=== PATIENT | female | born 1945 | race Caucasian/White ===

== ENCOUNTER → 2016-05-27 | Outpatient (CLI) | payer MEDICARE ==
[2016-05-27 09:08] LABS: MEAN CORPUSCULAR HEMOGLOBIN 31.1 pg (27.0-33.0); MEAN CORPUSCULAR HGB CONC 34.8 g/dl (32.0-36.5); MEAN CORPUSCULAR VOLUME 89.4 fl (80.0-96.0); WHITE BLOOD COUNT 10.9 K/mm3 (4.0-10.0)
[2016-05-27 09:43] LABS: ALBUMIN 3.5 GM/DL (3.2-5.2); ALBUMIN/GLOBULIN RATIO 1.13 (1.00-1.93); BILIRUBIN,TOTAL 0.4 MG/DL (0.2-1.0); CREATININE FOR GFR 1.02 MG/DL (0.55-1.02); POTASSIUM SERUM 3.8 MEQ/L (3.5-5.1); TOTAL PROTEIN 6.6 GM/DL (6.4-8.2)
== END ==
LOC: M LAB 08:13
PROVIDERS: ATTEND Family Medicine
DX: E11.9 Type 2 diabetes mellitus without complications (principal)

== ENCOUNTER → 2016-06-22 | Outpatient (CLI) | payer MEDICARE ==
--- NOTE | 2016-06-22 13:09 | REPMRS ---
Patient History The patient states she had a clinical breast exam in June 2016. Patient is postmenopausal. Family history of ovarian cancer in maternal aunt at age 50 or over, colorectal cancer in maternal aunt, breast cancer in maternal cousin at age 40, and colorectal cancer in maternal uncle at age 50 or over. Benign excisional biopsy of both breasts. Took hormonal contraceptives for 7 years. Took unspecified hormones for 10 years. Sebaceous cyst marked with BB Digital Mammo Screening Bilat: June 22, 2016 - Exam #: [id number] Bilateral CC and MLO view(s) were taken. Technologist: Katie Rodriges, Technologist Prior study comparison: June 13, 2015, digital bilateral screening mammo, performed at [facility]. January 31, 2014, bilateral bilat screen digital mammo, performed at [facility] ([facility] FINDINGS: There are scattered fibroglandular densities. There has been no change in the appearance of the mammogram from the prior studies. There is a mild amount of residual fibroglandular tissue which is fairly symmetric. There is no interval development of dominant mass, architectural distortion, or clustered microcalcification suggestive of malignancy. ASSESSMENT: BI-RADS/ACR category 1 mammogram. Negative. Recommendation Routine screening mammogram in 1 year (for women over age 40). This mammogram was interpreted with the aid of an FDA-approved computer-aided dectection system. Electronically Signed By: Pancho Cortes MD 06/22/16 [id number]
== END ==
LOC: M RAD 10:12
PROVIDERS: ATTEND Nurse Practitioner Women's Health
DX: Z12.31 Encounter for screening mammogram for malignant neoplasm of breast (principal)

== ENCOUNTER → 2016-07-28 | Outpatient (REF) | payer MEDICARE | LOC: M LAB REF 16:56 | PROVIDERS: ATTEND Nurse Practitioner Women's Health | DX: N39.0 Urinary tract infection, site not specified (principal) ==

== ENCOUNTER → 2016-10-07 | Outpatient (CLI) | payer MEDICARE ==
--- NOTE | 2016-10-07 13:39 | REP ---
Left wrist series: Four views. History: Pain after injury. Findings: Four views of the left wrist demonstrate widening of the navicular lunate interval consistent with degenerative disruption of the navicular lunate ligament. The lunate bone itself is diffusely sclerotic. 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 There is slight hypertrophy of the radial styloid with the fragmentation consistent with degenerative change. Diffuse osteopenia is noted otherwise. Impression: 1. 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 2. 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 This could be further evaluated with wrist MRI scanning if feasible. Signed by Jc Mckeon MD 10/07/2016 02:10 P
== END ==
LOC: M WUC 12:14
PROVIDERS: ATTEND Physician Assistant
DX: M25.532 Pain in left wrist (principal)

== ENCOUNTER → 2017-05-27 | Outpatient (CLI) | payer MEDICARE ==
[2017-05-27 09:42] LABS: BASO # 0.1 10^3/uL (0.0-0.2); BASO % 0.8 % (0.0-1.0); EOS # 0.1 10^3/uL (0.0-0.50); HEMATOCRIT 40.6 % (36.0-47.0); HEMOGLOBIN 14.1 g/dl (12.0-15.5); IMMATURE GRANULOCYTE % 0.5 % (0-3.0); LYMPH # 2.7 10^3/uL (1.5-4.5); LYMPH % 34.8 % (24.0-44.0); MEAN CORPUSCULAR HEMOGLOBIN 30.3 pg (27.0-33.0); MEAN CORPUSCULAR HGB CONC 34.7 g/dl (32.0-36.5); MEAN CORPUSCULAR VOLUME 87.1 fl (80.0-96.0); MONO # 0.5 10^3/uL (0.0-0.8); NEUTROPHILS # 4.5 10^3/uL (1.8-7.7); NEUTROPHILS % 56.9 % (36.0-66.0); PLATELET COUNT, AUTOMATED 197 10^3/uL (150-450); RED BLOOD COUNT 4.66 10^6/uL (4.00-5.40); RED CELL DISTRIBUTION WIDTH 11.9 % (11.5-14.5); WHITE BLOOD COUNT 7.9 10^3/uL (4.0-10.0)
[2017-05-27 10:19] LABS: ALBUMIN 3.5 GM/DL (3.2-5.2); ALBUMIN/GLOBULIN RATIO 1.03 (1.00-1.93); ALKALINE PHOSPHATASE 65 U/L (45-117); ALT/SGPT 22 U/L (12-78); ANION GAP 7 MEQ/L (8-16); AST/SGOT 17 U/L (7-37); BILIRUBIN,TOTAL 0.5 MG/DL (0.2-1.0); BLOOD UREA NITROGEN 18 MG/DL (7-18); CALCIUM LEVEL 8.7 MG/DL (8.8-10.2); CARBON DIOXIDE LEVEL 30 MEQ/L (21-32); CHLORIDE LEVEL 105 MEQ/L (98-107); CHOLESTEROL LEVEL 174 MG/DL (<200); CHOLESTEROL RISK RATIO 3.702 (<5); CREATININE FOR GFR 0.76 MG/DL (0.55-1.30); GLOMERULAR FILTRATION RATE > 60.0 (>39); GLUCOSE, FASTING 116 MG/DL (70-100); HDL CHOLESTEROL 47 MG/DL (>40); LDL CHOLESTEROL 102.2 MG/DL (<100); NON-HDL-C 127 MG/DL; SODIUM LEVEL 142 MEQ/L (136-145); TOTAL PROTEIN 6.9 GM/DL (6.4-8.2); TRIGLYCERIDES LEVEL 124 MG/DL (<150)
[2017-05-27 10:30] LABS: MALB URINE SIEMENS 5.6 MG/L; MAU/CREAT RATIO 3.9 MCG/MG (0.0-30.0)
[2017-05-27 10:37] LABS: ESTIMATED AVERAGE GLUCOSE 128 MG/DL (60-110); HEMOGLOBIN A1c 6.1 %
== END ==
LOC: M LAB 08:56
DX: E11.9 Type 2 diabetes mellitus without complications (principal)
CPT/HCPCS: 80053

== ENCOUNTER → 2018-02-02 | Outpatient (CLI) | payer MEDICARE ==
--- NOTE | 2018-02-02 12:54 | REPMRS ---
Patient History The patient states she had a clinical breast exam in January 2018. Family history of breast cancer at age 40 in maternal cousin, ovarian cancer at age 50 or over in maternal aunt, colorectal cancer in maternal aunt, colorectal cancer at age 50 or over in maternal uncle. Benign excisional biopsy of both breasts. Took hormonal contraceptives for 7 years. Took unspecified hormones for 10 years. Digital Mammo Screening Bilat: February 02, 2018 - Exam #: [id number] Bilateral CC and MLO view(s) were taken. Technologist: Candelaria Sharp, Technologist Prior study comparison: June 22, 2016, bilateral digital mammo screening bilat performed at [facility]. June 13, 2015, digital bilateral screening mammo, performed at [facility]. January 31, 2014, bilateral bilat screen digital mammo, performed at [facility] ([facility]). FINDINGS: The breast tissue is almost entirely fat. There has been no change in the appearance of the mammogram from the prior studies. There is no interval development of dominant mass, architectural distortion, or clustered microcalcification typical of malignancy. 3-D tomosynthesis shows no additional findings. Assessment: BI-RADS/ACR category 1 mammogram. Negative. Recommendation Routine screening mammogram of both breasts in 1 year (for women over age 40). This patient's Lifetime Breast Cancer RIsk is estimated at 5.2 %. This mammogram was interpreted with the aid of an FDA-approved computer-aided dectection system. Electronically Signed By: Chris Mckeon MD 02/02/18 [id number]
== END ==
LOC: M RAD 10:37
PROVIDERS: ATTEND Nurse Practitioner Women's Health
DX: Z12.31 Encounter for screening mammogram for malignant neoplasm of breast (principal); Z80.3 Family history of malignant neoplasm of breast

== ENCOUNTER → 2018-04-19 | Outpatient (CLI) | payer MEDICARE ==
[2018-04-19 17:14] LABS: BLOOD UREA NITROGEN 19 MG/DL (7-18); CREATININE FOR GFR 0.71 MG/DL (0.55-1.30); GLOMERULAR FILTRATION RATE > 60.0 (>39)
== END ==
LOC: M LAB 15:36
PROVIDERS: ATTEND Orthopaedic Surgery
DX: M67.431 Ganglion, right wrist (principal)

== ENCOUNTER → 2018-05-22 | Outpatient (CLI) | payer MEDICARE ==
[2018-05-22 11:03] LABS: BASO # 0.1 10^3/uL (0.0-0.2); BASO % 0.7 % (0.0-1.0); EOS # 0.1 10^3/uL (0.0-0.50); EOS % 0.9 % (0.0-3.0); HEMATOCRIT 38.4 % (36.0-47.0); HEMOGLOBIN 13.1 g/dl (12.0-15.5); LYMPH # 2.5 10^3/uL (1.5-4.5); MEAN CORPUSCULAR HEMOGLOBIN 30.5 pg (27.0-33.0); MEAN CORPUSCULAR HGB CONC 34.1 g/dl (32.0-36.5); MEAN CORPUSCULAR VOLUME 89.5 fl (80.0-96.0); MONO # 0.5 10^3/uL (0.0-0.8); MONO % 7.2 % (0.0-5.0); NEUTROPHILS # 3.8 10^3/uL (1.8-7.7); NEUTROPHILS % 54.9 % (36.0-66.0); PLATELET COUNT, AUTOMATED 185 10^3/uL (150-450); RED BLOOD COUNT 4.29 10^6/uL (4.00-5.40); WHITE BLOOD COUNT 6.8 10^3/uL (4.0-10.0)
[2018-05-22 11:21] LABS: HEMOGLOBIN A1c 5.9 %
[2018-05-22 11:36] LABS: ALBUMIN 3.5 GM/DL (3.2-5.2); ALT/SGPT 25 U/L (12-78); BILIRUBIN,TOTAL 0.6 MG/DL (0.2-1.0); BLOOD UREA NITROGEN 16 MG/DL (7-18); CALCIUM LEVEL 8.9 MG/DL (8.8-10.2); CARBON DIOXIDE LEVEL 28 MEQ/L (21-32); CHLORIDE LEVEL 107 MEQ/L (98-107); CHOLESTEROL LEVEL 191 MG/DL (<200); CHOLESTEROL RISK RATIO 3.979 (<5); GLOMERULAR FILTRATION RATE > 60.0 (>39); GLUCOSE, FASTING 111 MG/DL (70-100); HDL CHOLESTEROL 48 MG/DL (>40); LDL CHOLESTEROL 117 MG/DL (<100); NON-HDL-C 143 MG/DL; POTASSIUM SERUM 3.7 MEQ/L (3.5-5.1); SODIUM LEVEL 140 MEQ/L (136-145); TOTAL PROTEIN 6.7 GM/DL (6.4-8.2); TRIGLYCERIDES LEVEL 129 MG/DL (<150)
[2018-05-22 11:46] LABS: MALB URINE SIEMENS 5.1 MG/L; MAU/CREAT RATIO 3.2 MCG/MG (0.0-30.0)
== END ==
LOC: M LAB 10:31
PROVIDERS: ATTEND Family Medicine
DX: E11.9 Type 2 diabetes mellitus without complications (principal)

== ENCOUNTER → 2018-09-21 | Outpatient (CLI) | payer MEDICARE ==
--- NOTE | 2018-09-21 14:58 | REP ---
DIAGNOSTIC MAMMOGRAM LEFT BREAST WITH LEFT BREAST ULTRASOUND: HISTORY: Palpable lump inferomedial left breast. COMPARISON: 02/02/2018 as well as other prior exams. Family history of breast cancer in maternal cousin. Tyrer-zick lifetime risk of breast cancer 4.9%. MLO and CC views of the left breast performed with 3D tomosynthesis. Additional spot compression views of the inferomedial left breast are performed at the site of the reported palpable abnormality, which is marked on the skin. Breast parenchyma is predominantly fatty replaced with no suspicious nodule or architectural distortion. No clustered microcalcifications are seen. Real-time sonographic evaluation of the left breast is performed at the site of the palpable lump inferomedially. No cyst is or solid nodule is seen sonographically. IMPRESSION: BIRADS 1: BI-RADS/ACR category 1 mammogram. Negative Mammogram. ACR 1 negative mammogram and ultrasound left breast. There is no mammographic or sonographic evidence of mass at the site of the reported palpable abnormality in the inferomedial left breast. A negative mammogram and ultrasound should not deter biopsy of there is a clinical suspicious palpable mass present. Clinical correlation and followup recommended. I would recommend followup bilateral mammogram in January 2019, which would be 1 year from her prior bilateral screening mammogram. This mammogram was interpreted with the aid of an FDA-approved computer-aided detection system. A. Negative x-ray reports should not delay biopsy if a dominant or clinically suspicious mass is present. B. Four to eight percent of cancers are not identified by x-ray. C. Adenosis and dense breasts may obscure an underlying neoplasm. The patient states she/he had a clinical breast exam in January 2018. The patient letter being requested is M2. Electronically Signed by Pancho Cortes MD 09/21/2018 03:22 P
== END ==
LOC: M RAD 12:03
PROVIDERS: ATTEND Family Medicine
DX: N63.20 Unspecified lump in the left breast, unspecified quadrant (principal)
CPT/HCPCS: 76642; 77065; G0279

== ENCOUNTER → 2018-10-11 | Outpatient (CLI) | payer MEDICARE ==
[2018-10-11 09:03] LABS: BASO # 0.1 10^3/uL (0.0-0.2); BASO % 0.7 % (0.0-1.0); EOS # 0.1 10^3/uL (0.0-0.50); EOS % 1.2 % (0.0-3.0); HEMATOCRIT 39.2 % (36.0-47.0); HEMOGLOBIN 13.3 g/dl (12.0-15.5); LYMPH # 2.5 10^3/uL (1.5-4.5); LYMPH % 36.6 % (24.0-44.0); MEAN CORPUSCULAR HEMOGLOBIN 30.6 pg (27.0-33.0); MEAN CORPUSCULAR HGB CONC 33.9 g/dl (32.0-36.5); MEAN CORPUSCULAR VOLUME 90.3 fl (80.0-96.0); MONO # 0.4 10^3/uL (0.0-0.8); MONO % 6.3 % (0.0-5.0); NEUTROPHILS # 3.8 10^3/uL (1.8-7.7); NEUTROPHILS % 54.6 % (36.0-66.0); PLATELET COUNT, AUTOMATED 168 10^3/uL (150-450); RED BLOOD COUNT 4.34 10^6/uL (4.00-5.40); WHITE BLOOD COUNT 6.9 10^3/uL (4.0-10.0)
[2018-10-11 09:37] LABS: THYROID STIMULATING HORMONE 1.77 uIU/ML (0.358-3.740)
== END ==
LOC: M LAB 08:17
PROVIDERS: ATTEND Obstetrics & Gynecology
DX: R53.83 Other fatigue (principal)

== ENCOUNTER → 2018-11-01 | Outpatient (CLI) | payer MEDICARE ==
[2018-11-01 08:57] LABS: HEMOGLOBIN 13.5 g/dl (12.0-15.5); MEAN CORPUSCULAR HEMOGLOBIN 30.1 pg (27.0-33.0); MEAN CORPUSCULAR HGB CONC 33.8 g/dl (32.0-36.5); MEAN CORPUSCULAR VOLUME 89.3 fl (80.0-96.0); PLATELET COUNT, AUTOMATED 182 10^3/uL (150-450); RED BLOOD COUNT 4.48 10^6/uL (4.00-5.40); WHITE BLOOD COUNT 7.4 10^3/uL (4.0-10.0)
[2018-11-01 09:29] LABS: ALBUMIN 3.4 GM/DL (3.2-5.2); ALT/SGPT 21 U/L (12-78); BILIRUBIN,TOTAL 0.4 MG/DL (0.2-1.0); BLOOD UREA NITROGEN 13 MG/DL (7-18); CARBON DIOXIDE LEVEL 29 MEQ/L (21-32); CHLORIDE LEVEL 106 MEQ/L (98-107); CREATININE FOR GFR 0.68 MG/DL (0.55-1.30); GLOMERULAR FILTRATION RATE > 60.0 (>39); GLUCOSE, FASTING 110 MG/DL (70-100); POTASSIUM SERUM 3.7 MEQ/L (3.5-5.1); SODIUM LEVEL 142 MEQ/L (136-145); TOTAL PROTEIN 6.8 GM/DL (6.4-8.2)
== END ==
LOC: M LAB 08:20
PROVIDERS: ATTEND Family Medicine
DX: Z01.818 Encounter for other preprocedural examination (principal)

== ENCOUNTER → 2019-06-04 | Outpatient (CLI) | payer MEDICARE ==
[2019-06-04 14:27] LABS: HEMATOCRIT 41.7 % (36.0-47.0); HEMOGLOBIN 14.2 g/dl (12.0-15.5); MEAN CORPUSCULAR HEMOGLOBIN 30.5 pg (27.0-33.0); MEAN CORPUSCULAR HGB CONC 34.1 g/dl (32.0-36.5); MEAN CORPUSCULAR VOLUME 89.5 fl (80.0-96.0); PLATELET COUNT, AUTOMATED 218 10^3/uL (150-450); RED BLOOD COUNT 4.66 10^6/uL (4.00-5.40); WHITE BLOOD COUNT 7.9 10^3/uL (4.0-10.0)
[2019-06-04 14:39] LABS: ALBUMIN 3.6 GM/DL (3.2-5.2); ALT/SGPT 24 U/L (12-78); BILIRUBIN,TOTAL 0.7 MG/DL (0.2-1.0); BLOOD UREA NITROGEN 13 MG/DL (7-18); CALCIUM LEVEL 9.1 MG/DL (8.8-10.2); CARBON DIOXIDE LEVEL 30 MEQ/L (21-32); CHLORIDE LEVEL 102 MEQ/L (98-107); CHOLESTEROL LEVEL 205 MG/DL (<200); CHOLESTEROL RISK RATIO 4.767 (<5); CREATININE FOR GFR 0.75 MG/DL (0.55-1.30); GLOMERULAR FILTRATION RATE > 60.0 (>39); GLUCOSE, FASTING 129 MG/DL (70-100); HDL CHOLESTEROL 43 MG/DL (>40); LDL CHOLESTEROL 129 MG/DL (<100); NON-HDL-C 162 MG/DL; SODIUM LEVEL 138 MEQ/L (136-145); TOTAL PROTEIN 7.3 GM/DL (6.4-8.2); TRIGLYCERIDES LEVEL 163 MG/DL (<150)
[2019-06-04 18:42] LABS: HEMOGLOBIN A1c 6.8 %
[2019-06-04 21:11] LABS: CREATININE, URINE 58.6 MG/DL; MALB URINE SIEMENS < 5.0 MG/L; MAU/CREAT RATIO 8.5 MCG/MG (0.0-30.0)
== END ==
LOC: M WUC 09:11
PROVIDERS: ATTEND Family Medicine
DX: E11.9 Type 2 diabetes mellitus without complications (principal)

== ENCOUNTER 2019-08-18 08:49 | Emergency (ER) | payer MEDICARE ==
[~2019-08-18] VITALS: Ht 167.6 cm; Wt 101.1 kg
[2019-08-18] MEDS ORDERED: OMEP-218 PO (09:00)
[2019-08-18] MEDS ORDERED: SIMV20TA22 PO (09:00)
[2019-08-18] MEDS ORDERED: HYDR25TAB PO (09:00)
[2019-08-18] MEDS ORDERED: PROPARACAINE 0.5% OPHTH SOL 15ML OD ONE (10:00)
[2019-08-18 10:52] VITALS: BP 144/65
== END 2019-08-18 10:58 | disposition short-term general hospital (02) ==
LOC: M ED 08:49
DX: H54.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, right eye, normal vision left eye (principal); I10 Essential (primary) hypertension; Z79.899 Other long term (current) drug therapy; Z88.5 Allergy status to narcotic agent

== ENCOUNTER → 2019-09-05 | Outpatient (CLI) | payer MEDICARE ==
[~2019-09-05] MED LIST: HYDR25TAB PO; OMEP-218 PO; SIMV20TA22 PO
--- NOTE | 2019-09-05 10:56 | REP ---
Clinical: Pain. Technique: AP, lateral, bilateral oblique views of the left first toe. Findings: Age-related degenerative changes include increased sclerosis with subtle spurring and joint space narrowing at the first metatarsophalangeal joint with overlying swelling and to a lesser extent the first tarsometatarsal joint. No acute fracture dislocation. Impression: Degenerative changes. Electronically Signed by Drake De La Paz MD 09/05/2019 10:47 A
[2019-09-05 12:26] LABS: ALBUMIN 3.4 GM/DL (3.2-5.2); BLOOD UREA NITROGEN 13 MG/DL (7-18); CALCIUM LEVEL 8.8 MG/DL (8.8-10.2); CARBON DIOXIDE LEVEL 29 MEQ/L (21-32); CHLORIDE LEVEL 102 MEQ/L (98-107); CREATININE FOR GFR 0.82 MG/DL (0.55-1.30); GLOMERULAR FILTRATION RATE > 60.0 (>39); GLUCOSE, FASTING 136 MG/DL (70-100); PHOSPHORUS LEVEL 3.3 MG/DL (2.5-4.9); POTASSIUM SERUM 3.6 MEQ/L (3.5-5.1); SODIUM LEVEL 138 MEQ/L (136-145); URIC ACID 7.2 MG/DL (2.6-6.0)
== END ==
LOC: M WUC 10:00
PROVIDERS: ATTEND Physician Assistant
DX: M19.072 Primary osteoarthritis, left ankle and foot (principal)

== ENCOUNTER → 2020-01-23 | Outpatient (CLI) | payer MEDICARE ==
--- NOTE | 2020-01-23 11:32 | REPMRS ---
Patient History The patient states she has not had a clinical breast exam in over a year. Patient is postmenopausal. Family history of breast cancer at age 40 in maternal cousin, ovarian cancer at age 50 or over in maternal aunt, colorectal cancer in maternal aunt, colorectal cancer at age 50 or over in maternal uncle. Benign excisional biopsy of the left breast, 2019. Benign excisional biopsy of both breasts. Took hormonal contraceptives for 7 years. Took unspecified hormones for 10 years. Digital Woman Screen Mammo: January 23, 2020 - Exam #: [id number] Bilateral CC and MLO view(s) were taken. Technologist: Julianna Escamilla, Technologist Prior study comparison: February 02, 2018, bilateral digital mammo screening bilat, performed at [facility]. June 22, 2016, bilateral digital mammo screening bilat, performed at [facility]. June 13, 2015, digital bilateral screening mammo, performed at [facility]. FINDINGS: The breast tissue is almost entirely fat. The Volpara volumetric breast density category is: A. There has been no change in the appearance of the mammogram from the prior studies. There is no interval development of dominant mass, architectural distortion, or grouped microcalcification typical of malignancy. 3-D tomosynthesis shows no additional findings. Assessment: BI-RADS/ACR category 1 mammogram. Negative Mammogram. Recommendation Routine screening mammogram of both breasts in 1 year (for women over age 40). This patient's [facility] Lifetime Breast Cancer RIsk is estimated at 4.6 %. This mammogram was interpreted with the aid of an FDA-approved computer-aided dectection system. Electronically Signed By: Chris Mckeon MD 01/23/20 [id number]
== END ==
LOC: M WHC 10:07
PROVIDERS: ATTEND Family Medicine
DX: Z12.31 Encounter for screening mammogram for malignant neoplasm of breast (principal)

== ENCOUNTER 2020-04-10 17:00 | Emergency (ER) | payer MEDICARE ==
[~2020-04-10] VITALS: Ht 167.6 cm; Wt 96.4 kg
[~2020-04-10 17:00] MED LIST changes: +HYDR-3490 PO; -HYDR25TAB PO
--- OUTSIDE RECORDS SUMMARY | 2020-04-10 17:05 | CCD ---
Author Author [facility] Organization [facility] Address Unknown Phone Unavailable Care Team Providers Care Director Of Software Engineering Name Role Phone Sourav Yoon MD Unavailable Unavailable Sourav Yoon MD Unavailable Unavailable Sourav Yoon MD Unavailable Unavailable Kylah LUNA DPM Unavailable Unavailable Kylah LUNA DPM Unavailable Unavailable Kylah LUNA DPM Unavailable Unavailable Kylah LUNA DPM Unavailable Unavailable Kylah LUNA DPM Unavailable Unavailable Kylah LUNA DPM Unavailable Unavailable Kylah LUNA DPM Unavailable Unavailable Kylah LUNA DPM Unavailable Unavailable Kylah LUNA DPM Unavailable Unavailable Kylah LUNA DPM Unavailable Unavailable Kylah LUNA DPM Unavailable Unavailable Kylah LUNA DPM Unavailable Unavailable Kylah LUNA DPM Unavailable Unavailable Kylah LUNA DPM Unavailable Unavailable Kylah LUNA DPM Unavailable Unavailable Kylah LUNA DPM Unavailable Unavailable Kylah LUNA DPM Unavailable Unavailable Kylah LUNA DPM Unavailable Unavailable Kylah LUNA DPM Unavailable Unavailable Kylah LUNA DPM Unavailable Unavailable Kylah LUNA DPM Unavailable Unavailable Kylah LUNA DPM Unavailable Unavailable Kylah LUNA DPM Unavailable Unavailable Kylah LUNA DPM Unavailable Unavailable Kylah LUAN DPM Unavailable Unavailable Kylah LUNA DPM Unavailable Unavailable Kylah LUNA DPM Unavailable Unavailable JEREMY Kylah IBARRA DPM Unavailable Unavailable Kylah LUNA DPM Unavailable Unavailable JEREMY, Kylah IBARRA DPM Unavailable Unavailable ALIASES , DEFAULT / GENERIC / UNKNOWN PROVIDER * Unavailable Unavailable ALIASES , DEFAULT / GENERIC / UNKNOWN PROVIDER * Unavailable Unavailable ALIASES , DEFAULT / GENERIC / UNKNOWN PROVIDER * Unavailable Unavailable ALIASES , DEFAULT / GENERIC / UNKNOWN PROVIDER * Unavailable Unavailable ALIASES , DEFAULT / GENERIC / UNKNOWN PROVIDER * Unavailable Unavailable ALIASES , DEFAULT / GENERIC / UNKNOWN PROVIDER * Unavailable Unavailable ALIASES , DEFAULT / GENERIC / UNKNOWN PROVIDER * Unavailable Unavailable ALIASES , DEFAULT / GENERIC / UNKNOWN PROVIDER * Unavailable Unavailable ALIASES , DEFAULT / GENERIC / UNKNOWN PROVIDER * Unavailable Unavailable ALIASES , DEFAULT / GENERIC / UNKNOWN PROVIDER * Unavailable Unavailable ALIASES , DEFAULT / GENERIC / UNKNOWN PROVIDER * Unavailable Unavailable ALIASES , DEFAULT / GENERIC / UNKNOWN PROVIDER * Unavailable Unavailable ALIASES , DEFAULT / GENERIC / UNKNOWN PROVIDER * Unavailable Unavailable ALIASES , DEFAULT / GENERIC / UNKNOWN PROVIDER * Unavailable Unavailable ALIASES , DEFAULT / GENERIC / UNKNOWN PROVIDER * Unavailable Unavailable ALIASES , DEFAULT / GENERIC / UNKNOWN PROVIDER * Unavailable Unavailable ALIASES , DEFAULT / GENERIC / UNKNOWN PROVIDER * Unavailable Unavailable ALIASES , DEFAULT / GENERIC / UNKNOWN PROVIDER * Unavailable Unavailable ALIASES , DEFAULT / GENERIC / UNKNOWN PROVIDER * Unavailable Unavailable ALIASES , DEFAULT / GENERIC / UNKNOWN PROVIDER * Unavailable Unavailable ALIASES , DEFAULT / GENERIC / UNKNOWN PROVIDER * Unavailable Unavailable ALIASES , DEFAULT / GENERIC / UNKNOWN PROVIDER * Unavailable Unavailable ALIASES , DEFAULT / GENERIC / UNKNOWN PROVIDER * Unavailable Unavailable ALIASES , DEFAULT / GENERIC / UNKNOWN PROVIDER * Unavailable Unavailable ALIASES , DEFAULT / GENERIC / UNKNOWN PROVIDER * Unavailable Unavailable ALIASES , DEFAULT / GENERIC / UNKNOWN PROVIDER * Unavailable Unavailable ALIASES , DEFAULT / GENERIC / UNKNOWN PROVIDER * Unavailable Unavailable ALIASES , DEFAULT / GENERIC / UNKNOWN PROVIDER * Unavailable Unavailable ALIASES , DEFAULT / GENERIC / UNKNOWN PROVIDER * Unavailable Unavailable ALIASES , DEFAULT / GENERIC / UNKNOWN PROVIDER * Unavailable Unavailable ALIASES , DEFAULT / GENERIC / UNKNOWN PROVIDER * Unavailable Unavailable ALIASES , DEFAULT / GENERIC / UNKNOWN PROVIDER * Unavailable Unavailable ALIASES , DEFAULT / GENERIC / UNKNOWN PROVIDER * Unavailable Unavailable ALIASES , DEFAULT / GENERIC / UNKNOWN PROVIDER * Unavailable Unavailable ALIASES , DEFAULT / GENERIC / UNKNOWN PROVIDER * Unavailable Unavailable ALIASES , DEFAULT / GENERIC / UNKNOWN PROVIDER * Unavailable Unavailable ALIASES , DEFAULT / GENERIC / UNKNOWN PROVIDER * Unavailable Unavailable ALIASES , DEFAULT / GENERIC / UNKNOWN PROVIDER * Unavailable Unavailable ALIASES , DEFAULT / GENERIC / UNKNOWN PROVIDER * Unavailable Unavailable ALIASES , DEFAULT / GENERIC / UNKNOWN PROVIDER * Unavailable Unavailable ALIASES , DEFAULT / GENERIC / UNKNOWN PROVIDER * Unavailable Unavailable ALIASES , DEFAULT / GENERIC / UNKNOWN PROVIDER * Unavailable Unavailable ALIASES , DEFAULT / GENERIC / UNKNOWN PROVIDER * Unavailable Unavailable ALIASES , DEFAULT / GENERIC / UNKNOWN PROVIDER * Unavailable Unavailable ALIASES , DEFAULT / GENERIC / UNKNOWN PROVIDER * Unavailable Unavailable ALIASES , DEFAULT / GENERIC / UNKNOWN PROVIDER * Unavailable Unavailable ALIASES , DEFAULT / GENERIC / UNKNOWN PROVIDER * Unavailable Unavailable ALIASES , DEFAULT / GENERIC / UNKNOWN PROVIDER * Unavailable Unavailable ALIASES , DEFAULT / GENERIC / UNKNOWN PROVIDER * Unavailable Unavailable ALIASES , DEFAULT / GENERIC / UNKNOWN PROVIDER * Unavailable Unavailable ALIASES , DEFAULT / GENERIC / UNKNOWN PROVIDER * Unavailable Unavailable ALIASES , DEFAULT / GENERIC / UNKNOWN PROVIDER * Unavailable Unavailable ALIASES , DEFAULT / GENERIC / UNKNOWN PROVIDER * Unavailable Unavailable SCHNAIDT, KHARI Unavailable Unavailable Orenberg, L Stacey Unavailable Unavailable Orenberg, L Stacey Unavailable Unavailable Orenberg, L Stacey Unavailable Unavailable Orenberg, L Stacey Unavailable Unavailable Orenberg, L Stacey Unavailable Unavailable Airam, Casey Xiao MD Unavailable Unavailable Airam, Casey Xiao MD Unavailable Unavailable Airam, Casey Xiao MD Unavailable Unavailable AiramCasey MD Unavailable Unavailable AiramCasey MD Unavailable Unavailable AiramCasey MD Unavailable Unavailable AiramCasey MD Unavailable Unavailable AiramCasey MD Unavailable Unavailable AiramCasey MD Unavailable Unavailable AiramCasey MD Unavailable Unavailable Casey Alegria MD Unavailable Unavailable AiramCasey MD Unavailable Unavailable AiramCasey MD Unavailable Unavailable AiramCasey MD Unavailable Unavailable Airam, Casey Xiao MD Unavailable Unavailable Casey Alegria MD Unavailable Unavailable AiramCasey lloyd MD Unavailable Unavailable AiramCasey MD Unavailable Unavailable AiramCasey MD Unavailable Unavailable AiramCasey MD Unavailable Unavailable AiramCasey MD Unavailable Unavailable Airam, Casey Xiao MD Unavailable Unavailable Airam, G Dameon MD Unavailable Unavailable AiramCasey MD Unavailable Unavailable AiramCasey MD Unavailable Unavailable AiramCasey MD Unavailable Unavailable AiramCasey MD Unavailable Unavailable Airam, Casey Xiao MD Unavailable Unavailable Airam, Casey Xiao MD Unavailable Unavailable Airam, Casey Xiao MD Unavailable Unavailable AiramCasey MD Unavailable Unavailable Airam, Casey Xiao MD Unavailable Unavailable Airam, Casey Xiao MD Unavailable Unavailable Airam, Casey Xiao MD Unavailable Unavailable Airam, Casey Xiao MD Unavailable Unavailable Airam, Casey Xiao MD Unavailable Unavailable Airam, Casey Xiao MD Unavailable Unavailable Airam, Casey Xiao MD Unavailable Unavailable Airam, Casey Xiao MD Unavailable Unavailable Airam, Casey Xiao MD Unavailable Unavailable Airam, Casey Xiao MD Unavailable Unavailable Airam, Casey Xiao MD Unavailable Unavailable Airam, Casey Xiao MD Unavailable Unavailable AiramCasey MD Unavailable Unavailable AiramCasey MD Unavailable Unavailable AiramCasey MD Unavailable Unavailable AiramCasey MD Unavailable Unavailable YINKAEELain Vela MD Unavailable Unavailable DULEEPLaniRIDDHI MD Unavailable Unavailable YINKAEEPLani MD Unavailable Unavailable DULEEPLani MD Unavailable Unavailable YINKAEELani Vela MD Unavailable Unavailable YINKAEEPLani MD Unavailable Unavailable DULEEPLani MD Unavailable Unavailable YINKAEEPLani MD Unavailable Unavailable YINKAEELani Vela MD Unavailable Unavailable YINKAEELani Vela MD Unavailable Unavailable YINKAEEP K RIDDHI MD Unavailable Unavailable YINKAEEP K RIDDHI GUADARRAMA Unavailable Unavailable DULEEP, K RIDDHI MD Unavailable Unavailable YINKAEEP K RIDDHI GUADARRAMA Unavailable Unavailable DULEEP, K RIDDHI MD Unavailable Unavailable YINKAEEPLani MD Unavailable Unavailable YINKAEEP K RIDDHI MD Unavailable Unavailable DULEEP K RIDDHI GUADARRAMA Unavailable Unavailable DULEEP, K RIDDHI MD Unavailable Unavailable DULEEPLani MD Unavailable Unavailable YINKAEEPLani MD Unavailable Unavailable YINKAEEP K RIDDHI GUADARRAMA Unavailable Unavailable DULEEP, K RIDDHI MD Unavailable Unavailable DULEEP, K RIDDHI MD Unavailable Unavailable DULEEP, K RIDDHI MD Unavailable Unavailable DULEEP, K RIDDHI MD Unavailable Unavailable DULEEP, K RIDDHI MD Unavailable Unavailable DULEEP, K RIDDHI MD Unavailable Unavailable DULEEP, K RIDDHI MD Unavailable Unavailable DULEEP, K RIDDHI MD Unavailable Unavailable DULEEP, K RIDDHI MD Unavailable Unavailable DULEEP, K RIDDHI MD Unavailable Unavailable DULEEP, K RIDDHI MD Unavailable Unavailable DULEEP, K RIDDHI MD Unavailable Unavailable DULEEP, K RIDDHI MD Unavailable Unavailable DULEEP, K RIDDHI MD Unavailable Unavailable DULEEP, K RIDDHI MD Unavailable Unavailable DULEEP, K RIDDHI MD Unavailable Unavailable DULEEP, K RIDDHI MD Unavailable Unavailable DULEEP, K RIDDHI MD Unavailable Unavailable DULEEP, K RIDDHI MD Unavailable Unavailable DULEEP, K RIDDHI MD Unavailable Unavailable DULEEP, K RIDDHI MD Unavailable Unavailable DULEEP, K RIDDHI MD Unavailable Unavailable DULEEP, K RIDDHI MD Unavailable Unavailable DULEEP, K RIDDHI MD Unavailable Unavailable DULEEP, K RIDDHI MD Unavailable Unavailable DULEEP, K RIDDHI MD Unavailable Unavailable DULEEP, K RIDDHI MD Unavailable Unavailable DULEEP, K RIDDHI MD Unavailable Unavailable DULEEP, K RIDDHI MD Unavailable Unavailable DULEEP, K RIDDHI MD Unavailable Unavailable DULEEP, K RIDDHI MD Unavailable Unavailable DULEEP, K RIDDHI MD Unavailable Unavailable DULEEP, K RIDDHI MD Unavailable Unavailable DULEEP, K RIDDHI MD Unavailable Unavailable DULEEP, K RIDDHI MD Unavailable Unavailable DULEEP, K RIDDHI MD Unavailable Unavailable DULEEP, K RIDDHI MD Unavailable Unavailable Bebeto TRUJILLO MD Unavailable Bebeto TRUJILLO MD Unavailable Bebeto TRUJILLO MD Unavailable Bebeto TRUJILLO MD Unavailable Bebeto TRUJILLO MD Unavailable RADHA FOUNTAIN MD Unavailable RADHA FOUNTAIN MD Unavailable RADHA FONUTAIN MD Unavailable RADHA FOUNTAIN MD Unavailable RADHA FOUNTAIN MD Unavailable ASHLEY [id number], E JOHN PAUL [id number] Unavailable Unavailab le ASHLEY [id number], E JOHN PAUL [id number] Unavailable Unavailab le ASHLEY [id number], E JOHN PAUL [id number] Unavailable Unavailab le LETTIERE, A BRENDEN PA Unavailable Unavailable LETTIERE, A BRENDEN PA Unavailable Unavailable LETTIERE, A BRENDEN PA Unavailable Unavailable LETTIERE, A BRENDEN PA Unavailable Unavailable LETTIERE, A BRENDEN PA Unavailable Unavailable LETTIERE, A BRENDEN PA Unavailable Unavailable LETTIERE, A BRENDEN PA Unavailable Unavailable LETTIERE, A BRENDEN PA Unavailable Unavailable LETTIERE, A BRENDEN PA Unavailable Unavailable LETTIERE, A BRENDEN PA Unavailable Unavailable LETTIERE, A BRENDEN PA Unavailable Unavailable LETTIERE, A BRENDEN PA Unavailable Unavailable LETTIERE, A BRENDEN PA Unavailable Unavailable LETTIERE, A BRENDEN PA Unavailable Unavailable LETTIERE, A BRENDEN PA Unavailable Unavailable LETTIERE, A BRENDEN PA Unavailable Unavailable LETTIERE, A BRENDEN PA Unavailable Unavailable LETTIERE, A BRENDEN PA Unavailable Unavailable LETTIERE, A BRENDEN PA Unavailable Unavailable LETTIERE, A BRENDEN PA Unavailable Unavailable LETTIERE, A BRENDEN PA Unavailable Unavailable LETTIERE, A BRENDEN PA Unavailable Unavailable LETTIERE, A BRENDEN PA Unavailable Unavailable LETTIERE, A BRENDEN PA Unavailable Unavailable LETTIERE, A BRENDEN PA Unavailable Unavailable LETTIERE, A BRENDEN PA Unavailable Unavailable LETTIERE, A BRENDEN PA Unavailable Unavailable LETTIERE, A BRENDEN PA Unavailable Unavailable LETTIERE, A BRENDEN PA Unavailable Unavailable KUROCHKIN, KIRTI Unavailable Unavailable Re-disclosure Warning The records that you are about to access may contain information from federally-assisted alcohol or drug abuse programs. If such information is present, then the following federally mandated warning applies: This information has been disclosed to you from records protected by federal confidentiality rules (42 CFR part 2). The federal rules prohibit you from making any further disclosure of this information unless further disclosure is expressly permitted by the written consent of the person to whom it pertains or as otherwise permitted by 42 CFR part 2. A general authorization for the release of medical or other information is NOT sufficient for this purpose. The Federal rules restrict any use of the information to criminally investigate or prosecute any alcohol or drug abuse patient.The records that you are about to access may contain highly sensitive health information, the redisclosure of which is protected by Article 27-F of the [facility] Public Health law. If you continue you may have access to information: Regarding HIV / AIDS; Provided by facilities licensed or operated by the [facility] Office of Mental Health; or Provided by the [facility] Office for People With Developmental Disabilities. If such information is present, then the following [facility] mandated warning applies: This information has been disclosed to you from confidential records which are protected by state law. State law prohibits you from making any further disclosure of this information without the specific written consent of the person to whom it pertains, or as otherwise permitted by law. Any unauthorized further disclosure in violation of state law may result in a fine or chcf sentence or both. A general authorization for the release of medical or other information is NOT sufficient authorization for further disc losure. Family History Family Member Name Family Member Gender Family Member Status Date o f Status Description Data Source(s) Unknown Unknown Problem [facility] ([facility]) Unknown Male Problem [facility] ([facility]) Unknown Unknown Problem [facility] ([facility] Unknown Female Problem [facility] ([facility] Unknown Female Problem [facility] ([facility] Encounters Encounter Providers Location Date Indications Data Source(s ) Outpatient 05/15/2020 12:00:00 AM EDT [facility] Outpatient Attender: Stacey Raymundo [id number] 2019 12:00:00 AM EDT - 12/04/2019 03:10:05 PM EDT Central retinal artery occlusion, right eye [facility] Central retinal artery occlusion, right eye Outpatient Attender: STACEY ULNA [facility] Office 11/14 09:15:00 AM EDT [facility] ([facility] Outpatient Attender: JOHN PAUL RAMIREZ [id number] 1 12:00:00 AM EDT - 11/27/2019 02:15:22 PM EDT Occlusion and stenosis of left carotid artery [facility] Occlusion and stenosis of left carotid a rtery Outpatient Referrer: Jaylen Yoon MD 11/27/2019 12:0 0:00 AM EDT Occlusion and stenosis of left carotid artery [facility] Occlusion and stenosis of left carotid a rtery Outpatient Attender: KITRI ALSTON [id number] 10/29 12:00:00 AM EDT - 10/30/2019 02:17:12 PM EDT Central retinal artery occlusion, right eye [facility] Central retinal artery occlusion, right eye Outpatient Attender: KIRTI ALSTON [id number] 09/24 12:00:00 AM EDT - 09/25/2019 03:39:27 PM EDT Central retinal artery occlusion, right eye [facility] Central retinal artery occlusion, right eye Outpatient Attender: Dameon Alegria MDReferrer: Dameon navarrete MD 09/11/2019 12:00:00 AM EDT Central retinal artery occlusion, right eye [facility] Central retinal artery occlusion, right eye Outpatient Attender: KHARI BRISENO [id number] 12:00:00 AM EDT - 09/11/2019 02:39:24 PM EDT [facility] Outpatient Attender: BRENDEN rhoades 09/05/2019 09:40:00 AM EDT [facility] ([facility]) Outpatient 08/31/2019 12:00:00 AM EDT [facility] Outpatient Attender: JOHN PAUL RAMIREZ [id number]: JOHN PAUL MONGE [id number] 08/29/2019 12:00:00 AM EDT Occlusion and stenosis of left carotid artery [facility] Occlusion and stenosis of left carotid a rtery Outpatient Attender: KIRTI ALSTON [id number] 08/26 12:00:00 AM EDT - 08/27/2019 01:14:36 PM EDT Central retinal artery occlusion, right eye [facility] Central retinal artery occlusion, right eye Inpatient Attender: DEFAULT / GENE PK / UNKNOWN PROVIDER ALIASES Attender: RIDDHI TELLO MDAttender: RADHA FOUNTAIN MDAttender: SAIDA TRUJILLO MDAdmitter: RADHA FOUNTAIN MDReferrer: RADHA FOUNTAIN MDConsultant: JOHN PAUL RAMIREZ [id number] 08/18/2019 12:00:00 AM EDT - 08/22/2019 11:18:00 AM EDT Central retinal artery occlusion, right eye [facility] Central retinal artery occlusion, right eye Patient discharged. Medications Medication Brand Name Start Date Product Form Dose Route Admi nistrative Instructions Pharmacy Instructions Status Indications Reaction Description Data Source(s) Proparacaine hydrochloride 5 MG/ML Ophth almic Solution proparacaine (ALCAINE) 0.5 % ophthalmic solution 1 drop proparacaine (ALCAINE) 0.5 % ophthalmic solution 1 drop 12/04/2019 02:00:00 PM EDT 1 [drp] Both Eyes completed 1 drop, Both Eyes, Once, Tue 1020/20 at 1400, For 1 d ose [facility] Medication administered onsite Proparacaine hydrochloride 5 MG/ML Ophth almic Solution proparacaine (ALCAINE) 0.5 % ophthalmic solution 1 drop proparacaine (ALCAINE) 0.5 % ophthalmic solution 1 drop 10/30/2019 01:15:00 PM EDT 1 [drp] Both Eyes completed 1 drop, Both Eyes, Once, Tue 9/20 at 1315, For 1 do [facility] Medication administered onsite Proparacaine hydrochloride 5 MG/ML Ophth almic Solution proparacaine (ALCAINE) 0.5 % ophthalmic solution 1 drop proparacaine (ALCAINE) 0.5 % ophthalmic solution 1 drop 09/25/2019 02:00:00 PM EDT 1 [drp] Both Eyes completed 1 drop, Both Eyes, Once, Tue 8/20 at 1400, For 1 do [facility] Medication administered onsite Phenylephrine Hydrochloride 25 MG/ML Oph thalmic Solution phenylephrine (MYDFRIN) 2.5 % ophthalmic solution 1 drop phenylephrine (MYDFRIN) 2.5 % ophthalmic solution 1 drop 09/25/2019 02:00:00 PM EDT 1 [drp] Both Eyes completed 1 drop, Both Eyes, Once, 09/25/19 at 1400, For 1 do se [facility] Medication administered onsite Tropicamide 10 MG/ML Ophthalmic Solution tropicamide (MYDRIACYL) 1 % ophthalmic solution 1 drop tropicamide (MYDRIACYL) 1 % ophthalmic solution 1 drop 09/25/2019 02:00:00 PM EDT 1 [drp] Both Eyes completed 1 drop, Both Eyes, Once, Tue09/25/19 at 1400, For 1 dose [facility] Medication administered onsite Phenylephrine Hydrochloride 25 MG/ML Oph thalmic Solution phenylephrine (MYDFRIN) 2.5 % ophthalmic solution 1 drop phenylephrine (MYDFRIN) 2.5 % ophthalmic solution 1 drop 09/11/2019 01:30:00 PM EDT 1 [drp] Both Eyes a ctive [facility] Tropicamide 10 MG/ML Ophthalmic Solution tropicamide (MYDRIACYL) 1 % ophthalmic solution 1 drop tropicamide (MYDRIACYL) 1 % ophthalmic solution 1 drop 09/11/2019 01:30:00 PM EDT 1 [drp] Both Eyes active [facility] fluorescein-benoxinate (FLURATE) 0.25-0.4 % ophthalmic solution 1 drop [id number] 09/11/2019 01:30:00 PM EDT 1 [drp] Both Eyes acti ve [facility] Post-Op Shoe/Soft TOP/Women/Large 09/05/2019 12:00:00 AM EDT active [facility] ([facility]) Prednisone 20 MG Oral Tablet Prednisone 09/05/2019 12:00:00 AM EDT active [facility] ([facility]) Tropicamide 10 MG/ML Ophthalmic Solution tropicamide (MYDRIACYL) 1 % ophthalmic solution 1 drop tropicamide (MYDRIACYL) 1 % ophthalmic solution 1 drop 08/27/2019 12:30:00 PM EDT 1 [drp] Both Eyes completed [facility] Proparacaine hydrochloride 5 MG/ML Ophth almic Solution proparacaine (ALCAINE) 0.5 % ophthalmic solution 1 drop proparacaine (ALCAINE) 0.5 % ophthalmic solution 1 drop 08/27/2019 12:30:00 PM EDT 1 [drp] Both Eyes completed [facility] Phenylephrine Hydrochloride 25 MG/ML Oph thalmic Solution phenylephrine (MYDFRIN) 2.5 % ophthalmic solution 1 drop phenylephrine (MYDFRIN) 2.5 % ophthalmic solution 1 drop 08/27/2019 12:30:00 PM EDT 1 [drp] Both Eyes completed [facility] fluorescein 10 % injection 500 mg [id number] 08/27/2019 12:30:00 PM E DT 500 mg Intravenous completed Central retinal artery occlusion of right eye 500 mg (5 mL), Intravenous, Once, 08/27/19 at 1230, For 1 dose [facility] Central retinal artery occlusion of righ t eye Medication administered onsite atorvastatin 80 MG Oral Tablet Atorvastatin Calcium 80 MG Oral Tablet (LIPITOR) Atorvastatin Calcium 80 MG Oral Tablet (LIPITOR) 08/22/2019 12:00:00 AM EDT 80 mg Oral active Take 1 tablet by mouth e very evening [facility] clopidogrel 75 MG Oral Tablet Clopidogrel Bisulfate 75 MG Oral Tablet (PLAVIX) Clopidogrel Bisulfate 75 MG Oral Tablet (PLAVIX) 08/22/2019 12:00:00 AM EDT 75 mg Oral active Take 1 tablet by mouth d [facility] Aspirin 81 MG Chewable Tablet Aspirin 81 MG Oral Table t Chewable Aspirin 81 MG Oral Tablet Chewable 08/22/2019 12:00:00 AM EDT 81 mg Oral active Chew 1 tablet by Mouth daily [facility] clopidogrel 75 MG Oral Tablet clopidogrel (PLAVIX) tab let 75 mg clopidogrel (PLAVIX) tablet 75 mg 08/21/2019 05:15:00 PM EDT 75 mg Oral active 75 mg, Oral, Daily Standard, First dose on Tue08/21/19 at 1715, For 30 days [facility] Medication administered onsite 1 ML Lorazepam 2 MG/ML Injection LORazepam (ATIVAN) in jection 0.5 mg LORazepam (ATIVAN) injection 0.5 mg 08/19/2019 10:00:00 PM EDT 0.5 mg Intrave nous completed 0.5 mg, Intravenous, Once, Tue08/19/19 at 2200, For 1 dose
For MRI
[facility] Medication administered onsite Acetaminophen 325 MG Oral Tablet acetaminophen (TYLENO L) tablet 325 mg acetaminophen (TYLENOL) tablet 325 mg 08/19/2019 09:00:00 AM EDT 32 5 mg Oral active 325 mg, Oral, D aily Standard, First dose on Tue20 at 0900, For 30 days
Maximum daily dose of acetaminophen is 3,000 mg from all sources in 24 hours.
[facility] Medication administered onsite 0.4 ML Enoxaparin sodium 100 MG/ML Prefi lled Syringe enoxaparin sodium (LOVENOX) injection 40 mg enoxaparin sodium (LOVENOX) injection 40 mg 08/19/2019 09:00:00 AM EDT 40 mg Subcutaneous active 40 mg, Subcutaneous, Daily Standard, First dose on 08/19/19 at 0900, For 30 days [facility] Medication administered onsite pantoprazole 40 MG Delayed Release Oral Tablet pantoprazole (PROTONIX) EC tablet 40 mg pantoprazole (PROTONIX) EC tablet 40 mg 08/19/2019 09:00:00 AM E DT 40 mg Oral active 40 mg, Ora l, Daily Standard, First dose on 08/19/19 at 0900, For 30 days
Do not crush or chew
[facility] Medication administered onsite Aspirin 81 MG Chewable Tablet aspirin chewable tablet 81 mg aspirin chewable tablet 81 mg 08/19/2019 09:00:00 AM EDT 81 mg Oral activ e 81 mg, Oral, Daily Standard, First dose on 08/19/19 at 0900, For 30 days
Chew tablet before swallowing.
[facility] Medication administered onsite Hydrochlorothiazide 25 MG Oral Tablet hy drochlorothiazide (HYDRODIURIL) tablet 25 mg hydrochlorothiazide (HYDRODIURIL) tablet 25 mg 08/19/2019 09 :00:00 AM EDT 25 mg Oral active 25 mg, Oral, Rosemarie ly Standard, First dose on 08/19/19 at 0900, For 30 days [facility] Medication administered onsite atorvastatin 40 MG Oral Tablet atorvastatin (LIPITOR) tablet 80 mg atorvastatin (LIPITOR) tablet 80 mg 08/18/2019 09:00:00 PM EDT 80 mg Oral active 80 mg, Oral, Every evening, First dose on 08/18/19 at 2100, For 30 days [facility] [facility] Medication administered onsite Aspirin 325 MG Oral Tablet aspirin tablet 325 mg aspirin tab let 325 mg 08/18/2019 04:30:00 PM EDT 325 mg Oral completed 325 mg, Oral, Once, 08/18/19 at 1630, For 1 dose [facility] Medication administered onsite senna tablet 2 tablet 08/18/2019 04:20:50 PM EDT 2 {tbl} Oral active [Order 1 Start] Name: senna tablet 2 tab let Signed Summary: 2 tablet, Oral, Nightly PRN, Constipation, Starting 08/18/19 at 1620, For 30 days [Order 1 End] [Order 2 Start] Name: senna (SENOKOT) syrup 10 mL Signed Summary: 10 mL, Oral, Nightly PRN, Constipation, Starting 08/18/19 at 1620, For 30 days
Use NG tube nightly as needed if no BM on the third day.
[Order 2 End] [facility] Medication administered onsite Simvastatin 20 MG Oral Tablet simvastatin (ZOCOR) 20 M G tablet simvastatin (ZOCOR) 20 MG tablet 12/09/2016 12:00:[address] [facility] Insurance Providers Payer name Policy type / Coverage type Policy ID Covered green party ID Covered green party's relationship to wallace Policy Wallace Plan Information [employer] OPTIONS [id number] SP [id number] MEDICARE [id number] SP [id number] AARP U [id number] Self [id number] MEDICARE A [id number] Self [id number] AARP U [id number] Self [id number] BS [place] Medigap Part B [id number] Self [id number] [employer] [facility] Options Medigap Part B [id number] Self [id number] [place] Primary [id number] Self [id number] MEDICARE A [id number] Self [id number] A BS [place] Medigap Part B [id number] Self [id number] [employer] [facility] Medigap Part B [id number] Self [id number] [place] Primary [id number] Self [id number] AARP HE[employer] CARE OPTIONS [id number] SP [id number] MEDICARE [id number] SP [id number] A BS [place] Medigap Part B [id number] Self [id number] [employer] [facility] Medigap Part B [id number] Self [id number] [place] Primary [id number] Self [id number] AARP O [id number] S [id number] MEDICARE C [id number] S [id number] [employer] [facility] Medigap Part B [id number] Self [id number] [place] Medigap Part B [id number] Self [id number] Medicare [employer] Health Maintenance Organization (HMO) [id number] Self [id number] BS [id number] Commercial [id number] Self [id number] A[employer] HE[employer] CARE OPTIONS [id number] SP [id number] MEDICARE [id number] SP [id number] A MEDICARE A [id number] Self [id number] A BS [place] Medigap Part B [id number] Self [id number] [employer] [facility] Medigap Part B [id number] Self [id number] [place] Primary [id number] Self [id number] BS [place] Medigap Part B [id number] Self [id number] [employer] [facility] Medigap Part B [id number] Self [id number] [place] Primary [id number] Self [id number] [facility] [facility] Medigap Part B [id number] Self [id number] Medicare [place] Medicare Primary [id number] Self [id number] [facility] [facility] Medigap Part B [id number] Self [id number] Medicare [place] Medicare Primary [id number] Self [id number] AARP HE[employer] CARE OPTIONS [id number] SP [id number] MEDICARE [id number] SP [id number] A AARP HE[employer] CARE OPTIONS [id number] SP [id number] Aarp Insurance Medigap Part B Self Medicare Medicare Primary Self BS [place] Commercial Self [place]/307 [id number] SP [id number] [place]/307 [id number] SP [id number] Problems, Conditions, and Diagnoses Code Display Name Description Problem Type Effective Dates Data Source(s) H34.11 Central retinal artery occlusion, right eye Central retinal artery occlusion, right eye Diagnosis 12/04/2019 01:35:53 PM EDT [facility] I10 Essential (primary) hypertension Essential (primary) h ypertension Diagnosis 08/21/2019 09:50:02 AM EDT [facility] I65.22 Occlusion and stenosis of left carotid a rtery Occlusion and stenosis of left carotid artery Diagnosis 08/19/2019 03:37:57 PM EDT [facility] I65.21 Occlusion and stenosis of right carotid artery Occlusion and stenosis of right carotid artery Diagnosis 08/19/2019 03:37:43 PM EDT [facility] E11.9 Type 2 diabetes mellitus without complic ations Type 2 diabetes mellitus without complications Diagnosis 08/18/2019 12:40:33 PM EDT [facility] H54.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, right eye, norm al vision left eye Unqualified visual loss, right eye, normal vision left eye Diagnosis 020 12:40:33 PM EDT [facility] R eye vision loss R eye vision loss Diagnosis 08/18/2019 12:40:33 PM [facility] Surgeries/Procedures Procedure Description Date Indications Data Source(s) OCT RETINA OCT RETINA Routine 12/04/2019 2:02 PM EDT Central retinal artery occlusion of right eye 12/04/2019 02: 02:28 PM EDT Central retinal artery occlusion of right eye [facility] Central retinal artery occlusion of righ t eye VASC LAB US DOPPLER CAROTID BILATERAL COMP 09090 VASC LAB US DOPPLER CAROTID BILATERAL COMP [id number] Routine 11/27/2019 11:10 AM EDT Left carotid artery stenosis 11/27/2019 11:10:00 AM EDT Left carotid artery stenosis [facility] Left carotid artery stenosis OCT RETINA OCT RETINA Routine 09/25/2019 2:11 PM EDT Central retinal artery occlusion of right eye 09/25/2019 02: 11:04 PM EDT Central retinal artery occlusion of right eye [facility] Central retinal artery occlusion of righ t eye PLATELET AGGREGATION IN VITRO EACH AGENT VERIFYNOW P2Y12 Routin e 08/29/2019 8:33 AM EDT Left carotid artery stenosis 08/29/2019 12:33:00 PM EDT Left carotid artery stenosis [facility] Left carotid artery stenosis GLUCOSE QUANTITATIVE BLOOD XCPT REAGENT STRIP POCT GLUCOSE, DOC KED Routine 08/21/2019 10:33 PM EDT 08/22/2019 02:33:00 AM [facility] GLUCOSE QUANTITATIVE BLOOD XCPT REAGENT STRIP POCT GLUCOSE, DOC KED Routine 08/21/2019 9:10 AM EDT 08/21/2019 01:10:00 PM [facility] GLUCOSE QUANTITATIVE BLOOD XCPT REAGENT STRIP POCT GLUCOSE, DOC KED Routine 08/20/2019 5:00 PM EDT 08/20/2019 09:00:00 PM [facility] ECHO TTHRC R-T 2D W/WOM-MODE COMPL SPEC&COLR DOP ECHOCARDIO GRAM 2D COMPLETE Pending Discharge 08/20/2019 2:59 PM EDT 08/20/2019 06:59 :55 PM [facility] GLUCOSE QUANTITATIVE BLOOD XCPT REAGENT STRIP POCT GLUCOSE, DOC KED Routine 08/20/2019 12:50 PM EDT 08/20/2019 04:50:00 PM [facility] GLUCOSE QUANTITATIVE BLOOD XCPT REAGENT STRIP POCT GLUCOSE, DOC KED Routine 08/20/2019 9:15 AM EDT 08/20/2019 01:15:00 PM [facility] EKG 12-LEAD - CMAXX REPORT EKG 12-LEAD - CMAXX REPORT 08/20/2019 6:30 AM EDT 08/20/2019 10:30:[address] [facility] EKG 12-LEAD - CMAXX REPORT EKG 12-LEAD - CMAXX REPORT 08/20/2019 6:30 AM EDT 08/20/2019 10:30:[address] [facility] EKG 12-LEAD EKG 12-LEAD Routine 08/20/2019 6:30 AM EDT 08/20/2019 10:30:59 AM [facility] MRI BRAIN BRAIN STEM W/O CONTRAST MATERIAL MR BRAIN WITHOUT CONTRAST [id number] Pending Discharge 08/20/2019 2:06 AM EDT 08/20/2019 06:06 :13 AM [facility] CT ANGIOGRAPHY NECK W/CONTRAST/NONCONTRAST CT ANGIOGRAPHY NECK [id number] STAT 08/18/2019 6:41 PM EDT 08/18/2019 10:41:50 PM EDT [facility] CT ANGIOGRAPHY HEAD W/CONTRAST/NONCONTRAST CT ANGIOGRAPHY HEAD [id number] STAT 08/18/2019 6:41 PM EDT 08/18/2019 10:41:50 PM [facility] GLUCOSE QUANTITATIVE BLOOD XCPT REAGENT STRIP POCT GLUCOSE, DOC KED Routine 08/18/2019 6:33 PM EDT 08/18[facility]2019 [facility] AUTO&AUTO DIFRNTL WBC COUNT CBC AND DIFFER ENTIAL STAT 08/18/2019 1:55 PM EDT 08/18/2019 05:55:00 PM [facility] THYROID STIMULATING HORMONE TSH TSH Routine 08/18/2019 1:55 PM EDT 08/18/2019 05:55:00 PM [facility] HEMOGLOBIN GLYCOSYLATED A1C HEMOGLOBIN A1C Routine 08/18/2019 1:55 PM EDT 08/18/2019 05:55:00 PM [facility] LIPID PANEL LIPID PANEL Routine 08/18/2019 1:55 PM EDT 08/18/2019 05:55[facility] BASIC METABOLIC PANEL CALCIUM TOTAL BASIC METABOLIC PANEL STAT 08/18/2019 1:55 PM EDT 08/18/2019 05:55:[address] [facility] GLUCOSE QUANTITATIVE BLOOD XCPT REAGENT STRIP POCT GLUCOSE, DOC KED Routine 08/18/2019 12:42 PM EDT 08/18/2019 04:42:00 PM [facility] Results ID Date Data Source [id number] 12/11/2019 12:27:06 PM EDT [facility] Hospital Name Value Range Interpretation Code Description Data Maureen rce(s) Supporting Document(s) Progress Note [facility] GGKYNr5pHhWRMoJk49/OXIzrZOZpe2BzJBwgVNn4OZctSJFtM7FaJLS6yN8lWAB4HUjFUiBaWxGwGES9 lbm [file] AgICAgICAgICAgICAgICAgICAgICAgICAgICAgICAgICAgICAgICAgICAgICAgICAgICAgICAgICAgIC AgICAgICANCiAgICAgICAgICAgICAgICAgICAgICAg ICAgICAgICAgICAgICAgICAgICAgICAgICAgICAgICAgICAgICAgICAgICAgICAgICAgICAgICAgICAg ICAgICAgICAgICAgICAgICANCiAgICAgICAgICAgICAgICAgICAgICAgICAgICAgICAgICAgICAgICAg ICAgICAgICAgICAgICAgICAgICAgICAgICAgICAgIC AgICAgICAgICAgICAgICAgICAgICAgICAgICANCiAgICAgICAgICAgICAgICAgICAgICAgICAgICAgIC AgICAgICAgICAgICAgICAgICAgICAgICAgICAgICAgICAgICAgICAgICAgICAgICAgICAgICAgICAgIC AgICAgICAgICANCiAgICAgICAgICAgICAgICAgICAg ICAgICAgICAgICAgICAgICAgICAgICAgICAgICAgICAgICAgICAgICAgICAgICAgICAgICAgICAgICAg ICAgICAgICAgICAgICAgICAgICANCiAgICAgICAgICAgICAgICAgICAgICAgICAgICAgICAgICAgICAg ICAgICAgICAgICAgICAgICAgICAgICAgICAgICAgIC AgICAgICAgICAgICAgICAgICAgICAgICAgICAgICANCiAgICAgICAgICAgICAgICAgICAgICAgICAgIC AgICAgICAgICAgICAgICAgICAgICAgICAgICAgICAgICAgICAgICAgICAgICAgICAgICAgICAgICAgIC AgICAgICAgICAgICANCiAgICAgICAgICAgICAgICAg ICAgICAgICAgICAgICAgICAgICAgICAgICAgICAgICAgICAgICAgICAgICAgICAgICAgICAgICAgICAg ICAgICAgICAgICAgICAgICAgICAgICANCiAgICAgICAgICAgICAgICAgICAgICAgICAgICAgICAgICAg ICAgICAgICAgICAgICAgICAgICAgICAgICAgICAgIC AgICAgICAgICAgICAgICAgICAgICAgICAgICAgICAgICANCiAgICAgICAgICAgICAgICAgICAgICAgIC AgICAgICAgICAgICAgICAgICAgICAgICAgICAgICAgICAgICAgICAgICAgICAgICAgICAgICAgICAgIC AgICAgICAgICAgICAgICANCjw/xXUvZ8sndPHwckD3 E3zaSv6MOf3HZF9uq1QrCAWdYJmjktIsTmdCTmZsFOHiTpiBIlk7CXiiXE9PjERlJ5QvG9RsMLryYL1S ZBWcHMYfhZLqCTHjRPMtMfD4WBRdKXplQA6LrOLzDFlfVJHwRECdZrVsFDWkIIJuGQLuONAiXLDDKRKj IMKcNzGiRMUlBJXeOV4DOZKyB877dcWwDr5FYt6TWq QlNR9scx7EHzGsACHxMmfNHmd9QCyjPU2GrHQdfGUdPcShOMTCPlOgE5mbx2DyArQfJRDVWFxoOW9Tr2 VudCAxDQo+Sa5PGT9ep5RdVUchCyRvDA6xvn8FHXeJWsCkT6NawKizHHOnx3rtTDQjOP6hbHAtKUH4DW JlPUEgstNHEV5iFR3zWAJxIWEQHPWgyJNlAF7yVM8j QYZyMJAgVrHsAAOFPG3FSDMcJHIesSDhIQCrZVTWRG6TEKgfODY0POVrbbUgkYHjNThaFS7QAKPcuoMc MzIgMCBSDQo+Ii9KXB5og2CrTGlgQCAoQQ8twu9GMTvZRpKoO4T5fDLcS6J3DTpnBr2SSAXlYJAdUfCo DASUGTobYT2DDZ4barV3YV1WvWMrWITzFDArsCEcKJ d0Z24dqBTfGTmlYQ1DHGF+Noble+Fk2FNSIrSANfRJUeHdIcAYILEdTnJ1GmG9BHr6OwH4CqEU83rKgvmm YoBCreQN6RWY4wNYNsZJCEVQ9TjLLjdX0diyCmKjCiLLXFOvUyU84scVZzSJNkUHJvXILrYz2QPXEbA0 VjupWlhGidtpDfZRHfYWSZFD5CXAzbmkMwpQEimBzr IJ86yEocCM2QTv1KWeCaJR7nwa6HdOHhNi4OASSoOC1JVAMzBAPbCHXcUEY9CGKrGxUlGBisQVFqQHTj LBV3BTEqQQTqNU8BTlBxTNYcSeZjQyubNJSyEIEcfu1DFBNzDQDnBon6YADuBKQcPUFwJCdrJMXmMOKg TRD1FMWdCVXbJO9JLxDiFEAiWSI3RGDhDWGtHKUutt 4XKDJwNCTsMlT5JXHuWSOhZDNeKZyqSTLzXVH2YqO8JVGxIYQtXW4FJkZwZBQeBWI2UKGzPFTaFNWqre 9HUATpMTZoWWOePfPgPVAdRMXjYFtnRLLxZTT4XsW3MDOmWOTuVB3DWfNpQGOwQKW9POErJCNsOTJzco 5QQNJgVTWoPvUuFnDoXUAsKBMhHVgfDLOtBXE0QQt9 IWSsHJMpXC2JLwBaMIMdUZAgRXTgJNQdVZRgok2TYLLxYCYoQIS8AoIaQGFkYUHtFGrxNBAuGYJ6VLM9 KYTvWYEvNF0WXmDoZDNyOCZ0QCehAXApBIXgcj1DAJPmABQxImWpCVZhHZKeVURjSWamRYBeVYU9EBz1 ASVjKVDySB6QUjWePSHhSPwePLfxFKGdRUIpjt2JKN BuAQHkDBR5NVNeYBSaJDFjYMhbFPDrXMV0XBK2TRKmYPCdEM8DIsMsSRGrUdd7AdnhRRCmWQUpjd7OGK NyTZQnNHO6RrWxMEDnIHFjALpjGRTgNRMuNUOcYUTpBQNjBS3WNiHdNOIrCvY1SDUyCBKqFNGgnk2FIH UwGXTjUMq8OpBoPIPjVCIzZJyjGUKiOVIgLCEhRTEa VAWhUH0CMiRhUYTiWeBwFijwXMSyWJEbzs8TMHHfVRVuAsZrKpMmBSHjHACxXBsqKFMsEZEwBfX2KJJb ZLZlKU7ERdCgXTDmUmIrRKDvYUElVYWepd2SBGKePRZkHSV4CkXsPTMaZOWwOCmbCBQnSZZ1XnM1LPNu OUHhZN3PXnYbWVhdGFJCKhl5IOubI7h8SRGmSS3FR5 Siz5UpYqGxYHDDZEdnTJ9wdyGsZVIrRc3IQ6nSDxefVPA1KJdwPVRjJRWxHOMuBSVoLfG5FWTlBLJ9QC f2Xr1wIFHgPuv7XER3MvXkIGJ7QFNrA4TvUlVeHKI4YCOgKDKqHdGgNG6STk8LYgU7GDY0eMFqVu4TNg O0VuDNXpFcOX4ZGJd= ID Date Data Source [id number] 11/27/2019 02:34:28 PM EDT [facility] Name Value Range Interpretation Code Description Data Maureen rce(s) Supporting Document(s) Progress Note [facility] AUBGTt6aRpKJSlHd39/DCEilWFBoq9FqDRydVUw0AYntVIZoE3OrCGA0vE5pAFV1WGdAOiGcCoAyWFLa lbm EbZtwQPeFdGERaEjlOIsLvGGiiOlnftIZfII3EsMB0FKNsM28eNHTzXWHgV9JbIWWhKBP+Dd1RWLZdnW FyNF7RItjM9N1PssqSIU1YgN/Q3FSRqrDkgZrPisNIquRHX26HuZwHzDdyTZ18HTLeZv/a4zWRbqjZZq F8tyj9mB8PsOoQCWuF8206KgK/+37gIx0OpkA77+Kf ZnDil2F128/E5lQZNdb8/Dc2hxzBjMElaC+Q/NO1P/8Yi1eqr06hRMtjseDHKMK6tfpUBL85789X00/9 0Xv28EbFLd9cubPyGmd7DqpwCPgeD8w//ta2c6IZAoIoKpzi4c00gmqq1S7PHyB87cuJ3OSWvO3t9WCp n7yT2ZssfGV6Jj3XtqS33K/JfJkjK+R1eWOxCkWnQo uOWfgJbGeOwAktPQwZa+k1v2UxMamd6uzMU5XrTZ4h/Xg0U6/p7zc9be54+jdTcyvjREFjicvQku+mjG ytF1QLUAnCwdB5I+IQO00KN2OmppXd7BVRD+/32IZI8JM+1/Hj2mGBaZ6z5JqudgtJiBeJVFb/DJeTeX Ay4iibLzRYGSi8C5+CSUAtYU1VD6HDipMeZWTsd2C1 Yk4C1c0HbUZyzLOFzVrmMycfvTaDYb0PZBq8fPD9Bds+pEE0elz4ev1jWeS1MVKbLmOrxBnNf57vO59q eecaYeh9wWiMrgKz9qil/i57+G+Fbf6nk3gUPGFMik85VeCt8LHzqHhzhlCTl+rV2corQDoRoYeuyf1C MhI5B8rFMJ59b+PxMH7/9RN5F9WJWkZq7CTeqIIG1Q 7ROAo/XxpHraJ8cB5F8Yvhf5UjKZKn8uYMfpMrgdROUt4oYQ8VRaE3TOdOeeImkqwuDFLcrpZ+OKYPJ9 zlRCNYUA23R7BkKXWPZt7FUyDolFfxYr650su5rkDywG9jTxg+ylh1039Z7hxrTLs5Q4i2hzJHExx8zd UuzzbhasxneDkZ3/ia0rT6jzQk7eO36uDT3nxfbgzm [file] csU+9o271+wOjJU/5jjVG5K19VipVLi+9ULnkm+ [file] ICAgICAgICAgICAgICAgICAgICAgICAgICAgICAgIC KySWDaBCJgPKUzZALtETUzTPUpLMMpXGNqVSEiQYKhVVAbNSWfLPYhEXJiLTFoZZWwCFQqYT7HTYAxMX AgICAgICAgICAgICAgICAgICAgICAgICAgICAgICAgICAgICAgICAgICAgICAgICAgICAgICAgICAgIC AgICAgICAgICAgICAgICAgICAgICAgICAgICAgICAg PSRbXZ7UWSTxYNNpFIOwJEHhFIUwIKPwVCLaBMKzGFKwROCrCMNyRZGkNRYqBGEhISHoOLUjRRIxPUYw LIDcGGNeOHYpYRPcMDUoEYEbSEVzYCJwGBHhCSZmZFSyNQViKVEiYDMbEXLvBX1XVQRkMJQfHOPeKZEk ICAgICAgICAgICAgICAgICAgICAgICAgICAgICAgIC ZoLJFpHSDyEBXkNCFbYQSsJWXkQAViUFEnJGEeINEyIHDgICRoLDCfOEPjJFMiMWKqDLCqLLXtNT9SDD AgICAgICAgICAgICAgICAgICAgICAgICAgICAgICAgICAgICAgICAgICAgICAgICAgICAgICAgICAgIC AgICAgICAgICAgICAgICAgICAgICAgICAgICAgICAg TOPfWBSpHR8ITICfXSHlXLAlGBHzOHCiHFGsLMRpERFtEJAlZNVmCACoMSQdLCNgYNMrEYEgZWMmQDEu PYIyIBTtESRpYFGyFYLmGLOkABGzSEKqYIEoJYRbLQDdYSZgVMMoSCVrKRUhWSQxMJ5NIWUhLYNyTQAl ICAgICAgICAgICAgICAgICAgICAgICAgICAgICAgIC AgICAgICAgICAgICAgICAgICAgICAgICAgICAgICAgICAgICAgICAgICAgICAgICAgICAgICAgICAgIA 0KICAgICAgICAgICAgICAgICAgICAgICAgICAgICAgICAgICAgICAgICAgICAgICAgICAgICAgICAgIC AgICAgICAgICAgICAgICAgICAgICAgICAgICAgICAg NGJePHTtBLDwXE0KGMPcRKWlQTWwYYJwGKPxGDTiNMDrGJToXCVcGWXpHHAgGOFoPQCoXWElDREdLGIs LGTqIILtOWRjXLWwOROkCORsDVGhHBKgOPBiHLQdPHHuJYLeHNGvJXYzQHUjDPMwRLPdCI9JKAJzBZWr ICAgICAgICAgICAgICAgICAgICAgICAgICAgICAgIC AgICAgICAgICAgICAgICAgICAgICAgICAgICAgICAgICAgICAgICAgICAgICAgICAgICAgICAgICAgIC WlME4FCO29kAReb9A6ZMSbKA7ugyq/Zz7XASqtivIbkQSaEI7TAxDzAH8nye9RSeUqLZ1stj3AQJzXSi NjS5D5jMOtCLZcELKNBaKyP27mZDgzMj21IRjyNAPu BcJkCZu8Ri1RWlLhC2njKMPpTeE7FIYrCdD9QZGjXoG1QNPcVnCoLBooMG0Eg7PncIQgSCm+Qz2JMK4f v3KxAPccNrKmHL1kol7RCMdRHiYfU3UrsiI5CPB5MMCnVr3WYWQhDGPonBGpGJZbQEDMSiMjZ7WhoI53 IDENCj4+YMjoqaGkRlvSSvI2QMXfx9IzKKf9TV0USO YlRGx1kBVpGGPhO4Ysf5PqJg83OARkEhkxCZDssYEnLZEdUCTmi7KuQXZLZpHEBFSshGRsMK7uXf0qEJ DcUKWcAiJgKHRIJI6FBTWbJCAavCDlJEKcVNOTQX4NDVtnXVL4WGSeoxPwtZLbUOtnZM3XWHMonqXxWm MgMCBSDQo+Sm3KJQ7qi3QrBSchUEXwPE2ruv6NDRkN HtTcU3U5lANdX9B1ITjaLa0KTHFsLJFnXgXfDBXOKKgyAC3UTR4ireJ6TI7QuHIeTVSwSNPzuTJtYGt8 F14koFGwUBitKE5VSTC+Noble+Ak0EIDNjIVCtLUMmHaQtYXUSBzSbG9XiU5CQz8PbP1HaDG00nAxvsrFj ILyqWX9BYC7vWPXzZTGARW9InRXbiE0iblMzGoDuQW BSCzJkG54ecXErYJFgIQTaDMIyPr0TWAZwA6LnoqXxuJaukwBsMKAbSRCILK0VYCgqxjBmmBRnqNufWG 11qGefYE1NJs9TOwYuTT2tby9YoWQdPg2QTFGmDz5HUKWkALPxESLhDFV5QGAiHnCtQBejVFQvSTBiMR Z8TPZfVPIvVR5DXaMbUKGxGARfCGKrVHKeXUIsyo4F KTVuYNR3IrofKYSbDGJzGFJyZIbnOKCbXCUxCAF5RGQkXSJnBP8SWwArCOGfRDVeLFQvKTHpNLOssy7L NISoDPCnJUC2VeZqGMKxOOHgQFxbNFRyVZA1NGQ6LOWuQGFrXE3HYdKiXUMpQNphOKLsTBHgBKQolo1D RDIkWWBzCVC0NHVlCCCbFJYpDUhzIDQeYSAvTju8CW MkJYXrHY3MDxEuAVDtCHRaSmEtPPExQTNryh9UTLXdNYCwVgKhXQUxSFQnINBuWForELJiKIPmIrU1UF JzFXDwUB7RIlOnDATjEWA1TbYnTUVlWISspn1VXUQmCFKrHnt0PIEkCDHaNPMrSImvYCWaXWH1TQWlRX EaORAsXP4DMpTbNFJgQBD9KqWqWMCdYBLjtr9SDXTo CAF1WBR1ENZsSCXbZEHoWJbsCAUhWQH9RyjrMDBsMMWjGB7NPwNoLXLqKGTyWwZuMNTmAFCimq8ZWTGp GRS1LAK6ZWJpUFViGNVzSMcgCRBvADH2TXrxEXCnZJZiQQ1GAfWbWYIyVKxgObQkTCZxUJJakt0XPQIn EUK1GwDtIGWnBPBzZSEjVLxsAMZuOOO7NbH3JBGvLH GxIV7CAoKsGCaxTETTPin6NCysJ9s2VPVvGi2NW5Juf1HwOySnGBUBOLzeVP2ousBxCWHyNu9DK3pJYt b6OpCbDMQeLblnGqzlWdRyOADcUzq7CnE1SOSnA3A0Fm0eGRvuWSOlUhOuAXZdU4HgTjPvOMSfGVvxZZ plBWGdVrvsDgFgDC3NUp4TApO2SIQ5kESrKr1FGQp3XHeDZnBzZB5HXVd= ID Date Data Source [id number] 10/30/2019 03:12:27 PM EDT [facility] Name Value Range Interpretation Code Description Data Maureen rce(s) Supporting Document(s) Progress Note [facility] DPTPJu0iZpXSDkRh82/ORYdmEZGvf9LdMWtpPXj3HBaiWZXmB3NzMPF9bA1kCDS0QVcISjCmOqSqCEV1 lbm [file] l1uw0/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 TECHNICAL EDITOR/gFbplnJ8pdxjVCFZMXw1F9IElDwwGa3sQoxHangkAtqd7pXMc0a/z58TaYj31qu5GnU59Og [file] InAL2eRHKANe7+ZNntkCNppBvvOWXXHzQ5Gfn3WCkhTZDAOf2F ID Date Data Source [id number] 10/02/2019 03:28:55 PM EDT [facility] Name Value Range Interpretation Code Description Data Maureen rce(s) Supporting Document(s) Progress Note [facility] XIMJQs4jIpTAVrRh97/NHDmtFQNaa6ScEKjuZRk5NCtxDKKdY2ZlUGW3hO9xJVX3NLeOAjAfIlIbWOT9 lbm [file] MLDoRfMN7HYCj= ID Date Data Source [id number] 09/11/2019 04:54:31 PM EDT [facility] Name Value Range Interpretation Code Description Data Maureen rce(s) Supporting Document(s) Progress Note [facility] GLOHMu0kDoBBAjKl12/RKWbfUJOes2WdCGraTWk9SDozQGMkH3LeYOU6rD4vLUR9GWoFNwWjLeWhIeF0 lbm [file] ICAgICAgICAgICAgICAgICAgICAgICAgICAgICAgIC NlFQXoPEEkYEVsXWPmCXXjXXEwEJMcMGPkJB9ZPOTrJTJaVBNgWSSsLNVhWEElSEGwUHEnNGLdZUMaGS AgICAgICAgICAgICAgICAgICAgICAgICAgICAgICAgICAgICAgICAgICAgICAgICAgICAgICAgICAgIC ZmJRWiFJMsVF4EKWOjOVDdBNSpSBUxYVDhFHFtBDNv ICAgICAgICAgICAgICAgICAgICAgICAgICAgICAgICAgICAgICAgICAgICAgICAgICAgICAgICAgICAg LWOyXBLdATMkABVhAPWjOGCeMQ4VQLMbTWBjKWLyYJLfPTGtTLElWLErQEBoOFHmWKVeBHSjVJYoIEVm ICAgICAgICAgICAgICAgICAgICAgICAgICAgICAgIC QiYTBkYOGhYNWrTFNwISGiNJKgXGPeMTGyTOMcFR3IBGVtXAWyGORnRIOkJLPkOXEuDKMiOOBlCYHnXU AgICAgICAgICAgICAgICAgICAgICAgICAgICAgICAgICAgICAgICAgICAgICAgICAgICAgICAgICAgIC NnWFIeINDjGPUxAO2CKLUsBELuBSWhZNOrZHOmFHUb ICAgICAgICAgICAgICAgICAgICAgICAgICAgICAgICAgICAgICAgICAgICAgICAgICAgICAgICAgICAg JEWePKTxQPNkTCBtCBQlRBWuUNDnOJ0IWSKoDJStYBGwTQOjFUGcEXEtHZRrUPWuXDPyGHYyIXQtCZWo ICAgICAgICAgICAgICAgICAgICAgICAgICAgICAgIC TxWQSwRQAuVXWtBYEuKGFcPKIzVFRpCRVjULQeITCqPX4RXBWiRTPnPSXoAALqIBWlQQAbEOGxJIZsRG AgICAgICAgICAgICAgICAgICAgICAgICAgICAgICAgICAgICAgICAgICAgICAgICAgICAgICAgICAgIC KaVKSyEPCiAAUbHCPpBX5WNRNlMPExOULyCNMmPEUw ICAgICAgICAgICAgICAgICAgICAgICAgICAgICAgICAgICAgICAgICAgICAgICAgICAgICAgICAgICAg LFSzNLIzQJWeYWFqYTBiJDEyZWEsIBTqIC3TDEXiEYDrMKUzXODsZARqDQThSLRcPKOtVZCqHGQfUEHe ICAgICAgICAgICAgICAgICAgICAgICAgICAgICAgIC KiMUWiNZUrFEBbZFOqBNOnYELnPWQuHSHtLQLdOZTvRCVfGU4QQG93yYMrw0K6PEOnGS5kpgx/Pg0KDQ tsfbLvtKLuDR0WBlOeBW9dxf9XCtKiPH4kxw7JDPoAVqQpD9W6fJMxTRBoMQQRPyNhK33oQZpsXn41ZQ urIZTqSiLeQUb4Eu7QJsRpN2giBESpLrG2QJOpAxS0 MAQiMzI9GANsJpHhDLCpYJQpFVKsUPAMRJ7CFmBdC3QopF89QLLASd9+TLxnraOqVchGSjWqLFGwv7Kv CZk7YP8WAIIyBfacm4TaFqOfUBCSWAqxPY1QJJG5EZPpPSOlZu4HGSPuR097haGmXU8OTm4ZEsGrCN8y qc2WFdPnJGRsEmwMMuw6IBlwYG0DdLOtLFdGob9ssn ZhfuDNp0ExtgJxkHVPvICjhtVEB7biGSnefYokUVFqZAQeQj8hIN2vYGDfCCCaWqIcJFWVKP4RDOPyMW MyaSCjXZLmECRMFU6FMRmpVXW4RXXzlwHcsSFjNLwlZD9WITPfwmCfIoKeVTYSBDm+He2UJA2mb0BjVU seDsHoHU7edx5GCOmLMvMnI3F8rOAfF2A1LDyeWb7X WUUwNVKuKvzaLWCNAEkmXJ4OUH4tkvI9IR2XwYXrCMFoPAYprEOlZTz1W65emALgDFcvOK6PXRL+Noble+ Jk7LGMIrXZKuXZDvZcMbEDFFCaIlB4HwW2BTc9HoZ9RpQH52xUkbasBkHXagME0YNA8lCIJaZZBNIS5U tIBwvA7ugdXlWGUfTWFLUvDeC22ysQBtPHVlBHU4ER PvSq6QGKSqN6IxnpDdzUfmzjIpYFCbJGJUSS8XRVremoXvnXVsaIhsZH91kFrjXY3MXu8XAaDhMX0fnq 5VyWRuJz1FYOJfHv7KGFImCVOxNGUsBVB4HSQfWpWkHMbdLMIuMIFdBFX3PCLjOEReGU7SCsIjQPYuSz C2WQLoDAGvYFVooj4BSBQqEKWkKdF6AQZhBBYwYECw WOmwEKCmWOOlSQJ3MEUoNJBbQE9WSyHhLJWzHSP6MSTrYPKwOVGxqo1LZPQgHZShHdw7JuCoDHUhLAPj OEehWFIxDLV7YefzXEZzTENtIJ3XKfWiRPSsIEQ1UvprGCTkGLVntg4ADEZvZUDvJKE1FUUzPOTnXPAl UOyrWDJeYSJ6Kkc7GXRuRRJmEQ3FAtTvNRPqFKZ3In WiBIWiNFUxmk9OILQnECVvZxS6JTFaHXHoVEJxVBdcGYFfUYK3CED0BVVyGXNrVR7UIvLcDWSgSRNhYs GrMNCnWBOkfb4QIFInNMWfIPZ6FqQqUYEgSEXmGGjwAWRlXBZ8LmgqQUNqXEXcLQ9GXtNfXTNzOMD5Wb CcLSHqVYVxjp9FKAEcVFOlAxEjKiAjBEHdEUIkHWse CKFmBAM2NlB8LNGaTZBuCD6DChPuEPPyDAE3TaMzWQKrRQMtbf4QSSGhDIAqDCK6GaNdHAXsMAQtHXmn YMLeTHT3Njp6MIDjIEOnGA5PTpBfUCRoScx6NIKaUVIaZTCtrv9IIJSkLZTpKRIsCyNhYIAmYOUdJPfn JVQePXV1FufcFWBqUEAvZC9FQjCoJHZmAhVrCwTxPY QvTRTuap8QYCJgGSYyNULmHKYnITCjYYWdZTqjJPAjRXFqFMiiJRPiGBIeAK5IYxZvKQGdQnSnXMdiJM IoHVVygg1HNGPyEZPbGvS9FdMwNQKaBAKcNMotDOFbAXXvKMH6AEZiDKCbXW9JAgLvZWRhZpO5ULYaKW WtASGltk3KlCNrsRrlyw5GONuMQd1XtVeyOMYuGPpc Vf1kfEAvFiXzPPOSEj7AnaNhTOJqXTHJSZbbONNcLGi4BZAuOCO4UJTfRADhI1LsLHz6RjEvJCJ2RPZt PJHhZlC9XJRgFlZxYtK6UfWvMEG2SJF1XNkuUwYnNPqqYVQgHLC+TQ4sGAj+Rp5Rj0NylnG0msMmXQwv NttnYj3BANGLI1PJNc== ID Date Data Source [id number] 09/11/2019 05:17:27 PM EDT [facility] Name Value Range Interpretation Code Description Data Maureen rce(s) Supporting Document(s) Erythrocyte sedimentation rate 10 mm/hr <30 [facility] ID Date Data Source [id number] 09/05/2019 10:02:00 AM EDT [facility] ([facility], [facility]) Name Value Range Interpretation Code Description Data Maureen rce(s) Supporting Document(s) Glucose, Fasting 136 mg/dL 70-100 [facility] ([facility]) Patient contacted today. Blood Urea Nitrogen 13 mg/dL 7-18 [facility] ([facility]) Patient contacted today. Creatinine For GFR 0.82 mg/dL 0.55-1.30 [facility] ([facility]) Patient contacted today. Sodium Level 138 meq/L 136-145 [facility] ([facility]) Patient contacted today. Glomerular Filtration Rate Laboratory test result [facility] ([facility]) Patient contacted today. Potassium Serum 3.6 meq/L 3.5-5.1 [facility] ([facility]) Patient contacted today. Anion Gap 7 meq/L 8-16 [facility] ([facility]) Patient contacted today. Carbon Dioxide Level 29 meq/L 21-32 [facility] ([facility]) Patient contacted today. Chloride Level 102 meq/L 98-107 [facility] ([facility]) Patient contacted today. Calcium Level 8.8 mg/dL 8.8-10.2 [facility] ([facility]) Patient contacted today. Albumin 3.4 GM/DL 3.2-5.2 [facility] ([facility]) Patient contacted today. Phosphorus Level 3.3 mg/dL 2.5-4.9 [facility] ([facility]) Patient contacted today. ID Date Data Source [id number] 09/05/2019 10:02:00 AM EDT [facility] ([facility]) Name Value Range Interpretation Code Description Data Maureen rce(s) Supporting Document(s) Urate [Mass/volume] in Serum or Plasma 7.2 mg/dL 2.6-6.0 [facility] ([facility], [facility]) Patient contacted today. ID Date Data Source [id number] 08/29/2019 10:01:59 AM EDT [facility] Name Value Range Interpretation Code Description Data Maureen rce(s) Supporting Document(s) Platelet aggregation ADP induced [Units/volume] in Platelet rich plasma 96 PRU <208 [facility] (NOTE)<208 PRU Therapeutic range fo r P2Y12 [id number] PRU Low response to P2Y12 inhibitors ID Date Data Source [id number] 08/29/2019 01:06:19 AM EDT [facility] Name Value Range Interpretation Code Description Data Maureen rce(s) Supporting Document(s) Discharge Summary [facility] [id number]/WVQxxPYPcl4ZxGVzcBFy7KXkiJCRoO6KxSYA0zJ6uJVF8ZWuAApXoZsVjSgX4 lbm [file] AgICAgICAgICAgICAgICAgICAgICAgICAgICAgICAgICAgICAgICAgICAgICAgICAgICAgICAgICANCi AgICAgICAgICAgICAgICAgICAgICAgICAgICAgICAg ICAgICAgICAgICAgICAgICAgICAgICAgICAgICAgICAgICAgICAgICAgICAgICAgICAgICAgICAgICAg ICAgICAgICANCiAgICAgICAgICAgICAgICAgICAgICAgICAgICAgICAgICAgICAgICAgICAgICAgICAg ICAgICAgICAgICAgICAgICAgICAgICAgICAgICAgIC AgICAgICAgICAgICAgICAgICANCiAgICAgICAgICAgICAgICAgICAgICAgICAgICAgICAgICAgICAgIC AgICAgICAgICAgICAgICAgICAgICAgICAgICAgICAgICAgICAgICAgICAgICAgICAgICAgICAgICAgIC ANCiAgICAgICAgICAgICAgICAgICAgICAgICAgICAg ICAgICAgICAgICAgICAgICAgICAgICAgICAgICAgICAgICAgICAgICAgICAgICAgICAgICAgICAgICAg ICAgICAgICAgICANCiAgICAgICAgICAgICAgICAgICAgICAgICAgICAgICAgICAgICAgICAgICAgICAg ICAgICAgICAgICAgICAgICAgICAgICAgICAgICAgIC AgICAgICAgICAgICAgICAgICAgICANCiAgICAgICAgICAgICAgICAgICAgICAgICAgICAgICAgICAgIC AgICAgICAgICAgICAgICAgICAgICAgICAgICAgICAgICAgICAgICAgICAgICAgICAgICAgICAgICAgIC AgICANCiAgICAgICAgICAgICAgICAgICAgICAgICAg ICAgICAgICAgICAgICAgICAgICAgICAgICAgICAgICAgICAgICAgICAgICAgICAgICAgICAgICAgICAg ICAgICAgICAgICAgICANCiAgICAgICAgICAgICAgICAgICAgICAgICAgICAgICAgICAgICAgICAgICAg ICAgICAgICAgICAgICAgICAgICAgICAgICAgICAgIC AgICAgICAgICAgICAgICAgICAgICAgICANCiAgICAgICAgICAgICAgICAgICAgICAgICAgICAgICAgIC AgICAgICAgICAgICAgICAgICAgICAgICAgICAgICAgICAgICAgICAgICAgICAgICAgICAgICAgICAgIC AgICAgICANCjw/mFHyV3rqmARsolV2I4viAr9SZo5Z HD8of2RoAUQcPYqzigMqHanFNlCsATVpFhoFJsd1HItlEI5AkXGtR8OoC3DvVQswBY0KNRAjEGGoaOKy XSWsVHChVgZ2QYYxKYfvKG4JeFVrPPfxZJZqIZErZiNjUGOdGHYaQINaMJEyZXJSCOSeTNZzDlUgVKLo RRPkCZ7EROLaP061xsHvRa1IEe8ZIpTfFM2sut9TWb VfVAAvIvtPVjm5DRcsMD0ZjAMouFOlKfTzVITXSeHsJ0mbu0AaFeUkDAZDXGpoAT6Hn5ItwRWgUGn+Pg 4EIA5lz3QpDSjsFzFeCG8mxg6EDBdMJqNcD4QrrXblVKSbm7CtFSBsGUMPlG2vYLV3NEE7CGPyl6joRT ESyK2uZQpuXVPvLNJrQq87LiVcGaEvMNt9MSogKF1q TPkdZM2OEXX9XRgeUSFrTUEiZ0fWQmRpLHCoTMLcmIrkOB3SAaNgL6DlsmKmcOBxOaMaBGPLYf2+DQpl vaFkOgbYGjI8KXSpa2ExZIx1FF5LXUVzTRidNN2UUWMomQ2iTYbwGW4UKoKgCWUrVCKSQnSfM57aqYJr QZs0T1BdTiBiEPHtNkpeTGZfXLskWoLrHYFmQzCwAT ogID4+ID4+LGtyMN1VYWscqkHsPLDwDw2KHJAfAYGvHQ7vPYLaPCKbB6S8nPfuMZGOHtPaZ6ppscgpWR 7qRRQpV729wFikyfYsXQHxWGHlTt2TBSYsGWP7GGWilTYdMvWdFMAGTXsrGU8OhBNoWUX6qK2oUVkyDJ JoTAImM1yRXkZoiKyaSP83vBzknfWkoAFsSBm+Pg0K CN7mr0KqAWx1awFdKOwnRBL1XHlrNLDqMCSbLCYeSJP9EQN1MDEHTsJoWHWzGJSvCNytRAHhAZKvxo0X STMkRCX8MEddRpGwNCJwQTAvOWflMJTvFASsHnVuLAZwMEJhWJ0ZQaVwDTQrURSrRJbgTDVhSNXrtv9X BIGkSQXxIEBuABVdDNFwKCZnSQhmKZFqRXK9BQGrYN AxVOZnOP2PWkDeNZPgWHm9UYlbVRYsHIHcql8JOUMfCYCpYDRnTyWzPPUbTWQsMVvnXWPwLPPiIAN8LI RbXREuEX1QNqXcKSSaZUY7LkJrTMZkFJKzqn0OPOWxDVJhPRbnWTRyUODsLBMnWWeqXKVsPJZ4UKL9DI HkLGSrIZ5IGsXvVXKaOCbnTIUaGYVoXZOxfi2CVWCt CEIqAWC7AlOxGCSqIJDiOQztMLYoXOP2RXUqIGQnZHPtQD0THlDaJHVbIHpfKmvcAUJjZDStwu2EQEZe ZZVaQXs3ACMyXPSiBEArVFvsEPQbINOiDZh7MHWxXEKpSU4PDmHsWGMzLnAtKurwKYEjIDJjaz6TYPXv VPCgUUViGlGcCXHxTUIqEWgcTTJqKGFvBNF9LDDgFF RxMF9PTkRbKYJyGeU5IikmVQCfSBBrvg0DFQBmWZNgIaO6XcAeURPoHTZoYDdlBAMjBTZwYCs5GWHvGG FcEO8HMpVyWDLkYlPwNuvyRZXgMXUfxk2CEJHzCTZ9EMirOFIwUXDoQHUmXEnmFUAeMNGqMGY0YEFgVZ VuKP4OOwBqBEQzQRLzRAucEODnUNJigw2XETWqHDW6 MEl7OLEeTWXnNOCqOMvdPRQwCWLgFTj1MJUiDJUzVP0AQaTnLSCpYUFfTBRmUZVsWXWizv7ZSOJrMEJ8 Eoi3WeEwHSYtHBJrUGteUUFaJNJzNQCxYAYpZBUfXS1IKjVrTQIpDBUnMRDwCVQeGTRnpw4DuQTxvNzx zc5AQAvARh7VxQumBAZ7DHviIf9hkNBgJXRxVRQNXe 5EjiRkSCQqIKPEDNoiGYHoKNLsGFQ7ZbMfSXOnQsA6QbleOKltPSKmNLGyPsAnALAoTcY9WVR9IRkdCA S8UDU6IKZmK1G8CRQ0HPDaR6FjQOFdNIL+SN2kBEj+Sr3Lm9JsvdZ0mwInAWw7HQT3Vp2IELFCX9SWJm == ID Date Data Source [id number] 08/27/2019 01:38:58 PM EDT [facility] Name Value Range Interpretation Code Description Data Maureen rce(s) Supporting Document(s) Progress Note [facility] DWWJVy2zEdZJTuQy92/EVZqdQZGcp7FkHPyeWBe6DZzmAZMlF4IbFEQ0qC5sMOK2EFeWLaPcJfAyJhHn lbm [file] F4cJiUeOEcnRMxdv/PyHGzFJkxkwLBoR2ntmAd/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 [file] ICAgICAgICAgICAgICAgICAgICAgICAgICAgICAgICAgICAgICAgICAgICAgICAgICAgICAgICAgICAg ZNTlWKEqDXYbGEGmOCWuSWXsDTTtOI6RSEFoYQLuRJZoEIMqENSfOBPhWPMqUCXxMCPwEPKbOGMqNFTr ICAgICAgICAgICAgICAgICAgICAgICAgICAgICAgIC NqEHClSOFpHERuZLKrNAMaMAUwRWPdYMFvTSOoXXIvRF3DYSCiSEQjHQEoSDUfUZQgRYTzTPQnQWRyUJ AgICAgICAgICAgICAgICAgICAgICAgICAgICAgICAgICAgICAgICAgICAgICAgICAgICAgICAgICAgIC ViKZDcVKWnPPAnGAPkXA8QHUPaPPMvUJViBFOsGCLc ICAgICAgICAgICAgICAgICAgICAgICAgICAgICAgICAgICAgICAgICAgICAgICAgICAgICAgICAgICAg HHKwBFSeDEHiLMOtQPPzLXBnGWDzKYFwFQ2XUHNeMGDxDSSbRPJxMFXbGQFkUCEiCPMbOROzDCEaORTx ICAgICAgICAgICAgICAgICAgICAgICAgICAgICAgIC NeJHOzNDZbSKGlSFDiURWcNWXcKPFgDWDrNVQuNEQpUMIlDR4ZMQGhDNHzWDZdJHPlXBUxKXZzKWJsGJ AgICAgICAgICAgICAgICAgICAgICAgICAgICAgICAgICAgICAgICAgICAgICAgICAgICAgICAgICAgIC GzDSZvENAlDLCvYBDwJHQuHX7TZVRuJMNsBBSxEASs ICAgICAgICAgICAgICAgICAgICAgICAgICAgICAgICAgICAgICAgICAgICAgICAgICAgICAgICAgICAg GXMjRQPcDNDqZCAmYFKeFYTdGJUaPAHdMLSpAL1IUREcRWLsVZEcXOGqLZPuXGBcJSXkMUPaZKZdWNKn ICAgICAgICAgICAgICAgICAgICAgICAgICAgICAgIC RsGSNxRXMdKKDvPUPaMXGiFWXwNDFgFFCyXPTcHGHwCZKbCSEzZE7ZOQHgZGRdZCNsRGLrKZRrLOAkPB AgICAgICAgICAgICAgICAgICAgICAgICAgICAgICAgICAgICAgICAgICAgICAgICAgICAgICAgICAgIC GrOPIxVKTsZLPuITZkBRXrQJTuYY1RFVDuBNQwGSOq ICAgICAgICAgICAgICAgICAgICAgICAgICAgICAgICAgICAgICAgICAgICAgICAgICAgICAgICAgICAg WWYcOHLgFVDzPGEnECIsYBFyTKBnVHKfXRDoJCCfXI0BTB52mNSrq6K7HSBlSM0jdxy/Ls5ARAcdpxHx tBPuVG8EZwXcAI5gua4AFoFbOB2woo4YBZiSOkElF7 P5pIGaYBYiHTAXWpNvZ50rZPhzBu69XDsbEEOiMnGyFUi0Ux3GUrEcQ5iwOFYpBlT1MQQjGcA4AELuOp H2NIFdVbLmVEAzHKOzPYUnUVSNKGE5IERdEvKaPXeuGQ5Rt9WdbMO0CLi+Ya3CIL3ma9PgYCtpOyEhHA 5kkz1LACyOFkSzY8XojlO3JTMkFEZfBk2XHOUyDJTw dVMlHeJsVHAGPwFhV4AifE04DDVEQi8+VIeataDbWteASaFxZNJnr7KsIVr3WR7AQMRrBLr8sENoIPKw K3Nem2UsDw92UJUoYqzkXCoinYidNJl5rq2dtBnhbeweIRIkQJIyFv3mLo8oSOXxTXQaXwToOOLOTD5L NYZhFAIicOMfKHSoDWNMDC5PEZfzACN3OMWdrjPwvO QbYPviGH5GNBZboxIwMvUgFMENFKl+Nw4MWR4ga9VcIGerMFKdKB8gis7XCUiOCaXyB1T6zKWnF9V9LJ qtOf7CLZXaESJeNePiVBSUZSjwON1TWC9lztZ6MB4RcOKoSHIyBBQezYPsHRo7Q71tpXSaYTgwEW0WLG A+Noble+Ao5IEKXnJLWfFJPtDtVsIATLMkRnB1AuL8DU c8ZjE8EhWD97dTcvveIeZMsxSB3JIC0rZSSlTDCCXB2FtBStfN6hroEpKrYqYHPYNeSiG75ndBQbAVNe EAQrGLCnEr9XWYAcL8JdvfGvgJzxrpPlVQOeURTWVD1NQMsdtxFxeCHehHgfPE73tVboPQ4VRq6LCeDe GO5ngd9YeMLcXx9NIFHtKV4WQISqCLOaFBKyLJD2NL ZsXxXlJDkqFIZdKQGgYIC5ZCCcGFJwRO2QUbLiFDMmYeX2QpbmUOSnQLOoaq5ZUZPnIHEsTZT3UCCzMA BmMINwPIkhBWZrHOMkVWC0BSFsFJHzHV9VElViXNFjYEItYcBkEAXqBWCcef4KITGiOOMnJvVmRMEsNW KbXNBhNXglQDVzOGS5OBShZZEeZJCpDU4GAcToOZLv OKV2JjGpCOBdWROuod6ORTQwEWYzEGT5UGEcMQXcIBJfKTxhTBOzGEM5HLUkWDLaGWTfQJ6QCwJxNCFu VDD3VHHkYQPbWFExls0HNJVuQESbAJh7FQRgMDRxUBBnGGapTQLaEGKtYnR2EHLjXLZmEN4PQkJaAHXf PAM6WXWpMSJpKBYydm7PWUSmAEDqGqE1GnIgOTSsRF TkIFvxWWGzZWS9SgE4QPMnJONhYB5ZKkCaAMGpJZnkPRrnNUVuOHIqhf3SUKMlXOAaZiPwHDOqAFRyWT AjICuqJAHjTRM0BOd2HBPyGETfOH9IHjItLEGpKAn3TAxfYRNyHUOpzn6JESLsQMWxLGp9WAOuVIYhEI NaTCytVIHmWGX8ZVK4PEDiMOTuYH3GEtCpMJQeSiWi NfdbIWZuIKTvws0WEWMpMCGvENmjByBtLVHiGSWsLWhrMZLoQCDsZNNeWILlPPOkMS0UDoEgADTdZeUj DvWeZDOnPCMngm3YKALqWYCjRBOvWfQeTGQvTRUxYGskUHOhRXQdDgTvCOTnKCVmAL7HViFxCPKpBxC4 ZanzRTMbHKHorn5LSOPhTVJrRyLiSuBqLCXiAGAxAA ziQIRkQKWqNDF8ARLcBPJqHH8PHhQcCSHbQqM4YFCqBKTfZBAubq2JKSYoUVGjIZM5TcBmARIrAIOjDY eaGLGlZHI2IlB8PKJgAKXwTI0RLuMbVVifEXEHPrt0RLhgB5i6YGMaST9TM2Eia0OyTkVaSDFYVProBZ 6elaKeKPFzCv0MF2dWPhm9VIEqTuZkLOQsZrHrIGJy A0PbWnL1MAD3MGc0KxGaFF2yHRZtIdG9PLC9DRFvLGJnLPX3HKZmCVG0Xmb8RIWnUcB5XjUxYT0WCn1V UyT7QFY9sQLjYk0JXwF2VzSATfBwFI0NYFu= ID Date Data Source [id number] 08/21/2019 10:37:36 PM EDT [facility] Name Value Range Interpretation Code Description Data Maureen rce(s) Supporting Document(s) Glucose [Mass/volume] in Capillary blood by Glucometer 226 mg/dL 70- 140 [facility] ID Date Data Source [id number] 08/21/2019 06:57:03 PM EDT [facility] Name Value Range Interpretation Code Description Data Maureen rce(s) Supporting Document(s) [facility] HYVUKh2nHuAFChZp54/RWVvlIVBjv3UeZXbgLQr2PJphEDXiE3NxUEY6oN3rJCJ0WSaNWlIwMlCqDoN4 lbm [file] PhW8PCPkAGW0MgW2Lh1dKEJWKe4+SKewsXMorIceXYYXUxN1OOJ2USzhJWTAEv1H ID Date Data Source [id number] 08/21/2019 09:11:47 AM [facility] Name Value Range Interpretation Code Description Data Maureen rce(s) Supporting Document(s) Glucose [Mass/volume] in Capillary blood by Glucometer 206 mg/dL 70- 140 [facility] ID Date Data Source [id number] 08/20/2019 05:11:26 PM [facility] Name Value Range Interpretation Code Description Data Maureen rce(s) Supporting Document(s) Glucose [Mass/volume] in Capillary blood by Glucometer 147 mg/dL 70- 140 [facility] ID Date Data Source [id number] 08/20/2019 01:00:20 PM [facility] Name Value Range Interpretation Code Description Data Maureen rce(s) Supporting Document(s) Glucose [Mass/volume] in Capillary blood by Glucometer 116 mg/dL 70- 140 [facility] ID Date Data Source [id number] 08/20/2019 12:48:58 PM [facility] MR BRAIN WITHOUT CONTRAST [id number] RES ULTInterpreted by:Wilfredo Fields MDORDERDAVID CLINICAL INFORMATION: presenting with CRAO, concern for embolic cerebral infarctCOMPARISON: CT of the head and neck dated 08/18/2019 PROCEDURE : Multiple MR sequences in multiple planes without administration of IV contrast.FINDINGS:No evidence of acute infarct, hemorrhage, or intracranial mass. No abnormal signal in the brain parenchyma with the exception of scattered small vessel disease. Preserved lyon-white matter differentiation. Midline structures, including corpus callosum and cerebellar tonsils, are within normal limits. The ventricles are normal in size and configuration. The basal cisterns are patent. Absent flow-void within the right ICA extending to the level of the [place] consistent with history of complete occlusion with collateral flow identified on prior imaging. The left ICA demonstrates appropriate flow void.IMPRESSION: 1. No evidence of acute infarct or intracranial hemorrhage.2. 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, consistent with prior imaging.This document has been electronically signed by LAWANDA Fields on 08/20/2019 12:46 PM Name Value Range Interpretation Code Description Data Maureen rce(s) Supporting Document(s) ID Date Data Source [id number] 08/20/2019 09:21:14 AM [facility] Value Range Interpretation Code Description Data Maureen rce(s) Supporting Document(s) Glucose [Mass/volume] in Capillary blood by Glucometer 127 mg/dL 70- 140 [facility] ID Date Data Source [id number] 08/20/2019 08:07:48 AM [facility] Value Range Interpretation Code Description Data Maureen rce(s) Supporting Document(s) [facility] SXLVWb6bVcXGKjKmo3TxMrBpEFQnEV8cdrd6P9U1nBBcF7PulDDiq9eiP6QjA6McKVFzPKMHTQ4LeKTa jb2 [file] fzceFwHWx3Nv/anD2QUrRoMxvmP998E8+JUAN JOSE+qEJ7EralQSPGTZJWq1uTnZLNb7BihBZJEGOTY4qam45 [file] LKKp4Es694TCHfSFICZap+PhuhoGVdnUavGMFSDrZuLuOQGYZEP2R= ID Date Data Source [id number] 08/20/2019 07:52:51 AM EDT [facility] Name Value Range Interpretation Code Description Data Maureen rce(s) Supporting Document(s) [facility] MCQFSu0mNqUHTeHc30/UUBhcKCLwg1WsFLywCIc1SHhfSHVlA5LiFPY6mP2dVVP2TMlAJfHoMuJwUfR4 lbm [file] ZsU20Ip+lVSNORdkakIQJ4/2oC2SM/8UP/z+nonprofit financial controller/Y// gZHRkzm5N6FnQ5YWYgmP/fD5kvNAnQSxVI1/iSqHbHWAIikTfxuW0S6hDKD7/s2WF4Xea8EOyIW7FoYn LVKBvq6I8jLaK33a/Ddhx+XnWQGZMvrX9Xehbtv+FqtWmMjcuw9rzH4C9QF0BoivQalnWYHClGzX6Klt V87ab7Atj3m3/G23Hd9N3Tc5aPeOoGQhbmBfUqG5o3 Gcfe17G79vL/4k2wnQsU4VeP8KTra/Ls5zbyB/QKdWmJjcAT+Xb+FsE+cTOuri/xZn0t3/Y13+Mzo6VU //b88tPW/G7bubUZvX97LgvCj+xA44w/mZ7Nz/1eyd1jCww0fiI0edzcmV7G94G9mdEFURZCe782+marker machine [file] AgICAgICAgICAgICAgICAgICAgICAgICAgICAgICAg ICAgICAgICAgICAgICAgICAgICAgICAgICAgICAgDQogICAgICAgICAgICAgICAgICAgICAgICAgICAg ICAgICAgICAgICAgICAgICAgICAgICAgICAgICAgICAgICAgICAgICAgICAgICAgICAgICAgICAgICAg ICAgICAgICAgICAgDQogICAgICAgICAgICAgICAgIC AgICAgICAgICAgICAgICAgICAgICAgICAgICAgICAgICAgICAgICAgICAgICAgICAgICAgICAgICAgIC AgICAgICAgICAgICAgICAgICAgICAgDQogICAgICAgICAgICAgICAgICAgICAgICAgICAgICAgICAgIC AgICAgICAgICAgICAgICAgICAgICAgICAgICAgICAg ICAgICAgICAgICAgICAgICAgICAgICAgICAgICAgICAgDQogICAgICAgICAgICAgICAgICAgICAgICAg ICAgICAgICAgICAgICAgICAgICAgICAgICAgICAgICAgICAgICAgICAgICAgICAgICAgICAgICAgICAg ICAgICAgICAgICAgICAgDQogICAgICAgICAgICAgIC AgICAgICAgICAgICAgICAgICAgICAgICAgICAgICAgICAgICAgICAgICAgICAgICAgICAgICAgICAgIC AgICAgICAgICAgICAgICAgICAgICAgICAgDQogICAgICAgICAgICAgICAgICAgICAgICAgICAgICAgIC AgICAgICAgICAgICAgICAgICAgICAgICAgICAgICAg ICAgICAgICAgICAgICAgICAgICAgICAgICAgICAgICAgICAgDQogICAgICAgICAgICAgICAgICAgICAg ICAgICAgICAgICAgICAgICAgICAgICAgICAgICAgICAgICAgICAgICAgICAgICAgICAgICAgICAgICAg ICAgICAgICAgICAgICAgICAgDQogICAgICAgICAgIC AgICAgICAgICAgICAgICAgICAgICAgICAgICAgICAgICAgICAgICAgICAgICAgICAgICAgICAgICAgIC AgICAgICAgICAgICAgICAgICAgICAgICAgICAgDQogICAgICAgICAgICAgICAgICAgICAgICAgICAgIC AgICAgICAgICAgICAgICAgICAgICAgICAgICAgICAg UUJxKRXoNMYiVPLaWCIhCFJzWDQgENVnXKDvKKUvUETiXVYhTNDgMWk5L9ptRLVvQIAwFR7kVYs8Dh1+ ECwHImAkIUC2emIkzP0QLQ2zs9NwXSgkMTRxu4UaWWn5DL0UTIZuBRexPA9AQGckmy4VSDEfJHHboESX o7urNlUoCZG1CMIhHqjzIQ2FSYXsO2rieqDvQQVsIU MDQQuzFFWXMKzwGVEDVJNuOQEqOnXoAuKzPGQxRALaRALQBUB6SHRmJkArELfsBK1Qm4FvcIX9HGn+Pg 5XTM0oe8LgMAnrJeEgZS8sgz5HGPrQXqYnZ8QdvqW8JUF1IXWsBn9CUKXvVKKgsEOrCQGkCSZPNlSgS3 JikR07QRBCZv4+APkeffTcMsuVFrI0XTYbq1VhMZc9 IK4ATISsFLk1fAHqY77mx5MeuEKdCzsmF991iPchQYZywNlrLUBfKCOAXyQOCVO2BPexDA8bXQAiQOS8 HrI5PBIPNB8SUKEiVSYzuPZtQCAxIMBNNT5VMGxcDDR2FJCxlbQvrMVkCGcsHE1IMPNujvPuWfeoFAOU DQo+Wn2RSV5uc3DoQOmyYYKdJK5oim5NAZnDQdCsE4 Z5eIXbR6H2LXirTr6OKOFwUYXfOgOaLSZXQZtxXY1WQR8gxsW8WM6UwPDkUWYqSMXfmBEbGEk9V19saZ QuYHaxOG9MVDJ+Noble+Qo8SGSVuEVRoVIHxEjCfNUTEIjRvT8IgG4VKm5LoK7McTZ85oDwjllMeVOzdNZ 3MBM2aHBXpZVOQGZ5XnDBtxC0bnxKtLqHnKPTJXaGx U73ngVNhMPQrGTM2JIZkAq1TOTSzD4QxqmDwqYyktkOdXOQiNJZBQU1ZKAlxbfHgnVWrrNjkNS15vQwm SJ6QQb9EHjVdBX5txb4KmMLbZt9LLLN2HW7RDHWkWDEdNRNdVCK2GODjZoXvNLptGPTnUICqKAZ9JYJl GSVcYB2OMnAhELUbWNX1AwviQUPaPGGpmd0AWJPiSZ N2LMApMEDaYKLyDMUfXFtoSTXmJYQfUHL6FXGnEUEtOA9ZNiHoLCAmFYO2MXVcNFVsPTWspt5ZAFOxCX OeCGKqUJNnLHMnLYDhODfhECIlJDR5DcenXIQvOMQpIX2FHzZdCUHiTEa2HVenRQEbVXWkzp3XCECoQG AxMTAxNiAwMDAwMCBuDQowMDAwMDExMjIwIDAwMDAw WB9STaIqJDZxGVOlVaYyOOYiJBIkop1XLNAuBLIiCMT9SXMrUPGlDAKoPAhoVQAbQVY1EYQ0VWXpUZNk DX4GPoBtGPYrFAfgBVTlZJOyDVSkgw0FOTGlNHWlXzq1NuQmINCsNXMiYBcpWLFjHDQ6AZr2AYLoCYJc VY6TVmNlEZXaOdDzVbpjGZKzCTDgas5ABPBzISUwVL N9DJLxTLBuSNGbUPbzZWNsXBT0JkA9DOMcAUBnLJ1JHkYgUKRiIrJ8CBFyURLmHJXvmp8LXVUrUERxBl vuNNLnZXPyBZIfRMpiHWHaFYY6YamiGWMzHJPkKZ6VQmZzGKDmYdl8LLFhAWVoTLIkps3MAWEmNCQwBH M0FuSiJCJfFZXjBMucGTWtNYJ1NIZxYXLuJRXbJZ7P BnUvWTUwJseaScXsXENfJJFhmu1SOEHgBBCcBYBvFgKvTXBeXMCdBRlfMNLtNIIpNNIjLYWyHRFeXH4Y GlMdBLSgVUNyMKJuZBVbZHArjq7RLCMfSWJ3YWL3MwStBHNgWOUxBScgSVFbHHWnUEEvGWJiEVZqLX0Z IoOcCYRvYWSlJVBcDRUpECYiqu3HXWBsVAO7VaI5UX WhFUWrBJDoBPibUOXoJLAmZqi9MLJqHIJbKP2UZcLhIOTeGGE0RQHyYZJgQVLhro8FVNFtTZS9Xez2NP MtJMKeVRTxLNoxYPPrXIZ8VwA9GEEmOLFxLL8VDpNuGNJwOGD8GvrmYVFzWFKnip9OOWVvYTP6EWP8Ez TrTUHaDTChBLe9zcQimHIdYMa3BC5GV1TcrbFrBPXA Cu9Ka965GOI8AOAuCs1UR5ioBy9lCZXgTRCNUy7UQZq9PzWnTQQ9HPWlQnPsLXS2QFPlR0KmSVZ6W0Dx UnY9MQL+TKjqOcZqXpr6LVVhGXYfItr3GNXcOrTuRCPjYqGpBib7ZJ6jSAKWMe5+DQpzdGFydHhyZWYN DaG5FUC9QFafJSBGJv4Q ID Date Data Source [id number] 08/20/2019 03:27:41 AM EDT [facility] Name Value Range Interpretation Code Description Data Maureen rce(s) Supporting Document(s) [facility] YXOBYq5wZdCHYuYi98/DQBbtFNCli7AeBCsxNTy8TEzuESFmF3HnSEQ9oP2dWPN3KHhHBpSePcJqCdB7 lbm [file] VPRg0K ID Date Data Source [id number] 08/19/2019 09:42:19 PM EDT [facility] Name Value Range Interpretation Code Description Data Maureen rce(s) Supporting Document(s) [facility] XFJSVp4mSaOLHbBw34/MDSeyFMTqz9JrJMzoANq7EIiaMJPlS2CoAWM8mI1bBED4MBwAQpHpVlNlKvZ7 lbm [file] AgICAgICAgICAgICAgICAgICAgICAgICAgICAgICAg ICAgICAgICAgICAgICAgICAgICAgICAgICAgICAgICAgICAgICAgICAgICAgICAgDQogICAgICAgICAg ICAgICAgICAgICAgICAgICAgICAgICAgICAgICAgICAgICAgICAgICAgICAgICAgICAgICAgICAgICAg ICAgICAgICAgICAgICAgICAgICAgICAgICAgICAgDQ ogICAgICAgICAgICAgICAgICAgICAgICAgICAgICAgICAgICAgICAgICAgICAgICAgICAgICAgICAgIC AgICAgICAgICAgICAgICAgICAgICAgICAgICAgICAgICAgICAgICAgDQogICAgICAgICAgICAgICAgIC AgICAgICAgICAgICAgICAgICAgICAgICAgICAgICAg ICAgICAgICAgICAgICAgICAgICAgICAgICAgICAgICAgICAgICAgICAgICAgICAgICAgDQogICAgICAg ICAgICAgICAgICAgICAgICAgICAgICAgICAgICAgICAgICAgICAgICAgICAgICAgICAgICAgICAgICAg ICAgICAgICAgICAgICAgICAgICAgICAgICAgICAgIC AgDQogICAgICAgICAgICAgICAgICAgICAgICAgICAgICAgICAgICAgICAgICAgICAgICAgICAgICAgIC AgICAgICAgICAgICAgICAgICAgICAgICAgICAgICAgICAgICAgICAgICAgDQogICAgICAgICAgICAgIC AgICAgICAgICAgICAgICAgICAgICAgICAgICAgICAg ICAgICAgICAgICAgICAgICAgICAgICAgICAgICAgICAgICAgICAgICAgICAgICAgICAgICAgDQogICAg ICAgICAgICAgICAgICAgICAgICAgICAgICAgICAgICAgICAgICAgICAgICAgICAgICAgICAgICAgICAg ICAgICAgICAgICAgICAgICAgICAgICAgICAgICAgIC AgICAgDQogICAgICAgICAgICAgICAgICAgICAgICAgICAgICAgICAgICAgICAgICAgICAgICAgICAgIC AgICAgICAgICAgICAgICAgICAgICAgICAgICAgICAgICAgICAgICAgICAgICAgDQogICAgICAgICAgIC AgICAgICAgICAgICAgICAgICAgICAgICAgICAgICAg ICAgICAgICAgICAgICAgICAgICAgICAgICAgICAgICAgICAgICAgICAgICAgICAgICAgICAgICAgDQo8 E8lvSANaLNRzII1iEZt1Ec6+QTpKAjCdUWU6esBnhS5KVB7ob6QhHBukBOGdn2LvLUw5DR1VAZPwOPux TC3UVXzxgk5TQGXoBHQciXHUd5zuReUqCOW6RYLhOb jwST9HWRXcS0mcyvFpBIFgFGDRIZlxDTDLBUhsOFNYPTKaZOUxKxMjNzVvJQQcWU7XIPYyE166duXuDH 7JGj5YMuDvTG9ztp7ZJnCtEITcMstDTxk7MQkqEP9CfGDpaZEuMBKsKSUKQvMrS7roc5XhUxHkHGRAXY udZS9Fx4YizBGcBKd+Sg7FFV2sf7FwIEfaSDFbOX0l tz2YLGmLEkJoU9TioMtjGVErqkS8mBWgZZR4DJZbmodhFPOypgcgAEJARtUfpZJ3XcCsNpOuXFKoMDi1 KFKSFPyBDfDtO9Srg6NtJgD9JIOnQuTcCZijFTJlZjE9KZ88uTxtIL9SCGGnWZSlVJ25ZWRiXAKxZh9M Qh4MAxVgHH8krr0OXlXeIBJsXflQLay0MLcsIF7DnZ PgO6TelWXvo5hTSlOoL9XXQIYhYADgSk0NRRRsEzXiCGLlAFwnFB9vOMSuHOIOcNbjlwJ6YC9XHR7dka HdRI9WNeEiYw4hMk4XCaTdV3AgI4LbCDYiLWGSEZuuKN6YGKtwTZ6sMM7Oi6CKbGJdcH9hnx5ZUGTqPX KlJxkusq1FZjltA3P7dThbMQVxHpDnOPLKKLqpYA3M WKUqZSD7PHAtUsPoXVXRXjVrH29mED3VO2Knp88oTsU0NPSyKmHoDYsuDP37rGpuovVfaRMykGxeNV3M Cj4+ZOegfmRsQcySTrmjDBSTAeGzUmLJWlDnSYJjFSSyDIIzSgJ9TiNlGm6AKNMgCFVbOABkKmKsSFNx ZOKqMHoaSZGtJAKgDfw1TQIfKPOeFE8RNrJoYXGoDp SfIqedRUIbYDGana3VZICwFCNkGLB2KcXdWQCeSUBvJCdbIPGrDJGzJBQxAJWzFQXcAM9LNjIcLYDhFT L6CNGyLTBuKQXmls3AZKSaKLHlYxR2SRLzRINhRECvHGceWJYiYMJ6Pos6NEEzHHKeDS2MRmFyADKzGP s5OQfkZWVzMXWhik7KFSWiNNQnBXJePyZzFXFlPIGm FMkuOQTfOLPdFLZgZCTtJHBiQC6YNxVcBMLgZAKsOxpmZQWoTKIhtr0WJNZeDJMzAHHzApEiOAMiNDWv MZvcDTQqRYI9KoS7PTXvEQIbVF1KYuMbWFNvIXE6OWmuDTAeESTwhm7DYJAxFHPtFIi6DMYgTKSpZFBj ZTneXFUkCDD4OXT0AGGtNVRsEU0PHaJbQPYjRHI6Et bfFYOxXCBtbm2ZVTHyADVoHhUmTRBvFDTwYVFeWTfyZBErDYF5ScK2XTTuFWQsKB4HUkIrCVMaXHlkDq rcAPPtZRUsck8WQJKrYJPcQFU8DLHqXQVoGCPoIRfjSMFhONC4DiQ7NIJkMSAlWX9YGbZnXUXdWbNdCX XcCVFwTZSeie0CLBBpVTPxSXX6JLBuDBNgYDZySRfi KSInSPCgIFY9QMUjWMXeZY8WCeXyLVBgTgX1MMooUFCpOINdnu4IQTMlZPPhTWl4OFEcXVIfMSGmERlw JVEgWFFwJMc5PHKlUOVcBC1LQvClIQPuBdAgRISjLXDzAYVbvj3LNJQzOTNuRwO0BQRyWJCsXSJfWOzx XKWqQMOhAoh5MRZgRZKhHV0GUsEaFWSeDzKmHaXtME ZjHAHxzy0IHNMoJRCnAUZdKuRdRONuNPJpYAjoWGPgNLQ0XphrRYWeMINyBL5ATbAgKDdrJUOOBls8BI mfR7p3XEWwSr4TD1Bxz9CiGjUnVMZFFCqzUZ6fmvVgWYCcPz5HQ4hQWehcTZFuIDW4Nxh2PsNwVTCtPs UrLLEyYCFcJINiGuLbHu3zUCH4R9VkBGsvZrr7RCB4 J1J8ZTQhRQP1SKRjQwM9CrAsWzVcDV5DQl4XMaD9BAJ1yKIfKc3IOmM9MXIPVbDeDR7KAEr= ID Date Data Source [id number] 08/19/2019 06:15:54 PM EDT [facility] Name Value Range Interpretation Code Description Data Maureen rce(s) Supporting Document(s) ED Provider Note [facility] KLTFKu6yDeUAVkGe99/OQSpfFRKbj4PxSSnwBWf7XAncSKXjA6AbBTM7uZ1sZXY1WQwQObDvBnLgJtK9 lbm [file] [facility]/UwItrB4/nzGnx3nlGYrLcFB2KF3FcwrvszL79gLvI4Ud8fKQe6oRC6iAhgjix9t1g4SBknrFTG9q [file] zz+aexnadJn1pdseWc2VW/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 [file] ChLHr5TRC8VH2FGAMSQ8RDIj== ID Date Data Source [id number] 08/19/2019 03:39:42 PM EDT [facility] Name Value Range Interpretation Code Description Data Maureen rce(s) Supporting Document(s) History and Physical [facility] MJGELu5aCcJNZsIv06/GBGjyTTBvp7TaKWmnZYy7ILkrDUSdN9PeXEY3mJ5cTDO7XYqFLzAmDwMbGwY0 lbm [file] ICAgICAgICAgICAgICAgICAgICAgICAgICAgICAgICAgICAgICAgICAgICAgICAgICAgICAgICAgICAg JEZfVRIlOIAxJKWnLAHeECPbVRMsAUHyPLHyUE8YAC AgICAgICAgICAgICAgICAgICAgICAgICAgICAgICAgICAgICAgICAgICAgICAgICAgICAgICAgICAgIC DsBLOeEIBwZEMmRWSrTNFeHNRlACPuTXOvXNCoUINrCYRfEJVyCS1KAUWySTWuKUVxIFQrBUTaNDVhJK AgICAgICAgICAgICAgICAgICAgICAgICAgICAgICAg DHTpJYDhPXYuMWRhUOZyOUSdNHNaREZcSWPnOHTpPNDsKVRlRVRlRGBdYLSiRGZvNE1GDWUuYYAoFXBy ICAgICAgICAgICAgICAgICAgICAgICAgICAgICAgICAgICAgICAgICAgICAgICAgICAgICAgICAgICAg ICAgICAgICAgICAgICAgICAgICAgICAgICAgICAgIA 0KICAgICAgICAgICAgICAgICAgICAgICAgICAgICAgICAgICAgICAgICAgICAgICAgICAgICAgICAgIC VzMXNyVDYfBCObYMAaZEHbTGXtVUMjJHJxKWBtBMVaSGEnOLPcYGGyUL0AKFYzFCCfKABpHPHnLYCtOG AgICAgICAgICAgICAgICAgICAgICAgICAgICAgICAg RNSeFXEjRYOfRXRmEKFrFJAzEWHeMGFgCSAcUTBpYNDfBJHrATTfCUFeIMYnTMTdVDVgPH2CJUVmRLAk ICAgICAgICAgICAgICAgICAgICAgICAgICAgICAgICAgICAgICAgICAgICAgICAgICAgICAgICAgICAg ICAgICAgICAgICAgICAgICAgICAgICAgICAgICAgIC CrNW3QVXThOGNaQEMcHKInFQPtPWUsOFYlEVPgRLLpLDDzXXLbRYQqJZNmSLNxABGyCDGsBNRlSLTsUW EyAJLmBZZxCOCzVYMeIDFtVVJmRGYjSQTdMYLcQQFwKYScXYLwQSMhUHUdLN7QWZZvGBJwSIGoOQXgPW AgICAgICAgICAgICAgICAgICAgICAgICAgICAgICAg DBFdKLKlJBChMIKyPZIdDUAxGWFoPPCsOHUrLCPeDZQyKRWtQZBeYXAqMSLwORZzFOMnIOOvVU0WXINr ICAgICAgICAgICAgICAgICAgICAgICAgICAgICAgICAgICAgICAgICAgICAgICAgICAgICAgICAgICAg ICAgICAgICAgICAgICAgICAgICAgICAgICAgICAgIC ZmYPZvMW9HQK50xENuu9R5RUUwUU0hzzr/Hw5NMPxyzlCicIUsJU5HNxMkXQ3sxl3FKiIqJI4foh3FYV wKGfDwM9R8iCFfXAQwVLOPVoWkQ76bKUttYn93DVwwZSMmCzKlTYo1Sz1GQxBhW2qhMNEbZtL8SJJiZl X5GDRjPfPcZEQiPHKaWXUlJCYMEKH5GSJkZpFxSqWs ZRHbMD0WSHZvJ778xtNyJo7VJa1VJgNzGT9ykj7WOqUxFZMnOafJCjw7JSlxVN3NqEOckJWsZkFwXDKD JhCrX9pqu2AaLzvoEINTWGauJV9Pp1MnuMRoZKv+Ti2VXB2zz7AwVYfhJfFjHD0wfk5QULbXRtAnU0Ce dGxlKEgmUCBieSBMZWUgQSBQZmFmZiwgTUQgYXQgNy 24AhEvEcMlIEF2YpSxYQ9rMZgeJF1OMKA2XDziRQKeJSDvN2tMTbRyEHEzPmVkzLbfTD3EFuJlR1Bnfn VudCAzNiAwIFINCj4+ZOdidjLgZgcKWhHfROEdQcnUHlp9UMirKE3KoVZfLE8Swz9goXFkT6VsqHtyMS HoQBquojCcPn4rYMUqHIbaIOBcMP5bR7vyX2znR4Qo FCBNVbJiQ3TuC6SuZoPaGOO9FYYiMDErYNWoLY7PZTSnQYS1SV8BGC0JMkcgK7RELRmWdBmpHVHFHoIG DyjiLHSkF8DSE3lCZ8fNV4UoQ32UA00kJ3XHBS2IS4EFPJbmEw4pYGc+Ps7LQM2ux4NyZKoiWQCpKV9j ih6OYPuRUkPoF0H1jEKgU4N8FBwuEh5YOMIaNJWoLs AfGHGNDCtsXJ9GOA8iigM0XM1YqUGcZOYdZIPjkKCgQNf1M52meHVrTLvuKP7PENI+Noble+Fu1LKMNyMI CrKWDpZwKdSBULIzVgL2IoI7ZMm6TeM1QzFV41iUqtyyZnIWbwKA1NAO8zJDWdNTOKZZ6AoYAofL1ynf RtOjArUBUMNdEaN36rrBNhLNQgRDO9WOFkOn7FTEXk X4DhraLqmKscxePySLCjRXFWMM1HNCmevfIcoILjwZhfRJ67jTavPY8BEp2PWwEbHL6gye0XvJTnLu8M PGBqTV0QNKNsMSDqIQRqHKU2KMUuWoPsESrcSVZiHTAwVQG4MFFkIJDoCQ4RSaLeBOOiTZPpHPOnOZLk GOZove6BMLLqQEK8MNs7REGtZFYeUCEzZJeqHRSvWR YzJXO4YWSlUNVnGU5ASmZaJOCqZDV8MvLkTLIrHSOgle2LLCIeGYA8AxP4YBIeDMKtPOKxXHrnPSDeQK MuHYUjYNOjRHNhQE4FJsJsHCQyAGH4CzBxNAKsEEVyzp0WBQTzLLFrKbX0IKTfEZDzYQIkDFwzZNYySA SnARP9XHLvQZCsQN7MJvYlSVMhOFAkPoTuZCVeNZYl sq2VZESlUETcTOC2JeXhZHTuUKCsZLwqCVHhSKW3GSWqWYQoAZMiFC2NQfByMXQtZTr3GFkiDDUkVUKx ia2LCXFcWWWgDLxoIqGgPMEjOQVhJTimRJXoZWX4PmrfHSMyYJDqRU3NDdWsIRWiEOq3CzNiQONnGBTm nq9CHXJgAUNfYKgjEgTcLJPeJBLfUEndJIEaFKMsJH DkUQVtYBJqPP1XEwMmCWQaEyUaVQIiIWHkSBAsaa1TGHGdAKPaFaY9FKGiLJZnSWGxPBdjHBBhOAMeFD u5TMXdYOKjPM4EZyDbCBUtPfK9EwIqNHRqVAUdla8HFFWbYVSgAiNkBICcFRQpHYZyWYppRFBrOODhBI D8PWOmQKEwAX6WAxAlSTWwLtTwYJReRUBvRROptn3R PHLxFNTfRNb4PXPpAASsMZSaKOraJZZlWOC0VUfzAIEpGMUzYW4LPeVnNKQkIuChHAJcKXNrAHFrrb1J HMAoMTQ6IdScWjPeGQUtRJJuMAibNCVoULQvUQN0WFOgIBSwAH5ZBoXnAHTcEIO5WrPnQDWpYSVmyj5Q XLJgUXE4BCXzXWWvPSDnFPThNQtaGTGnCOY6QSjwOY WwLFExQQ2AZlSiUIHjCLK5GGPjPJViVMFdln2CACSqBPE8CtO7QfKjHGSrPWMwYJyeVPYyKAB4YYQ8PV FbNLFoIC7ECnKwIARbERT2MrBgYLKxKWOalm5KxIYxrVugew6GWUkKGw0GeFeoPJN1DSblWg4ozZTmCS GbJIIBPw8RhwJeNATnQUTTHSjcQFUvKAQkRgPpApJ2 NYgmO9AqKzHaJUOlJJYsI9GlIhQiPmMeUnS9H4GbGbNjJRf2RSOyGSX8GBB9KvX1YSA4TKJdDEPzKFM+ XM2oWDo+Rt6De5GdysI9vzUqYYr9KtyqZx9KLIYUP5JOVd== ID Date Data Source [id number] 08/18/2019 07:58:51 PM [facility] CT ANGIOGRAPHY HEAD [id number] RESULTInt erpreted by:Shira Campbell MDINDICATION: Vision loss. TECHNIQUE: Non-contrast axial CT head images were obtained. CT angiography of the head and neck was performed following the administration of intravenous contrast. Multiple reconstructed images including MIP and 3D volume rendered images were then acquired using the source data at a separate workstation. Automated dose lowering techniques and/or adjustment according to patient size were utilized for this examination.COMPARISON: None.FINDINGS:NECT: No acute intracranial hemorrhage or acute territorial infarct. Ventricles are appropriate in size and configuration. The basal cisterns are patent. No extra-axial fluid collections are identified. The calvarium is intact. The mastoid air cells are clear. Partial opacification of the left sphenoid sinus and right maxillary sinus.CTA head: The intracranial right internal carotid artery is completely occluded the right TATUM and MCA are supplied via an intact [place] and contralateral flow from the left. There is atherosclerotic calcification involving the intracranial portions of the left internal carotid artery with mild stenosis. The intracranial segments of both anterior, middle and posterior cerebral arteries are patent. The intracranial segments of the vertebral arteries and basilar artery are patent. No aneurysm or arteriovenous malformation is identified.The superior sagittal sinus, internal cerebral veins, straight sinus, transverse sinuses and sigmoid sinuses appear grossly unremarkable on this non-venous phase study. CTA neck: Atherosclerotic calcifications of the arch the aorta. There is severe stenosis at the right carotid bifurcation with no opacification of the internal carotid artery more distally. There appears to be common origin of the brachiocephalic and right common carotid artery however the origins of the left common carotid artery and brachiocephalic artery are excluded from the [id number]. The orig in of the left subclavian artery appears patent. There is extensive atherosclerotic calcified plaque at the left carotid bifurcation with greater than 75% stenosis however the left internal carotid artery appears normal in caliber distally. There is atherosclerotic calcification without significant stenosis at the origin of the bilateral vertebral arteries. The vertebral arteries are codominant. The common carotid, external carotid, and the cervical vertebral arteries are patent. There is no evidence of dissection. Multilevel degenerative changes are noted in the cervical spine. There is grade 1 retro listhesis of C5 on C6. And grade 1 anterolisthesis of C7 on T1.IMPRESSION:1. Complete occlusion of the right internal carotid artery due to severe stenosis at the carotid bifurcation with filling of the right MCA and TATUM via an intact [place] and contralateral flow from the left.2. Greater than 75% stenosis at the left carotid bifurcation with normal caliber distally.3. No evidence of acute hemorrhage or large territorial infarction. No evidence of dissection of the major arteries of the neck. No intracranial occlusion, aneurysm or arteriovenous malformation.The degree of stenosis was assessed utilizing NASCET Criteria.Critical findings were discussed with Dr Bhagat at 7:15 PM on 08/18/2019.This document has been electronically signed by Tariq Mccollum MD on 08/18/2019 7:56 PM Name Value Range Interpretation Code Description Data Maureen rce(s) Supporting Document(s) ID Date Data Source [id number] 08/18/2019 07:58:51 PM T [facility] CT ANGIOGRAPHY NECK [id number] RESULTInt erpreted by:Shira Campbell MDINDICATION: Vision loss. TECHNIQUE: Non-contrast axial CT head images were obtained. CT angiography of the head and neck was performed following the administration of intravenous contrast. Multiple reconstructed images including MIP and 3D volume rendered images were then acquired using the source data at a separate workstation. Automated dose lowering techniques and/or adjustment according to patient size were utilized for this examination.COMPARISON: None.FINDINGS:NECT: No acute intracranial hemorrhage or acute territorial infarct. Ventricles are appropriate in size and configuration. The basal cisterns are patent. No extra-axial fluid collections are identified. The calvarium is intact. The mastoid air cells are clear. Partial opacification of the left sphenoid sinus and right maxillary sinus.CTA head: The intracranial right internal carotid artery is completely occluded the right TATUM and MCA are supplied via an intact [place] and contralateral flow from the left. There is atherosclerotic calcification involving the intracranial portions of the left internal carotid artery with mild stenosis. The intracranial segments of both anterior, middle and posterior cerebral arteries are patent. The intracranial segments of the vertebral arteries and basilar artery are patent. No aneurysm or arteriovenous malformation is identified.The superior sagittal sinus, internal cerebral veins, straight sinus, transverse sinuses and sigmoid sinuses appear grossly unremarkable on this non-venous phase study. CTA neck: Atherosclerotic calcifications of the arch the aorta. There is severe stenosis at the right carotid bifurcation with no opacification of the internal carotid artery more distally. There appears to be common origin of the brachiocephalic and right common carotid artery however the origins of the left common carotid artery and brachiocephalic artery are excluded from the [id number]. The orig in of the left subclavian artery appears patent. There is extensive atherosclerotic calcified plaque at the left carotid bifurcation with greater than 75% stenosis however the left internal carotid artery appears normal in caliber distally. There is atherosclerotic calcification without significant stenosis at the origin of the bilateral vertebral arteries. The vertebral arteries are codominant. The common carotid, external carotid, and the cervical vertebral arteries are patent. There is no evidence of dissection. Multilevel degenerative changes are noted in the cervical spine. There is grade 1 retro listhesis of C5 on C6. And grade 1 anterolisthesis of C7 on T1.IMPRESSION:1. Complete occlusion of the right internal carotid artery due to severe stenosis at the carotid bifurcation with filling of the right MCA and TATUM via an intact [place] and contralateral flow from the left.2. Greater than 75% stenosis at the left carotid bifurcation with normal caliber distally.3. No evidence of acute hemorrhage or large territorial infarction. No evidence of dissection of the major arteries of the neck. No intracranial occlusion, aneurysm or arteriovenous malformation.The degree of stenosis was assessed utilizing NASCET Criteria.Critical findings were discussed with Dr Bhagat at 7:15 PM on 08/18/2019.This document has been electronically signed by Tariq Mccollum MD on 08/18/2019 7:56 PM Name Value Range Interpretation Code Description Data Maureen rce(s) Supporting Document(s) ID Date Data Source [id number] 08/18/2019 06:35:15 PM [facility] Name Value Range Interpretation Code Description Data Maureen rce(s) Supporting Document(s) Glucose [Mass/volume] in Capillary blood by Glucometer 114 mg/dL 70- 140 [facility] ID Date Data Source [id number] 08/18/2019 05:10:40 PM [facility] Name Value Range Interpretation Code Description Data Maureen rce(s) Supporting Document(s) Hemoglobin A1c/Hemoglobin.total in Blood by HPLC 6.4 % 4.0-6.0 H [facility] (NOTE)<5.7% Average risk of diabetes (ADA)5.7-6.4% Increased risk of diabetes(ADA)>/= 6.5% Diagnostic for diabetes(ADA) Glucose mean value [Mass/volume] in Blood Estimated fr om glycated hemoglobin 136 mg/dL <126 H [facility] ID Date Data Source [id number] 08/18/2019 02:33:11 PM [facility] Name Value Range Interpretation Code Description Data Maureen rce(s) Supporting Document(s) Leukocytes [#/volume] in Blood by Automated count 8.6 10*3/uL 4-10 [facility] Erythrocytes [#/volume] in Blood by Automated count 4.60 10*6/uL 4.1- 5.3 [facility] Hemoglobin [Mass/volume] in Blood 14.0 g/dL 11.5-15.5 [facility] Hematocrit [Volume Fraction] of Blood by Automated count 40.6 % 3 6-45 [facility] Erythrocyte mean corpuscular volume [Entitic volume] by Auto mated count 88.4 fL 80-96 [facility] Erythrocyte mean corpuscular hemoglobin [Entitic mass] by Automated count 30.4 pg 27-33 [facility] Erythrocyte mean corpuscular hemoglobin concentration [Mass/volume] by [facility] 34.4 g[facility] distribution width [Ratio] by Automated count 12.5 % 11.5-14.5 [facility] Platelets [#/volume] in Blood by Automated count 182 10*3/uL 150-400 [facility] Differential cell count method - Blood [facility] Neutrophils/100 leukocytes in Blood by Automated count 57 % [facility] Lymphocytes/100 leukocytes in Blood by Automated count 35 % [facility] Monocytes/100 leukocytes in Blood by Automated count 6 % [facility] Eosinophils/100 leukocytes in Blood by Automated count 1 % [facility] Basophils/100 leukocytes in Blood by Automated count 1 % [facility] Neutrophils [#/volume] in Blood by Automated count 4.97 10*3/uL 1.8-7 .0 [facility] Lymphocytes [#/volume] in Blood by Automated count 2.98 10*3/uL 1.2-4 .0 [facility] Monocytes [#/volume] in Blood by Automated count 0.53 10*3/uL 0-0.8 [facility] Eosinophils [#/volume] in Blood by Automated count 0.08 10*3/uL 0-0.5 [facility] Basophils [#/volume] in Blood by Automated count 0.05 10*3/uL 0-0.2 [facility] Nucleated erythrocytes/100 leukocytes [Ratio] in Blood by Automated count 0 /100{WBCs} 0-0 [facility] ID Date Data Source [id number] 08/18/2019 03:00:18 PM EDT [facility] Name Value Range Interpretation Code Description Data Maureen rce(s) Supporting Document(s) Bicarbonate [Moles/volume] in Serum 28 mmol/L 22-29 [facility] Chloride [Moles/volume] in Serum or Plasma 104 mmol/L 98-107 [facility] Creatinine [Mass/volume] in Serum or Plasma 0.64 mg/dL 0.50-0.90 [facility] Glucose [Mass/volume] in Serum or Plasma 110 mg/dL 70-140 [facility] Potassium [Moles/volume] in Serum or Plasma 3.5 mmol/L 3.4-5.1 [facility] Sodium [Moles/volume] in Serum or Plasma 142 mmol/L 136-145 [facility] Urea nitrogen [Mass/volume] in Serum or Plasma 13 mg/dL 8-23 [facility] Anion gap 3 in Serum or Plasma 10 mmol/L 8-15 [facility] Osmolality of Serum or Plasma by calculation 295 mosm/kg 275-300 [facility] Creatinine/Urea nitrogen [Mass Ratio] in Serum or Plasma 20 [facility] Calcium [Mass/volume] in Serum or Plasma 9.3 mg/dL 8.8-10.2 [facility] Glomerular filtration rate/1.73 sq M pre dicted among non-blacks [Volume Rate/Area] in Serum or Plasma by Creatinine-based formula (MDRD) 87 mL/min/1.73m2 >60 [facility] Glomerular filtration rate/1.73 sq M pre dicted among blacks [Volume Rate/Area] in Serum or Plasma by Creatinine-based formula (MDRD) >60 [facility] ID Date Data Source [id number] 08/18/2019 05:10:10 PM EDT [facility] Name Value Range Interpretation Code Description Data Maureen rce(s) Supporting Document(s) Cholesterol [Mass/volume] in Serum or Plasma 196 mg/dL <200 [facility] Triglyceride [Mass/volume] in Serum or Plasma 156 mg/dL <150 H [facility] Cholesterol in HDL [Mass/volume] in Serum or Plasma 45 mg/dL >50 L [facility] Cholesterol in LDL [Mass/volume] in Serum or Plasma by calcu lation 120 mg/dL <100 H [facility] Cholesterol in VLDL [Mass/volume] in Serum or Plasma by calc ulation 31 mg/dl 16-42 [facility] Cholesterol non HDL [Mass/volume] in Serum or Plasma 151 mg/dL <130 H [facility] ID Date Data Source [id number] 08/18/2019 05:10:10 PM [facility] Value Range Interpretation Code Description Data Maureen rce(s) Supporting Document(s) Thyrotropin [Units/volume] in Serum or Plasma 1.310 u[IU]/mL 0.270-4. 200 [facility] ID Date Data Source [id number] 08/18/2019 12:43:23 PM T [facility] Value Range Interpretation Code Description Data Amureen rce(s) Supporting Document(s) Glucose [Mass/volume] in Capillary blood by Glucometer 126 mg/dL 70- 140 [facility] Procedure Social History Code Duration Value Status Description Data Source(s ) Alcohol intake 12/04/2019 12:00:00 AM EDT Current drinker of al cohol (finding) completed Current drinker of alcohol (finding) Health system Tobacco use and exposure 12/04/2019 12:00:00 AM EDT Never used co mpleted Never used [facility] Smoking 12/04/2019 12:00:00 AM EDT Former smoker completed Former smoker [facility] Alcohol intake 11/27/2019 12:00:00 AM EDT Current drinker of al cohol (finding) completed Current drinker of alcohol (finding) Health system Alcohol intake 10/30/2019 12:00:00 AM EDT Current drinker of al cohol (finding) completed Current drinker of alcohol (finding) Health system Alcohol intake 09/25/2019 12:00:00 AM EDT Current drinker of al cohol (finding) completed Current drinker of alcohol (finding) Health system Smoking 09/05/2019 12:00:00 AM EDT Patient is a former smoker completed Patient is a former smoker [facility] ([facility]) Alcohol intake 08/27/2019 12:00:00 AM EDT Current drinker of al cohol (finding) completed Current drinker of alcohol (finding) Health system Smoking 08/27/2019 12:00:00 AM EDT Former smoker completed Former smoker [facility] Alcohol intake 08/18/2019 12:00:00 AM EDT Current drinker of al cohol (finding) completed Current drinker of alcohol (finding) Health system Smoking 08/18/2019 12:00:00 AM EDT Former smoker completed Former smoker [facility] Vital Signs ID Date Data Source UNK Name Value Range Interpretation Code Description Data Source(s) Body mass index (BMI) [Ratio] 33.7 kg/m2 33.7 k g/m2 [facility] ([facility] Heart rate 70 /min 70 /min [facility] ([facility] Diastolic blood pressure 68 mm[Hg] 68 mm[Hg] [facility] ([facility] Systolic blood pressure 142 mm[Hg] 142 mm[Hg] M [facility] ([facility] Body weight 215.00 [lb_av] 215.00 [lb_av] [facility] ([facility] Body height 67 [in_i] 67 [in_i] [facility] ([facility] 5'7" Body mass index (BMI) [Ratio] 31.9 kg/m2 31.9 k g/m2 [facility] ([facility]) Body height 68 [in_i] 68 [in_i] [facility] ([facility], [facility]) 5'8" Body weight 210.00 [lb_av] 210.00 [lb_av] [facility] T ([facility], [facility]) Body temperature 99.1 [degF] 99.1 [degF] [facility] ([facility]) Oxygen saturation in Arterial blood by Pulse oximetry 98 % 98 % [facility] ([facility]) Respiratory rate 16 /min 16 /min [facility] ( [facility]) Heart rate 80 /min 80 /min [facility] ([facility], [facility]) Diastolic blood pressure 84 mm[Hg] 84 mm[Hg] [facility] ([facility]) Systolic blood pressure 136 mm[Hg] 136 mm[Hg] [facility] ID Date Data Source [id number] 11/29/2019 02:13:46 PM [facility] Name Value Range Interpretation Code Description Data Source(s) WEIGHT RECORDED 215.2 lb 215.2 lb [facility] Body height Measured 66 in 66 in [facility] ID Date Data Source [id number] 08/29/2019 01:06:19 AM [facility] Name Value Range Interpretation Code Description Data Source(s) WEIGHT RECORDED 212.96 lb 212.96 lb [facility] Body height Measured 66 in 66 in [facility] Patient Treatment Plan of Care Planned Activity Planned Date Details Description Data Source (s) Proparacaine hydrochloride 5 MG/ML Ophthalmic Solution 12/04/2019 02:00:00 PM [facility] Proparacaine hydrochloride 5 MG/ML Ophthalmic Solution 10/30/2019 01:15:00 PM [facility] Proparacaine hydrochloride 5 MG/ML Ophthalmic Solution 09/25/2019 02:00:00 PM [facility] Phenylephrine Hydrochloride 25 MG/ML Ophthalmic Soluti on 09/25/2019 02:00:00 PM [facility] Tropicamide 10 MG/ML Ophthalmic Solution 09/25/2019 02:00:00 PM [facility] fluorescein-benoxinate (FLURATE) 0.25-0.4 % ophthalmic solution 1 drop 09/11/2019 01:30:00 PM [facility] Phenylephrine Hydrochloride 25 MG/ML Ophthalmic Soluti on 09/11/2019 01:30:00 PM [facility] Tropicamide 10 MG/ML Ophthalmic Solution 09/11/2019 01:30:00 PM [facility] Proparacaine hydrochloride 5 MG/ML Ophthalmic Solution 08/27/2019 12:30:[address] [facility]sp[facility] Phenylephrine Hydrochloride 25 MG/ML Ophthalmic Soluti on 08/27/2019 12:30:[address] [facility] Tropicamide 10 MG/ML Ophthalmic Solution 08/27/2019 12:30:00 PM [facility] fluorescein 10 % injection 500 mg 08/27/2019 12:30:00 PM [facility] clopidogrel 75 MG Oral Tablet 08/22/2019 12:00:00 AM [facility] atorvastatin 80 MG Oral Tablet 08/22/2019 12:00:00 AM [facility] Aspirin 81 MG Chewable Tablet 08/22/2019 12:00:00 AM [facility] senna tablet 2 tablet 08/18/2019 04:20:50 PM [facility] Simvastatin 20 MG Oral Tablet 12/09/2016 12:00:00 AM [facility]
[2020-04-10] MEDS ORDERED: CLOP75TA2 (17:07)
[2020-04-10] MEDS ORDERED: ATOR80TA59 (17:07)
--- NOTE | 2020-04-10 17:52 | REP ---
INDICATION: fall, pain in shoulder. COMPARISON: None. TECHNIQUE: Three views of the left shoulder. FINDINGS: Three views of the left shoulder demonstrate anterior inferior glenohumeral dislocation. There is some diffuse osteopenia. No fracture is apparent. The acromioclavicular joint is normally aligned. Thoracic aorta is calcific and there is lazaro calcification in the left hilus and mediastinum. IMPRESSION: Anterior inferior glenohumeral dislocation. Diffuse osteopenia. No fracture is visualized <Electronically signed by Chris Mckeon > 04/10/20 [id number]
[2020-04-10] MEDS ORDERED: NS 1,000 ML IV ONE (17:55)
[2020-04-10] MEDS ORDERED: NS 1,000 ML IV SCH (17:57)
[2020-04-10] MEDS ORDERED: propofoL 200 MG/20 ML VIAL IV PRN (18:00)
--- NOTE | 2020-04-10 18:24 | REP ---
INDICATION: post reduction. COMPARISON: Films done earlier this date.. TECHNIQUE: Single AP postreduction view. FINDINGS: The left glenohumeral joint is normally aligned. There is diffuse osteoporosis. AC joint is normally aligned. No scapular or humeral fracture is seen. IMPRESSION: The left glenohumeral joint is reduced. No fracture is evident on this single view. <Electronically signed by Chris Mckeon > 04/10/20 [id number]
--- OUTSIDE RECORDS SUMMARY | 2020-04-10 19:25 | CCD ---
Author Author [facility] Organization [facility] Address Unknown Phone Unavailable Care Team Providers Care Program Manager Rn Name Role Phone Sourav Yoon MD Unavailable [...] Orenberg, L Stacey Unavailable Unavailable Orenberg, L Staecy Unavailable Unavailable Orenberg, L Stacey Unavailable Unavailable [...] MD Unavailable Unavailable AiramCasey MD Unavailable Unavailable YINKAEELani Vela MD Unavailable Unavailable DULEEPLaniRIDDHI MD Unavailable [...] MD Unavailable RADHA FOUNTAIN MD Unavailable ASHLEY [id number], E JOHN PAUL [id number] Unavailable Unavailab le ASHLEY [id number], E JOHN PAUL [phone] Unavailable Unavailab le ASHLEY [id number], E JOHN PAUL [id number] Unavailable Unavailab le LETTIERE, A BRENDEN PA [...] is protected by Article 27-F of the [facility] Public Health law. If you continue you may have access to information: Regarding HIV / AIDS; Provided by facilities licensed or operated by the [facility] Office of Mental Health; or Provided by the [facility] Office for People With Developmental Disabilities. If such information is present, then the following [facility] mandated warning applies: This information has been [...] law may result in a fine or snf sentence or both. A general authorization for the release of medical or other information is NOT sufficient authorization for further disc losure. Family History Family Member Name Family Member Gender Family Member Status Date o f Status Description Data Source(s) Unknown Unknown Problem [facility] ([facility] [employer] [employer]) Unknown Male Problem MEDENT ([facility]) Unknown Unknown Problem [facility] ([facility]) Unknown Female Problem [facility] ([facility] Unknown Female Problem [facility] ([facility] Encounters Encounter Providers Location Date Indications Data Source(s ) Outpatient 05/15/2020 12:00:00 AM EDT [facility] Outpatient Attender: Stacey Raymundo [id number] 2019 12:00:00 AM EDT - 12/04/2019 03:10:05 PM EDT Central retinal artery occlusion, right eye [facility] Central retinal artery occlusion, right eye Outpatient Attender: STACEY LUNA [facility] Office 11/14 09:15:00 AM EDT [facility] ([facility] Outpatient Attender: JOHN PAUL RAMIREZ [id number] 1 12:00:00 AM EDT - 11/27/2019 02:15:22 PM EDT Occlusion and stenosis of left carotid artery [facility] Occlusion and stenosis of left carotid a rtery Outpatient Referrer: Jaylen Yoon MD 11/27/2019 12:0 0:00 AM EDT Occlusion and stenosis of left carotid artery [facility] Occlusion and stenosis of left carotid a rtery Outpatient Attender: KIRTI ALSTON [id number] 10/29 12:00:00 AM EDT - 10/30/2019 02:17:12 PM EDT Central retinal artery occlusion, right eye [facility] Central retinal artery occlusion, right eye Outpatient Attender: KIRTI ALSTON [id number] 09/24 12:00:00 AM EDT - 09/25/2019 03:39:27 PM EDT Central retinal artery occlusion, right eye [facility] Central retinal artery occlusion, right eye Outpatient Attender: Dameon Alegria MDReferrer: Dameon navarrete MD 09/11/2019 12:00:00 AM EDT Central retinal artery occlusion, right eye [facility] Central retinal artery occlusion, right eye Outpatient Attender: KHARI BRISENO [id number] 020 12:00:00 AM EDT - 09/11/2019 02:39:24 PM EDT [facility] Outpatient Attender: BRENDEN rhoades 09/05/2019 09:40:00 AM EDT [facility] ([facility]) Outpatient 08/31/2019 12:00:00 AM EDT [facility] Outpatient Attender: JOHN PAUL RAMIREZ [id number]: JOHN PAUL MONGE [id number] 08/29/2019 12:00:00 AM EDT Occlusion and stenosis of left carotid artery [facility] Occlusion and stenosis of left carotid a rtery Outpatient Attender: KIRTI ALSTON [id number] 08/26 12:00:00 AM EDT - 08/27/2019 01:14:36 PM EDT Central retinal artery occlusion, right eye [facility] Central retinal artery occlusion, right eye Inpatient Attender: DEFAULT / GENE PK / UNKNOWN PROVIDER ALIASES Attender: RIDDHI TELLO MDAttender: RADHA FOUNTAIN MDAttender: SAIDA TRUJILLO MDAdmitter: RADHA FOUNTAIN MDReferrer: RADHA FOUNTAIN MDConsultant: JOHN PAUL RAMIREZ [id number] 08/18/2019 12:00:00 AM EDT - 08/22/2019 11:18:00 AM EDT Central retinal artery occlusion, right eye [facility] Central retinal artery occlusion, right eye Patient [...] 1020/20 at 1400, For 1 d ose [facility] Medication administered onsite Proparacaine hydrochloride 5 MG/ML Ophth almic Solution proparacaine (ALCAINE) 0.5 % ophthalmic solution 1 drop proparacaine (ALCAINE) 0.5 % ophthalmic solution 1 drop 10/30/2019 01:15:00 PM EDT 1 [drp] Both Eyes completed 1 drop, Both Eyes, Once, Tue 9/20 at 1315, For 1 do [facility] Medication administered onsite Proparacaine hydrochloride 5 MG/ML Ophth almic Solution proparacaine (ALCAINE) 0.5 % ophthalmic solution 1 drop proparacaine (ALCAINE) 0.5 % ophthalmic solution 1 drop 09/25/2019 02:00:00 PM EDT 1 [drp] Both Eyes completed 1 drop, Both Eyes, Once, Tue 8/20 at 1400, For 1 do [facility] Medication administered onsite Phenylephrine Hydrochloride 25 MG/ML Oph thalmic Solution phenylephrine (MYDFRIN) 2.5 % ophthalmic solution 1 drop phenylephrine (MYDFRIN) 2.5 % ophthalmic solution 1 drop 09/25/2019 02:00:00 PM EDT 1 [drp] Both Eyes completed 1 drop, Both Eyes, Once, 09/25/19 at 1400, For 1 do se [facility] Medication administered onsite Tropicamide 10 MG/ML Ophthalmic Solution tropicamide (MYDRIACYL) 1 % ophthalmic solution 1 drop tropicamide (MYDRIACYL) 1 % ophthalmic solution 1 drop 09/25/2019 02:00:00 PM EDT 1 [drp] Both Eyes completed 1 drop, Both Eyes, Once, Tue09/25/19 at 1400, For 1 dose [facility] Medication administered onsite Phenylephrine Hydrochloride 25 MG/ML Oph thalmic Solution phenylephrine (MYDFRIN) 2.5 % ophthalmic solution 1 drop phenylephrine (MYDFRIN) 2.5 % ophthalmic solution 1 drop 09/11/2019 01:30:00 PM EDT 1 [drp] Both Eyes a ctive [facility] Tropicamide 10 MG/ML Ophthalmic Solution tropicamide (MYDRIACYL) 1 % ophthalmic solution 1 drop tropicamide (MYDRIACYL) 1 % ophthalmic solution 1 drop 09/11/2019 01:30:00 PM EDT 1 [drp] Both Eyes active [facility] fluorescein-benoxinate (FLURATE) 0.25-0.4 % ophthalmic solution 1 drop [id number] 09/11/2019 01:30:00 PM EDT 1 [drp] Both Eyes acti ve [facility] Post-Op Shoe/Soft TOP/Women/Large 09/05/2019 12:00:00 AM EDT active MED[facility] ([facility]) Prednisone 20 MG Oral Tablet Prednisone 09/05/2019 12:00:00 AM EDT active MED[facility] ([facility]) Tropicamide 10 MG/ML Ophthalmic Solution tropicamide (MYDRIACYL) 1 % ophthalmic solution 1 drop tropicamide (MYDRIACYL) 1 % ophthalmic solution 1 drop 08/27/2019 12:30:00 PM EDT 1 [drp] Both Eyes completed [facility] Proparacaine hydrochloride 5 MG/ML Ophth almic Solution proparacaine (ALCAINE) 0.5 % ophthalmic solution 1 drop proparacaine (ALCAINE) 0.5 % ophthalmic solution 1 drop 08/27/2019 12:30:00 PM EDT 1 [drp] Both Eyes completed [facility] Phenylephrine Hydrochloride 25 MG/ML Oph thalmic Solution phenylephrine (MYDFRIN) 2.5 % ophthalmic solution 1 drop phenylephrine (MYDFRIN) 2.5 % ophthalmic solution 1 drop 08/27/2019 12:30:00 PM EDT 1 [drp] Both Eyes completed [facility] fluorescein 10 % injection 500 mg [id number] 08/27/2019 12:30:00 PM E DT 500 mg Intravenous completed Central retinal artery occlusion of right eye 500 mg (5 mL), Intravenous, Once, 08/27/19 at 1230, For 1 dose [facility] Central retinal artery occlusion of righ t eye Medication administered onsite atorvastatin 80 MG Oral Tablet Atorvastatin Calcium 80 MG Oral Tablet (LIPITOR) Atorvastatin Calcium 80 MG Oral Tablet (LIPITOR) 08/22/2019 12:00:00 AM EDT 80 mg Oral active Take 1 tablet by mouth e very evening [facility] clopidogrel 75 MG Oral Tablet Clopidogrel Bisulfate 75 MG Oral Tablet (PLAVIX) Clopidogrel Bisulfate 75 MG Oral Tablet (PLAVIX) 08/22/2019 12:00:00 AM EDT 75 mg Oral active Take 1 tablet by mouth [facility] Aspirin 81 MG Chewable Tablet Aspirin 81 MG Oral Table t Chewable Aspirin 81 MG Oral Tablet Chewable 08/22/2019 12:00:00 AM EDT 81 mg Oral active Chew 1 tablet by Mouth daily [facility] clopidogrel 75 MG Oral Tablet clopidogrel (PLAVIX) tab let 75 mg clopidogrel (PLAVIX) tablet 75 mg 08/21/2019 05:15:00 PM EDT 75 mg Oral active 75 mg, Oral, Daily Standard, First dose on Tue08/21/19 at 1715, For 30 days [facility] Medication administered onsite 1 ML Lorazepam 2 MG/ML Injection LORazepam (ATIVAN) in jection 0.5 mg LORazepam (ATIVAN) injection 0.5 mg 08/19/2019 10:00:00 PM EDT 0.5 mg Intrave nous completed 0.5 mg, Intravenous, Once, Tue08/19/19 at 2200, For 1 dose
For MRI
[facility] Medication administered onsite Acetaminophen 325 MG Oral Tablet acetaminophen (TYLENO L) tablet 325 mg acetaminophen (TYLENOL) tablet 325 mg 08/19/2019 09:00:00 AM EDT 32 5 mg Oral active 325 mg, Oral, D aily Standard, First dose on Tue20 at 0900, For 30 days
Maximum daily dose of acetaminophen is 3,000 mg from all sources in 24 hours.
[facility] Medication administered onsite 0.4 ML Enoxaparin sodium 100 MG/ML Prefi lled Syringe enoxaparin sodium (LOVENOX) injection 40 mg enoxaparin sodium (LOVENOX) injection 40 mg 08/19/2019 09:00:00 AM EDT 40 mg Subcutaneous active 40 mg, Subcutaneous, Daily Standard, First dose on 08/19/19 at 0900, For 30 days [facility] Medication administered onsite pantoprazole 40 MG Delayed Release Oral Tablet pantoprazole (PROTONIX) EC tablet 40 mg pantoprazole (PROTONIX) EC tablet 40 mg 08/19/2019 09:00:00 AM E DT 40 mg Oral active 40 mg, Ora l, Daily Standard, First dose on 08/19/19 at 0900, For 30 days
Do not crush or chew
[facility] Medication administered onsite Aspirin 81 MG Chewable Tablet aspirin chewable tablet 81 mg aspirin chewable tablet 81 mg 08/19/2019 09:00:00 AM EDT 81 mg Oral activ e 81 mg, Oral, Daily Standard, First dose on 08/19/19 at 0900, For 30 days
Chew tablet before swallowing.
[facility] Medication administered onsite Hydrochlorothiazide 25 MG Oral Tablet hy drochlorothiazide (HYDRODIURIL) tablet 25 mg hydrochlorothiazide (HYDRODIURIL) tablet 25 mg 08/19/2019 09 :00:00 AM EDT 25 mg Oral active 25 mg, Oral, Rosemarie ly Standard, First dose on 08/19/19 at 0900, For 30 days [facility] Medication administered onsite atorvastatin 40 MG Oral Tablet atorvastatin (LIPITOR) tablet 80 mg atorvastatin (LIPITOR) tablet 80 mg 08/18/2019 09:00:00 PM EDT 80 mg Oral active 80 mg, Oral, Every evening, First dose on 08/18/19 at 2100, For 30 days [facility] Medication administered onsite Aspirin 325 MG Oral Tablet aspirin tablet 325 mg aspirin tab let 325 mg 08/18/2019 04:30:00 PM EDT 325 mg Oral completed 325 mg, Oral, Once, 08/18/19 at 1630, For 1 dose [facility] Medication administered onsite senna tablet 2 tablet [...] on the third day.
[Order 2 End] [facility] Medication administered onsite Simvastatin 20 MG Oral Tablet simvastatin (ZOCOR) 20 M G tablet simvastatin (ZOCOR) 20 MG tablet 12/09/2016 12:00:00 AM EDT ab [facility] Insurance Providers Payer name Policy type / Coverage type Policy ID Covered republican ID Covered republican's relationship to wallace Policy Wallace Plan Information AARP [employer] CARE OPTIONS [id number] SP [id number] MEDICARE [id number] SP [id number] AARP U [id number] Self [id number] MEDICARE A [id number] Self [id number] AARP U [id number] Self [id number] [place] Medigap Part B [id number] Self [id number] [employer] Options Medigap Part B [id number] Self [id number] [place] Primary [id number] Self [id number] MEDICARE A [id number] Self [id number] A [place] Medigap Part B [id number] Self [id number] [employer] Options Medigap Part B [id number] Self [id number] [place] Primary [id number] Self [id number] AARP HE[employer] CARE OPTIONS [id number] SP [id number] MEDICARE [id number] SP [id number] A [place] Medigap Part B [id number] Self [id number] [employer] Options Medigap Part B [id number] Self [id number] Medicare [place] Medicare Primary [id number] Self [id number] AARP O [id number] S [id number] MEDICARE C [id number] S [id number] [employer] Options Medigap Part B [id number] Self [id number] [place] Medigap Part B [id number] Self [id number] Medicare [employer] Health Maintenance Organization (HMO) [id number] Self [id number] BS [id number] Commercial [id number] Self [id number] A[employer] HE[employer] CARE OPTIONS [id number] SP [id number] MEDICARE [id number] SP [id number] A MEDICARE A [id number] Self [id number] A BS [place] Medigap Part B [id number] Self [id number] [employer] Options Medigap Part B [id number] Self [id number] [place] Primary [id number] Self [id number] [place] Medigap Part B [id number] Self [id number] [employer] Options Medigap Part B [id number] Self [id number] Medicare [place] Medicare Primary [id number] Self [id number] [employer] Options Medigap Part B [id number] Self [id number] Medicare [place]l Gov't Servi Medicare Primary [id number] Self [id number] [employer] Options Medigap Part B [id number] Self [id number] Medicare [place] Gov't Servi Medicare Primary [id number] Self [id number] AARP HE[employer] CARE OPTIONS [id number] SP [id number] MEDICARE [id number] SP [id number] A AARP HEALTH CARE OPTIONS [id number] SP [id number] Aarp Insurance Medigap Part B Self Medicare Medicare Primary Self [place] Commercial Self [place] 302/307 [id number] SP [id number] [place] P[place] 302/307 [id number] SP [id number] Problems, Conditions, and Diagnoses Code Display Name Description Problem Type Effective Dates Data Source(s) H34.11 Central retinal artery occlusion, right eye Central retinal artery occlusion, right eye Diagnosis 12/04/2019 01:35:53 PM EDT [facility] I10 Essential (primary) hypertension Essential (primary) h ypertension Diagnosis 08/21/2019 09:50:02 AM EDT [facility] I65.22 Occlusion and stenosis of left carotid a rtery Occlusion and stenosis of left carotid artery Diagnosis 08/19/2019 03:37:57 PM EDT [facility] I65.21 Occlusion and stenosis of right carotid artery Occlusion and stenosis of right carotid artery Diagnosis 08/19/2019 03:37:43 PM EDT [facility] E11.9 Type 2 diabetes mellitus without complic ations Type 2 diabetes mellitus without complications Diagnosis 08/18/2019 12:40:33 PM EDT [facility] H54.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, right eye, norm al vision left eye Unqualified visual loss, right eye, normal vision left eye Diagnosis 020 12:40:33 PM EDT [facility] R eye vision loss R eye vision loss Diagnosis 08/18/2019 12:40:33 PM [facility] Surgeries/Procedures Procedure Description Date Indications Data Source(s) OCT RETINA OCT RETINA Routine 12/04/2019 2:02 PM EDT Central retinal artery occlusion of right eye 12/04/2019 02: 02:28 PM EDT Central retinal artery occlusion of right eye [facility] Central retinal artery occlusion of righ t eye VASC LAB US DOPPLER CAROTID BILATERAL COMP [id number] VASC LAB US DOPPLER CAROTID BILATERAL COMP [id number] Routine 11/27/2019 11:10 AM EDT Left carotid artery stenosis 11/27/2019 11:10:00 AM EDT Left carotid artery stenosis [facility] Left carotid artery stenosis OCT RETINA OCT RETINA Routine 09/25/2019 2:11 PM EDT Central retinal artery occlusion of right eye 09/25/2019 02: 11:04 PM EDT Central retinal artery occlusion of right eye [facility] Central retinal artery occlusion of righ t eye PLATELET AGGREGATION IN VITRO EACH AGENT VERIFYNOW P2Y12 Routin e 08/29/2019 8:33 AM EDT Left carotid artery stenosis 08/29/2019 12:33:00 PM EDT Left carotid artery stenosis [facility] Left carotid artery stenosis GLUCOSE QUANTITATIVE BLOOD XCPT REAGENT STRIP POCT GLUCOSE, DOC KED Routine 08/21/2019 10:33 PM EDT 08/22/2019 02:33:00 AM [facility] GLUCOSE QUANTITATIVE BLOOD XCPT REAGENT STRIP POCT GLUCOSE, DOC KED Routine 08/21/2019 9:10 AM EDT 08/21/2019 01:10:00 PM [facility] GLUCOSE QUANTITATIVE BLOOD XCPT REAGENT STRIP POCT GLUCOSE, DOC KED Routine 08/20/2019 5:00 PM EDT 08/20/2019 09:00:00 PM [facility] ECHO TTHRC R-T 2D W/WOM-MODE COMPL SPEC&COLR DOP ECHOCARDIO GRAM 2D COMPLETE Pending Discharge 08/20/2019 2:59 PM EDT 08/20/2019 06:59 :55 PM [facility] GLUCOSE QUANTITATIVE BLOOD XCPT REAGENT STRIP POCT GLUCOSE, DOC KED Routine 08/20/2019 12:50 PM EDT 08/20/2019 04:50:00 PM [facility] GLUCOSE QUANTITATIVE BLOOD XCPT REAGENT STRIP POCT GLUCOSE, DOC KED Routine 08/20/2019 9:15 AM EDT 08/20/2019 01:15:00 PM [facility] EKG 12-LEAD - CMAXX REPORT EKG 12-LEAD - CMAXX REPORT 08/20/2019 6:30 AM EDT 08/20/2019 10:30:[address] [facility] EKG 12-LEAD - CMAXX REPORT EKG 12-LEAD - CMAXX REPORT 08/20/2019 6:30 AM EDT 08/20/2019 10:30:[address] [facility] EKG 12-LEAD EKG 12-LEAD Routine 08/20/2019 6:30 AM EDT 08/20/2019 10:30:59 AM [facility] MRI BRAIN BRAIN STEM W/O CONTRAST MATERIAL MR BRAIN WITHOUT CONTRAST [id number] Pending Discharge 08/20/2019 2:06 AM EDT 08/20/2019 06:06 :13 AM [facility] CT ANGIOGRAPHY NECK W/CONTRAST/NONCONTRAST CT ANGIOGRAPHY NECK [id number] STAT 08/18/2019 6:41 PM EDT 08/18/2019 10:41:50 PM EDT [facility] CT ANGIOGRAPHY HEAD W/CONTRAST/NONCONTRAST CT ANGIOGRAPHY HEAD [id number] STAT 08/18/2019 6:41 PM EDT 08/18/2019 10:41:50 PM [facility] GLUCOSE QUANTITATIVE BLOOD XCPT REAGENT STRIP POCT GLUCOSE, DOC KED Routine 08/18/2019 6:33 PM EDT [facility] AUTO&AUTO DIFRNTL WBC COUNT CBC AND DIFFER ENTIAL STAT 08/18/2019 1:55 PM EDT 08/18/2019 05:55:00 PM [facility] THYROID STIMULATING HORMONE TSH TSH Routine 08/18/2019 1:55 PM EDT 08/18/2019 05:55:00 PM [facility] HEMOGLOBIN GLYCOSYLATED A1C HEMOGLOBIN A1C Routine 08/18/2019 1:55 PM EDT 08/18/2019 05:55:00 PM [facility] LIPID PANEL LIPID PANEL Routine 08/18/2019 1:55 PM EDT 08[facility]18[facility]2019 [facility] MET[facility]OLIC PANEL CALCIUM TOTAL BASIC METABOLIC PANEL STAT 08/18/2019 1:55 PM EDT 08/18/2019 05:55:[address] [facility] GLUCOSE QUANTITATIVE BLOOD XCPT REAGENT STRIP POCT GLUCOSE, DOC KED Routine 08/18/2019 12:42 PM EDT 08/18/2019 04:42:00 PM [facility] Results ID Date Data Source [id number] 12/11/2019 12:27:06 PM EDT [facility] Hospital Name Value Range Interpretation Code Description Data Maureen rce(s) Supporting Document(s) Progress Note [facility] RDTKNg2lAmSLGsBd90/JQBqkDROrz0RwYSnzQNg7ULgiWFSiE6GoFQC6pL1wQBQ2QTqLNkYwEnHyDLW1 lbm [file] AgICAgICAgICAgICAgICAgICAgICAgICAgICAgICAgICAgICAgICAgICAgICAgICAgICAgICAgICAgIC AgICAgICANCiAgICAgICAgICAgICAgICAgICAgICAg ICAgICAgICAgICAgICAgICAgICAgICAgICAgICAgICAgICAgICAgICAgICAgICAgICAgICAgICAgICAg ICAgICAgICAgICAgICAgICANCiAgICAgICAgICAgICAgICAgICAgICAgICAgICAgICAgICAgICAgICAg ICAgICAgICAgICAgICAgICAgICAgICAgICAgICAgIC AgICAgICAgICAgICAgICAgICAgICAgICAgICANCiAgICAgICAgICAgICAgICAgICAgICAgICAgICAgIC AgICAgICAgICAgICAgICAgICAgICAgICAgICAgICAgICAgICAgICAgICAgICAgICAgICAgICAgICAgIC AgICAgICAgICANCiAgICAgICAgICAgICAgICAgICAg ICAgICAgICAgICAgICAgICAgICAgICAgICAgICAgICAgICAgICAgICAgICAgICAgICAgICAgICAgICAg ICAgICAgICAgICAgICAgICAgICANCiAgICAgICAgICAgICAgICAgICAgICAgICAgICAgICAgICAgICAg ICAgICAgICAgICAgICAgICAgICAgICAgICAgICAgIC AgICAgICAgICAgICAgICAgICAgICAgICAgICAgICANCiAgICAgICAgICAgICAgICAgICAgICAgICAgIC AgICAgICAgICAgICAgICAgICAgICAgICAgICAgICAgICAgICAgICAgICAgICAgICAgICAgICAgICAgIC AgICAgICAgICAgICANCiAgICAgICAgICAgICAgICAg ICAgICAgICAgICAgICAgICAgICAgICAgICAgICAgICAgICAgICAgICAgICAgICAgICAgICAgICAgICAg ICAgICAgICAgICAgICAgICAgICAgICANCiAgICAgICAgICAgICAgICAgICAgICAgICAgICAgICAgICAg ICAgICAgICAgICAgICAgICAgICAgICAgICAgICAgIC AgICAgICAgICAgICAgICAgICAgICAgICAgICAgICAgICANCiAgICAgICAgICAgICAgICAgICAgICAgIC AgICAgICAgICAgICAgICAgICAgICAgICAgICAgICAgICAgICAgICAgICAgICAgICAgICAgICAgICAgIC AgICAgICAgICAgICAgICANCjw/dPXvM9edpQZrmxX8 R3qpBz0FBw4OMC6ag3WaSHDsGAuflyPmYlePRyJfCBJhJfuXRmt2OLjlYF9XbGBrD8FxB8KlPXcdLX9F OANwMFNwuXPePEDnTXFdPkA6KOTjFEpfXB6JkRGiONchBOUpSMKjUlYjVPJmPMJgAKIfUNNvIKGFEDTv MPMhGwZxZHKhHXRcZX3OOBFyY146xdJfIt6QJw6JGa IcKR1nsk7PDgZwVKIrQdcRAwv4QLuqBL7JkCDqiHClDsKkADKHAgIcO6udd3RsZnEuHHMGYXguJN1Sn6 VudCAxDQo+Mp9WFZ9jy5MjTKyuLtRmDO2fyo1LAJwUYrMfW0PrlGwcNHZcb6ilQEDwAP5xxCZiQMA4XF LoOPYvwqFZHQ5uMN0gDSOsVELDBQLzrFNdCG2hBB2q EFByFVPdMvCmMGRDYS0SSNPfVJMkjTQtTUIgWFVVOB6ZDPrhVTW8VDNexkDzdYNmPJoxDZ9TKBOessWe MzIgMCBSDQo+Qs6JTF6qh4SiGNtvVZKyFX3kfo0CDWoOVpUeQ5P1tEXpF2H8BNxkWa2ALCOhWNGmBeRn RJMWVBpsSG4MTZ2gfqK4DC1GaPKrXNQfAGOgjGJsDG d4A07zcULwSAmtTW6UYIH+Noble+Uq2LHYJpCGNaEGDyCwDjPGNJHsPbV0QmD9GFc9OgO7FoPM07tCjaly HiVApcMV4HDP5jBNZxTWVVHV8HsSJkwL7woyTtJaZdUZKUZpCwT64lzBHxMIRpUDAfBBKvWd8IBDFuJ3 SmhgNwnGuzcbWwTNEgNKAPTZ1SSOkpwpBjlPQlqOkn FR37bKzmNA2OWq5OQlHpAN5rpu7ScGBqTk4GDYWoSN3INBLzNRCeMBIvJOM9FHSwMaPlVOyeNFClRDKc BDH5XTVmTMUxLX5ZYvOlXVBpBpBcRhzzVWYmMMOmkq8YIAFiNDWdUpk0YEYqELUgGFUdMPehNIBqUUFn YBB9RPLbQYAbHE9UYpQkHXVxPAJ4AXDzDTUoAKXhmo 2PEUWmIXQrRpX1JRKjKGJiHGYyLSfhRCIiKJP0OaI4JTLwZEPmVX2JSxEvKALeDRE5ZSBkHCFyCSXjgc 5ZAHMyFIZvTYSgHlGaNXLlGJBlRLetKADgPCB1MnL6NSZuRKOjYO8DSuQpXSQbMEJ8VLDjFSInKQSxkw 8LWDDqZSQwNkMxWzQkPWCkWYSnXNzvCAKmENT9KIc9 JOYmCGBzBC3DFnBcYSTnPBIzUQZsOEKtRWMjot7OJLUmKEZjYDI0HmSvLIOzGWBuMXlsODJtJUJ8GNY8 ELFaCGJfHT3CZxLwJOSuJTX9YTykNPYbWUKsxg1WYROnFYMsHpCxQZKoJKHtEUGeLAweFDRnPZW0EGr5 ELHvDSGxZZ9GQwJmKPClOFgbNYayHGJtGDDfhe0NIH SrQDNqXCL2BPZyDUXcPAJdIKakRREyKBX3ZTZ0BYOlLELgMZ6XLjOwFAYbCen6RdwjAVZxOGXgni6ERC OuZJSqZYE7GpXdBURiFKFkRQvmFDDiMSCeJQIvDOHaNNBlAA6HPsJuWGZtDrR1OEZxZXGoGAKgxo8QQQ WgIHMsNLq0OaPpZCIvXHWeAUbuYELnYAHvTBQdCXWi BKTvGS9TIaTtBEGwRpTsGdmwTACvRJZtck9SBULqBALyByOmByCmVEImPGFpNTcbTWQnHIYhJmO0CUJm RUUkWD3JLiLlXIJfIxXfCFZoQNEqKIFnmy1VDKHjSLRhAJW3YfUcMFMvKLUoZMdxOCVdIUU7NnC3KUUv EWDeDO5XSsXwJTijLZDRVxl6LYcqJ7c9RDOqAP7UD3 Uqw7IvAzCwYSNIFHzjNO0htzIsCJScOa1YI6fLPenvNKR8OSdpTRDhSBLqGBTwQHVwLhS0BRDeIUT0DT r3Aj9mCYOxAes5RYH0GoDdNSI9ETVsD9VdPhOrTRQ0RVSoAPYvBjCkBV5WOl3NPhB6BHT1iCLjKs7YXc A2BlIEQnBeFW5YZXs= ID Date Data Source [id number] 11/27/2019 02:34:28 PM EDT [facility] Name Value Range Interpretation Code Description Data Maureen rce(s) Supporting Document(s) Progress Note [facility] QIYVVt2cUrVCGfBj57/GGUmeDICec0DbHBbzCOe0SAqkYKRmR6AaOOY5mI1gXOX0NThZPyZfAyCqYOMh lbm PbNukAMxZyCAOjCkgSHnDsQZvvAegusWFqNS1FbZN6JCZtP77lRDTlWKRkM0LzJEDdBUT+Kl1LERXniO KqEY3SEvmZ5R7IcwlCQJ6DoM/Z5KOCcfOwtXxFpbIEoxDPA96NeLwZoUusCL13LRRhAu/e6bKVzqvEQr A2jwn9iQ4TbBzIOMfZ5910YvB/+68oPp0ZtjC79+Kf NyJlg2I744/J4oAKGqa4/Xm3gunPmPQvxD+Q/NO1P/0Kg6omb86hOJcalsQAQAZ7iehEFU88398I95/9 4Fj38TcKHy5wnrJyChy4KfmyFFugP0o//oz5s3PYIeLoKlil0l51wjcx1I8IUmU65mfK3IWHbD6r1XNp k5pK8JcpdQJ4Zo0XwlY44T/JfJkjK+H9cVSwQnZfVf uOWfgJbGeOwAktPQwZa+f5x4FpUrdv5lrPI4RtZZ1i/Xg0U6/f2pl8sc88+jdTcyvjREFjicvQku+mjG pbL7IQYCfHmrX2Z+GGA92XG6EdylUo5RYRO+/21TMG7BP+1/Fy6bTYrL1x8NkrrjtCeHzVFUh/DJeTeX Cw6cteKyEKOVq3Y5+IRQZyED9VI8JLbdCwILSec3V9 Vd4K9r6YdWVylXLNoFlnPwdyfOjZMl2DBGj1tKA0Eft+kMD8wfp3ge1rUdN3FROsOtTasOdLm76bT17p qkxpWtp8hWyLcyDw1urc/i57+G+Guk6dy7aUQLLVcr75JrRp0FRkvIeixpWJu+rH5jlmGDfVuVmzhi2W ChO7D0sEYE65z+PxMH7/3LY1F8XWBiPh3WTfgYIN4N 7ROAo/SwrVpqB2jV5R9Iftg3PjYWEo2aHKdhCcucJTUg6gDG3XAjW9ETrCgySzrgpnSSOrcoH+OKYPJ9 mzKEGAXX03X4GkSVNDQy0AFpPbeVipIh496mb9iiEtiU6cHpn+wac3231E5cpzEMi8I3v0kbFLWwh7dg UuzzbhasxneDkZ3/cu2nG1srXu6lU89rHD2jvnzhxm [file] csU+9o271+wOjJU/5jjVS1M56PjwFQv+9ULnkm+ [file] ICAgICAgICAgICAgICAgICAgICAgICAgICAgICAgIC LpLCJfOZJvURQkOWIaGJJqQZNwAQLtCODuWNYrFSZjTLUvGCFtZNHeZKWoLQCrZYPaONWoAT6YCDSuOJ AgICAgICAgICAgICAgICAgICAgICAgICAgICAgICAgICAgICAgICAgICAgICAgICAgICAgICAgICAgIC AgICAgICAgICAgICAgICAgICAgICAgICAgICAgICAg GNTwQL5DEXZwYZLvNUUlWCJuCLSbPFRlWGHuJHOuCLUzKQBxMHQrJARrZATeLUQzZVVwDPMxZAVaWCAd EXXfJBNmHHHiTKMcXZZcPWPpMMNcKZOdZXZfQZZzQZRqTIChOWKoWFOvVSViBS6CUYUcLVNySVXeZCNp ICAgICAgICAgICAgICAgICAgICAgICAgICAgICAgIC VbHLTnBCXdWXVbILWpUGOsWCMjRPEzLHTzBQWuYTVxELZgNCXmFSYrOZTbEPEtFZDrKCUnNWSuHH2WWK AgICAgICAgICAgICAgICAgICAgICAgICAgICAgICAgICAgICAgICAgICAgICAgICAgICAgICAgICAgIC AgICAgICAgICAgICAgICAgICAgICAgICAgICAgICAg SYWaDLUxGG8MEKJnICPoCNHrCRKiDOJfASLaZYAxGGQuUDQuCJEjSESxXDKiSFBwWXCgSXIvCXUwKZKe UJMtEQYvPONqMWLuVTDaXYZxHIEeTMXxDTLjUAHpBNLzAGWuACNkALDdVIZsEOXgQX6BLTSaCLXrRWKk ICAgICAgICAgICAgICAgICAgICAgICAgICAgICAgIC AgICAgICAgICAgICAgICAgICAgICAgICAgICAgICAgICAgICAgICAgICAgICAgICAgICAgICAgICAgIA 0KICAgICAgICAgICAgICAgICAgICAgICAgICAgICAgICAgICAgICAgICAgICAgICAgICAgICAgICAgIC AgICAgICAgICAgICAgICAgICAgICAgICAgICAgICAg SENiMPOiAFLfIX9YFNTmEMRfUOYaODQcTFArEEHuIHCbWTWwJXNtQHCxASYnKYYkDWOnCLDsLATuQBAa RWZeYUFlSSWzISXuLMGfUITpKREyFVYrXZIlYZNhBVPnSTGmCMEwEHChNNQmLFIbRGIdNM9GWXAeVALn ICAgICAgICAgICAgICAgICAgICAgICAgICAgICAgIC AgICAgICAgICAgICAgICAgICAgICAgICAgICAgICAgICAgICAgICAgICAgICAgICAgICAgICAgICAgIC SkSR5MHD06gCIpl8K7PWFaES2tzld/Ct8YSBfebrGcuROtEA7IFsXnFC2jjj9CZtSuZG7gat4YCCqUKw TrC6S9aUEcGDVhVEMWCuSwW83wZImyPc56AGynPJTo KdEeNDv6Or2EPkHlE1umXPXcOeQ3ZALsQlP8EBRdFyC3ETSwWuXmVObkRC6Cm6FqzAQlPYj+El4RQL8a v8RrRKfoQdPkTT5yno8XZUeNKuVgB2AttsI4JDJ6EQKqDv8PUDAaJHGzuDSvFSMuKQHULoTsY0ZucU46 IDENCj4+GSszqcFhQjaWSxT2CCUpq9DjFCu9WX7KGA BiQCx6wMEdGAOkQ7Kcj2QdRz79ZCLrFwhaWVBrzAZeEUJuNBVvq5AiDIKCHwTUUJOaaRDkSW6iFh2sQW XuJFVsGxMrLHSKZH6RDRFsXJKacLOeGIYkWHJKQY7EUMzpYFA9PAHodjGlwZVpJEiqSV6AUYDohjRjZe MgMCBSDQo+Eq9FJI5qu4FuSZoxEZIiIY3xzn4FIEbR XsNaX0M0jYGcV2X6AKinVj5NOWAeGAYkWxWlSCKMQCywJE2ZIN6kflC7FG6CaRBbLPRtNKRdeESbYSc7 M17vqJXpZWpjFB2HPIZ+Noble+Wi2EPFQuOXQbEDAqMnYgCFZNJmRzX0XpV0KVq2FfT9ZmNZ05iRhahpDa DPluAJ4UBE0lGZTmRCMIAQ3GwFFrnJ6ycjXmYvTwLI PCHrWwD15wyUIiRDBhVBIgKVHlRi2PGKZlJ8JrthLbuGbjbtIbXECwOISFYQ3VKVpimpDujAHghBnsKK 94rEznSX1OHy0YNpOvXM6cmd9YsIRbXr7YTOEaMh2PMIVfLLKfHJHqZJU5LXYnAnPpDNxsRTPuXYJpOU X2YTNiSFGyDZ2NBcXlBXKtVGIdPZPyYNVvMBWgpo6X JLYvWDF9HhlpJCGtOMSpZOQwOKowIYNaYNQdFUZ5RQCvZWAxNI4ERdSqZUQqVLTwCMLcMOUuWEFbnb0Z THQiYBZlBEO7MhUuPUYuEZCiKAvpTFCcGYC6RCJ7ZOMgGQDeHB5LOdCsBEGaIDybWXNbPVKhJBUyje5A WOZsVIYjTUY8QIGoOZRwJLRmLIybUJXvPFLnGln3KR AwHEFvCV3CTjRiLQUhBPTcPpKsRDSeHJHyym5AWXXnZCQbDsVlPIZqWPZvLMHeMFngUSRrVATqOhI5ZQ WwUNNxRJ9BEbArGRZpBAY3PkLdFVSsHCRplz8GELFrWQEnKhq2XWZpWAIeUSUnGZhoACSbIQL3HJRlMB QrTPEtOM1QEzUqWLCjWFV6EgZvSLPzQTTgqw2BKIIo VUF5HKV4VWGsGIMqXJCiEEtgSBYqBLC8KmplCSMhBXIgVX7FBcMdANUwNKRpXbJdENMeLBOpja9BEGEg APR1CPD6GOJlXBZoZOQnNOqgDSBhEQA2VQouVJPcGBXlKX3SIeKmWSAcQKatEqIyKAJzHBVlan5JAIMl KYJ1QgEdVVKuQCLgMNLwGXjdVDTiIOJ9FaY5GJEzMD GwMU1WWaIbEZtjMFIBJcn2VBavQ2a4ABUcDf6PK9Hlp6LnFcZrPLWZZMrgQH6dfoCoRZXgHg9LS0bCMo p9ZlBlNSOjVdrxFgdlIyMlCOKjDna4PuJ2IJQcP0A9Yi5vGYewFNGnKxKbFPPrA0WnDaKvRGOtPIprQG qdZXYyTfruPkQkKN7FTu6QCvH2MCL4jHKiMd1FGTw5XNnKZtVrVJ9VNNn= ID Date Data Source [id number] 10/30/2019 03:12:27 PM EDT [facility] Name Value Range Interpretation Code Description Data Maureen rce(s) Supporting Document(s) Progress Note [facility] FGZURh1dWtGBMgPc21/DLMliUCSly7CuLMmrAWs0WEmoUQTwY8HvHUL2iD6zKIB9KRnEViZrEeQuQML0 lbm [file] l1uw0/COUPLES THERAPIST/sReczuV6hsbnNCMQDRc6B9SKoZtoUx0uSjpDeeeqQeem8sEGy6f/c94KwKx90fm1IuT36Lo [file] JvVO6tHMDITp2+MKfpaRGybJjzBCTGRxA4Ezp8HDhsYTRLTm3K ID Date Data Source [id number] 10/02/2019 03:28:55 PM EDT [facility] Name Value Range Interpretation Code Description Data Maureen rce(s) Supporting Document(s) Progress Note [facility] TQUZMr9aLmHGBrAz33/KQKgtGWJoc3SwXHbfONy6SGujOYNcC8VzFDN7eR3vZPS7SXaWDoCaYkGbSXH2 lbm [file] MJMoEuNF5YKLv= ID Date Data Source [id number] 09/11/2019 04:54:31 PM EDT [facility] Name Value Range Interpretation Code Description Data Maureen rce(s) Supporting Document(s) Progress Note [facility] CFJYEk2vJtGSJtSg06/VMDztJOLlo0OtFCaxTXe9IMcvLVUhF1KkYNW6bN0mJXI0JVwYLfArIcUrXwG4 lbm [file] ICAgICAgICAgICAgICAgICAgICAgICAgICAgICAgIC NbRBHdSPEjPFVaQRJjVUWtSJWfFOOnPEZsLJ1ALCHnKNCgPUBbDRMtUJDkYBMnQMLxRKDgQQCaIIDvMD AgICAgICAgICAgICAgICAgICAgICAgICAgICAgICAgICAgICAgICAgICAgICAgICAgICAgICAgICAgIC HiWFHvQDLiYY6JDKOwTQIeIXUgVVUiOWUwTFQzTFMq ICAgICAgICAgICAgICAgICAgICAgICAgICAgICAgICAgICAgICAgICAgICAgICAgICAgICAgICAgICAg BERiERJsUHQbOKYgQLTeHPGfRQ4ZWCMwNRYxOKLiFYSwFGTmFFFhMYBjRKYlLYOoUXOvRIRuDJUkEWVl ICAgICAgICAgICAgICAgICAgICAgICAgICAgICAgIC BzNDTvAIQjWDIxTARzAOMrUKXhQONyBGEyMKXjKV7ARSHnWYRwPCMgYWKsGTCyTLCpQEHbOWVcNWWhLF AgICAgICAgICAgICAgICAgICAgICAgICAgICAgICAgICAgICAgICAgICAgICAgICAgICAgICAgICAgIC UnQDQhTMMkIQYjPZ8FNMDjTOWwDSZgHSPdVSNuFDRo ICAgICAgICAgICAgICAgICAgICAgICAgICAgICAgICAgICAgICAgICAgICAgICAgICAgICAgICAgICAg KXVfNBZbYFWjLEFgHKYfJTUdRFWjAS2EQAXgKRBjHGWbKFZoNOEuINRvGOEjMTJpOHSfYBViKLTqYQTb ICAgICAgICAgICAgICAgICAgICAgICAgICAgICAgIC LzMUExDJSrMNYnXIKtOUGuBCMyBDZsLWMiHFThHDAgQB2GTXWwLZMzQMZoCPVrGSYkZCMmXLNvNJSrBB AgICAgICAgICAgICAgICAgICAgICAgICAgICAgICAgICAgICAgICAgICAgICAgICAgICAgICAgICAgIC EzYOHqIRYpZKRkJNYpXB8OVOGyKJReFTPfZLNwUKQy ICAgICAgICAgICAgICAgICAgICAgICAgICAgICAgICAgICAgICAgICAgICAgICAgICAgICAgICAgICAg KOUyZGGqMZVqNQRpVEIzDSGxFDPdBPHiNN0UMDPeCSJmTFVaFHMxLOHzWJZdCRHqOXRrPMIjSVDqFZDc ICAgICAgICAgICAgICAgICAgICAgICAgICAgICAgIC WjILEdLHRpZCLxYLVfMFXlAZJyTXEvNQWyXAYfBBWnKEJvTN3PCG99tNNxk2W8UWJjRV8jkik/Pg0KDQ wgybVsuTCjKA9UJfRiRW9znq9DGqYuBE8cap0EBLiNZyHnW6A0nNXcEYFsCNPAEgArH77dPKafJx93NJ nrPMAgBzLwYIa8Fl8ADvMxY7eeFNYjSoO7CJZpWhV8 YKWcBsM3PXEwLoCfNWHsGLEdGPIqBBDARV1ZTfCwX9LubH51WLVDDp1+RFbdfiZpEneQEhLsRJApm8Zt NNx6YF2LKMUfAphpg7CvAeAtYVAJOQpgTN8AUET6XWDuSJEcOe7VOXLrC953sdGpDH5LRx0SXdNlIB2x qy7CJhWbAXHxLihZXhd4YLjvYU3ArJWeSJnFod3tcf TxoxLRx7QkwsGatUMTtVTzyoVHK2waYVltcQdzRJAyGVBiDl0kFQ7iLRByULRjKbVaEBZCAW7WXZPnAT LxcBHcWBNjVECECC2MMVurIPL0CHXimfUafGSfKJjwCN6KOSMfznOaEoOxMGFSUNw+Dq7AKS6np4JzIY dnWaSgVB5ndf4FJDsMRlJzA9R7aTBaY4A5ECeyAa3A TBWjVLUpNwimCZMSEIgzBT9RXD7cfuV3YW1MvEOjEBYhPVXvzUUgAIe4M28pbFPiFZwjQZ4KQKC+Noble+ Oe9SMLCvPKKsKGQkEnSbYQEEGaGgX6KxL7XAe5SyR2MrQL06mCswryEhMBrrMI5AEQ2gPURaDQWZQO7Q iGVgeU1mubGcELYcKUXPOyAgC24dzLUkULXrXCY4MC TiZk6OZLMyI3JzfjLkvNkkklXbAIBmTMZXUZ8FFFvknpKjhSDlfRixNF40cSpsVE6AQl8RFlVaAC6dre 4DxCRxUw7FBAPgVc0RONAaSJOxNZFgNJP4CDDpAsJgSHrrYWFvOTBcJKI0CABcMLZpNP0HBiEjDTKpHj D4LLSfXUDhWJKqit4LCRMbFIPnKrG0YJVoVSOcAQYs YGkfNSCuKIFyTOS7JXLfGDFiUG8SWbRdGAGlGPX6MJDgFDGnOVZqti4JFZJePDYvJhq5RkMfWJYyKCXc CGhcYLDuKBD4SzeuJTVvVRKwTF6PKrClFUXlANV4GuslMPMfWZYnnw0BOIQdWMEdXZH7EMIcMLJeIPMc UDllHQChGKL8Bui5PJCwMWNuXP3EVpXlKRVfBJF9At MvUCItOGFshe1SXLQrBUZlXrL6CJOhDGYvXLRcBTmaLXQtHAF2VXE7RSGxRGSaFC3ZBiKoASXrMSFnKy ByNJCuQWYjnk8VPFYcWVRcKSJ4MtBaMRBmEASqYIaxHHBuBLU8HwddJNGiCIYnFL3QRbAfJXLxCHJ3Ws HsRDDzQNDzfu6MDGHrGGGcQzLyNoPpVGMqEYTeBUwg GIGqIBT8VnY5LTUpKHInOM4YXeFzFPTmOKX5KkUtBPRpBSMmzu1OJMXqWHVtMKK7ZxTlQHJcFNXeKUhw OFZsJDC8Fca0EFRiAFVoVE2CVdGdDWIsRmx8WKTvZPQuEZQyat4KYPIwGPJrWSVvGkCkFJTkCIUyAJmd OZZvMJZ0AmkbYYJpHELgQV7DIiOdMVCuDcDzMkOcIK KrCULoiu8HZTBiHUHvBDQoMRFcBJIrMLDyOYcjGDVnEMVzJWfaLPBnSIGyUW1JXhEsBDIzSfHdWWolME XxVQRmlz6XGSWpSBCqSwQ8BoCsOCVeCMOlTJqoAUBjDDIzPRU3LFAuCRKqDA8NRxXoFMCiMsX0TCNfHW JsZIDbah4CwFKbqMmclj5BRClJNs8XpDggCXOxDLkm De3tcADqAaTmANTUEw9FusBjKJEvKWEQPXxtOQKzUGm5LJTvAXY0EFMsUQHdY5VcAXx1RmSnKDQ5REYt BTAhCjJ0EXCeZwPqNxG5XxMcNIT3JJX6ZFppLeKvTGhxTDBmVQT+LM9hKOl+Ld4Yz7JsiaG3dsVwRBuz PlrqHe3WPEQVF4NQDj== ID Date Data Source [id number] 09/11/2019 05:17:27 PM EDT [facility] Name Value Range Interpretation Code Description Data Maureen rce(s) Supporting Document(s) Erythrocyte sedimentation rate 10 mm/hr <30 [facility] ID Date Data Source [id number] 09/05/2019 10:02:00 AM EDT [facility] ([facility]) Name Value Range Interpretation Code Description Data Maureen rce(s) Supporting Document(s) Glucose, Fasting 136 mg/dL 70-100 [facility] ([facility]) Patient contacted today. Blood Urea Nitrogen 13 mg/dL 7-18 [facility] ([facility]) Patient contacted today. Creatinine For GFR 0.82 mg/dL 0.55-1.30 [facility] ([facility]) Patient contacted today. Sodium Level 138 meq/L 136-145 [facility] ([facility]) Patient contacted today. Glomerular Filtration Rate Laboratory test result [facility] ([facility]) Patient contacted today. Potassium Serum 3.6 meq/L 3.5-5.1 [facility] ([facility]) Patient contacted today. Anion Gap 7 meq/L 8-16 [facility] ([facility]) Patient contacted today. Carbon Dioxide Level 29 meq/L 21-32 [facility] ([facility]) Patient contacted today. Chloride Level 102 meq/L 98-107 [facility] ([facility]) Patient contacted today. Calcium Level 8.8 mg/dL 8.8-10.2 [facility] ([facility]) Patient contacted today. Albumin 3.4 GM/DL 3.2-5.2 [facility] ([facility]) Patient contacted today. Phosphorus Level 3.3 mg/dL 2.5-4.9 [facility] ([facility]) Patient contacted today. ID Date Data Source [id number] 09/05/2019 10:02:00 AM EDT [facility] ([facility]) Name Value Range Interpretation Code Description Data Maureen rce(s) Supporting Document(s) Urate [Mass/volume] in Serum or Plasma 7.2 mg/dL 2.6-6.0 [facility] ([facility]) Patient contacted today. ID Date Data Source [id number] 08/29/2019 10:01:59 AM EDT [facility] Name Value Range Interpretation Code Description Data Maureen rce(s) Supporting Document(s) Platelet aggregation ADP induced [Units/volume] in Platelet rich plasma 96 PRU <208 [facility] (NOTE)<208 PRU Therapeutic range fo r P2Y12 -308 PRU Low response to P2Y12 inhibitors ID Date Data Source [id number] 08/29/2019 01:06:19 AM EDT [facility] Name Value Range Interpretation Code Description Data Maureen rce(s) Supporting Document(s) Discharge Summary [facility] TYYKLe7tDiAFCdXs64/LKRvpWLQdy7AwGTtzCXv7PKmxPKFbA6HxIRL5vI7pWQZ1KYzCBoPbAuShYzA3 lbm [file] AgICAgICAgICAgICAgICAgICAgICAgICAgICAgICAgICAgICAgICAgICAgICAgICAgICAgICAgICANCi AgICAgICAgICAgICAgICAgICAgICAgICAgICAgICAg ICAgICAgICAgICAgICAgICAgICAgICAgICAgICAgICAgICAgICAgICAgICAgICAgICAgICAgICAgICAg ICAgICAgICANCiAgICAgICAgICAgICAgICAgICAgICAgICAgICAgICAgICAgICAgICAgICAgICAgICAg ICAgICAgICAgICAgICAgICAgICAgICAgICAgICAgIC AgICAgICAgICAgICAgICAgICANCiAgICAgICAgICAgICAgICAgICAgICAgICAgICAgICAgICAgICAgIC AgICAgICAgICAgICAgICAgICAgICAgICAgICAgICAgICAgICAgICAgICAgICAgICAgICAgICAgICAgIC ANCiAgICAgICAgICAgICAgICAgICAgICAgICAgICAg ICAgICAgICAgICAgICAgICAgICAgICAgICAgICAgICAgICAgICAgICAgICAgICAgICAgICAgICAgICAg ICAgICAgICAgICANCiAgICAgICAgICAgICAgICAgICAgICAgICAgICAgICAgICAgICAgICAgICAgICAg ICAgICAgICAgICAgICAgICAgICAgICAgICAgICAgIC AgICAgICAgICAgICAgICAgICAgICANCiAgICAgICAgICAgICAgICAgICAgICAgICAgICAgICAgICAgIC AgICAgICAgICAgICAgICAgICAgICAgICAgICAgICAgICAgICAgICAgICAgICAgICAgICAgICAgICAgIC AgICANCiAgICAgICAgICAgICAgICAgICAgICAgICAg ICAgICAgICAgICAgICAgICAgICAgICAgICAgICAgICAgICAgICAgICAgICAgICAgICAgICAgICAgICAg ICAgICAgICAgICAgICANCiAgICAgICAgICAgICAgICAgICAgICAgICAgICAgICAgICAgICAgICAgICAg ICAgICAgICAgICAgICAgICAgICAgICAgICAgICAgIC AgICAgICAgICAgICAgICAgICAgICAgICANCiAgICAgICAgICAgICAgICAgICAgICAgICAgICAgICAgIC AgICAgICAgICAgICAgICAgICAgICAgICAgICAgICAgICAgICAgICAgICAgICAgICAgICAgICAgICAgIC AgICAgICANCjw/sLPhO5sqkUPoexK0B5ixKd4AMf2O IE8pq5YuCDRjAXizffQcYrgTPpBnKNYcAwiSVcf0WDyyMZ2UkIHvU8TnU8UiHJzbBR4CDIIgRDAvyOBh YIAzJKNhOsI4SAXgBRjmBC4KyVUrYAfiRBKmZJBeYuFuHWGcKEJdNFZuHIMaNJYHEYEjCAIjPeNnUJMz ODVfTJ0AETBxT493vpBwKb4ODr2ZToXnSB9zkw2OQe KiWESkSihSCtx7VGjkMD2SnSQeqNFgAbVlDJZABdFqB9lsf8XhYzSiBFVUPKsvVK2Nn2TlbHSwMGu+Pg 4RRB5zj6JlXVjxGvGjWF5jal0PQTeQGbJfE2BrrJegSTGss5IvFTAyPKCXqJ0kZXB0BKM9AWRkl7fcNK JNqZ0sVWhjCRFuUFTwYv73DaDaKmNvQFw0YQjlXS6k MVthFM5ENQY9FNlaTNKcBMTcV4iCNcHlLOZiJLDqvWroHU1DGrDiK8CletTdvFNdPsKyFKPREi0+DQpl qwEyIgbMLaT1EKEtc4QeHDw5PL3QPYYfIDimNO5CVYXxoB9mBWdvNW6QSnUvMOGbNBLVNsBiN16qvXDi DGh0Z7LxRaKeUVCpRnotMWKsLNawVnLfPSUlMxIvZU ogID4+ID4+LAjlCE1AYEqagfGzIZSbYf3GRRSiJAAjSC9gEGUbOGLyZ5X7oOroKFPWHwEyL6nwlxyjRC 0iALGmT734tMytkuNuRPTlCURnOp1QCSWjNFV3EGLmaIMtDnMrBXWPFWyhND1AyXErZUI6oF5yPMitVN YlMBYrM1rJDjWliSrnMZ53pYfxqmMlaPInGXy+Pg0K GY8kq5HbUQh1wsKoHItbWEI7UPfxCSEfNBKhKKYsNPJ5DYY7IZZXPwJhELPqHYCjDInfNCDkQCJxka9R NPUeKDB1XTbyXnQvIXXpFQWoHIitEKVqXWNaQkAnKWSmKRKbMR9GMoKeKMPrXNVnXBzaHMCyGIRtwh2Y RNWzTVNsMJXmZJFzNMSfLGUhIUgqWCJuHBR0EEZzGX YiWBMlYB5PFlUuQQIaPWp5XXtrNNAhPVZubt5YZFYpYNTvUZQxCmXpCEBlZXErYXomSIYzOXPvUWI0IZ PmGFLcLG6DRhOeQNFsKDI0StJeLOSjCUIlxx8GLDOmNUBhYVgvRCZaCHRlKSStHCvkEWSkUXE4MYA6IK BiTINvKG2MKbKtNDJmBRqmDNLqDUPjRKJvnz5KPYAf BQErYQI6HqKiQNVzHBZoUNcxDSVzQXH4PKAtGYZfUCMfJQ2UQsOaIBDrVXneTpriUNQdFPQuof2YQVIf TJDvTSv0IIQtZPFcJFVcVZzpUTOuNYHjGVd8HGZbWPTmTV1UQiEqCDNaViMsKbyvTZGlIHBilv0INEGq HHUjKJCiKgKwJDUvVYLuLUjeTVBtAWXdUZN5NWXtJB PwHG5HUjIlAKGwBnY0ZeroIMIbKJFfvh9KATDzXIRcYqY7VoNbEIZnFBYuWRnnIVNoYLRdXAd4QOHiSK CiVD3AEjFqCFRqJwRrAdevGFHaUWWrma2PMJBfAXP8QQgiZFPoXKXzBTJjKJzzWZIbAQSjVKH2CZTjLU HrBR2RDqQuHSUpCKVyVHucVCFhZQGzul7KBMJfOQZ7 VKx4QQHdSMWpQQWqAQjrAGMfFDBkHMz6BGJaHQUlUF4ZKrWdQXYiQYVuNBMiLSYbMPBfid5QRIDyXMF5 Xcb9GrYxFCVmTUSyOXxfEVFqRJLiAHDiUPFdFVOyRL1RYsNnNPDxAEIoYNNvIMJjWXKnif7SgSWaiWxa ug0UNBiUCr9QrHupAVN5POgfFe1emCRxDMLnJBNEFp 3VntYnBUJzQVMDJJhsLWJxZMWbCSU8YvOmMOXlWwE0MeekGHirVANcDSOnMyPyCPMbFtH7AOO0HDvwHS O9HWV5HCInU4E5OQJ3ZVHmJ7YdASMyMMT+LD6dKMr+Mh9Ao8BskgW4btBdQLo0PBG2Vj8ENDXBF0NKSd == ID Date Data Source [id number] 08/27/2019 01:38:58 PM EDT 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 [file] ICAgICAgICAgICAgICAgICAgICAgICAgICAgICAgICAgICAgICAgICAgICAgICAgICAgICAgICAgICAg OVAzGCXaLWBrKFMsCQIeYCGwAQCvWN3QRBEmDKArFNWvPBWtUSGxFTFeUSPwUKObYLZsNITxFIEyTEXc ICAgICAgICAgICAgICAgICAgICAgICAgICAgICAgIC LhXLGpSGVfJXKaNVQiSLIjCVWkAMDtNIAkTGKgGALqIO9VPALrSJFxEIAmGYAfCSQoREVsUFFqGXEsPB AgICAgICAgICAgICAgICAgICAgICAgICAgICAgICAgICAgICAgICAgICAgICAgICAgICAgICAgICAgIC LuTYVuHUWiSGOlESJmYN6WLLJxZOGbSDJhPDSpFXIv ICAgICAgICAgICAgICAgICAgICAgICAgICAgICAgICAgICAgICAgICAgICAgICAgICAgICAgICAgICAg FURySNIcKDJeAXOvANGiUEGbUNUgDTYwFS2PTFLgJZQqDNVkZGHyAXWhMJKaDOSsQVYdLFIeBXBkFYSi ICAgICAgICAgICAgICAgICAgICAgICAgICAgICAgIC JoKFUfHCImLMJpELPrGYTwDGYtVBEgHDLiCBXgZKHySNEoRE8JJIRfFSQkJIXpDYMtPLDzIRJqMVOaTU AgICAgICAgICAgICAgICAgICAgICAgICAgICAgICAgICAgICAgICAgICAgICAgICAgICAgICAgICAgIC XzJAKpJJHmMXOwEGBkDSAkCN6IDSVqZCWsZXBbZYZb ICAgICAgICAgICAgICAgICAgICAgICAgICAgICAgICAgICAgICAgICAgICAgICAgICAgICAgICAgICAg ORZnQGZzOWBqGQYhBUVoKIKaGAMoNGTiFWPjRV3GMGQkJPRlODAiVLKlISWrKVLdUAMlNEIdVYLdJIRw ICAgICAgICAgICAgICAgICAgICAgICAgICAgICAgIC MdGXPrBYBxHJEmLVSjQXIwMSOaVNOeYOXgALRrQYFpTHQeGPGvTW4RPYMzNVLjHWQdXGWlCHXrYOSdXQ AgICAgICAgICAgICAgICAgICAgICAgICAgICAgICAgICAgICAgICAgICAgICAgICAgICAgICAgICAgIC ZwEOXhBDRiSTRtPDLjWLQsYWKoSH0MQQNcRRVrCZGg ICAgICAgICAgICAgICAgICAgICAgICAgICAgICAgICAgICAgICAgICAgICAgICAgICAgICAgICAgICAg MFOlWRYrIYRbGAXxJMGhFDFfZCQbGXRtHGNhMCPpKY7VHX70pCPuv3K3IDUuWX5mzwz/Xy7EMSnbdgAd rJPoLO8GSxTgEQ6ifl6PRcVlUV1iuw5JJSvDQxBlZ5 P5kITePQAvMAYZTxVwM14gRPtsGi65WNxaDAHpKxMjCSy3Bx2VSnZtQ1ckVIZnFcN9HCNvYoK8SHXaSb B1BBKvFpWoOFZvFQKpAKOhXEDRXGZ5WSVsWtPmWIiqNC7Bc2KjzIA9IRw+Ei7XPA5uz9WhXLqhSmVvVA 2voe7MVMzTEvUzX1FdcuA1OJVtQYRqHl1HVFQrPFNn uYAlBpBeHYXDVwPdL6JdnL44RWHFKi7+SQhjsdSdZkaRNpUfKBUnl1RlAYl7HI3RUOVpTRn1pXQlAWXv G1Lrc0HdUv79COEaEjdrQVkojFefYWq5rs4dsGdbtjlyUKJbUBEqIo2xRd5cOZKpBXYnPxGeREUQXF3I GIQrZLCofLUbBXTaVTAKYH4QVHcwEMK3ZNGwgeWsqO NtIMbgXW8VVLShrhTiKiIuPXJJRWm+Aq9PVA9pb0RiHLveFHUtGI6klt0KMXaLJkAnZ8B6cVMkH0V9VZ gcZj0HSGUeZYVpYiJsTBLMTWgyPZ7NKA8szmB6UO8OxSVfOPQgWOMwkQOmEMh3T53lfJYxAYxhJL9FNY A+Noble+Vi9GUHUkAZBcWTKgElTdZZTOQfZoM7OdG2OH t5NdV1GgYF22rMiktnFqUKciTE1HVF3rCJFbDHUMTI9WmKIgcU4knqLnKxOmHAVTSdMuM31ozYCpCWRw KHWfAVKfQv7NCCUeD5SldtAxcPveqmExADTjZQIPYX5DABheyjTuyVBebFnqMH52yAseMZ0YGt3DBbOp XG0tkn7CkNJiSm3BDRKlJO8MTSMcPJZmFQRiTCH4DU VwFgSsAJjtNQIaJOWcNFH2OGTfVQKrDZ5YAwMeEWLmGnR4GloxPEEkPTYcqe7WBWGqZZQuUWI2QVHwRK KsIGIbYPbaEYClFBClYNR9XFRvUKUsAV1KIyHsGSAkWMBzLlZaXXFrPTHzui1SYVPxAIYuPjCxZTRxWM KfLVEcBDvzBSHyEDP9NMYxREKuHYPkFU1VKdVeEJLo MOM3OjOnXSJmQIJhww2DREBhRQPtAAL2FIBdKKMfAUSfGOeoOUAeIWA5IRQrBISjKCWaCD4NKgJnZVGb KZG6UADzSDCuVCOald8ELKQaMVSdFXb4MNZrJHKsWQXcVGxnJACuXVJbVeH5MMPcBGLkWI9LOmRwKTHo AQZ3PYSvPBPfNXYrlv8DTUJsMOPcDzL1IrTfNSGlJH AuIKelQBKiHVT3FlO8CLRjJNWjDJ3DIjVpJHIcDFqoRHvhPFHqYABdib8ORJKsRBUaDeEpAJBtDMTwQM StLIhtBIYkSRM3LDq6IMOlAXYrIR1HVaSgBHMeKCl5HVeaRPVcNZUmux7QVVPuWPRePNo8HNWhYCVvHH QeDEndTWEhYPV3QSR6CIIqSUByJO0TCvAfKNBrZlBk YfatMVXqVQZuty9INNVtRNUlTAcyDkXlIIZuFHYvJZdmNHLiAWPyAKMeGDNzHWDrLM2NZpCyTPGdFxCb ArFmPOMmROGoxz9HUMVcNRMwOHAlQaKuXZWeZJFkIWknQFYeQVHlVzDiLXYtUSXeGV2ICrFlAGCqHmP3 HfkxJDJdDKMdsf2UGNKnUHUoXyLoTpMoLREjDXOkZM qkQIPxLEVkRQX5JVVzVGWiKX9QMqRxRLEfOoP0JDCoJQNcVQCyak5WENDrMUYeCGC9HqMjWGHbQORoFZ ueOEJqQNT9JyS7LGHuGPZyCL8RVcIwXDduFCIQRkz1ZPpkW8e6PMRfAC2EZ9Xee8HmHwPtWDQHFMcpEP 4kotDeWUMoLw1PN2rKHbv9UQHrOnDlVXHeBmJiTVUt T2AkFsV7UCS3ELc6PsGyTJ1nOQTsWgR8DUB1PZXpSNMtIZE1HBUgNBC3Rys7YCKxYyR7BrCyZN9NYw3Y NsW4ZWT8tQVvQl1HAfX1ZsITAnBhHL6DSDw= ID Date Data Source [id number] 08/21/2019 10:37:36 PM EDT [facility] Name Value Range Interpretation Code Description Data Maureen rce(s) Supporting Document(s) Glucose [Mass/volume] in Capillary blood by Glucometer 226 mg/dL 70- 140 H [facility] ID Date Data Source [id number] 08/21/2019 06:57:03 PM EDT [facility] Name Value Range Interpretation Code Description Data Maureen rce(s) Supporting Document(s) Consultation [facility] OCJNJd0gLcWDJhMh56/EJSixNJTtp5TwNHctPGn2DEhmYRQaS3HdBWL7tR6yMSN2LUzMWrOnWkToTuR9 lbm [file] PyY3YCCeGCV6RyQ9Eq1bJYEVGf4+MLlngDFtjPdfPUCSWhV5RLG6LQqoFGUIZo8U ID Date Data Source [id number] 08/21/2019 09:11:47 AM [facility] Name Value Range Interpretation Code Description Data Maureen rce(s) Supporting Document(s) Glucose [Mass/volume] in Capillary blood by Glucometer 206 mg/dL 70- 140 H [facility] ID Date Data Source [id number] 08/20/2019 05:11:26 PM [facility] Name Value Range Interpretation Code Description Data Maureen rce(s) Supporting Document(s) Glucose [Mass/volume] in Capillary blood by Glucometer 147 mg/dL 70- 140 H [facility] ID Date Data Source [id number] 08/20/2019 01:00:20 PM [facility] Name Value Range Interpretation Code Description Data Maureen rce(s) Supporting Document(s) Glucose [Mass/volume] in Capillary blood by Glucometer 116 mg/dL 70- 140 [facility] ID Date Data Source [id number] 08/20/2019 12:48:58 PM [facility] MR BRAIN WITHOUT CONTRAST [id number] RES ULTInterpreted by:Wilfredo Fields MDORDERDAVID CLINICAL INFORMATION: [...] ICA extending to the level of the [place] consistent with history of complete [...] rce(s) Supporting Document(s) ID Date Data Source [id number] 08/20/2019 09:21:14 AM [facility] Value Range Interpretation Code Description Data Maureen rce(s) Supporting Document(s) Glucose [Mass/volume] in Capillary blood by Glucometer 127 mg/dL 70- 140 [facility] ID Date Data Source [id number] 08/20/2019 08:07:48 AM [facility] Value Range Interpretation Code Description Data Maureen rce(s) Supporting Document(s) [facility] JCYRGn7xZbAFAcCip9JcIqCfWMPsSE5musy9W8Q5tHJmE4JocYHkw7muY4NhA5DfUXLpRVYOGR4FmDJp jb2 [file] xeheSkCYj4Fo/ubA9ZLjCmPvcgZ150B2+JUAN JOSE+iNP5EkseKIYGLZFDu9hHxSVGk7UfdNFECOQTG4rst09 [file] JIVt1Fe070HWDoLHRUVqd+RptetMMdoQfxEHCNAjRyHhVNYUNOZ3S= ID Date Data Source [id number] 08/20/2019 07:52:51 AM EDT [facility] Name Value Range Interpretation Code Description Data Maureen rce(s) Supporting Document(s) Consultation [facility] BLJRDo0jCgNCFpFv62/AOMtvQWFus0TeLVrkGJb3MNzeWQAvO7AqKDK8vY1pMWA5GYrPGwQdXoBzMxE5 lbm [file] NvR23Pu+lVSNORdkakIQJ4/2oC2SM/8UP/z+inpatient auditor/Y// bMOYtur1N7JlC3TSJkgX/lH9pqZUlSIpGR8/vJkCqTENHkqKvehV8Z6vWJY8/i1VP6Ohy5JIiID6GqPq DKGHtr7Z7mXqD52z/Ddhx+ZwPJHLJggN8Jladfh+NgaHxYvjxb0mxE3K1LE9LpitQjbvBCLHqOtQ8Lww K32ke0Gku9c5/C18Ex9L9Sg1eRcLsPLitsIhNxN6k8 Xopo24A82fE/8w1zyDzK5HxX7XRuf/Tj0dbeC/QKdWmJjcAT+Xb+FsE+cTOuri/xZn0t3/Y13+Mzo6VU //b88tPW/K9iovMAbO46UvzVs+xA44w/mZ7Nz/6qpl7yRgl5mrF4clmbmR1L66L8khFBGLGBd962+wheel adjuster [file] AgICAgICAgICAgICAgICAgICAgICAgICAgICAgICAg ICAgICAgICAgICAgICAgICAgICAgICAgICAgICAgDQogICAgICAgICAgICAgICAgICAgICAgICAgICAg ICAgICAgICAgICAgICAgICAgICAgICAgICAgICAgICAgICAgICAgICAgICAgICAgICAgICAgICAgICAg ICAgICAgICAgICAgDQogICAgICAgICAgICAgICAgIC AgICAgICAgICAgICAgICAgICAgICAgICAgICAgICAgICAgICAgICAgICAgICAgICAgICAgICAgICAgIC AgICAgICAgICAgICAgICAgICAgICAgDQogICAgICAgICAgICAgICAgICAgICAgICAgICAgICAgICAgIC AgICAgICAgICAgICAgICAgICAgICAgICAgICAgICAg ICAgICAgICAgICAgICAgICAgICAgICAgICAgICAgICAgDQogICAgICAgICAgICAgICAgICAgICAgICAg ICAgICAgICAgICAgICAgICAgICAgICAgICAgICAgICAgICAgICAgICAgICAgICAgICAgICAgICAgICAg ICAgICAgICAgICAgICAgDQogICAgICAgICAgICAgIC AgICAgICAgICAgICAgICAgICAgICAgICAgICAgICAgICAgICAgICAgICAgICAgICAgICAgICAgICAgIC AgICAgICAgICAgICAgICAgICAgICAgICAgDQogICAgICAgICAgICAgICAgICAgICAgICAgICAgICAgIC AgICAgICAgICAgICAgICAgICAgICAgICAgICAgICAg ICAgICAgICAgICAgICAgICAgICAgICAgICAgICAgICAgICAgDQogICAgICAgICAgICAgICAgICAgICAg ICAgICAgICAgICAgICAgICAgICAgICAgICAgICAgICAgICAgICAgICAgICAgICAgICAgICAgICAgICAg ICAgICAgICAgICAgICAgICAgDQogICAgICAgICAgIC AgICAgICAgICAgICAgICAgICAgICAgICAgICAgICAgICAgICAgICAgICAgICAgICAgICAgICAgICAgIC AgICAgICAgICAgICAgICAgICAgICAgICAgICAgDQogICAgICAgICAgICAgICAgICAgICAgICAgICAgIC AgICAgICAgICAgICAgICAgICAgICAgICAgICAgICAg CKKnVQArACNqMIQbSPKiLUNvNFMlKDCzAZHjMBAhGUDiADEeEHGtKCj0T4ncTYPjZVVjJK2tJKa9Fq8+ NEaWPgVjLWE0xbTjaK5MGU0sh0TkOKbhGGFrd9KrKMe3DQ7KHKToNQvmFS6JLKczhz1ZKWCkWEVjyBLW y0dgPwOfAPS5HJCfKyqcWK1UIMDoV1lpwaRxOKWaHX XZJSqeWUTAXGvdCQLZKDEeVVLuJwCfOgJpNIVnTBGoHRNHPNF6WLKkGcAxAVnaFT9Wk6SawVE6IMt+Pg 2HEJ5mo6RwUKlaKhArTU2tla6AHKuZRfNfV9YiuxT7ROJ5HEIqPl6CDSVhNGQcgLYzUAHgSRJOYhVeS2 NerN25ZVUXCw2+WWveleKsVrnJQkO3AXNun3AhEUb6 XU6JASGgVEz1oDOgN19mx3ZluNKsXuenB537kGwjOSMlmYzfTLHaLIEFJcFZUPW9RRrdLM9xMNBoWEK9 YiK7HCMQUC2GBDKwPHPemBWmWKFgOGLMWX3JCByoNAS4AFGwvhEcxMHrVZpgQE0WOCJtpxQeFzdrIGAF DQo+Qq2YXS6wn1VmCSgkZIBeKX9fgt4ZQLsVFuGjH5 S5vYQbI6V0KUgxOt2FMKGhBXXaXiKfCKRTPYedPS4ACR1paeF1CX4MpHSoDDUcQHHdoQIzDBk2Z59tgN NrKYmdMT6GOKX+Noble+Fu4OXBWrWJNjQXLfXqJcUKORXwHwJ0HrN7LQy5OyN0BbYS10sNgrjuNeVAroBZ 8XOD9oIKKjINEMHK8OfGOmbJ0iioYkPqAtJBJIJpUk L85eqACeOPTdGDL6ZEXcNq1HOCBbD9PrpbGmrLhdwkFtHHAxMGLCKE4AQTqbycKzuIKjsGdxME94bVxn PL9TXg1CZlFqST2tgg2LgQDdLa2HVAO8VO1UUQTxMMSaIXQeYGG9RPSkAgZlJPehEDTrXUIcGPS0HXMr OXCpYX9FTvIkKKTvMIS6WkosCIAxEAKdtx4UPPBlEE B4AIZvWSCsSRQvYNAcTZytPEQqXEUbQAB9BYXoIKFgCJ3ITcCsIMIpGKQ0ITJzFDAqPCQlyz3GYCMgSF DeKLVnNFUjVYAgWVRhCGbfTYLdLIV2AwmmWAKsKULoCP2BYbEaVCMtCEe0THrtTTCkNGMygr2CMQOaZM AxMTAxNiAwMDAwMCBuDQowMDAwMDExMjIwIDAwMDAw LF9SOqCvAWDwQXRqKyZiIPBqIOVubr1NYTRwPOIqDUF0KGXfPOQnTHYuBGczCXDsUWO9ETF8HIMhAVGv OD6IDxLwJDGtQAayRJEzBYLaWRQfoq5TGESuWKSsGys3NfKzACIgKXEkPFulPESuNFX6BOz3MCUgXZNq UD6KZeRzLFJqHzBwQtlxPVEwDWZviv7PXYFePAItAJ X9HDBgQBUxEBItIWhlRUIgPUV8FdT0LVZyOMHxMS8IItJlUYPeEaO9BYAmDJCoKRYcbw5WIBHgVNSgQt eoHSHmUAKsHNLeFArdZHEvPNB4RrcsBPXfEYBjQJ9MCfLzDCKkHet8GIWmGOYyRSIvbt2CBMQlUEThFY E1JvSkSBXmEIZsGQlsRGHfGSI0XOJwASNeBRTmYB7Z FyHiYGVbXzhyLyReOXNdHJJomg3QPZLqEVRiMJKgWcUrQXTjOVMgESfuPDCkEYCuGTLmQHAfVMLpOT3M YwEsWGIfFYNaIGSuVODuFBVgqa1GFSCdSON0OOS6YaCeZNRgWLZxVSzfOWQuDMWlLSXgTSZgSICrTD4B BjKgSCSoZKPyTLCrXMTqMUCduo6TYUQhYQZ0IjF3ZY RbRVQgULGvFNmgFGOaBUCoAsn6RBHeMEUiGH2ZYrQiDEQtZWK8EPKuMBCaHLTgjo4ZXYLoTPW9Mpb9ZJ PhKOMyJVOqQYwkIXHpGVE3TwM3FKOiGBMkMM7EVmQsTHVaPKW9WptgKZFbSJIfdw2SNMLhEDW2FYD6Pw ZxAMDcMYKvTQl2rfKioVJbZOy6TE3DK4RvhzSzBFNX Zr6Ev922KOU2PJOoVv0NO3lqWf1hFEMeALESPt1PRDj0RyNjWCW6SZUbQpIrUSN1PKLbY9EwFFW6R5Oj SfY6UJH+AKtyAvZhJhu3TELmUZCjYxo6NHXjQhDrZZRzSyTfDzz5NS7kUFEBIw5+DQpzdGFydHhyZWYN NrA5HJQ6ZHpkOEELJn2E ID Date Data Source [id number] 08/20/2019 03:27:41 AM EDT [facility] Name Value Range Interpretation Code Description Data Maureen rce(s) Supporting Document(s) Consultation [facility] OLNMUf9vBhEEWcWa25/KBNxrNJYco6ZeHDjuWLx5PZzcVIOaA5EjFNT4oW6hZWY4SUuMOsXsJpDfHzW8 lbm [file] VPRg0K ID Date Data Source [id number] 08/19/2019 09:42:19 PM EDT [facility] Name Value Range Interpretation Code Description Data Maureen rce(s) Supporting Document(s) Consultation [facility] DCWGTj3vLtPYXiHo66/JLBfrOEYjk3XlXPfwJXy9CQvrIFIzW7EzLCZ1qB5iART3SRvZVlEuQdLvMsY2 lbm [file] AgICAgICAgICAgICAgICAgICAgICAgICAgICAgICAg ICAgICAgICAgICAgICAgICAgICAgICAgICAgICAgICAgICAgICAgICAgICAgICAgDQogICAgICAgICAg ICAgICAgICAgICAgICAgICAgICAgICAgICAgICAgICAgICAgICAgICAgICAgICAgICAgICAgICAgICAg ICAgICAgICAgICAgICAgICAgICAgICAgICAgICAgDQ ogICAgICAgICAgICAgICAgICAgICAgICAgICAgICAgICAgICAgICAgICAgICAgICAgICAgICAgICAgIC AgICAgICAgICAgICAgICAgICAgICAgICAgICAgICAgICAgICAgICAgDQogICAgICAgICAgICAgICAgIC AgICAgICAgICAgICAgICAgICAgICAgICAgICAgICAg ICAgICAgICAgICAgICAgICAgICAgICAgICAgICAgICAgICAgICAgICAgICAgICAgICAgDQogICAgICAg ICAgICAgICAgICAgICAgICAgICAgICAgICAgICAgICAgICAgICAgICAgICAgICAgICAgICAgICAgICAg ICAgICAgICAgICAgICAgICAgICAgICAgICAgICAgIC AgDQogICAgICAgICAgICAgICAgICAgICAgICAgICAgICAgICAgICAgICAgICAgICAgICAgICAgICAgIC AgICAgICAgICAgICAgICAgICAgICAgICAgICAgICAgICAgICAgICAgICAgDQogICAgICAgICAgICAgIC AgICAgICAgICAgICAgICAgICAgICAgICAgICAgICAg ICAgICAgICAgICAgICAgICAgICAgICAgICAgICAgICAgICAgICAgICAgICAgICAgICAgICAgDQogICAg ICAgICAgICAgICAgICAgICAgICAgICAgICAgICAgICAgICAgICAgICAgICAgICAgICAgICAgICAgICAg ICAgICAgICAgICAgICAgICAgICAgICAgICAgICAgIC AgICAgDQogICAgICAgICAgICAgICAgICAgICAgICAgICAgICAgICAgICAgICAgICAgICAgICAgICAgIC AgICAgICAgICAgICAgICAgICAgICAgICAgICAgICAgICAgICAgICAgICAgICAgDQogICAgICAgICAgIC AgICAgICAgICAgICAgICAgICAgICAgICAgICAgICAg ICAgICAgICAgICAgICAgICAgICAgICAgICAgICAgICAgICAgICAgICAgICAgICAgICAgICAgICAgDQo8 M1hfEOStNMZcKE7mRZl4Qd3+YCtDGrNtPFX1zjQhdM6XYJ1fm8UzYMvoRKKwj0YeZFs4AJ9WUATsOFme WC1SFRwrqn5KMYLtCMKikPOGa4wlXxFtOYW2XGJvCf mpGV4FYVEiL6vxjrDyEEUrWPPZBOauPMSCXUeuJLEYBGChBQAdCnQpZyMwFHBdLK9EDPAtI811rePwSC 2EXm2LZfZiZU6fzp1LRsZwAXUdComRGtb4XNiuRX3QeVBcwYLlBOXwBUCWOkAlT9oiq6ZyToZaRUVRPT ivVG0In6BepMHjKVp+Oj3VUC7zf8XwVLekPRKdEI1m ca7XIUpUQdIwI5WicDasXICbtlI4eXUqHOE6VFXxfnftNMHsqtioUWHJBdLzuOY7DlAiWaTlNRInDBd3 ANJVWKiRGhNjH3Uwe2DeNtE7KYEiWiAiHZydFHKyBmQ7OX54nRkjHZ2NNJPeDRAeOO52RRSoJYTxPg0U Nj5SUbAyWG0zeb6WFzZlHFVaQavZBqq5TNgdBA6XnN PxH4YgeRUpy8yLRjMqH1CTFVSsFGBjTz2OMMCuOlHjZYNdTIvmGL0mGJPxRCMAeHysvfJ1TC3DTF8axe PbRC4VGhDdEw4fBy3CUnRoE1DxP0AsFVYgNYHLQEmoPU4PVQvhZM0oWR1Wi5QFuVSmnU2nel1CZPDhRN WiIsyxwx0IWuwoL9Z6xBrpEHNwVzMzRZGBTXysGC7K ZYOnKAH0OFFuJfVhJEFFBrBvF99uXU8II8Wuz08sYqO8KWUiVsDfASwaKZ91yLwbxqIepRDmsCwaZD5R Cj4+GXgskeMoSezEZvooKHNOOfGpCdLVZiIeYBSgFVKxFSKbPgR9TjWcVn8KPFYaAUNgSKQhBxOrBXBo CYYqDBscYGYvNKDkBln7FJDmUSKaBT6GMkHnQXGrPg JfIrlxMSUiXSHepb6ZARLzEVHhCZU4HtImACCbKUEmHZyjGCDyLLRsWLJzVCNnMCTxVZ8OKpAgRCCqDN A9KZUsTCNhLWFqln0JUYNfIXAmJsF7UHQaGTFkDLPfGWmjFJEtCDC6Mha3BWBiYNPmVY5AChOdILWpLB o4RGxmRGFgJSPfps0UCRShPQSoOFMyFuYeROTaADXz FUmgIQKrNPVnWGHvFHRjLJUdBF5MXrBiLXZqTUTcVpuoKDEdGWCcmz3JZMXcDCHhQYUdIhUiOATnOUGe YFlrHEXfVCC4JyG4LBTlRNZaCT0PCjDaFALoZBU6IIfaPCJyDWMpej0HEATeASRkPMn5NRCqKZEdOGNp FGhdPTPuYDP6WOI3UYUiFFIiBO9DSdGtSIUuFRS9Ij beSYNqUAQwkz5FUCPcGXGpGnXlMKTzAPAiXEGpFQypUTZnWFT8KxG2PWClKMUcNO0DUkZfJJQnZLmqTd ioBISbNAZgvr9MKNNxYFRiBHM5DIFzZAIvNVKhFByeQYTxMZA1TxG2IPYvTRAmTD6KBvEuHDYhCvHvXY DyBWUcPNRvzu6VLTFcXYRhONJ5JXLjPEJgCVXdJNnu YTTaSMVmISJ1XDPhULJeBR2IOrItZKOqRaA7MNlaXLPlQNNzmp8PLEAtDWFaYJt0XXKvWULeAVOvYRfw GKJfWPRhWCk7TBOlOGBzDO8VGtVqOIYeUjGaAUUyRYHdDWSzge6IUXEnMBOuOrH8BAAtDANnCHZvUGoc ZUJnSZOtPxv5OOXxCJLlBY6OSmLdHKKvQvRxThAqXI HlEAIezb5WGGKfZYAuYINcRnMzNJOmKRJkVCqbBOPxSPG6RcuiLKZxAZTcOK3ECfYtSAoeWXFCUeb0QN icW3e9ENWoMv5PJ0Qin5QyHqQtWRFEIUqjLW7ilbSoLPRsDu9AA1cIQasmOBVkVMI8Spf8FsUcLVIcHl QiUYUpRUQbXFZzBzRnFa7aWUW2P5ZtWLlhVoh0QDA2 W2R3EIFxIBZ5PHSePnL4GoQoIjKbDQ5PKo1XKtA4CAG0sQHvEn9MCuO7PNASVnYdXX7SBIf= ID Date Data Source [id number] 08/19/2019 06:15:54 PM EDT [facility] Name Value Range Interpretation Code Description Data Maureen rce(s) Supporting Document(s) ED Provider Note [facility] IRLTNj7iIeTUPsXm92/USUnpBUUso4KbJKkqLZe1RPcaQIUbO7WqFBO8iM6eSRI9ABhLQpQiDaLrBlM2 lbm [file] [facility]/UwItrB4/lwVrn4vmNUbVhBC3JS0AsvtgboJ91uObG3Qz8wSEt9kTH0mUvtekm3o0n3YRqzdLQT8t [file] zz+qqclssLl1fgltCr1UW/V8z6R0dQI0q4Oq8rA2129UtIE9tPSH2gRzv1dedISS8VF58/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 [file] KyKTt2ZQK7TC2AOZXVI9NWAj== ID Date Data Source [id number] 08/19/2019 03:39:42 PM EDT [facility] Name Value Range Interpretation Code Description Data Maureen rce(s) Supporting Document(s) History and Physical [facility] NFGJOv4bTsACImNr44/FFIxbXTWvp8JuOHreDLe3MLtaEGKwU7FvZHP2aJ0tHUQ3PRsHCoTvLcKwHzN5 lbm [file] ICAgICAgICAgICAgICAgICAgICAgICAgICAgICAgICAgICAgICAgICAgICAgICAgICAgICAgICAgICAg VPUdFWSdJHPiSAJgLGIcEAJgUWMgSMQlLEAaKX0IIR AgICAgICAgICAgICAgICAgICAgICAgICAgICAgICAgICAgICAgICAgICAgICAgICAgICAgICAgICAgIC LrYJBtBPJxSFKqFIOyEOJvETJoVHDaQTIiOGXyUBGhUFYjHKJsBN3REIVvLHEsVQDwOAWjSXQtPFMoQE AgICAgICAgICAgICAgICAgICAgICAgICAgICAgICAg TTGgHZGzXWYyKBOqQQTiDEHyUUAmNKReMOPlTMWyNWUeGFLbJFQfSEMsQMUiTZMtQV1RRQGdCRZgURBj ICAgICAgICAgICAgICAgICAgICAgICAgICAgICAgICAgICAgICAgICAgICAgICAgICAgICAgICAgICAg ICAgICAgICAgICAgICAgICAgICAgICAgICAgICAgIA 0KICAgICAgICAgICAgICAgICAgICAgICAgICAgICAgICAgICAgICAgICAgICAgICAgICAgICAgICAgIC QpDXKhPAAlWBBcRXRjCXOvWPXhUNVlMPOcHCBpCHZdEPHqAADoSSCePP1WLHSlJQEtCEAvDKMnBDDrDB AgICAgICAgICAgICAgICAgICAgICAgICAgICAgICAg UXIuNIXxBFLmLIVhQBEhHFZySUSeENPdDNUzBSGoERWoSFRgYGTjGPIcCCTwEBSxMCFiUG4TCPYzGEBg ICAgICAgICAgICAgICAgICAgICAgICAgICAgICAgICAgICAgICAgICAgICAgICAgICAgICAgICAgICAg ICAgICAgICAgICAgICAgICAgICAgICAgICAgICAgIC PzMM7TSESjKTJlJCNgUXMfFQDkMVRsUFKqDTVmLYSpSJWeIRDdPUNzPVDiQBLhNGDzUCSsURPjWQCgEF DmREBrISWcSUIkJOCkPAZxKRBvVIBiVZEfMGZwYJQzQDNbZKYkGJHrBFMjMT9NMLHyTONiACGdQUZlFF AgICAgICAgICAgICAgICAgICAgICAgICAgICAgICAg HYLuRTVpQFDlBIJdTAFlCDEtELNfPVMhKRKrFXVzQYUtOKHzNEDpGJRaOKIlYTUqXHOjXNViMX7NWQIy ICAgICAgICAgICAgICAgICAgICAgICAgICAgICAgICAgICAgICAgICAgICAgICAgICAgICAgICAgICAg ICAgICAgICAgICAgICAgICAgICAgICAgICAgICAgIC EoQSWtVZ5YPG54hVGrj4J0YLPrEP3sfhh/Dy6TWTyoaeVpbHQoYC4UZtUtZM2sjo5LStGfNL1wlo3AKE iCCeOuQ6C3uCIlRKDxJCIAWfXxP84oTMhsYo84QQauUTDvKdRaXGi7Fh4CYeKiX1jsIKCwRaU9OCZzYh W2PSTvTfSoRVLcLOSjUYDkKMWGLDE2OXVsEvJjQaVb BDNzEC7LUZBjE331fnTzRi8KEv5BDnOpEW5wfu8HSlCgAIGoNnrZWbg1JRspPQ6KyTEuxBYbOmKdJUKK WgAjR3eme0PrGyutPPZAYZdsFA2Ws7AbjXZgNGx+Gp9TNV1xa8AcQZdkXpNnYU8bbb1GKZpGIlDgI7Kc dGxlKEgmUCBieSBMZWUgQSBQZmFmZiwgTUQgYXQgNy 18RzEyBtKhTXR3UyPbPT4iRUcrBU4PRJP3KKbdXLJiKBTvP1aMSzPlLXEoUcQjuJgcAE2EGfEzO2Mgik VudCAzNiAwIFINCj4+LOloftMiPycALrQmQWJeFgdHMit5XRfaNV5FiSPzIX1Txl1ryRXeY4ZkkKmfPC QySDvfolRyPk2kKOKvXUklTJXxPQ8mV1pxX2fvQ7Qb QZTYRoJfF3ArN6DtUnXtISG1UMWfZCYyUXEkAH5DAVTlTJC7NU5ERJ5PQtrpK9JWKDfXpNhuZGQEWjYY GhawORVvK5NNG3xVO2qLM0RhC17XJ92bN4EBMO3QR5XKSOheBo1jHUu+Jw3OFL6bv9WoVWbzCQRrVC2k ia4BTGuXRhGmJ9Q2uDFvE5M9LRxvKy3MOEUsAVPuTv NbSGSCFMrmZL5KHL3txaT5ES5ErEUpWCCrOEScmQYrKPb9O72peRDxOZghQK4UVYV+Noble+Bu1FPOKzTL CuQYNpCpRmFIYGEzFtB7WwL4QOb3LcF3CcSA62iYhpmsYtQNhaBF3ETM8fXAWdBUHPCL7OvFWeaA4doe PwDxHiWROCBjJeF13wsCQyPKJxHVM6KUUfRz3FUOZu E9ZkobJoaHkgzrYlDMEsRCBPDB9JCQtlmjQsdPSerBtuZJ66lEdyFC5DYr3QCuGnAU7gzx8SyFUwDv2Q JDGaJZ3ETIXjHFXqYDTlQID1YQUgHmUhVVfxBVYyZPAdQCR8UKYvXLKkLB2OAqNkJMKfFDMnTFSnFXUs SQLbuh3LEWUtARX5ESa8HANtWHSaGUViBCxxISLrJH DkZET9KKQkJPBfQO9KEuNcXUVkXSA2RfYrHKAzVPXqtm6OEIYfOLO1LaD7XXVoOHTbQOVkLLqoGFQjBB NuENHfUIGyUKXzXC2DZeMwDPRtBRQ1NvXaLOZbBZDgti3KIKMuQIHuWlF9BMVeLTCyJQSrNJnnWTJaVT JgLTC9XYMaDXIqOF7KJjLkNGDuURCoArSjGQMyAAHd mk2UNGFgDUWlZWR5ZwBfZFRfFRPzEYwtIMFsUQK4FPYqEQMiJRCiOX6RFmTzJRSkNBo6NKorXSYpVWQa ql0CRPNoPSDxLRksQhBlZKObFQIqBPiiINCqFYR1VtueVEGxOUXpTE9VWjQbFMLeQYi4AqVbFCPhTUCc tn0BVNIeTQNjFTrzUtMjUCBwFSVtGXcwRTVfYGPpEQ BbECAwHNAyYB0MLrEkZIKoQtXuVQMpWCGiDLPprj1EPXAiAUBqBkN0ERNbGMBhMAVmPXolZKErKZGiJJ y0BSIiEMGyYH1BCvBpXBXqNeF5VpFsWQLoZOSyoz1TRLHyHMFcNkQoUNUnYSKkRGUgDJqtRIMjGQAwPX O7JCRvDNWpPU4SXfGbQQIcBuNoJUYiSPTsKORrri7J RYHkCZIkQSi0YFAiVAHrBLGjDTogMMAsXTC5BNvgZJHhZNIuBJ7KIzCcYUBsEhDcEZMtZGWhHBLney1P DVSgDKK6UyVzVsLkPTOnHVJwKGhiRYDvYALzJGE2AZLgMSDeNX4HNfQvZMXbKGC2GcTrKUFiKQGzua2S VGIpRKY3JLUpXVKiPUSxTHHnYPilJPXcHDN3AEswMM WwWTIoLW5UWkJgZCYxZLZ2HTBqGSTpPUZtxz4RGJZkFHM0TvQ0CaDxKCIuLSIaWEwkIMCwOPQ7ASF9BQ MtLYXoXF2QHnPbQTKnZZO6VaOpEXVyQTBktk2MxDGjoIxtee6EFMyDRi5SnHxlXRP6HUawUp1cbYQmEN SaVAYKEb7LcqVjREImUXWRWRcrDRCuMWBbTpZpOtD6 BUysQ5AgAaJeOZEuFOMpY7KlJdRoObUaTpY3R8LmMhNmLDx8OWJfHEK2OLK8BwP1HVX0NQUrSQUiYZC+ JN9zMAh+Ye9Gz1RfovE3daStKOe5DxvsQh8ERMKNK2VTHu== ID Date Data Source [id number] 08/18/2019 07:58:51 PM [facility] CT ANGIOGRAPHY HEAD [id number] RESULTInt erpreted by:Shira Campbell MDINDICATION: Vision loss. [...] and MCA are supplied via an intact [place] of [place] and contralateral flow from the [...] and brachiocephalic artery are excluded from the [id number]. The orig in of the left subclavian [...] right MCA and TATUM via an intact [place] and contralateral flow from the [...] rce(s) Supporting Document(s) ID Date Data Source [id number] 08/18/2019 07:58:51 PM T [facility] CT ANGIOGRAPHY NECK [id number] RESULTInt erpreted by:Shira Campbell MDINDICATION: Vision loss. [...] and MCA are supplied via an intact [place] of [place] and contralateral flow from the [...] and brachiocephalic artery are excluded from the [id number]. The orig in of the left subclavian [...] right MCA and TATUM via an intact [place] of [place] and contralateral flow from the [...] rce(s) Supporting Document(s) ID Date Data Source [id number] 08/18/2019 06:35:15 PM [facility] Name Value Range Interpretation Code Description Data Maureen rce(s) Supporting Document(s) Glucose [Mass/volume] in Capillary blood by Glucometer 114 mg/dL 70- 140 [facility] ID Date Data Source [id number] 08/18/2019 05:10:40 PM [facility] Name Value Range Interpretation Code Description Data Maureen rce(s) Supporting Document(s) Hemoglobin A1c/Hemoglobin.total in Blood by HPLC 6.4 % 4.0-6.0 H [facility] (NOTE)<5.7% Average risk of diabetes (ADA)5.7-6.4% Increased risk of diabetes(ADA)>/= 6.5% Diagnostic for diabetes(ADA) Glucose mean value [Mass/volume] in Blood Estimated fr om glycated hemoglobin 136 mg/dL <126 H [facility] ID Date Data Source [id number] 08/18/2019 02:33:11 PM [facility] Name Value Range Interpretation Code Description Data Maureen rce(s) Supporting Document(s) Leukocytes [#/volume] in Blood by Automated count 8.6 10*3/uL 4-10 [facility] Erythrocytes [#/volume] in Blood by Automated count 4.60 10*6/uL 4.1- 5.3 [facility] Hemoglobin [Mass/volume] in Blood 14.0 g/dL 11.5-15.5 [facility] Hematocrit [Volume Fraction] of Blood by Automated count 40.6 % 3 6-45 [facility] Erythrocyte mean corpuscular volume [Entitic volume] by Auto mated count 88.4 fL 80-96 [facility] Erythrocyte mean corpuscular hemoglobin [Entitic mass] by Automated count 30.4 pg 27-33 [facility] Erythrocyte mean corpuscular hemoglobin concentration [Mass/volume] by Autom[facility] 34.4 [facility] width [Ratio] by Automated count 12.5 % 11.5-14.5 [facility] Platelets [#/volume] in Blood by Automated count 182 10*3/uL 150-400 [facility] Differential cell count method - Blood [facility] Neutrophils/100 leukocytes in Blood by Automated count 57 % [facility] Lymphocytes/100 leukocytes in Blood by Automated count 35 % [facility] Monocytes/100 leukocytes in Blood by Automated count 6 % [facility] Eosinophils/100 leukocytes in Blood by Automated count 1 % [facility] Basophils/100 leukocytes in Blood by Automated count 1 % [facility] Neutrophils [#/volume] in Blood by Automated count 4.97 10*3/uL 1.8-7 .0 [facility] Lymphocytes [#/volume] in Blood by Automated count 2.98 10*3/uL 1.2-4 .0 [facility] Monocytes [#/volume] in Blood by Automated count 0.53 10*3/uL 0-0.8 [facility] Eosinophils [#/volume] in Blood by Automated count 0.08 10*3/uL 0-0.5 [facility] Basophils [#/volume] in Blood by Automated count 0.05 10*3/uL 0-0.2 [facility] Nucleated erythrocytes/100 leukocytes [Ratio] in Blood by Automated count 0 /100{WBCs} 0-0 [facility] ID Date Data Source [id number] 08/18/2019 03:00:18 PM EDT [facility] Name Value Range Interpretation Code Description Data Maureen rce(s) Supporting Document(s) Bicarbonate [Moles/volume] in Serum 28 mmol/L 22-29 [facility] Chloride [Moles/volume] in Serum or Plasma 104 mmol/L 98-107 [facility] Creatinine [Mass/volume] in Serum or Plasma 0.64 mg/dL 0.50-0.90 [facility] Glucose [Mass/volume] in Serum or Plasma 110 mg/dL 70-140 [facility] Potassium [Moles/volume] in Serum or Plasma 3.5 mmol/L 3.4-5.1 [facility] Sodium [Moles/volume] in Serum or Plasma 142 mmol/L 136-145 [facility] Urea nitrogen [Mass/volume] in Serum or Plasma 13 mg/dL 8-23 [facility] Anion gap 3 in Serum or Plasma 10 mmol/L 8-15 [facility] Osmolality of Serum or Plasma by calculation 295 mosm/kg 275-300 [facility] Creatinine/Urea nitrogen [Mass Ratio] in Serum or Plasma 20 [facility] Calcium [Mass/volume] in Serum or Plasma 9.3 mg/dL 8.8-10.2 [facility] Glomerular filtration rate/1.73 sq M pre dicted among non-blacks [Volume Rate/Area] in Serum or Plasma by Creatinine-based formula (MDRD) 87 mL/min/1.73m2 >60 [facility] Glomerular filtration rate/1.73 sq M pre dicted among blacks [Volume Rate/Area] in Serum or Plasma by Creatinine-based formula (MDRD) >60 [facility] ID Date Data Source [id number] 08/18/2019 05:10:10 PM EDT [facility] Name Value Range Interpretation Code Description Data Maureen rce(s) Supporting Document(s) Cholesterol [Mass/volume] in Serum or Plasma 196 mg/dL <200 [facility] Triglyceride [Mass/volume] in Serum or Plasma 156 mg/dL <150 [facility] Cholesterol in HDL [Mass/volume] in Serum or Plasma 45 mg/dL >50 L [facility] Cholesterol in LDL [Mass/volume] in Serum or Plasma by calcu lation 120 mg/dL <100 H [facility] Cholesterol in VLDL [Mass/volume] in Serum or Plasma by calc ulation 31 mg/dl 16-42 [facility] Cholesterol non HDL [Mass/volume] in Serum or Plasma 151 mg/dL <130 H [facility] ID Date Data Source [id number] 08/18/2019 05:10:10 PM [facility] Value Range Interpretation Code Description Data Maureen rce(s) Supporting Document(s) Thyrotropin [Units/volume] in Serum or Plasma 1.310 u[IU]/mL 0.270-4. 200 [facility] ID Date Data Source [id number] 08/18/2019 12:43:23 PM [facility] Value Range Interpretation Code Description Data Maureen rce(s) Supporting Document(s) Glucose [Mass/volume] in Capillary blood by Glucometer 126 mg/dL 70- 140 [facility] Procedure Social History Code Duration Value Status Description Data Source(s ) Alcohol intake 12/04/2019 12:00:00 AM EDT Current drinker of al cohol (finding) completed Current drinker of alcohol (finding) [facility] Tobacco use and exposure 12/04/2019 12:00:00 AM EDT Never used co mpleted Never used [facility] Smoking 12/04/2019 12:00:00 AM EDT Former smoker completed Former smoker [facility] Alcohol intake 11/27/2019 12:00:00 AM EDT Current drinker of al cohol (finding) completed Current drinker of alcohol (finding) [facility] Alcohol intake 10/30/2019 12:00:00 AM EDT Current drinker of al cohol (finding) completed Current drinker of alcohol (finding) [facility] Alcohol intake 09/25/2019 12:00:00 AM EDT Current drinker of al cohol (finding) completed Current drinker of alcohol (finding) [facility] Smoking 09/05/2019 12:00:00 AM EDT Patient is a former smoker completed Patient is a former smoker [facility] ([facility]) Alcohol intake 08/27/2019 12:00:00 AM EDT Current drinker of al cohol (finding) completed Current drinker of alcohol (finding) [facility] Smoking 08/27/2019 12:00:00 AM EDT Former smoker completed Former smoker [facility] Alcohol intake 08/18/2019 12:00:00 AM EDT Current drinker of al cohol (finding) completed Current drinker of alcohol (finding) [facility] Smoking 08/18/2019 12:00:00 AM EDT Former smoker completed Former smoker [facility] Vital Signs ID Date Data Source UNK [...] [Ratio] 31.9 kg/m2 31.9 k g/m2 [facility] ([facility]) Body height 68 [in_i] 68 [in_i] [facility] ([facility]) 5'8" Body weight 210.00 [lb_av] 210.00 [lb_av] [facility] T ([facility], [facility]) Body temperature 99.1 [degF] 99.1 [degF] [facility] ([facility]) Oxygen saturation in Arterial blood by Pulse oximetry 98 % 98 % [facility] ([facility]) Respiratory rate 16 /min 16 /min [facility] ( [facility]) Heart rate 80 /min 80 /min [facility] ([facility], [facility]) Diastolic blood pressure 84 mm[Hg] 84 mm[Hg] [facility] ([facility]) Systolic blood pressure 136 mm[Hg] 136 mm[Hg] [facility] ([facility]) ID Date Data Source [id number] 11/29/2019 02:13:46 PM [facility] Name Value Range Interpretation Code Description Data Source(s) WEIGHT RECORDED 215.2 lb 215.2 lb [facility] Body height Measured 66 in 66 in [facility] ID Date Data Source [id number] 08/29/2019 01:06:19 AM [facility] Name Value Range Interpretation Code Description Data Source(s) WEIGHT RECORDED 212.96 lb 212.96 lb [facility] Body height Measured 66 in 66 in [facility] Patient Treatment Plan of Care Planned Activity Planned Date Details Description Data Source (s) Proparacaine hydrochloride 5 MG/ML Ophthalmic Solution 12/04/2019 02:00:00 PM [facility] Proparacaine hydrochloride 5 MG/ML Ophthalmic Solution 10/30/2019 01:15:00 PM [facility] Proparacaine hydrochloride 5 MG/ML Ophthalmic Solution 09/25/2019 02:00:00 PM [facility] Phenylephrine Hydrochloride 25 MG/ML Ophthalmic Soluti on 09/25/2019 02:00:00 PM [facility] Tropicamide 10 MG/ML Ophthalmic Solution 09/25/2019 02:00:00 PM [facility] fluorescein-benoxinate (FLURATE) 0.25-0.4 % ophthalmic solution 1 drop 09/11/2019 01:30:00 PM [facility] Phenylephrine Hydrochloride 25 MG/ML Ophthalmic Soluti on 09/11/2019 01:30:00 PM [facility] Tropicamide 10 MG/ML Ophthalmic Solution 09/11/2019 01:30:00 PM [facility] Proparacaine hydrochloride 5 MG/ML Ophthalmic Solution 08/27/2019 12:30:00 PM [facility] Phenylephrine Hydrochloride 25 MG/ML Ophthalmic Soluti on 08/27/2019 12:30:00 PM [facility] Tropicamide 10 MG/ML Ophthalmic Solution 08/27/2019 12:30:00 PM [facility] fluorescein 10 % injection 500 mg 08/27/2019 12:30:00 PM [facility] clopidogrel 75 MG Oral Tablet 08/22/2019 12:00:00 AM [facility] atorvastatin 80 MG Oral Tablet 08/22/2019 12:00:00 AM [facility] Aspirin 81 MG Chewable Tablet 08/22/2019 12:00:00 AM [facility] senna tablet 2 tablet 08/18/2019 04:20:50 PM [facility] Simvastatin 20 MG Oral Tablet 12/09/2016 12:00:00 AM [facility]
[2020-04-10 19:35] VITALS: BP 172/80
== END 2020-04-10 19:51 | disposition home or self-care (01) ==
LOC: M ED 17:00
DX: S43.005A Unspecified dislocation of left shoulder joint, initial encounter (principal); W00.0XXA Fall on same level due to ice and snow, initial encounter; Y92.89 Other specified places as the place of occurrence of the external cause; I10 Essential (primary) hypertension; E78.5 Hyperlipidemia, unspecified; K21.9 Gastro-esophageal reflux disease without esophagitis; Z88.5 Allergy status to narcotic agent; Z79.01 Long term (current) use of anticoagulants

== ENCOUNTER → 2020-04-17 | Outpatient (CLI) | payer MEDICARE ==
[~2020-04-17] MED LIST changes: +ATOR80TA59; +CLOP75TA2
--- NOTE | 2020-04-17 10:42 | REP ---
INDICATION: LEFT SHOULDER PAIN. COMPARISON: None. TECHNIQUE: Internal rotation, external rotation, Y-view and axillary views of the left shoulder. FINDINGS: Age-related osteopenia and mild cortical irregularity at the acromioclavicular joint as well as of the glenoid rim noted. No osteophytosis. Subacromial space is normal. No periarticular calcifications or loose bodies are identified. No acute fracture or dislocation. IMPRESSION: Relatively age-related osteopenia and mild degenerative changes. <Electronically signed by Drake De La Paz > 04/17/20 [id number]
--- NOTE | 2020-04-17 10:44 | REP ---
INDICATION: LEFT SHOULDER PAIN. COMPARISON: None. TECHNIQUE: AP, lateral, tunnel and sunrise views of the right knee. FINDINGS: Moderate arthritic degenerative changes include increased sclerosis along the tibial plateau with associated joint space narrowing, scattered marginal spurring/early osteophyte formation, and few calcified loose bodies primarily in the posterior joint space measuring to approximately 12 mm.. No obvious effusion. No fracture or dislocation. IMPRESSION: Moderate arthritic degenerative changes. <Electronically signed by Drake De La Paz > 04/17/20 [id number]
== END ==
LOC: M SOG 10:12
PROVIDERS: ATTEND Orthopaedic Surgery Sports Medicine
DX: M25.561 Pain in right knee (principal)

== ENCOUNTER → 2020-05-20 | Outpatient (CLI) | payer MEDICARE ==
[2020-05-20 09:16] LABS: HEMATOCRIT 38.9 % (36.0-47.0); HEMOGLOBIN 12.8 g/dl (12.0-15.5); MEAN CORPUSCULAR HGB CONC 32.9 g/dl (32.0-36.5); MEAN CORPUSCULAR VOLUME 91.1 fl (80.0-96.0); PLATELET COUNT, AUTOMATED 205 10^3/uL (150-450); RED BLOOD COUNT 4.27 10^6/uL (4.00-5.40); WHITE BLOOD COUNT 6.5 10^3/uL (4.0-10.0)
[2020-05-20 09:41] LABS: ALBUMIN 3.4 GM/DL (3.2-5.2); ALT/SGPT 24 U/L (12-78); BILIRUBIN,TOTAL 0.6 MG/DL (0.2-1.0); BLOOD UREA NITROGEN 16 MG/DL (7-18); CALCIUM LEVEL 8.8 MG/DL (8.8-10.2); CARBON DIOXIDE LEVEL 32 MEQ/L (21-32); CHLORIDE LEVEL 106 MEQ/L (98-107); CHOLESTEROL LEVEL 127 MG/DL (<200); CREATININE FOR GFR 0.56 MG/DL (0.55-1.30); GLOMERULAR FILTRATION RATE > 60.0 (>39); GLUCOSE, FASTING 131 MG/DL (70-100); HDL CHOLESTEROL 46 MG/DL (>40); LDL CHOLESTEROL 64 MG/DL (<100); NON-HDL-C 81 MG/DL; SODIUM LEVEL 140 MEQ/L (136-145); TOTAL PROTEIN 6.7 GM/DL (6.4-8.2); TRIGLYCERIDES LEVEL 83 MG/DL (<150)
[2020-05-20 11:06] LABS: MALB URINE SIEMENS 10.9 MG/L; MAU/CREAT RATIO 12.6 MCG/MG (0.0-30.0)
== END ==
LOC: M LAB 08:13
PROVIDERS: ATTEND Family Medicine
DX: E11.9 Type 2 diabetes mellitus without complications (principal)

== ENCOUNTER → 2020-10-21 | Outpatient (CLI) | payer MEDICARE ==
--- NOTE | 2020-10-21 16:12 | REP ---
INDICATION: OSTEOARTHITIS OF LT KNEE. COMPARISON: None. TECHNIQUE: AP view bilateral knees, 3 dish in all views left knee. FINDINGS: There is no acute fracture or dislocation. On the right there is mild to moderate lateral joint space narrowing with mild marginal spurring and subchondral sclerosis. On the left there is moderately severe lateral joint space narrowing with subchondral sclerosis. There is mild spurring at the margins of the joints. Few small soft tissue calcifications are seen both above and below the knee joint. IMPRESSION: Degenerative changes as above. <Electronically signed by Pancho Cortes > 10/21/20 [id number]
== END ==
LOC: M SOG 14:52
PROVIDERS: ATTEND Orthopaedic Surgery Sports Medicine
DX: M17.12 Unilateral primary osteoarthritis, left knee (principal)

== ENCOUNTER → 2020-11-04 | Outpatient (CLI) | payer MEDICARE ==
--- NOTE | 2020-11-04 14:03 | REP ---
INDICATION: OA LT KNEE, R/O BAKERS CYST. COMPARISON: None. TECHNIQUE: Real-time sonographic evaluation of left popliteal fossa performed. FINDINGS: In the medial popliteal fossa there is a complex cystic structure with internal echoes, measuring 6.6 x 3.6 x 1.2 cm. 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 <Electronically signed by Pancho Cortes > 11/04/20 1400
== END ==
LOC: M RAD 13:16
PROVIDERS: ATTEND Orthopaedic Surgery Sports Medicine
DX: M17.12 Unilateral primary osteoarthritis, left knee (principal); M71.22 Synovial cyst of popliteal space [Baker], left knee

== ENCOUNTER → 2020-12-17 | Outpatient (CLI) | payer MEDICARE ==
[~2020-12-17] MED LIST changes: -ATOR80TA59; +ATOR80TA59 PO; -CLOP75TA2; +CLOP75TA2 PO; +FAMO40TA3 PO; +LIDOCAINE 1% MDV 20ML VIAL As Ordered ONE; +PRIL20TA2 PO; +methylPREDNISolone SUSP 40MG/ML 1ML VIAL (DEPO MEDROL) As Ordered ONE
[2020-12-17 14:34] VITALS: BP 129/66
--- NOTE | 2020-12-17 17:30 | REP ---
INDICATION: LT KNEE ASPIRATION AND STEROID INJECTION. COMPARISON: None. TECHNIQUE: The procedure was performed under the direct supervision of Dr. Cortes. The patient has a history of a 6.6 x 3.6 x 1.2 cm Hi's cyst in the medial popliteal fossa of the left knee seen on a previous ultrasound dated 11/04/2020. The risks and benefits of the procedure were explained to the patient and informed consent was obtained. The left Hi cyst was localized using ultrasound guidance. The skin was prepped and draped in a sterile fashion. 3 mL of 1% lidocaine was used as a local anesthetic. Using ultrasound guidance an 18 gauge needle was inserted and advanced into the Hi's cyst. Only 5 cc of thick yellow fluid was able to be withdrawn. 3 cc of a solution containing 2 cc of 1% lidocaine and 1 cc of Depo-Medrol 40 mg was injected. The needle was then removed. Estimated blood loss: Less than 1 mL. The patient tolerated the procedure well and there were no immediate complications. After the appropriate amount to monitor convalescence the patient was discharged from the department. FINDINGS: None IMPRESSION: Ultrasound-guided left knee Hi cyst aspiration and steroid injection. <Electronically signed by Juan Daniel Jackson > 12/17/20 1726 <Electronically signed by Pancho Cortes > 12/17/20 7264
== END ==
LOC: M IRPRO 12:50
PROVIDERS: ATTEND Orthopaedic Surgery Sports Medicine
DX: M71.22 Synovial cyst of popliteal space [Baker], left knee (principal)
CPT/HCPCS: 20611; J1030

== ENCOUNTER → 2020-12-26 | Outpatient (CLI) | payer MEDICARE ==
[~2020-12-26] MED LIST changes: -LIDOCAINE 1% MDV 20ML VIAL As Ordered ONE; -methylPREDNISolone SUSP 40MG/ML 1ML VIAL (DEPO MEDROL) As Ordered ONE
== END ==
LOC: M LABSMTC 11:30
PROVIDERS: ATTEND Anesthesiology
DX: Z01.812 Encounter for preprocedural laboratory examination (principal); Z20.822 Contact with and (suspected) exposure to COVID-19

== ENCOUNTER 2020-12-31 10:13 | Day surgery (SDC) | payer MEDICARE ==
[~2020-12-31] VITALS: Ht 167.6 cm; Wt 90.7 kg
[~2020-12-31 10:13] MED LIST changes: +NS 1,000 ML IV ONE
--- OUTSIDE RECORDS SUMMARY | 2020-12-31 10:19 | CCD | Continuity of Care Document ---
Author Author Leonor RODRIGUEZ MD Organization Unknown Address [address] , [facility] 2 [place] [address] Phone [phone] Care Team Providers Care Collar Band Creaser Name Role Phone Xin Tovar C.N.M AUTM [phone] Emre Rodas M.D. AUTM [phone] AUTM Unavailable Problems Active Problems Provider Date Essential hypertension Luis Womack MD Onset: 03/09/2013 Obstruction of Eustachian tube Luis Womack MD Onset: Deviated nasal septum Luis Womack MD Onset: 03/28/2013 Social History Type Date Description Comments Sex Unknown ETOH Use 10 A Month ETOH Use Occasionally consumes alcohol Tobacco Use Start: Unknown End: Unknown Patient is a former smoker Recreational Drug Use Denies Drug Use Allergies, Adverse Reactions, Alerts Active Allergies Criticality Reaction | Severity Comments Date Codeine Unable to assess criticality Hives 03/09/2013 Medications Active Medications SIG Qnty Indications Ordering Provide r Date Hydrochlorothiazide 25mg Tablets 1 po qd Unknown Atorvastatin Calcium 80mg Tablets 1 by mouth every day 90tabs Unknown Famotidine 40mg Tablets 1 by mouth Unknown Clopidogrel Bisulfate 75mg Tablets 1 by mouth every day Unknown Immunizations Description No Information Available Vital Signs Date Vital Result Comment 10/28/2020 10:21am Body Temperature 98.0 F 06/30/2020 10:40am BP Systolic 142 mmHg BP Diastolic 68 mmHg Heart Rate 82 /min O2 % BldC Oximetry 97 % Respiratory Rate 14 /min Body Temperature 98.3 F Height 66 inches 5'6" Weight 212.00 lb BMI (Body Mass Index) 34.2 kg/m2 [place] Body Weight 130 lb Weight 96.163 kg BSA (Body Surface Area) 2.05 m2 Results Description No Information Available Procedures Date Code Description Status 11/07/2020 20031 Office/Outpatient Established Mo d MDM 30-39 Min Completed 11/07/2020 Inject/Drain Arthrocentesis Yolanda r Joint/Bursa/Ganglion Cyst Completed 10/28/2020 29286 Office/Outpatient Established Mo d MDM 30-39 Min Completed 10/21/2020 10705 Office/Outpatient Established Mo d MDM 30-39 Min Completed 10/21/202097841 Inject/Drain Arthrocentesis Yolanda r Joint/Bursa/Ganglion Cyst Completed 06/30/2020 93447 Office/Outpatient Established SF MDM 10-19 Min Completed 05/19/2020 47376 Office/Outpatient Established Lo w MDM 20-29 Min Completed Medical Devices Description No Information Available Encounters Type Date Location Provider Dx Diagnosis Office Visit 11/07/2020 1:30p [facility] Finesse Rodriguez MD M17.12 Unilateral primary osteoarthritis, left knee M71.22 Synovial cyst of popliteal s pace [Hi], left knee Office Visit 10/28/2020 10:[facility]a [facility] M17.12 Unilateral primary osteoarthritis, left knee M25.562 Pain in left knee Office Visit 10/21/2020 2:00p [facility] M17.12 Unilateral primary osteoarthritis, left knee Z79.02 skilled nursing (current) use of a ntithrombotics/antiplatelets Office Visit 06/30/2020 10:45a [facility] Finesse Rodriguez MD S43.005D Unspecified dislocation of left shoulder joint, subs encntr Office Visit 05/19/2020 10:15a [facility] Finesse Rodriguez MD S43.005D Unspecified dislocation of left shoulder joint, subs encntr Assessments Date Code Description Provider 11/07/2020 M17.12 Unilateral primary osteoarthriti s, left knee Finesse Rodriguez MD 11/07/2020 M71.22 Synovial cyst of popliteal space [Hi], left knee Finesse Rodriguez MD 10/28/2020 M17.12 Unilateral primary osteoarthriti s, left knee Finesse Rodriguez MD 10/28/2020 M25.562 Pain in left knee Finesse Rodriguez MD 10/21/2020 M17.12 Unilateral primary osteoarthriti s, left knee Finesse Rodriguez MD 10/21/2020 Z79.02 skilled nursing (current) use of antit hrombotics/antiplatelets Finesse Rodriguez MD 06/30/2020 S43.005D Unspecified dislocat ion of left shoulder joint, subsequent encounter Finesse Rodriguez MD 05/19/2020 S43.005D Unspecified dislocat ion of left shoulder joint, subsequent encounter Finesse Rodriguez MD Plan of Treatment No Information Available Functional Status Description No Information Available Mental Status Description No Information Available Referrals Description No Information Available
--- OUTSIDE RECORDS SUMMARY | 2020-12-31 10:19 | CCD | Continuity of Care Document ---
Author Author Leonor RODRIGUEZ MD Organization Unknown Address [address] , [facility] 2 [place] [address] Phone [phone] Care Team Providers Care Structural Drafter Name Role Phone Xin Tovar C.N.M AUTM [phone] Emre Rodas M.D. AUTM [phone] AUTM Unavailable Problems Active Problems Provider Date [...] lb BMI (Body Mass Index) 34.2 kg/m2 [place] Body Weight 130 lb Weight 96.163 kg BSA (Body Surface Area) 2.05 m2 Results Description No Information Available Procedures Date Code Description Status 11/07/2020 84694 Office/Outpatient Established Mo d MDM 30-39 Min Completed 10/28/2020 42092 Office/Outpatient Established Mo d MDM 30-39 Min Completed 10/21/2020 08335 Office/Outpatient Established Mo d MDM 30-39 Min Completed 10/21/202083077 Inject/Drain Arthrocentesis Yolanda r Joint/Bursa/Ganglion Cyst Completed 06/30/2020 22174 Office/Outpatient Established SF MDM 10-19 Min Completed 05/19/2020 62999 Office/Outpatient Established Lo w MDM 20-29 Min Completed Medical Devices Description No Information Available Encounters Type Date Location Provider Dx Diagnosis Office Visit 11/07/2020 1:30p [facility] Finesse Rodriguez MD M17.12 Unilateral primary osteoarthritis, left knee M71.22 Synovial cyst of popliteal s pace [[place]], left knee Office Visit 10/28/2020 10:30a [facility] Finesse Rodriguez MD M17.12 Unilateral primary osteoarthritis, left knee M25.562 Pain in left knee Office Visit 10/21/2020 2:00p [facility] Finesse Rodriguez MD M17.12 Unilateral primary osteoarthritis, left knee 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
--- OUTSIDE RECORDS SUMMARY | 2020-12-31 10:19 | CCD | Continuity of Care Document ---
Author Author Leonor RODRIGUEZ MD Organization Unknown Address [address] , [facility] 2 [place] [address] Phone [phone] Care Team Providers Care Furnace Operator Oil [employer] Name Role Phone Xin Tovar C.N.M AUTM [phone] Emre Rodas M.D. AUTM [phone] AUTM Unavailable Problems Active Problems Provider Date [...] lb BMI (Body Mass Index) 34.2 kg/m2 [place] Body Weight 130 lb Weight 96.163 kg BSA (Body Surface Area) 2.05 m2 Results Description No Information Available Procedures Date Code Description Status 11/07/2020 78026 Office/Outpatient Established Mo d MDM 30-39 Min Completed 10/28/2020 67242 Office/Outpatient Established Mo d MDM 30-39 Min Completed 10/21/2020 13667 Office/Outpatient Established Mo d MDM 30-39 Min Completed 10/21/202072947 Inject/Drain Arthrocentesis Yolanda r Joint/Bursa/Ganglion Cyst Completed 06/30/2020 59480 Office/Outpatient Established SF MDM 10-19 Min Completed 05/19/2020 51295 Office/Outpatient Established Lo w MDM 20-29 Min [...] M17.12 Unilateral primary osteoarthritis, left knee 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
--- OUTSIDE RECORDS SUMMARY | 2020-12-31 10:19 | CCD | Continuity of Care Document ---
Author Author Leonor MOJICA M.D. Organization Unknown Address [address] [place] [address] Phone [phone] Care Team Providers Care Field Representative Name Role Phone Emre Rodas MD [facility] [phone] Problems Active Problems Provider Date Screening for malignant neoplasm of colon Vitor camiol M.D. Onset: 11/06/2020 Social History Type Date Description Comments Sex Unknown ETOH Use Occasionally Tobacco Use Start: Unknown End: Unknown Patient is a former smoker QUIT 2016 Allergies and adverse reactions Description No Known Drug Allergies Medications Active Medications SIG Qnty Indications Ordering Provide r Date Gaviscon Extra Strength 160-105mg Chewtabs 1 tab by mouth four times a day before meals,and at bedtime 360u nits Vitor Mojica M.D. 11/06/2020 Sutab [id number] Tablets as directed 1box Vitor Mojica M.D. 11/06/2020 Atorvastatin Calcium 80mg Tablets Take 1 Tablet By Mouth Once Daily Emre Rodas MD Clopidogrel Bisulfate 75mg Tablets Take 1 Tablet By Mouth Once Daily For 90 Days Asuncion Rodas MD Hydrochlorothiazide 25mg Tablets Take 1 Tablet By Mouth Once Daily For 90 Days Asuncion Rodas MD Famotidine 40mg Tablets Take 1 Tablet By Mouth Once Daily For 90 Days Emre Rodas MD Acetaminophen 500mg Tablets Unknown Immunizations Description No Information Available Vital Signs Date Vital Result Comment 11/06/2020 3:39pm Height 66 inches 5'6" Weight 212.00 lb BP Systolic 130 mmHg BP Diastolic 79 mmHg Heart Rate 79 /min BMI (Body Mass Index) 34.2 kg/m2 Weight 96.163 kg Body Temperature 94.8 F Results Description No Information Available Procedures Date Code Description Status 11/06/2020 95527 Office/Outpatient New Moderate M DM 45-59 Minutes Completed Medical Devices Description No Information Available Encounters Type Date Location Provider Dx Diagnosis Office Visit 11/06/2020 3:30p Main Office Vitor Mojica M.D. Z 12.11 Encounter for screening for malignant neoplasm of colon K21.9 Gastro-esophageal reflux dis ease without esophagitis Assessments Date Code Description Provider 11/06/2020 Z12.11 Screening for malignant neoplasm of colon Vitor Mojica M.D. 11/06/2020 K21.9 Gastroesophageal reflux disease Vitor Mojica M.D. Plan of Treatment Future Appointment(s):* 12/17/2020 8:15 am - Anam at Main Office * 12/31/2020 1:15 pm - Vitor Mojica M.D. at Main Office 11/06/2020 - Vitor Mojica M.D.* Z12.11 Screening for malignant neoplasm of colon* Comments:* 75 yo wf who presents for a screening colonoscopy/egd - heartburn. Last scope was 10 yrs ago. No c/o abdominal pain, weight loss, change in bowel habits, or rectal bleeding. No family h/o colon cancer. No h/o chest pain, or sob.Plan:1.Schedule patient for a colonoscopy + egd2.Informed consent given to the patient.3.Pt. advised to stop aspirin,plavix, and anticoagulants at least 3 to 7 days prior to the procedure. * K21.9 Gastroesophageal reflux disease* Comments:* As above. Functional Status Description No Information Available Mental Status Description No Information Available Referrals Description No Information Available
--- OUTSIDE RECORDS SUMMARY | 2020-12-31 10:19 | CCD | Continuity of Care Document ---
Author Author Leonor RODRIGUEZ MD Organization Unknown Address [address] , [facility] 2 [place] [address] Phone [phone] Care Team Providers Care Alarm Operator Name Role Phone Xin Tovar C.N.M AUTM [phone] Emre Rodas M.D. AUTM [phone] AUTM Unavailable Problems Active Problems Provider Date [...] lb BMI (Body Mass Index) 34.2 kg/m2 [place] Body Weight 130 lb Weight 96.163 kg BSA (Body Surface Area) 2.05 m2 Results Description No Information Available Procedures Date Code Description Status 11/07/2020 92161 Office/Outpatient Established Mo d MDM 30-39 Min Completed 10/28/2020 25368 Office/Outpatient Established Mo d MDM 30-39 Min Completed 10/21/2020 28430 Office/Outpatient Established Mo d MDM 30-39 Min Completed 10/21/202058981 Inject/Drain Arthrocentesis Yolanda r Joint/Bursa/Ganglion Cyst Completed 06/30/2020 70070 Office/Outpatient Established SF MDM 10-19 Min Completed 05/19/2020 99999 Office/Outpatient Established Lo w MDM 20-29 Min [...] M17.12 Unilateral primary osteoarthritis, left knee 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
--- OUTSIDE RECORDS SUMMARY | 2020-12-31 10:20 | CCD | Continuity of Care Document ---
Author Author Leonor RODRIGUEZ MD Organization Unknown Address [address] , [facility] 2 [place] [address] Phone [phone] Care Team Providers Care Supervisor Floor Assembly Name Role Phone Xin Tovar C.N.M AUTM [phone] Emre Rodas M.D. AUTM [phone] AUTM Unavailable Problems Active Problems Provider Date [...] lb BMI (Body Mass Index) 34.2 kg/m2 [place] Body Weight 130 lb Weight 96.163 kg BSA (Body Surface Area) 2.05 m2 Results Description No Information Available Procedures Date Code Description Status 11/07/2020 46730 Office/Outpatient Established Mo d MDM 30-39 Min Completed 10/28/2020 23772 Office/Outpatient Established Mo d MDM 30-39 Min Completed 10/21/2020 84282 Office/Outpatient Established Mo d MDM 30-39 Min Completed 10/21/202016934 Inject/Drain Arthrocentesis Yolanda r Joint/Bursa/Ganglion Cyst Completed 06/30/2020 70062 Office/Outpatient Established SF MDM 10-19 Min Completed 05/19/2020 52712 Office/Outpatient Established Lo w MDM 20-29 Min Completed Medical Devices Description No Information Available Encounters Type Date Location Provider Dx Diagnosis Office Visit 11/07/2020 1:30p [facility] Finesse Rodriguez MD M17.12 Unilateral primary osteoarthritis, left knee M71.22 Synovial cyst of popliteal s pace [[place]], left knee Office Visit 10/28/2020 10:30a [facility] Finesse Rodriguez MD M17.12 Unilateral primary osteoarthritis, left knee M25.562 Pain in left knee Office Visit 10/21/2020 2:00p [facility] Finesse Rodriguez MD M17.12 Unilateral primary osteoarthritis, left knee 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
--- OUTSIDE RECORDS SUMMARY | 2020-12-31 10:20 | CCD | Continuity of Care Document ---
Author Author Leonor RODRIGUEZ MD Organization Unknown Address [address] , [facility] 2 [place] [address] Phone [phone] Care Team Providers Care Coil Tester Name Role Phone Xin Tovar C.N.M AUTM [phone] Emre Rodas M.D. AUTM [phone] AUTM Unavailable Problems Active Problems Provider Date [...] lb BMI (Body Mass Index) 34.2 kg/m2 [place] Body Weight 130 lb Weight 96.163 kg BSA (Body Surface Area) 2.05 m2 Results Description No Information Available Procedures Date Code Description Status 11/07/2020 29997 Office/Outpatient Established Mo d MDM 30-39 Min Completed 10/28/2020 39825 Office/Outpatient Established Mo d MDM 30-39 Min Completed 10/21/2020 95862 Office/Outpatient Established Mo d MDM 30-39 Min Completed 10/21/202098801 Inject/Drain Arthrocentesis Yolanda r Joint/Bursa/Ganglion Cyst Completed 06/30/2020 40497 Office/Outpatient Established SF MDM 10-19 Min Completed 05/19/2020 28599 Office/Outpatient Established Lo w MDM 20-29 Min [...] Unilateral primary osteoarthritis, left knee 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
--- OUTSIDE RECORDS SUMMARY | 2020-12-31 10:20 | CCD | Continuity of Care Document ---
Author Author Leonor RODRIGUEZ MD Organization Unknown Address [address] , [facility] 2 [place] [address] Phone [phone] Care Team Providers Care Dredge Operator Supervisor Name Role Phone Xin Tovar C.N.M AUTM [phone] Emre Rodas M.D. AUTM [phone] AUTM Unavailable Problems Active Problems Provider Date [...] Available Vital Signs Date Vital Result Comment 06/30/2020 10:40am BP Systolic 142 mmHg BP Diastolic 68 mmHg Heart Rate 82 /min O2 % BldC Oximetry 97 % Respiratory Rate 14 /min Body Temperature 98.3 F Height 66 inches 5'6" Weight 212.00 lb BMI (Body Mass Index) 34.2 kg/m2 [place] Body Weight 130 lb Weight 96.163 kg BSA (Body Surface Area) 2.05 m2 05/19/2020 10:11am BP Systolic 158 mmHg BP Diastolic 71 mmHg Heart Rate 80 /min O2 % BldC Oximetry 97 % Respiratory Rate 18 /min Body Temperature 97.0 F Height 66 inches 5'6" Weight 212.00 lb BMI (Body Mass Index) 34.2 kg/m2 [place] Body Weight 130 lb Weight 96.163 kg BSA (Body Surface Area) 2.05 m2 Results Description No Information Available Procedures Date Code Description Status 10/21/2020 50425 Office/Outpatient Established Mo d MDM 30-39 Min Completed 10/21/2020 Inject/Drain Arthrocentesis Yolanda r Joint/Bursa/Ganglion Cyst Completed 06/30/2020 83530 Office/Outpatient Established SF MDM 10-19 Min Completed 05/19/2020 84303 Office/Outpatient Established Lo w MDM 20-29 Min Completed Medical Devices Description No Information Available Encounters Type Date Location Provider Dx Diagnosis Office Visit 10/21/2020 2:00p [facility] Finesse Rodriguez MD M17.12 Unilateral primary osteoarthritis, left knee Office Visit 06/30/2020 10:45a [facility] Finesse Rodriguez MD S43.005D Unspecified dislocation of left shoulder joint, subs encntr Office Visit 05/19/2020 10:15a [facility] Finesse Rodriguez MD S43.005D Unspecified dislocation of left shoulder joint, subs encntr Assessments Date Code Description Provider 10/21/2020 M17.12 Unilateral primary osteoarthriti s, left knee Finesse Rodriguez MD 06/30/2020 S43.005D Unspecified dislocat ion of left shoulder joint, subsequent encounter Finesse Rodriguez MD 05/19/2020 S43.005D Unspecified dislocat ion of left shoulder joint, subsequent encounter Finesse Rodriguez MD Plan of Treatment 10/21/2020 - Finesse Rodriguez MD* M17.12 Unilateral primary osteoarthritis, left knee* New Xrays:* XR Knee Complete 4 Or More Views Left, Ordered: 10/21/20 Functional Status Description No Information Available Mental Status Description No Information Available Referrals Description No Information Available
--- OUTSIDE RECORDS SUMMARY | 2020-12-31 10:20 | CCD | Continuity of Care Document ---
Author Author Leonor RODRIGUEZ MD Organization Unknown Address [address] , [facility] 2 [place] [address] Phone [phone] Care Team Providers Care Software Specialist Name Role Phone Xin Tovar C.N.M AUTM [phone] Emre Rodas M.D. AUTM [phone] AUTM Unavailable Problems Active Problems Provider Date [...] lb BMI (Body Mass Index) 34.2 kg/m2 [place] Body Weight 130 lb Weight 96.163 kg BSA (Body Surface Area) 2.05 m2 Results Description No Information Available Procedures Date Code Description Status 10/28/2020 89123 Office/Outpatient Established Mo d MDM 30-39 Min Completed 10/21/2020 10907 Office/Outpatient Established Mo d MDM 30-39 Min Completed 10/21/2020 07559 Inject/Drain Arthrocentesis Yolanda r Joint/Bursa/Ganglion Cyst Completed 06/30/2020 02279 Office/Outpatient Established SF MDM 10-19 Min Completed 05/19/2020 74509 Office/Outpatient Established Lo w MDM 20-29 Min Completed Medical Devices Description No Information Available Encounters Type Date Location Provider Dx Diagnosis Office Visit 10/28/2020 10:30a [facility] Finesse Rodriguez MD M17.12 Unilateral primary osteoarthritis, left knee M25.562 Pain in left knee Office Visit 10/21/2020 2:00p [facility] MD M17.12 Unilateral primary osteoarthritis, left knee 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 Office Visit 06/30/2020 10:45a [facility] Rodriguez MD S43.005D Unspecified dislocation of left shoulder joint, subs encntr Office Visit 05/19/2020 10:15a [facility] MD S43.005D Unspecified dislocation of left shoulder joint, subs encntr Assessments Date Code Description Provider 10/28/2020 M17.12 Unilateral primary osteoarthriti s, left knee Finesse Rodriguez MD 10/28/2020 M25.562 Pain in left knee Finesse Rodriguez MD 10/21/2020 M17.12 Unilateral primary osteoarthriti s, left knee Finesse Rodriguez MD 10/21/2020 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 Finesse Rodriguez MD 06/30/2020 S43.005D Unspecified dislocat ion of left shoulder joint, subsequent encounter Finesse Rodriguez MD 05/19/2020 S43.005D Unspecified dislocat ion of left shoulder joint, subsequent encounter Finesse Rodriguez MD Plan of Treatment Future Appointment(s):* 11/07/2020 1:30 pm - Finesse Rodriguez MD at [facility] 10/28/2020 - Finesse Rodriguez MD* M17.12 Unilateral primary osteoarthritis, left knee * M25.562 Pain in left knee Functional Status Description No Information Available Mental Status Description No Information Available Referrals Description No Information Available
--- OUTSIDE RECORDS SUMMARY | 2020-12-31 10:20 | CCD | Continuity of Care Document ---
Author Author Leonor RODRIGUEZ MD Organization Unknown Address [address] , [facility] [address] [place] [address] Phone [phone] Care Team Providers Care Wood Box Maker Name Role Phone Xin Tovar C.N.M AUTM [phone] Emre Rodas M.D. AUTM [phone] [facility] Unavailable Problems Active Problems Provider Date [...] lb BMI (Body Mass Index) 34.2 kg/m2 [place] Body Weight 130 lb Weight 96.163 kg BSA (Body Surface Area) 2.05 m2 05/19/2020 10:11am BP Systolic 158 mmHg BP Diastolic 71 mmHg Heart Rate 80 /min O2 % BldC Oximetry 97 % Respiratory Rate 18 /min Body Temperature 97.0 F Height 66 inches 5'6" Weight 212.00 lb BMI (Body Mass Index) 34.2 kg/m2 [place] Body Weight 130 lb Weight 96.163 kg BSA (Body Surface Area) 2.05 m2 Results Description No Information Available Procedures Date Code Description Status 10/21/2020 53421 Office/Outpatient Established Mo d MDM 30-39 Min Completed 10/21/2020 Inject/Drain Arthrocentesis Yolanda r Joint/Bursa/Ganglion Cyst Completed 06/30/2020 00259 Office/Outpatient Established SF MDM 10-19 Min Completed 05/19/2020 18142 Office/Outpatient Established Lo w MDM 20-29 Min Completed Medical Devices Description No Information Available Encounters Type Date Location Provider Dx Diagnosis Office Visit 10/21/2020 2:00p [facility] Finesse Rodriguez MD M17.12 Unilateral primary osteoarthritis, left knee Office Visit 06/30/2020 10:45a [facility] Finesse Rodriguez MD S43.005D Unspecified dislocation of left shoulder joint, subs encntr Office Visit 05/19/2020 10:15a [facility] Finesse Rodriguez MD S43.005D Unspecified dislocation [...]
--- OUTSIDE RECORDS SUMMARY | 2020-12-31 10:21 | CCD ---
Author Author [facility] Organization [facility] Address Unknown Phone Unavailable Care Team Providers Care Roofing Supervisor Name Role Phone SID, Sydnie CLAYTON MD Unavailable Unavailable EMERTON, Sydnie CLAYTON MD Unavailable Unavailable EMERTON, Sydnie CLAYTON MD Unavailable Unavailable EMERTON, Sydnie CLAYTON MD Unavailable Unavailable EMERTON, Sydnie CLAYTON MD Unavailable Unavailable EMERTON, Sydnie CLAYTON MD Unavailable Unavailable EMERTON, Sydnie CLAYTON MD Unavailable Unavailable EMERTON, Sydnie CLAYTON MD Unavailable Unavailable EMERTON, Sydnie CLAYTON MD Unavailable Unavailable EMERTON, Sydnie CLAYTON MD Unavailable Unavailable EMERTON, Sydnie CLAYTON MD Unavailable Unavailable EMERTON, Sydnie CLAYTON MD Unavailable Unavailable EMERTON, Sydnie CLAYTON MD Unavailable Unavailable EMERTON, Sydnie CLAYTON MD Unavailable Unavailable EMERTON, Sydnie CLAYTON MD Unavailable Unavailable EMERTON, Sydnie CLAYTON MD Unavailable Unavailable EMERTON, Sydnie CLAYTON MD Unavailable Unavailable EMERTON, Sydnie CLAYTON MD Unavailable Unavailable EMERTON, Sydnie CLAYTON MD Unavailable Unavailable EMERTON, Sydnie CLAYTON MD Unavailable Unavailable EMERTON, Sydnie CLAYTON MD Unavailable Unavailable EMERTON, Sydnie CLAYTON MD Unavailable Unavailable EMERTON, Sydnie CLAYTON MD Unavailable Unavailable EMERTON, Sydnie CLAYTON MD Unavailable Unavailable EMERTON, Sydnie CLAYTON MD Unavailable Unavailable EMERTON, Sydnie CLAYTON MD Unavailable Unavailable EMERTON, Sydnie CLAYTON MD Unavailable Unavailable EMERTON, Sydnie CLAYTON MD Unavailable Unavailable EMERTON, Sydnie CLAYTON MD Unavailable Unavailable EMERTON, Sydnie CLAYTON MD Unavailable Unavailable EMERTON, Sydnie CLAYTON MD Unavailable Unavailable EMERTON, Sydnie CLAYTON MD Unavailable Unavailable EMERTON, Sydnie CLAYTON MD Unavailable Unavailable EMERTON, A MATILDE MD Unavailable Unavailable EMERTON, A MATILDE MD Unavailable Unavailable EMERTON, A MATILDE MD Unavailable Unavailable EMERTON, A MATILDE MD Unavailable Unavailable EMERTON, A MATILDE MD Unavailable Unavailable EMERTON, A MATILDE MD Unavailable Unavailable EMERTON, A MATILDE MD Unavailable Unavailable EMERTON, A MATILDE MD Unavailable Unavailable EMERTON, A MATILDE MD Unavailable Unavailable EMERTON, A MATILDE MD Unavailable Unavailable EMERTON, A MATILDE MD Unavailable Unavailable EMERTON, A MATILDE MD Unavailable Unavailable EMERTON, A MATILDE MD Unavailable Unavailable EMERTON, A MATILDE MD Unavailable Unavailable EMERTON, A MATILDE MD Unavailable Unavailable EMERTON, A MATILDE MD Unavailable Unavailable EMERTON, A MATILDE MD Unavailable Unavailable EMERTON, A MATILDE MD Unavailable Unavailable EMERTON, A MATILDE MD Unavailable Unavailable EMERTON, A MATILDE MD Unavailable Unavailable EMERTON, A MATILDE MD Unavailable Unavailable EMERTON, A MATILDE MD Unavailable Unavailable EMERTON, A MATILDE MD Unavailable Unavailable EMERTON, A MATILDE MD Unavailable Unavailable EMERTON, A MATILDE MD Unavailable Unavailable EMERTON, A MATILDE MD Unavailable Unavailable EMERTON, A MATILDE MD Unavailable Unavailable EMERTON, A MATILDE MD Unavailable Unavailable EMERTON, A MATILDE MD Unavailable Unavailable EMERTON, A MATILDE MD Unavailable Unavailable EMERTON, A MATILDE MD Unavailable Unavailable EMERTON, A MATILDE MD Unavailable Unavailable EMERTON, A MATILDE MD Unavailable Unavailable EMERTON, A MATILDE MD Unavailable Unavailable EMERTON, A MATILDE MD Unavailable Unavailable EMERTON, A MATILDE MD Unavailable Unavailable EMERTON, A MATILDE MD Unavailable Unavailable EMERTON, A MATILDE MD Unavailable Unavailable EMERTON, A MATILDE MD Unavailable Unavailable EMERTON, A MATILDE MD Unavailable Unavailable EMERTON, A MATILDE MD Unavailable Unavailable EMERTON, A MATILDE MD Unavailable Unavailable EMERTON, A MATILDE MD Unavailable Unavailable EMERTON, A MATILDE MD Unavailable Unavailable Galina, S Vitor MD Unavailable Unavailable Galina, S Vitor GUADARRAMA Unavailable Unavailable Galina, S Vitor GUADARRAMA Unavailable Unavailable Galina, S Vitor MD Unavailable Unavailable Galina, S Vitor GUADARRAMA Unavailable Unavailable Galina, S Vitor MD Unavailable Unavailable Galina, S Vitor MD Unavailable Unavailable Galina, S Vitor MD Unavailable Unavailable Galina, S Vitor MD Unavailable Unavailable Galina, S Vitor MD Unavailable Unavailable Galina, S Vitor MD Unavailable Unavailable Galina, S Vitor MD Unavailable Unavailable Galina, S Vitor MD Unavailable Unavailable GalinaVentura kam MD Unavailable Unavailable GalinaVentura MD Unavailable Unavailable GalinaVentura kam MD Unavailable Unavailable GalinaVentura MD Unavailable Unavailable GalinaVentura MD Unavailable Unavailable GalinaVentura MD Unavailable Unavailable GalinaVentura MD Unavailable Unavailable GalinaVentura MD Unavailable Unavailable Galina S Vitor GUADARRAMA Unavailable Unavailable GalinaVentura MD Unavailable Unavailable GalinaVentura MD Unavailable Unavailable GalinaVentura MD Unavailable Unavailable GalinaVentura MD Unavailable Unavailable GalinaVentura MD Unavailable Unavailable GalinaVentura MD Unavailable Unavailable GalinaVentura MD Unavailable Unavailable GalinaVentura kam MD Unavailable Unavailable GalinaVentura MD Unavailable Unavailable GalinaVentura kam MD Unavailable Unavailable GalinaVentura kam MD Unavailable Unavailable GalinaVentura kam MD Unavailable Unavailable GalinaVentura kam MD Unavailable Unavailable GalinaVentura kam MD Unavailable Unavailable Ventura Mojica MD Unavailable Unavailable Ventura Mojica MD Unavailable Unavailable Ventura Mojica MD Unavailable Unavailable Ventura Mojica MD Unavailable Unavailable Ventura Mojica MD Unavailable Unavailable Ventura Mojica MD Unavailable Unavailable Ventura Mojica MD Unavailable Unavailable Ventura Mojica MD Unavailable Unavailable Ventura Mojica MD Unavailable Unavailable Ventura Mojica MD Unavailable Unavailable Ventura Mojica MD Unavailable Unavailable Ventura Mojica MD Unavailable Unavailable Ventura Mojica MD Unavailable Unavailable Ventura Mojica MD Unavailable Unavailable Ventura Mojica MD Unavailable Unavailable Sourav Yoon MD Unavailable Unavailable Sourav Yoon MD Unavailable Unavailable Sourav Yoon MD Unavailable Unavailable Sourav Yoon MD Unavailable Unavailable Ashley Hyde, Buzz Yo MD Unavailable Ashley Hyde, Buzz Yo MD Unavailable + Ashley Hyde, Buzz Yo MD Unavailable Ashley Hyde, Buzz Yo MD Unavailable Ashley Hyde, Buzz Yo MD Unavailable Ashley M.D., Buzz Yo MD Unavailable Ashley M.D., Buzz Yo MD Unavailable Aslhey M.D., Bzuz Yo MD Unavailable Ashley M.D., Buzz Yo MD Unavailable Ashley M.D., Buzz Yo MD Unavailable Ashley M.D., Buzz Yo MD Unavailable Ashley M.D., Buzz Yo MD Unavailable Ashley M.D., Buzz Yo MD Unavailable Ashley M.D., Buzz Yo MD Unavailable Ashley M.D., Buzz Yo MD Unavailable Ashley M.D., Buzz Yo MD Unavailable Ashley M.D., Buzz Yo MD Unavailable Ashley M.D., Buzz Yo MD Unavailable Ashley M.D., Buzz Yo MD Unavailable Ashley M.D., Buzz Yo MD Unavailable Ashley M.D., Buzz Yo MD Unavailable Ashley M.D., Buzz Yo MD Unavailable ASHLEY [id number], Buzz YO [id number] Unavailable Unavailab le ASHLEY [id number], Buzz YO [id number] Unavailable Unavailab le ASHELY [id number], Buzz YO [id number] Unavailable Unavailab Ventura Blake Unavailable Unavailable Mollison, Maria Esther Kilpatrick MD Unavailable Unavailable Mollison, Maria Esther Kilpatrick MD Unavailable Unavailable Mollison, Maria Esther Kilpatrick MD Unavailable Unavailable Mollison, Maria Esther Kilpatrick MD Unavailable Unavailable Mollison, Maria Esther Kilpatrick MD Unavailable Unavailable Mollison, Maria Esther Kilpatrick MD Unavailable Unavailable MollisonMaria Esther MD Unavailable Unavailable MollisonMaria Esther MD Unavailable Unavailable MollisonMaria Esther MD Unavailable Unavailable MollisonMaria Esther MD Unavailable Unavailable MollisonMaria Esther MD Unavailable Unavailable MollisonMaria Esther MD Unavailable Unavailable Mollison, Maria Esther Kilpatrick MD Unavailable Unavailable Mollison, Maria Esther Kilpatrick MD Unavailable Unavailable MollisonMaria Esther MD Unavailable Unavailable Mollison, Maria Esther Kilpatrick MD Unavailable Unavailable Mollison, Maria Esther Kilpatrick MD Unavailable Unavailable Mollison, Maria Esther Kilpatrick MD Unavailable Unavailable Mollison, Maria Esther Kilpatrick MD Unavailable Unavailable MollisonMaria Esther MD Unavailable Unavailable Mollison, Maria Esther Kilpatrick MD Unavailable Unavailable Mollison, Maria Esther Kilpatrick MD Unavailable Unavailable MollisonMaria Esther MD Unavailable Unavailable Mollison, Maria Esther Kilpatrick MD Unavailable Unavailable MollisonMaria Esther MD Unavailable Unavailable Mollison, Maria Esther Kilpatrick MD Unavailable Unavailable Mollison, Maria Esther Kilpatrick MD Unavailable Unavailable MollisonMaria Esther MD Unavailable Unavailable MollisonMaria Esther MD Unavailable Unavailable MollisonMaria Esther MD Unavailable Unavailable PICKERAL JR, J ROOSEVELT PA-C Unavailable Unavailable PICKERAL JR, J ROOSEVELT PA-C Unavailable Unavailable PICKERAL JR, J ROOSEVELT PA-C Unavailable Unavailable PICKERAL JR, J ROOSEVELT PA-C Unavailable Unavailable PICKERAL JR, J ROOSEVELT PA-C Unavailable Unavailable PICKERAL JR, J ROOSEVELT PA-C Unavailable Unavailable PICKERAL JR, J ROOSEVELT PA-C Unavailable Unavailable PICKERAL JR, J ROOSEVELT PA-C Unavailable Unavailable PICKERAL JR, J ROOSEVELT PA-C Unavailable Unavailable PICKERAL JR, J ROOSEVELT PA-C Unavailable Unavailable PICKERAL JR, J ROOSEVELT PA-C Unavailable Unavailable PICKERAL JR, J ROOSEVELT PA-C Unavailable Unavailable PICKERAL JR, J ROOSEVELT PA-C Unavailable Unavailable PICKERAL JR, J ROOSEVELT PA-C Unavailable Unavailable PICKERAL JR, J ROOSEVELT PA-C Unavailable Unavailable PICKERAL JR, J ROOSEVELT PA-C Unavailable Unavailable PICKERAL JR, J ROOSEVELT PA-C Unavailable Unavailable PICKERAL JR, J ROOSEVELT PA-C Unavailable Unavailable PICKERAL JR, J ROOSEVELT PA-C Unavailable Unavailable PICKERAL JR, J ROOSEVELT PA-C Unavailable Unavailable PICKERAL JR, J ROOSEVELT PA-C Unavailable Unavailable PICKERAL JR, J ROOSEVELT PA-C Unavailable Unavailable PICKERAL JR, J ROOSEVELT PA-C Unavailable Unavailable PICKERAL JR, J ROOSEVELT PA-C Unavailable Unavailable PICKERAL JR, J ROOSEVELT PA-C Unavailable Unavailable PICKERAL JR, J ROOSEVELT PA-C Unavailable Unavailable PICKERAL JR, J ROOSEVELT PA-C Unavailable Unavailable MAJAK, R STACEY DPM Unavailable Unavailable MAJAK, R STACEY DPM Unavailable Unavailable MAJAK, R STACEY DPM Unavailable Unavailable MAJAK, R STACEY DPM Unavailable Unavailable MAJAK, R STACEY DPM Unavailable Unavailable MAJAK, R STACEY DPM Unavailable Unavailable MAJAK, R STACEY DPM Unavailable Unavailable MAJAK, R STACEY DPM Unavailable Unavailable MAJAK, R STACEY DPM Unavailable Unavailable MAJAK, R STACEY DPM Unavailable Unavailable MAJAK, R STACEY DPM Unavailable Unavailable MAJAK, R STACEY DPM Unavailable Unavailable MAJAK, R STACEY DPM Unavailable Unavailable MAJAK, R STACEY DPM Unavailable Unavailable MAJAK, R STACEY DPM Unavailable Unavailable MAJAK, R STACEY DPM Unavailable Unavailable MAJAK, R STACEY DPM Unavailable Unavailable MAJAK, R STACEY DPM Unavailable Unavailable MAJAK, R STACEY DPM Unavailable Unavailable MAJAK, R STACEY DPM Unavailable Unavailable MAJAK, R STACEY DPM Unavailable Unavailable MAJAK, R STACEY DPM Unavailable Unavailable MAJAK, R STACEY DPM Unavailable Unavailable MAJAK, R STACEY DPM Unavailable Unavailable MAJAK, R STACEY DPM Unavailable Unavailable MAJAK, R STACEY DPM Unavailable Unavailable MAJAK, R STACEY DPM Unavailable Unavailable MAJAK, R STACEY DPM Unavailable Unavailable MAJAK, R STACEY DPM Unavailable Unavailable MAJAK, R STACEY DPM Unavailable Unavailable MAJAK, R STACEY DPM Unavailable Unavailable MAJAK, R STACEY DPM Unavailable Unavailable Orenberg, L Stacey Unavailable Unavailable Orenberg, L Stacey Unavailable Unavailable Orenberg, L Stacey Unavailable Unavailable Orenberg, L Stacey Unavailable Unavailable Orenberg, L Stacey Unavailable Unavailable Re-disclosure Warning The records that [...] is protected by Article 27-F of the [facility] Public Health law. If you continue you may have access to information: Regarding HIV / AIDS; Provided by facilities licensed or operated by the [facility] Office of Mental Health; or Provided by the [facility] Office for People With Developmental Disabilities. If such information is present, then the following [facility] mandated warning applies: This information has [...] law may result in a fine or mcfp sentence or both. A general authorization for the release of medical or other information is NOT sufficient authorization for further disc losure. Family History Family Member Name Family Member Gender Family Member Status Date o f Status Description Data Source(s) Unknown Unknown Problem [facility] ([facility]) Unknown Male Problem [facility] ([facility]) Unknown Unknown Problem [facility] ([facility] Unknown Female Problem [facility] ([facility] Unknown Female Problem [facility] ([facility] Encounters Encounter Providers Location Date Indications Data Source(s ) Outpatient Attender: Srinath Ramirez M.D. Attender: SRINATH RAMIREZ [id number]: SRINATH RAMIREZ [id number] 12/01/2020 12:00:00 AM EDT - 12/01/2020 11:59:00 PM EDT Occlusion and stenosis of right carotid artery [facility] Occlusion and stenosis of right carotid artery Outpatient Attender: SRINATH RAMIREZ [id number]: Srinath Ramirez M.D.Referrer: MATILDE LAU MD [id number] 12/01/2020 12:00:00 AM EDT fol [facility] fol Outpatient 11/28/2020 12:00:00 AM T [facility] Outpatient Attender: Finesse Thomas/Gideon/Vu/Re indl 11/07/2020 01:30:00 PM EDT [facility] ([facility]) Outpatient Attender: Vitor Mojica MD Main Office 11/06/2020 03:30:00 PM EDT [facility] ([facility]) Outpatient Attender: Finesse Thomas/Gideon/Vu/Re indl 10/28/2020 10:30:00 AM EDT [facility] ([facility]) Outpatient Attender: Finesse Thomas/Gideon/Vu/Re indl 10/21/2020 02:00:00 PM EDT [facility] ([facility]) Outpatient Attender: ROOSEVELT glynn 09/24/2020 08:25:00 AM EDT [facility] ([facility]) Outpatient Attender: Finesse Thomas/Do/Vu/Re indl 06/30/2020 10:45:00 AM EDT [facility] ([facility]) Outpatient Attender: PEEWEE LAWRENCE [id number] 06/12/2020 12:00:0 0 AM [facility] Outpatient Attender: Finesse Thomas/Gideon/Vu/Re indl 05/19/2020 10:15:00 AM EDT [facility] ([facility]) Outpatient 05/15/2020 12:00:00 AM [facility] Outpatient Attender: Finesse Thomas/Gideon/Vu/Re indl 04/17/2020 09:15:00 AM EST [facility] ([facility]) Outpatient Attender: Stacey Raymundo [id number] 2019 12:00:00 AM EDT - 12/04/2019 03:10:05 PM EDT Central retinal artery occlusion, right eye [facility] Central retinal artery occlusion, right eye Outpatient Attender: STACEY LUNA [facility] 11/14 09:15:00 AM EDT [facility] ([facility] Outpatient Attender: SRINATH RAMIREZ [id number] 12:00:00 AM EDT - 11/27/2019 02:15:22 PM EDT Occlusion and stenosis of left carotid artery [facility] Occlusion and stenosis of left carotid a rtery Outpatient Referrer: Jaylen Yoon MD 11/27/2019 12:0 0:00 AM EDT Occlusion and stenosis of left carotid artery [facility] Occlusion and stenosis of left carotid a rtery Immunizations Vaccine Date Status Description Data Source(s) COVID-19 VACCINE, MRNA-1273, LNP-S (MODERNA)/PF 05/10/2020 1 2:00:00 AM EDT completed [facility] COVID-19 VACCINE Moderna 05/07/2020 12:00:00 AM EDT completed [facility] Vaccine Series Complete: YESThis Data wa s Submitted to [facility] Via [employer]. COVID-19 VACCINE Moderna 04/12/2020 12:00:00 AM EST completed [facility] Vaccine Series Complete: NOThis Data was Submitted to [facility] [employer]. COVID-19 VACCINE, MRNA-1273, LNP-S (MODERNA)/PF 04/12/2020 1 2:00:00 AM EST completed [facility] Medications Medication Brand Name Start Date Product Form Dose Route Admi nistrative Instructions Pharmacy Instructions Status Indications Reaction Description Data Source(s) Aluminum Hydroxide 160 MG / magnesium carbonate 105 MG Chewable Tablet Gaviscon Extra Strength 11/06/2020 12:00:00 AM EDT ORAL active [facility] ([facility]) Sutab Sutab 11/06/2020 12:00:00 AM EDT active [facility] ([facility]) Prednisone 20 MG Oral Tablet Prednisone 09/24/2020 12:00:00 AM EDT active [facility] ([facility]) Phenylephrine Hydrochloride 25 MG/ML Oph thalmic Solution phenylephrine (MYDFRIN) 2.5 % ophthalmic solution 1 drop phenylephrine (MYDFRIN) 2.5 % ophthalmic solution 1 drop 06/12/2020 01:30:00 PM EDT 1 [drp] Both Eyes completed 1 drop, Both Eyes, Once, On Shanita 06/12/20 at 1330, For 1 dose [facility] Medication administered onsite Proparacaine hydrochloride 5 MG/ML Ophth almic Solution proparacaine (ALCAINE) 0.5 % ophthalmic solution 1 drop proparacaine (ALCAINE) 0.5 % ophthalmic solution 1 drop 06/12/2020 01:30:00 PM EDT 1 [drp] Both Eyes completed 1 drop, Both Eyes, Once, On Shanita 06/12/20 at 1330, For 1 dose [facility] Medication administered onsite Tropicamide 10 MG/ML Ophthalmic Solution tropicamide (MYDRIACYL) 1 % ophthalmic solution 1 drop tropicamide (MYDRIACYL) 1 % ophthalmic solution 1 drop 06/12/2020 01:30:00 PM EDT 1 [drp] Both Eyes completed 1 drop, Both Eyes, Once, On Shanita 06/12/20 at 1330, For 1 dose [facility] Medication administered onsite Proparacaine hydrochloride 5 MG/ML Ophth almic Solution proparacaine (ALCAINE) 0.5 % ophthalmic solution 1 drop proparacaine (ALCAINE) 0.5 % ophthalmic solution 1 drop 12/04/2019 02:00:00 PM EDT 1 [drp] Both Eyes completed 1 drop, Both Eyes, Once, 12/03/20 at 1400, For 1 d [facility] Medication administered onsite clopidogrel 75 MG Oral Tablet Clopidogrel Bisulfate 75 MG Oral Tablet (PLAVIX) Clopidogrel Bisulfate 75 MG Oral Tablet (PLAVIX) 08/22/2019 12:00:00 AM EDT 75 mg Oral active Take 1 tablet by mouth d [facility] atorvastatin 80 MG Oral Tablet Atorvastatin Calcium 80 MG Oral Tablet (LIPITOR) Atorvastatin Calcium 80 MG Oral Tablet (LIPITOR) 08/22/2019 12:00:00 AM EDT 80 mg Oral active Take 1 tablet by mouth e [facility] Insurance Providers Payer name Policy type / Coverage type Policy ID Covered libertarian ID Covered libertarian's relationship to wallace Policy Wallace Plan Information THA [facility] Part B [id number] Self Z [id number] [facility] Part B [id number] Self Z [id number] BS [place] [employer] Part B [id number] Self Z [id number] BS [place] [employer] Part B [id number] Self Z [id number] BS [place] Med[employer] Part B [id number] Self Z [id number] [place]/307 [id number] SP [id number] [employer] [place] PPO 302/307 [id number] SP [id number] MEDICARE [id number] SP [id number] A MEDICARE A [id number] Self [id number] A MEDICARE A [id number] Self [id number] [facility] Commercial [id number] Self [id number] MEDICARE [id number] SP [id number] A MEDICARE [id number] SP [id number] Medicare [employer] [facility] Maintenance Organization (O) [id number] Self V [id number] AARP HE[employer] CARE OPTIONS [id number] SP [id number] MEDICARE A [id number] Self [id number] A AARP HE[employer] CARE OPTIONS [id number] SP [id number] AARP HEALTH CARE OPTIONS [id number] SP [id number] AARP U [id number] Self [id number] AARP HEALTH CARE OPTIONS [id number] SP [id number] AARP U [id number] Self [id number] AARP HE[employer] CARE OPTIONS [id number] SP [id number] AARP U [id number] Self [id number] [employer] Insurance Medigap Part B [id number] Self [employer] Healthcare Options Medigap Part B [id number] Self 0 [id number] [place] Primary [id number] Self 3 [id number] [employer] Healthcare Options Medigap Part B [id number] Self 0 [id number] Medicare [place] Medicare Primary [id number] Self 3 [id number] [employer] Options Med[employer] Part B [id number] Self 0 [id number] Medicare [place] Medicare Primary [id number] Self [id number] AARP O [id number] S [id number] MEDICARE C [id number] S [id number] [employer] Options Medigap Part B [id number] Self [id number] [place] Med[place]ap Part B [id number] Self [id number] [employer] Options Medigap Part B [id number] Self 0 [id number] Medicare [place] Medicare Primary [id number] [facility] Healthcare Options [facility] Part B [id number] Self 0 [id number] Medicare [place] Medicare Primary [id number] [facility] Health Care Options [facility] Part B [id number] Self [id number] Medicare Natl Gov't Servi Medicare Primary [id number] [facility] Care Options [facility] Part B [id number] Self [id number] Medicare Natl Gov't Servi Medicare Primary [id number] Self [id number] MEDICARE [id number] SP [id number] A Medicare Medicare Primary [id number] Self BS [place] Commercial [id number] Self Problems, Conditions, and Diagnoses Code Display Name Description Problem Type Effective Dates Data Source(s) fol fol Diagnosis 12/01/2020 06:41:00 AM ED T [facility] H34.11 Central retinal artery occlusion, right eye Central retinal artery occlusion, right eye Diagnosis 12/04/2019 01:35:[address] [facility] [id number] Screening for malignant neoplasm of colo n Screening for malignant neoplasm of colon Problem 11/06/2020 12:00:00 AM EDT [facility] ([facility]) Surgeries/Procedures Procedure Description Date Indications Data Source(s) Inject/Drain Arthrocentesis Major Joint/Bursa/Ganglion Cyst 11/07/2020 12:00:00 AM EDT [facility] ([facility], ) OFFICE OUTPATIENT VISIT 25 MINUTES 11/07/2020 12:00:00 AM EDT [facility] ([facility], ) OFFICE OUTPATIENT NEW 45 MINUTES 11/06/2020 12:00:00 A M EDT [facility] ([facility]) OFFICE OUTPATIENT VISIT 25 MINUTES 10/28/2020 12:00:00 AM EDT [facility] ([facility], ) Inject/Drain Arthrocentesis Major Joint/Bursa/Ganglion Cyst 10/21/2020 12:00:00 AM EDT [facility] ([facility]) OFFICE OUTPATIENT VISIT 25 MINUTES 10/21/2020 12:00:00 AM EDT [facility] ([facility]) OFFICE OUTPATIENT VISIT 15 MINUTES 09/24/2020 12:00:00 AM EDT [facility] ([place] [facility]) OFFICE OUTPATIENT VISIT 10 MINUTES 06/30/2020 12:00:00 AM EDT [facility] ([facility], ) OFFICE OUTPATIENT VISIT 15 MINUTES 05/19/2020 12:00:00 AM EDT [facility] ([facility]) OCT RETINA <td>OCT RETINA</td><td>Routi ne</td><td>12/04/2019 2:02 PM EDT</td><td> Central retinal artery occlusion of right eye</td><td> </td> 12/04/2019 02:02:28 PM EDT Central retinal artery occlusion of right eye [facility] Central retinal artery occlusion of righ t eye [facility] US DOPPLER CAROTID BILATERAL COMP [id number] <td>V ASC LAB US DOPPLER CAROTID BILATERAL COMP [id number]</td><td>Routine</td><td>11/27/2019 11:10 AM EDT</td><td> Left carotid artery stenosis</td><td> </td> 11/27/2019 11:10:00 AM EDT Left carotid artery stenosis [facility] Left carotid artery stenosis Results ID Date Data Source [id number] 12/01/2020 06:02:25 PM EDT [facility] Name Value Range Interpretation Code Description Data Maureen rce(s) Supporting Document(s) Progress Note [facility] VTDVPq2pTfHLCgNd97/DORdgNAAdo0AbVMfzFOu4AMfrIQIeO1WaRXS5bD8pTBL8YOlSJdFuWyHxQTR9 lbm [file] ZCQqG1KsIzFQdmIQUAHl7W ID Date Data Source [id number] 06/12/2020 02:12:18 PM EDT [facility] Name Value Range Interpretation Code Description Data Maureen rce(s) Supporting Document(s) Progress Note [facility] QTVIQk3eXoOHXhYl96/HPIwtPTOtq0QjBQxzOKu5KYdyDGJbC7YaDHG4kP3tQQH6MHnGAwOkPuOtUJM9 lbm [file] AgICAgICAgICAgICAgICAgICAgICAgICAgICAgICAgICAgICAgICAgICAgICAgICAgICAgDQogICAgIC AgICAgICAgICAgICAgICAgICAgICAgICAgICAgICAg ICAgICAgICAgICAgICAgICAgICAgICAgICAgICAgICAgICAgICAgICAgICAgICAgICAgICAgICAgICAg ICAgDQogICAgICAgICAgICAgICAgICAgICAgICAgICAgICAgICAgICAgICAgICAgICAgICAgICAgICAg ICAgICAgICAgICAgICAgICAgICAgICAgICAgICAgIC AgICAgICAgICAgICAgDQogICAgICAgICAgICAgICAgICAgICAgICAgICAgICAgICAgICAgICAgICAgIC AgICAgICAgICAgICAgICAgICAgICAgICAgICAgICAgICAgICAgICAgICAgICAgICAgICAgICAgDQogIC AgICAgICAgICAgICAgICAgICAgICAgICAgICAgICAg ICAgICAgICAgICAgICAgICAgICAgICAgICAgICAgICAgICAgICAgICAgICAgICAgICAgICAgICAgICAg ICAgICAgDQogICAgICAgICAgICAgICAgICAgICAgICAgICAgICAgICAgICAgICAgICAgICAgICAgICAg ICAgICAgICAgICAgICAgICAgICAgICAgICAgICAgIC AgICAgICAgICAgICAgICAgDQogICAgICAgICAgICAgICAgICAgICAgICAgICAgICAgICAgICAgICAgIC AgICAgICAgICAgICAgICAgICAgICAgICAgICAgICAgICAgICAgICAgICAgICAgICAgICAgICAgICAgDQ ogICAgICAgICAgICAgICAgICAgICAgICAgICAgICAg ICAgICAgICAgICAgICAgICAgICAgICAgICAgICAgICAgICAgICAgICAgICAgICAgICAgICAgICAgICAg ICAgICAgICAgDQogICAgICAgICAgICAgICAgICAgICAgICAgICAgICAgICAgICAgICAgICAgICAgICAg ICAgICAgICAgICAgICAgICAgICAgICAgICAgICAgIC AgICAgICAgICAgICAgICAgICAgDQogICAgICAgICAgICAgICAgICAgICAgICAgICAgICAgICAgICAgIC AgICAgICAgICAgICAgICAgICAgICAgICAgICAgICAgICAgICAgICAgICAgICAgICAgICAgICAgICAgIC YfLOj4J0pqPMVxNBNiHL4mDAh4Ag2+DQoNCmVuZHN0 zeTtyK7ROD7lu8IlVPxmPTNqn1GoDMb2LZ0YBZKsKRijQI5QXIdvul4GMBGsBLFtuRPSp2pbDhWgZGP9 DJSbKvlhDR5VFFAaH1tqqsQhGPWnOCMMJLzhZCMCGKgvNRFPGNCtIVSnRoDpNGdyRS1Nw3DzmFT3KQz+ It7GZX7yu3SxQDewELHjJZ3qia4YSWjCYnBjW5Bjtm A2ENX5YKWqPx0HXEZmZGYttIQhXxQoEMNLYeGiF2UbyU77ZYEAHi7+YJhshtJaQeyXMbJ6KYTwu1YpKH d8SH9UFFScAAi6iKGgETZbX7Kzr4GrIr99OQUrGficBuFtRXPbWjCKynLumoelo7CmkcfzDDTyGRBkVN 7vWR4vUWDdJOLjUeOkZEZDWW3PPIZaCCVujSWgMGIq IEGDFB8BUZcgTYB2VCYyxuOrcQOyVLyvCD0JKGUvklDmWiLgWJOZBSh+Gi5LMZ4ha3DdKCndFfJiQB1m vb2QOBuZYeEnK3G9vOAjI7P2TMrmCb7IJNBtQLFfAyWsXWKJACrfND7JRZ5invT2DU3TsQGhDSUeNSMk oUDkLRy3T58sgOAtLXvjZM4ULOP+Noble+Lv5HFVHwWS BqFUXpTkCmZNBTDpHqG9ErY5RIa5GiG0ZkUO34qHzhxnTpAPseFS4UNR6oGMWtBAGUTX2EeWOgvZ0qit NwVUSwZEHQWzTwM51spZVcCRRhESH4TETaGm1OHPJqQ8NksjKcaCwozbIuSWVqZIYEKL8VOBuwidDpdY AxyNbmHZ84yVqaTV4MRi9ERjJtRS2bhz6MlAUwTh8K BPBhRV3XAPUpYLMgCUWwCMC3ZSDyTkJnNYwiHLDjFTGqQKW2NIJhEIViYK0QKmZtHOMoDrw3FRXxPTYy ALLrck0VRDQlNNDbRLVmDHOoXWZdNYWmINwfKWZjJGUmBGJ2FEGfZNOvDY4LNzAfPGBsEEY1CfWoMEXl WABoyw5ROIMkQXKgBaLsGhPvVXYzVGXgHUorBSYsUR O2IDkkNKUzPJLwZB2FIlAbSRJwWMiqEGSwDEOtFHFffm5RISGzUHLiVTz9CaAhZLQuQHHhYGjwMHZdNI JkBLo1HMMtQKPqCS9PTzPxFYYgCGT5FUzfEWMtMXNjjq9OTJWhAWLcGfIiTBIhFTCrLFGhXBgpNZXrRE SxRUv1UAAuAPIiYY8QOeVzBZPiTIC6UdYeNKDtMSKg zj5DJZXwYUHmHod4KCXdBEYbIWJuVHkxSNLzCJG2HKM6ZPSuOUOvZW6CTlPkIVZwSCVsXFKpEROtOCBn xj9EQDMpANIeOOEgGRUtSZDoUDZbCEojTIPvUOT1KpF8JQHyIBXbYM4MYwNdFBZcDuglVHfhSJQlPDOf cv5GXDXdZDQyLyP2PSXfJSWaIQDsKJgpRFFwSIX2AD U1ZOToDIIjGL0WCjSyRPNdTyw2LfMfXKYtQQKhyg8HAZCiJZBaAEW9QIPgCSFfKRWwXVlrZAWzSZU8EO OdIAPpWQSeSR6AGaIvSDQqCry0YLJhTXKvAUIqvx3VVVGwNUWpPZo1CnXaRYTbUCAlURy4ljCufOHsPB x0GF0HM4HaqxMdJevDRc8Hx976JIB5PJLuMe9SV7yy Pw3sVBKaSPJIQr3VZKu4FjP0YGglAYPmCYJsWio0JeAdSURmWQJfLfDaRaqzSvC+MWclAbPhAKR6NJW3 HPX0Tjk1DmJrMKZ3MzDtApR2JTCfTo2xJKOXAc0+WXxauMSsxTsjFTLKBgR5EErqVKjbBAXVJn3Z ID Date Data Source [id number] 12/11/2019 12:27:06 PM EDT [facility] Name Value Range Interpretation Code Description Data Maureen rce(s) Supporting Document(s) Progress Note [facility] WQOKNg5sHqKNEqIb18/RLZzbOGRxm9DsUHiwTMp0XDpyMNHcT9SbNOM9qU2oAIE8OHjZNgPlKrWmTFQ5 lbm [file] AgICAgICAgICAgICAgICAgICAgICAgICAgICAgICAgICAgICAgICAgICAgICAgICAgICAgICAgICAgIC AgICAgICANCiAgICAgICAgICAgICAgICAgICAgICAg ICAgICAgICAgICAgICAgICAgICAgICAgICAgICAgICAgICAgICAgICAgICAgICAgICAgICAgICAgICAg ICAgICAgICAgICAgICAgICANCiAgICAgICAgICAgICAgICAgICAgICAgICAgICAgICAgICAgICAgICAg ICAgICAgICAgICAgICAgICAgICAgICAgICAgICAgIC AgICAgICAgICAgICAgICAgICAgICAgICAgICANCiAgICAgICAgICAgICAgICAgICAgICAgICAgICAgIC AgICAgICAgICAgICAgICAgICAgICAgICAgICAgICAgICAgICAgICAgICAgICAgICAgICAgICAgICAgIC AgICAgICAgICANCiAgICAgICAgICAgICAgICAgICAg ICAgICAgICAgICAgICAgICAgICAgICAgICAgICAgICAgICAgICAgICAgICAgICAgICAgICAgICAgICAg ICAgICAgICAgICAgICAgICAgICANCiAgICAgICAgICAgICAgICAgICAgICAgICAgICAgICAgICAgICAg ICAgICAgICAgICAgICAgICAgICAgICAgICAgICAgIC AgICAgICAgICAgICAgICAgICAgICAgICAgICAgICANCiAgICAgICAgICAgICAgICAgICAgICAgICAgIC AgICAgICAgICAgICAgICAgICAgICAgICAgICAgICAgICAgICAgICAgICAgICAgICAgICAgICAgICAgIC AgICAgICAgICAgICANCiAgICAgICAgICAgICAgICAg ICAgICAgICAgICAgICAgICAgICAgICAgICAgICAgICAgICAgICAgICAgICAgICAgICAgICAgICAgICAg ICAgICAgICAgICAgICAgICAgICAgICANCiAgICAgICAgICAgICAgICAgICAgICAgICAgICAgICAgICAg ICAgICAgICAgICAgICAgICAgICAgICAgICAgICAgIC AgICAgICAgICAgICAgICAgICAgICAgICAgICAgICAgICANCiAgICAgICAgICAgICAgICAgICAgICAgIC AgICAgICAgICAgICAgICAgICAgICAgICAgICAgICAgICAgICAgICAgICAgICAgICAgICAgICAgICAgIC AgICAgICAgICAgICAgICANCjw/zAQqG2rxqHQpurS7 Y4ruIs7AXe7RYP1ic3CxTBHxKDnrnxSvEiaQBpUrJKPnIddPFwh9GEzeZZ4KdRLsN2DeB6OeMCkaYX8C QYQjWWIneZWqATWxOZCbKpM9JCIaEWeeDL7HoEXpMLifIGDiHFVyPxUxENQaOCJyAZUaPVMmVPIQFNHf WGJvSoOaYTDsAIVvZO6ORZYnP534cpPqVe4NKt6XOu YwMI4vmh7XOzPtMHTtJlyLAjh3ZEjyJQ0HfOHneFLdPpApAZBUBwRnL2aol8QjZkExFPHTWSuaXA5Su6 VudCAxDQo+Wr5CGK6bl9EaKElmEmCaVG3oys5QIOnRRhNqV0YouBidHFCqp4bzHUQgPF1gjWLgOPW4PP WlFQEpfwUWZY5wZD8yDGRhNZZMRRTjbICjLN2eHF1r MLUrAUMqQkVsDHKOFY8RHYIkRJHmsRUyQBVtGGKAZV0TYKvqVMV3HVFapmRlxZLlATnnUQ9PYSKzcdRl MzIgMCBSDQo+Bu7ODU8cr6QyJOzmEFMrLP5lsm8NYJpNZqRoJ3Q1sYTzO0K0FKocXr4LKYNvBDGgErJc ELPSAUsaQL1BHU7zlfS4JN2RmDZeHUZmPWCvzBYiKM a6R40xlCSxZUtuUK4OJVN+Noble+Dw0RGNQvKWDhITXjWuLaRFTCIwTvR2UtM0AYa4HsC9CnTS77yGcvvd ZrACklRU0LUJ7vLMChZUSJXL5KvFEnmE4jwmKfHkGbYNHWIrUiF45wqSOwSFOjNKXuCSOxBh5PTOUsR8 AztzSrjAvtgxQpASIqRZWAYE7AOKrrveWctRAwzIif FT45aUvaKG5UTc9VPnZoFO5sle8ArFDeTh2YLTVsPC0ABDMdCIOeVEFwEDL1UBAhOeGmSKeqNYPtLHLz BGZ1TGWyGBApKZ6PBlEaBWMcBmBjFdoaOELgUOHaub6QAZDlKORlDzs1GDZzLNSeZAUqYYsmOXOxOYAr MKI3VBTuRJRwSW0LSeOxXBPuRMD0EXEiWWIjMQZvpl 6HHXNgSVPwErX3BTFkJIUyUNNaHFagWQLdEYZ4NhK9VECeESUgVH7AHqScTJDkKQI1RFHdUSXbEXJhrl 3QQWGeRLMhEWWcYhDiVBGtWDOkHMrtUSQyGEP3TeY5FXVzBRAyXB1QYfSmIQOlRWV7WSSaESZaFVTtyk 7GURNcTAAhZrUsThCmPHEjQBYwURxxHGFkGPE7TGb8 BGPtQBQuMR0KOgBtROAmBLCjHSFlRSVlQXQvmi3JAGPlBHJlNQP2TxKgQEOgQJTbTQstFKTqZXJ7NMQ8 KTMmYFJlNF5SZzAkBWPsSCB2GTjlABReYFFqak1XXDGtEVLfQwUlPEDuHTGzSCSsGBicNCQdTVW5CBp2 ZJLyGBTuFX1GJwZtPBDpQVneGFioRJUbNUQmbk1HBE YsFWJfZVE2ENJbDWMtZKClDIypXFVeYCR8IVX6VZEyUCPkZM0ZNfBmSSDpQab5ZvdbCQOmYTHhci5VNU DhDMGxDXE1AqXfQFInNCTvEXppPIKgTXNhECNuLEXcQXAdJB8AGbGnWGCaCiX7VFGeVYMeLNXzwj0TGH PeCRAbVDb2BtDsLUHmNFHbPCmeCAAgIJJcNTZcNMWy BCOiGD6WMvQlLIKsOmPkHgukJSXiDNEuhi4EATQxXEZkYlJxAvJlXGOuCJQvJQsdLWPsDARwHlW4HBTa NJJeTR2RZfFjPUCyVsLyCWDlEPSbEFQrkh6HFKIlFLTyJUJ8SiPdNDThRXFiMRhqEEQvUPH7XqF8DZRp LRYfZK9NNdAsPExsSBUEPbp6OPiuV4i2WMUiWZ7IJ6 Pzb9GcHrDhEAJJVXepKF9drgWwZILuUw8UB3dQQfioKEJ5MYtwDTKmXLUqAFIqGPFsFgN3THGzJUB2FD j4Lt5cXMTcRvc1CBI5HaNwYAQ6XKDfN7DyAiLyRZK2UFKgWVScBiExIQ0TAq2JPyT4KTM7wELnMp4MKd E1TwIASqIpPQ7CYTi= ID Date Data Source [id number] 11/27/2019 02:34:28 PM EDT [facility] Name Value Range Interpretation Code Description Data Maureen rce(s) Supporting Document(s) Progress Note [facility] DWDSXb6oTuNNRbUj70/ANXgzBHNoa8YaYPjlLRo2DCtjNMBnM6QuXYP2dC3qSOO9YFvCRxNpIbHsEACk lbm RoBkjPGdUjUHKdRgdVAjGlDEyrXnkpmUJrZM0ErZT7VGKxZ91bBKBzBAVtG9TeJPCdUGA+Gf0DXEXryK RwTK5RVhtK3I4FjcdQTR6TtS/S4LCChoJegLgCueHZgnLUH35WfQbQzSkbGT47VIHrFa/i8xXTlywTLx L5ism9xL5ErKlCTAfT9821FcR/+91eGa5MoiY67+Kf BqMir1A409/D5hGHSou7/Ic9cgzHrXBtyC+Q/NO1P/1Zp8hwe94lWWrmjwHYDWD3uduYXG48040C69/9 5Tt09TfQYf6zkxIdVxr4LfttMOtqQ4j//us0r8AKPgWnPdlw4b83zjno8S6YYpS70spW6VXIgU6o8XMq p8rD4ClupFL0Lz2TkqT91I/JfJkjK+Z8qVQjZsTsWn uOWfgJbGeOwAktPQwZa+a4t5UpXovo8ouYL9HuXT6h/Xg0U6/v7ox2ds70+jdTcyvjREFjicvQku+mjG yhS4JPAMuZkdV8B+ZNF11BM4InobZr7XRKS+/69TEB0SW+1/Bo8dADhY1h9RvdhibGqYpNPAe/DJeTeX Ts2mkbNnWZMHo0J9+THYZyTG2IG8PPaaKzHPOdo8H2 Vl6P5c0QaAUynYVYpBizGdmisZjLWo5NXXj1dFT5Jvj+zQT9qok2zv7pTpI1RWPwSjFxlAjEs44nD89t mudyDej8eZyMhtMs7was/i57+G+Nkd4ck1fYPKLAmi16TuSt2QEucOqdntMQx+sL8azsVPzFcHlbml2K NsU2C7nJEX38j+PxMH7/8BZ4M2PHMdSk8YPsjUJO4K 7ROAo/VouBhpT5qN8A4Pikl5JzRTQw4jMOovQjabDGYh3zQW6OAnW3YEeVlkYltpsaEYBcxuA+OKYPJ9 btMVIAJP13S9TqMJEGLj7VPiNbdNrzFb486es2umEqoF7oMkr+dqv3913N3ptqCBp0O4c8bcTRObu8xb UuzzbhasxneDkZ3/sf8fC2inRs3zQ67vON8thbtxsi [file] csU+9o271+wOjJU/5jjVG9Y71QkdJBa+9ULnkm+ [file] ICAgICAgICAgICAgICAgICAgICAgICAgICAgICAgIC ItWVDoIFZwAVVfSKQwOUCxEMDkQGBiLSIiAKNtAGGgUAOaRKRbTDTeLULhKAAlHMIgBCDyZC4BSZWnLY AgICAgICAgICAgICAgICAgICAgICAgICAgICAgICAgICAgICAgICAgICAgICAgICAgICAgICAgICAgIC AgICAgICAgICAgICAgICAgICAgICAgICAgICAgICAg KUXdTQ0EUGYlAFRnTGNbDHJmNJRwVARxXBOlXKQhSSIfRSMoCOAmHQZgOEQsJGEbSOXwKMHcCMTiBXKe LDZqZUBhXHHbDYHcXDCwFVYeJPWwMHNdRNXlFOGkGYOjIDBfDBXiUEBrXOMbRP8OATGaHMTpEIUgAVVt ICAgICAgICAgICAgICAgICAgICAgICAgICAgICAgIC KiPDRePTQuHPKjGZSkKQHiBPQsCBIuLRMfFMMpBOUnNSZeQRBkEDUyRBTaFMAtMOUnOOFqCBImQP0LZA AgICAgICAgICAgICAgICAgICAgICAgICAgICAgICAgICAgICAgICAgICAgICAgICAgICAgICAgICAgIC AgICAgICAgICAgICAgICAgICAgICAgICAgICAgICAg JYOrPDCrNA3FIITrBMZmDXWdFHTbJNPzOIGpGVIvSOMsPKRfPEPfDDSzNKDwBPMxHCBrHBUjDSCtJDRq FHXvBFFyZEYkSQSoSEHjPXIvFKFkHFVlECTaCYGkBLZtJUUmIFRfUFDqEQWsBIQeZU4TWWQzOGFoSEAz ICAgICAgICAgICAgICAgICAgICAgICAgICAgICAgIC AgICAgICAgICAgICAgICAgICAgICAgICAgICAgICAgICAgICAgICAgICAgICAgICAgICAgICAgICAgIA 0KICAgICAgICAgICAgICAgICAgICAgICAgICAgICAgICAgICAgICAgICAgICAgICAgICAgICAgICAgIC AgICAgICAgICAgICAgICAgICAgICAgICAgICAgICAg ZCTpKGReMJKaXR7TNZDlOQYgKAPuCZGcVNPvCBPsHAWtTGJaLDUqHYTqZQOyUQQzBXTxQYJsWMVyMCFk SARwYMJwPVEgFXRqEIHfOPBnSCKvOZGoJDGwHPSmTOJgGODbVQMyXZGzLLSbFZGhTKQmNN4FUUKhSJOu ICAgICAgICAgICAgICAgICAgICAgICAgICAgICAgIC AgICAgICAgICAgICAgICAgICAgICAgICAgICAgICAgICAgICAgICAgICAgICAgICAgICAgICAgICAgIC HhHU5DEY96rTKpq0A4OIYgTH5gvef/Mv1WJXhhteCejQWhBV9OLqLuJC5mmq5BEoVkFW2tnf3KHEpGFl KpT4A0wKJtZNJeAYHUItYoR79bROsyCm71HPorPLVb HgLrLNd2Wb0LBpNfE7nwGIWpWvT1BKDsBiX2YGJfDoN3AYJgVwTjQBvhJF9Ud3SbsINoIJt+Lo8QES0o h7YvPAwrYeXsUL1xlr1XYPtZIfRgA1AfzpA8JKU2NBSdBj6VUQEtUNCebUQwDAFbAWJDOyHgK6WfcY71 IDENCj4+THlxzsEqGtjEGeJ0KPWhr5DlTTp7AG3YVB DxXWp1iOPqIZBiF2Xls7YjTi28RUMqRorzFIBicWDzSXSoJVVut5MbAVRAOrKKLPVdvGMuPZ5pVj4uVN XmNRHvEfFvHJJCDA4EWKCnJMDdyGIpATTfVRJZSZ9MZVlfPFM3MDRficVpvXWeNTynOR5BVVTdmmKeEd MgMCBSDQo+Md5WCX4zg6UwDEpcXMPgTG4shb5BREjZ WhNcY4M6aOQcO7K5EMitXh6PXOQtTZDbBgIhFWWDHVabIO6UXR0mrxL0UV3SuZJfNJPqRXKlgQKiRRn0 D67hgZCjWEjxLZ1JUAG+Noble+Qp6SDEAhWZNvBDEiDhVmDDSBOhFaD6GuF0ECs2BjI3VrLB93aWtchhHz QKqqPK6CYF5mTTDbQMKRGL0JlWCtlB0ajxHsOzHvDJ HQXhHzA07rqIIyVFJjBZDyTBUnIb0PKMNvM4MfhqAhmQmrauTwKGNbYOUMYX7DLGyivtAlfADmjNhvKQ 58hFlaRD4LXg1GZcQpLM4fqs2VjXSpNb9JUYEpVs7MPPCeWTTfQFVmWBN8ABQjMvStNQpqRPCvMEAlRH S3EQCgHKBtHJ6DCiEpKSCiHSFjIRWxRXWaYEZwwz0O EQDuFPU4FnfqPUWxEBPtPRKgXPcjNYHsAQUaOXR4SRVpMJOuPY5BEnLuJCQgVRTuUKDpYMKbBMPmjo1K YPZaZTYhRGA8JfChSDXfYAUyQKhdEJYhNOL4JOG6MIBjVSZtZP2VTaBaHCYmFGpoCXAhCSLpJJTwer4I MMGeZGIzXWA0LVOyNZEtJYWpKXddWYJyLSCyWsh8HM QsVDAfKO0EQbTeKZAaXEGlItWbGKMzDLYohu0CVSPuRJMpNhQyVTCgCEHjWDOcBFedAJIpUZUhMgV4HQ SkWOYlVC3LDnMmXVOsGVJ2KyTbQKFvJPWdwm1UMVWsYPEeHyc6QQTzVIQhPBKyBJzgEGXcMQX5RXNiLC ZfNFTtDM1YQaPqXGCuGXN9ZpHdSXEgPXQvbn4EIYLp JVO6PLG2HZTrBWQsZJWtJOigGUHvGUZ9HdwzSLVyYVGlHR2CKuIaZFAvIDWwPiWzERNbXUDoqy6DOGTu BXO7WDB6XFXzYPVlDKDuXOcxXAHzLXX7CFvzOOEtXIRkUC4YKzCmGQCnWHdqShIbTMWnDMKgrt8YBTTx FKR1OuXzOMSuXRKoZTQlJOswGFLtSSC1LfP2HNTpTB WcTF7UOuQzLLdtNAKFKit9QWucE8q4GYLaBw3KA5Npq7YuTaLfIIIVPPymHX2uuhEiDFUpWy3HC4wNFb v2XqLtPAUjLoihQzjbVwSiQWZvEqd6LgT9WWMlL3B2Kj4lSSgqDDWySrUoCGKkP7XhEdUnFUZsMYknKS lmGDEqJsftCnQhZB8SPz9SMgL8TTN3rFTzAb3APUv9IYhNCsGcML0KZRn= Procedure Social History Code Duration Value Status Description Data Source(s ) Smoking 09/24/2020 12:00:00 AM EDT Patient is a former smoker completed Patient is a former smoker [facility] ([facility], [facility]) Alcohol intake 06/12/2020 12:00:00 AM EDT Current drinker of al cohol (finding) completed Current drinker of alcohol (finding) [facility] Tobacco use and exposure 06/12/2020 12:00:00 AM EDT Never used co mpleted Never used [facility] Smoking 06/12/2020 12:00:00 AM EDT Former smoker completed Former smoker [facility] Alcohol intake 12/04/2019 12:00:00 AM EDT Current drinker of al cohol (finding) completed Current drinker of alcohol (finding) [facility] Alcohol intake 11/27/2019 12:00:00 AM EDT Current drinker of al cohol (finding) completed Current drinker of alcohol (finding) [facility] Vital Signs ID Date Data Source UNK Name Value Range Interpretation Code Description Data Source(s) Body mass index (BMI) [Ratio] 34.2 kg/m2 34.2 k g/m2 [facility] ([facility]) Body weight 96.163 kg 96.163 kg [facility] ([facility]) Body temperature 94.8 [degF] 94.8 [degF] [facility] ([facility]) Body height 66 [in_i] 66 [in_i] [facility] ([facility]) 5'6" Body weight 212.00 [lb_av] 212.00 [lb_av] [facility] ([facility]) Systolic blood pressure 130 mm[Hg] 130 mm[Hg] [facility] ([facility]) Diastolic blood pressure 79 mm[Hg] 79 mm[Hg] [facility] ([facility]) Heart rate 79 /min 79 /min [facility] ([facility]) Body temperature 98.0 [degF] 98.0 [degF] [facility] ([facility], ) Systolic blood pressure 133 mm[Hg] 133 mm[Hg] [facility] ([facility], [facility]) Diastolic blood pressure 82 mm[Hg] 82 mm[Hg] [facility] ([facility], [facility]) Heart rate 76 /min 76 /min [facility] ([facility], [facility]) Respiratory rate 16 /min 16 /min [facility] ( [facility]) Oxygen saturation in Arterial blood by Pulse oximetry 97 % 97 % [facility] ([facility], [facility]) Body temperature 97.6 [degF] 97.6 [degF] [facility] ([facility], [facility]) Body weight 210.00 [lb_av] 210.00 [lb_av] [facility] ([facility], [facility]) Body height 68 [in_i] 68 [in_i] [facility] ([facility]) 5'8" Body mass index (BMI) [Ratio] 31.9 kg/m2 31.9 k g/m2 [facility] ([facility], [facility]) Body temperature 98.3 [degF] 98.3 [degF] [facility] ([facility]) [place] body weight 130 [lb_av] 130 [lb_av] [facility] ([facility]) Body mass index (BMI) [Ratio] 34.2 kg/m2 34.2 k g/m2 [facility] ([facility]) Oxygen saturation in Arterial blood by Pulse oximetry 97 % 97 % [facility]) Body height 66 [in_i] 66 [in_i] [facility]) 5'6" Body weight 212.00 [lb_av] 212.00 [lb_av] [facility] ([facility]) Oxygen saturation in Arterial blood by Pulse oximetry 97 % 97 % [facility] ([facility]) Respiratory rate 14 /min 14 /min [facility] ( [facility]) Body height 66 [in_i] 66 [in_i] [facility] ([facility]) 5'6" Body weight 212.00 [lb_av] 212.00 [lb_av] [facility] ([facility]) Body mass index (BMI) [Ratio] 34.2 kg/m2 34.2 k g/m2 [facility] Body weight 96.163 kg 96.163 kg [facility] ([facility]) Body surface area Derived from formula 2.05 m2 2.05 m2 [facility] ([facility]) Body weight 96.163 kg 96.163 kg [facility] ([facility]) Body surface area Derived from formula 2.05 m2 2.05 m2 [facility] ([facility]) Diastolic blood pressure 68 mm[Hg] 68 mm[Hg] [facility] ([facility]) Heart rate 82 /min 82 /min [facility] ([facility]) Respiratory rate 14 /min 14 /min [facility] ( [facility]) Body temperature 98.3 [degF] 98.3 [degF] [facility] ([facility]) [place]bell body weight 130 [lb_av] 130 [lb_av] [facility] ([facility]) Systolic blood pressure 142 mm[Hg] 142 mm[Hg] [facility] ([facility]) Body weight 212.00 [lb_av] 212.00 [[facility]_av[facility] Body mass index (BMI) [Ratio] 34.2 kg/m2 34.2 k g/m2 [facility] ([facility]) Oxygen saturation in Arterial blood by Pulse oximetry 97 % 97 % [facility] ([facility]) Respiratory rate 18 /min 18 /min [facility] ( [facility]) Body temperature 97.0 [degF] 97.0 [degF] [facility] ([facility]) Body height 66 [in_i] 66 [in_i] [facility] ([facility]) 5'6" [place] body weight 130 [lb_av] 130 [lb_av] [facility] ([facility]) Body weight 96.163 kg 96.163 kg [facility] ([facility]) Body surface area Derived from formula 2.05 m2 2.05 m2 [facility] ([facility]) Systolic blood pressure 158 mm[Hg] 158 mm[Hg] [facility] Diastolic blood pressure 71 mm[Hg] 71 mm[Hg] [facility] ([facility]) Heart rate 80 /min 80 /min [facility] ([facility]) Oxygen saturation in Arterial blood by Pulse oximetry 97 % 97 % [facility] ([facility]) Respiratory rate 18 /min 18 /min [facility] ( [facility]) Body temperature 97.0 [degF] 97.0 [degF] [facility] ([facility]) Body height 66 [in_i] 66 [in_i] [facility] ([facility]) 5'6" Body weight 212.00 [lb_av] 212.00 [lb_av] [facility] ([facility]) Body mass index (BMI) [Ratio] 34.2 kg/m2 34.2 k g/m2 [facility] ([facility]) [place] body weight 130 [lb_av] 130 [lb_av] [facility] ([facility]) Body weight 96.163 kg 96.163 kg [facility] ([facility]) Body surface area Derived from formula 2.05 m2 2.05 m2 [facility] ([facility]) Body temperature 98.2 [degF] 98.2 [degF] [facility] ([facility]) Body height 66 [in_i] 66 [in_i] [facility] 5'6" Body weight 212.00 [lb_av] 212.00 [lb_av] [facility] ([facility]) Body mass index (BMI) [Ratio] 34.2 kg/m2 34.2 k g/m2 [facility] ([facility]) [place] body weight 130 [lb_av] 130 [lb_av] [facility] ([facility]) Body weight 96.163 kg 96.163 kg [facility] ([facility]) Body surface area Derived from formula 2.05 m2 2.05 m2 [facility] ([facility]) Body temperature 97.0 [degF] 97.0 [degF] [facility] ([facility]) Body height 66 [in_i] 66 [in_i] [facility] ([facility]) 5'6" Body weight 212.31 [lb_av] 212.31 [lb_av] [facility] ([facility]) Body mass index (BMI) [Ratio] 34.3 kg/m2 34.3 k g/m2 [facility] ([facility]) [place] body weight 130 [lb_av] 130 [lb_av] [facility] ([facility]) Body weight 96.300 kg 96.300 kg [facility] ([facility]) Body surface area Derived from formula 2.05 m2 2.05 m2 [facility] ([facility]) Diastolic blood pressure 68 mm[Hg] 68 mm[Hg] [facility] ([facility] Heart rate 70 /min 70 /min [facility] ([facility] Body mass index (BMI) [Ratio] 33.7 kg/m2 33.7 k g/m2 [facility] ([facility] Body height 67 [in_i] 67 [in_i] [facility] ([facility] 5'7" Body weight 215.00 [lb_av] 215.00 [lb_av] [facility] ([facility] Systolic blood pressure 142 mm[Hg] 142 mm[Hg] M [facility] ([facility] ID Date Data Source [id number] 11/29/2019 02:13:46 PM EDT [facility] Name Value Range Interpretation Code Description Data Source(s) WEIGHT RECORDED 215.2 lb 215.2 lb [facility] Body height Measured 66 in 66 in [facility] Patient Treatment Plan of Care Planned Activity Planned Date Details Description Data Source (s) Proparacaine hydrochloride 5 MG/ML Ophthalmic Solution 06/12/2020 01:30:00 PM [facility] Phenylephrine Hydrochloride 25 MG/ML Ophthalmic Soluti on 06/12/2020 01:30:00 PM [facility] Tropicamide 10 MG/ML Ophthalmic Solution 06/12/2020 01:30:00 PM [facility] Proparacaine hydrochloride 5 MG/ML Ophthalmic Solution 12/04/2019 02:00:00 PM [facility] clopidogrel 75 MG Oral Tablet 08/22/2019 12:00:00 AM [facility] atorvastatin 80 MG Oral Tablet 08/22/2019 12:00:00 AM [facility]
[2020-12-31] MEDS ORDERED: ASPI81CH33 PO (10:56)
--- NOTE | 2020-12-31 11:56 | ROOR ---
Patient Name: Leonor Tovar Procedure Date: 12/31/2020 11:39 AM Date of : 1945 Age: 75 Room: [facility] Gender: Female Note Status: Finalized Procedure: Upper Endoscopy + Biopsies Indications: Heartburn, Exclusion of Jarquin's esophagus Providers: Vitor Mojica MD Referring MD: Emre Rodas MD Requesting Provider: Medicines: Monitored Anesthesia Care Complications: No immediate complications. Procedure: Pre-Anesthesia Assessment: - The heart rate, respiratory rate, oxygen saturations, blood pressure, adequacy of pulmonary ventilation, and response to care were monitored throughout the procedure. The Endoscope was introduced through the mouth, and advanced to the second part of duodenum. The upper GI endoscopy was accomplished without difficulty. The patient tolerated the procedure well. Findings: The Z-line was regular and was found 35 cm from the incisors. Multiple biopsies were obtained with cold forceps for evaluation to rule out Jarquin's Esophagus randomly at the gastroesophageal junction. A medium-sized hiatal hernia was present. One non-bleeding cratered gastric ulcer with no stigmata of bleeding was found in the gastric antrum. Biopsies were taken with a cold forceps for Helicobacter pylori testing. The exam of the duodenum was otherwise normal. Impression: - Z-line regular, 35 cm from the incisors. - Medium-sized hiatal hernia. - Non-bleeding gastric ulcer with no stigmata of bleeding. Biopsied. - Multiple biopsies were obtained at the gastroesophageal junction. - The examination was otherwise normal. Recommendation: - Patient has a contact number available for emergencies. The signs and symptoms of potential delayed complications were discussed with the patient. Return to normal activities tomorrow. Written discharge instructions were provided to the patient. - High fiber diet. - Discharge patient to home. - Follow an antireflux regimen. - Use Prilosec (omeprazole) 40 mg PO daily. - Await pathology results. - Telephone GI clinic for pathology results in 1 week. - Return to referring physician. - The findings and recommendations were discussed with the patient. Procedure Code(s): --- Professional --- 85725, Esophagogastroduodenoscopy, flexible, transoral; with biopsy, single or multiple Diagnosis Code(s): --- Professional --- K44.9, Diaphragmatic hernia without obstruction or gangrene K25.9, Gastric ulcer, unspecified as acute or chronic, without hemorrhage or perforation R12, Heartburn CPT copyright 2019 [employer]. All rights reserved. The codes documented in this report are preliminary and upon fiberglass tube molder review may be revised to meet current compliance requirements. Vitor Mojica MD Vitor Mojica MD 12/31/2020 11:56:16 AM Electronically signed by Vitor Mojica MD Number of Addenda: 0 Note Initiated On: 12/31/2020 11:39 AM Estimated Blood Loss: Estimated blood loss: none.
--- NOTE | 2020-12-31 12:23 | ROOR ---
Patient Name: Leonor Tovar Procedure Date: 12/31/2020 11:40 AM Date of : 1945 Age: 75 Room: [facility] Gender: Female Note Status: Finalized Procedure: Total Colonoscopy to Cecum + Biopsy Polypectomy Indications: Screening for colorectal malignant neoplasm, Last colonoscopy 10 years ago Providers: Vitor Mojica MD Referring MD: Emre Rodas MD Requesting Provider: Medicines: Monitored Anesthesia Care Complications: No immediate complications. Procedure: Pre-Anesthesia Assessment: - The heart rate, respiratory rate, oxygen saturations, blood pressure, adequacy of pulmonary ventilation, and response to care were monitored throughout the procedure. The Colonoscope was introduced through the anus and advanced to the cecum, identified by appendiceal orifice and ileocecal valve. The colonoscopy was performed without difficulty. The patient tolerated the procedure well. The quality of the bowel preparation was excellent. Findings: The perianal and digital rectal examinations were normal. Non-bleeding internal hemorrhoids were found during retroflexion. The hemorrhoids were small and Grade I (internal hemorrhoids that do not prolapse). Multiple sessile polyps were found in the rectum. The polyps were diminutive in size. These polyps were removed with a jumbo cold forceps. Resection and retrieval were complete. Multiple small and large-mouthed diverticula were found in the recto-sigmoid colon, sigmoid colon and descending colon. An ulcerated non-obstructing large mass was found at the ileocecal valve. The mass was non-circumferential. This was biopsied with a cold forceps for histology. The exam was otherwise without abnormality on direct and retroflexion views. Impression: - Non-bleeding internal hemorrhoids. - Multiple diminutive polyps in the rectum, removed with a jumbo cold forceps. Resected and retrieved. - Diverticulosis in the recto-sigmoid colon, in the sigmoid colon and in the descending colon. - Rule out malignancy, tumor at the ileocecal valve. Biopsied. - The examination was otherwise normal on direct and retroflexion views. - The exam was otherwise normal to the cecum. Recommendation: - Patient has a contact number available for emergencies. The signs and symptoms of potential delayed complications were discussed with the patient. Return to normal activities tomorrow. Written discharge instructions were provided to the patient. - High fiber diet. - Discharge patient to home. - Continue present medications. - Await pathology results. - Telephone GI clinic for pathology results in 1 week. - Refer to a surgeon at appointment to be scheduled. - The findings and recommendations were discussed with the patient. Procedure Code(s): --- Professional --- 42342, Colonoscopy, flexible; with biopsy, single or multiple Diagnosis Code(s): --- Professional --- Z12.11, Encounter for screening for malignant neoplasm of colon K64.0, First degree hemorrhoids K62.1, Rectal polyp D49.0, Neoplasm of unspecified behavior of digestive system K57.30, Diverticulosis of large intestine without perforation or abscess without bleeding CPT copyright 2019 [employer]. All rights reserved. The codes documented in this report are preliminary and upon auditing coder review may be revised to meet current compliance requirements. Vitor Mojica MD Vitor Mojica MD 12/31/2020 12:22:43 PM Electronically signed by Vitor Mojica MD Number of Addenda: 0 Note Initiated On: 12/31/2020 11:40 AM Estimated Blood Loss: Estimated blood loss: none.
[2020-12-31] MEDS ORDERED: propofoL 500 MG/50 ML VIAL As Ordered ONE (12:26)
[2020-12-31] MEDS ORDERED: fentaNYL 100 MCG/2 ML INJECTION (J3010) As Ordered ONE (12:26)
[2020-12-31 12:40] VITALS: BP 123/83
== END 2020-12-31 13:07 | disposition home or self-care (01) ==
LOC: M OPP 10:13
PROVIDERS: ATTEND Internal Medicine Gastroenterology
DX: C18.9 Malignant neoplasm of colon, unspecified (principal); K62.1 Rectal polyp; K64.0 First degree hemorrhoids; K44.9 Diaphragmatic hernia without obstruction or gangrene; K57.30 Diverticulosis of large intestine without perforation or abscess without bleeding; K25.9 Gastric ulcer, unspecified as acute or chronic, without hemorrhage or perforation; R12 Heartburn; E11.9 Type 2 diabetes mellitus without complications; I10 Essential (primary) hypertension; Z12.11 Encounter for screening for malignant neoplasm of colon; Z86.73 Personal history of transient ischemic attack (TIA), and cerebral infarction without residual deficits; Z88.6 Allergy status to analgesic agent; Z79.899 Other long term (current) drug therapy
CPT/HCPCS: 43239; 45380; 88305; J3010

== ENCOUNTER → 2021-01-06 | Outpatient (CLI) | payer MEDICARE ==
[~2021-01-06] MED LIST changes: +ASPI81CH33 PO; -NS 1,000 ML IV ONE
[2021-01-06 09:38] LABS: BLOOD UREA NITROGEN 11 MG/DL (7-18); CREATININE FOR GFR 0.67 MG/DL (0.55-1.30); GLOMERULAR FILTRATION RATE > 60.0 (>39)
== END ==
LOC: M LAB 08:43
PROVIDERS: ATTEND Physician Assistant
DX: C18.9 Malignant neoplasm of colon, unspecified (principal)

== ENCOUNTER → 2021-01-06 | Outpatient (CLI) | payer MEDICARE ==
--- NOTE | 2021-01-06 22:09 | ECGEPIP ---
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 Nonspecific ST abnormality. No prior ECG available for comparison at the time of interpretation. Electronically Signed on 01-06-2021 22:08:44 EST by Jamal Maguire
== END ==
LOC: M EKG 09:07
PROVIDERS: ATTEND Physician Assistant
DX: Z01.818 Encounter for other preprocedural examination (principal); C18.9 Malignant neoplasm of colon, unspecified

== ENCOUNTER → 2021-01-07 | Outpatient (CLI) | payer MEDICARE ==
[~2021-01-07] MED LIST changes: +GASTROGRAFIN SOLUTION 30ML (Q9963) As Ordered ONE; +ISOVUE-370 76% 100ML VIAL As Ordered ONE
--- NOTE | 2021-01-07 14:23 | REP ---
INDICATION: MALIGNANT NEOPLASM OF COLON. COMPARISON: None TECHNIQUE: Axial contrast-enhanced images from the lung bases to the pubic symphysis using oral and 100 cc Isovue 370 intravenous contrast material. Delayed images of the abdomen with coronal and sagittal reformations obtained. This CT examination was performed using the following dose reduction techniques: Automated exposure control, adjustment of mA and/or kv according to the patient's size, and the use of iterative reconstruction technique. FINDINGS: Liver, spleen, pancreas, bilateral adrenal glands and kidneys are normal. Patient is status post cholecystectomy with normal compensatory biliary ductal dilatation noted. The enteric system includes moderate hiatal hernia at the gastroesophageal junction. There is no evidence for bowel obstruction or acute inflammatory process. Colonic diverticulosis noted without acute diverticulitis. No obvious focal colonic mass lesion or pericolonic inflammatory stranding/adenopathy is identified.. Pelvis demonstrates normal bladder and evidence for prior hysterectomy. No ascites. No free air. No intraperitoneal or retroperitoneal adenopathy. Abdominal aorta and vasculature appear normal. Musculoskeletal structures are intact and without acute osseous abnormality. Lung bases demonstrate chronic changes without acute process. IMPRESSION: 1. No acute abdominopelvic pathology appreciated. 2. Colonic diverticulosis. No obvious focal colonic mass lesion or evidence for metastatic disease appreciated. <Electronically signed by Drake De La Paz > 01/07/21 1635
== END ==
LOC: M RAD 09:43
PROVIDERS: ATTEND Physician Assistant
DX: C18.9 Malignant neoplasm of colon, unspecified (principal); K57.90 Diverticulosis of intestine, part unspecified, without perforation or abscess without bleeding; Z90.49 Acquired absence of other specified parts of digestive tract; K44.9 Diaphragmatic hernia without obstruction or gangrene
CPT/HCPCS: 74177; Q9963; Q9967

== ENCOUNTER → 2021-01-10 | Outpatient (CLI) | payer MEDICARE ==
[~2021-01-10] MED LIST changes: -GASTROGRAFIN SOLUTION 30ML (Q9963) As Ordered ONE; -ISOVUE-370 76% 100ML VIAL As Ordered ONE; +METR-265; +NEOM500T; +OMEP-173; +OMEP-173 PO; -OMEP-218 PO; +SUPRSOL2
== END ==
LOC: M LABSMTC 10:21
PROVIDERS: ATTEND Anesthesiology
DX: Z01.812 Encounter for preprocedural laboratory examination (principal); Z20.822 Contact with and (suspected) exposure to COVID-19

== ENCOUNTER → 2021-01-12 | Outpatient (CLI) | payer MEDICARE | LOC: M LAB 11:42 | PROVIDERS: ATTEND Family Medicine | DX: Z01.812 Encounter for preprocedural laboratory examination (principal) ==

== ENCOUNTER 2021-01-15 10:07 | Inpatient (IN) | payer MEDICARE ==
[~2021-01-15] VITALS: Ht 170.2 cm; Wt 90.7 kg
[~2021-01-15 10:07] MED LIST changes: +ALVIMOPAN 12 MG CAPSULE (ENTEREG) PO ONE; +LR 1,000 ML IV ONE; +LR 500 ML IV SCH; -METR-265; -NEOM500T; -SUPRSOL2; +cefoTEtan DISODIUM 2 GM in D5W MINI-BAG PLUS 50 ML IV ONE
[2021-01-15] MEDS ORDERED: NEOM500T (10:49)
[2021-01-15] MEDS ORDERED: METR-265 (10:49)
[2021-01-15] MEDS ORDERED: SUPRSOL2 (10:49)
[2021-01-15] MEDS ORDERED: BUPIVACAINE HCL 0.25% 30ML VIAL As Ordered ONE (11:42)
[2021-01-15] MEDS ORDERED: ONDANSETRON 4MG/2ML VIAL As Ordered ONE (12:39)
[2021-01-15] MEDS ORDERED: SUGAMMADEX SODIUM 500 MG/5 ML VIAL (BRIDION) As Ordered ONE (12:39)
[2021-01-15] MEDS ORDERED: fentaNYL 100 MCG/2 ML INJECTION As Ordered ONE (12:39)
[2021-01-15] MEDS ORDERED: propofoL 200 MG/20 ML VIAL As Ordered ONE (12:39)
[2021-01-15] MEDS ORDERED: MIDAZOLAM INJ 2MG/2ML VIAL (J2250 PER 1MG) As Ordered ONE (12:39)
[2021-01-15] MEDS ORDERED: LIDOCAINE 2% 100MG/5ML SDV (FOR ANES.) As Ordered ONE (12:39)
[2021-01-15] MEDS ORDERED: ROCURONIUM BROMIDE 50 MG/5 ML VIAL As Ordered ONE ×2 (12:39→13:01)
[2021-01-15] MEDS ORDERED: dexameTHASONE 4 MG/ML 1ML VIAL (J1100 PER 1MG) As Ordered ONE (12:39)
[2021-01-15] MEDS ORDERED: HYDROmorphone HCL 2MG/ML 1ML VIAL As Ordered ONE (12:40)
[2021-01-15] MEDS ORDERED: ePHEDrine SULFATE 25 MG/5 ML(5MG/ML) SYRINGE As Ordered ONE (12:41)
[2021-01-15] MEDS ORDERED: METOCLOPRAMIDE INJ 10MG/2ML VIAL (J2765 PER 1) IV PRN (16:55)
[2021-01-15] MEDS ORDERED: KETOROLAC 30 MG/ML 1ML VIAL IV PRN (16:55)
[2021-01-15] MEDS ORDERED: MORPHINE 2 MG/ML 1ML VIAL (J2270) IV PRN (16:55)
[2021-01-15] MEDS ORDERED: ONDANSETRON 4MG/2ML VIAL IV PRN ×2 (16:55→17:00)
[2021-01-15] MEDS ORDERED: ACETAMINOPHEN TAB 650MG DOSE (2X325MG) PO PRN (16:55)
[2021-01-15] MEDS ORDERED: NORCO, ANEXSIA 5/325MG TABLET (HYDROcodone/ACETAMINOPHEN) PO PRN (16:55)
[2021-01-15] MEDS ORDERED: HYDROMORPHONE HCL 0.5 MG/ 0.5 ML SYRINGE (J1170 PER 1) IV PRN (17:00)
[2021-01-15] MEDS ORDERED: LR 1,000 ML IV SCH (17:00)
[2021-01-15] MEDS ORDERED: fentaNYL 100 MCG/2 ML INJECTION IV PRN (17:00)
[2021-01-15] MEDS ORDERED: oxyCODONE 5MG TAB PO PRN (17:00)
[2021-01-15 18:00] VITALS: BP 135/72
[2021-01-15] MEDS: LR 1,000 ML IV SCH (18:00)
[2021-01-15 19:30] VITALS: BP 130/71
[2021-01-15 20:00] VITALS: BP 114/57
[2021-01-15] MEDS: ALVIMOPAN 12 MG CAPSULE (ENTEREG) PO SCH (20:12)
[2021-01-15] MEDS: ATORVASTATIN 20 MG TAB PO SCH (20:12)
[2021-01-15 21:00] VITALS: BP 128/62
[2021-01-15 22:00] VITALS: BP 147/64
[2021-01-15 23:00] VITALS: BP 130/65
[2021-01-16] MEDS: LR 1,000 ML IV SCH ×2 (01:14→09:24)
[2021-01-16 02:00] VITALS: BP 147/64
[2021-01-16 06:00] VITALS: BP 126/5
[2021-01-16 06:10] LABS: BASO % 0.2 % (0.0-1.0); EOS % 0.1 % (0.0-3.0); HEMATOCRIT 33.5 % (36.0-47.0); HEMOGLOBIN 11.1 g/dl (12.0-15.5); LYMPH % 19.9 % (24.0-44.0); MEAN CORPUSCULAR HEMOGLOBIN 29.7 pg (27.0-33.0); MEAN CORPUSCULAR HGB CONC 33.1 g/dl (32.0-36.5); MEAN CORPUSCULAR VOLUME 89.6 fl (80.0-96.0); MONO # 0.6 10^3/uL (0.0-0.8); MONO % 6.1 % (2.0-8.0); NEUTROPHILS # 7.4 10^3/uL (1.5-8.5); PLATELET COUNT, AUTOMATED 185 10^3/uL (150-450); RED BLOOD COUNT 3.74 10^6/uL (4.00-5.40); WHITE BLOOD COUNT 10.1 10^3/uL (4.0-10.0)
[2021-01-16 06:33] LABS: BLOOD UREA NITROGEN 11 MG/DL (7-18); CALCIUM LEVEL 8.3 MG/DL (8.8-10.2); CARBON DIOXIDE LEVEL 31 MEQ/L (21-32); CHLORIDE LEVEL 104 MEQ/L (98-107); CREATININE FOR GFR 0.73 MG/DL (0.55-1.30); GLOMERULAR FILTRATION RATE > 60.0 (>39); GLUCOSE, FASTING 134 MG/DL (70-100); POTASSIUM SERUM 3.4 MEQ/L (3.5-5.1); SODIUM LEVEL 141 MEQ/L (136-145)
[2021-01-16] MEDS: ASPIRIN 81 MG CHEW TABLET PO SCH (08:23)
[2021-01-16] MEDS: ALVIMOPAN 12 MG CAPSULE (ENTEREG) PO SCH ×2 (08:24→20:23)
[2021-01-16] MEDS: ENOXAPARIN 40MG/0.4ML SYRINGE (J1650 PER 10MG) SC SCH (08:25)
[2021-01-16 10:00] VITALS: BP 147/67
[2021-01-16 14:00] VITALS: BP 123/55
[2021-01-16] MEDS: ATORVASTATIN 20 MG TAB PO SCH (20:23)
[2021-01-16 22:00] VITALS: BP 134/61
[2021-01-17 02:00] VITALS: BP 138/74
[2021-01-17 06:00] VITALS: BP 136/50
[2021-01-17] MEDS: ENOXAPARIN 40MG/0.4ML SYRINGE (J1650 PER 10MG) SC SCH (08:25)
[2021-01-17] MEDS: ALVIMOPAN 12 MG CAPSULE (ENTEREG) PO SCH (08:25)
[2021-01-17] MEDS: ASPIRIN 81 MG CHEW TABLET PO SCH (08:25)
== END 2021-01-17 12:32 | disposition home or self-care (01) | DRG 330 ==
LOC: M OR 10:07 → M MSPAV 17:54
PROVIDERS: ADMIT Surgery; ATTEND Surgery
PROC: 0DNU4ZZ Release Omentum, Percutaneous Endoscopic Approach (ICD-10-PCS; 2021-01-15)
PROC: 8E0W4CZ Robotic Assisted Procedure of Trunk Region, Percutaneous Endoscopic Approach (ICD-10-PCS; 2021-01-15)
PROC: 0DTK4ZZ Resection of Ascending Colon, Percutaneous Endoscopic Approach (ICD-10-PCS; principal; 2021-01-15 11:45)
DX: C18.2 Malignant neoplasm of ascending colon (principal); H34.11 Central retinal artery occlusion, right eye; Z88.5 Allergy status to narcotic agent; Z79.899 Other long term (current) drug therapy; I10 Essential (primary) hypertension; E78.5 Hyperlipidemia, unspecified; E11.9 Type 2 diabetes mellitus without complications; Z87.891 Personal history of nicotine dependence; F10.10 Alcohol abuse, uncomplicated; I65.21 Occlusion and stenosis of right carotid artery

== ENCOUNTER → 2021-01-23 | Outpatient (REF) | payer MEDICARE ==
[~2021-01-23] MED LIST changes: -ALVIMOPAN 12 MG CAPSULE (ENTEREG) PO ONE; -LR 1,000 ML IV ONE; -LR 500 ML IV SCH; +METR-265; +NEOM500T; +SUPRSOL2; -cefoTEtan DISODIUM 2 GM in D5W MINI-BAG PLUS 50 ML IV ONE
[2021-01-23 17:16] LABS: CLOSTRIDIUM DIFFICILE PCR POSITIVE (NEGATIVE)
== END ==
LOC: M LAB REF 15:51
PROVIDERS: ATTEND Surgery
DX: R19.7 Diarrhea, unspecified (principal)

== ENCOUNTER → 2021-04-13 | Outpatient (REF) | payer MEDICARE ==
[2021-04-13 12:33] LABS: CLOSTRIDIUM DIFFICILE PCR POSITIVE (NEGATIVE)
== END ==
LOC: M LAB REF 10:40
PROVIDERS: ATTEND Surgery
DX: A04.72 Enterocolitis due to Clostridium difficile, not specified as recurrent (principal); Z48.815 Encounter for surgical aftercare following surgery on the digestive system

== ENCOUNTER → 2021-05-26 | Outpatient (CLI) | payer MEDICARE | LOC: M LAB 07:53 | PROVIDERS: ATTEND Surgery | DX: C18.2 Malignant neoplasm of ascending colon (principal) ==

== ENCOUNTER → 2021-06-01 | Outpatient (CLI) | payer MEDICARE ==
[2021-06-01 09:39] LABS: HEMATOCRIT 41.7 % (36.0-47.0); HEMOGLOBIN 14.1 g/dl (12.0-15.5); MEAN CORPUSCULAR HGB CONC 33.8 g/dl (32.0-36.5); MEAN CORPUSCULAR VOLUME 88.7 fl (80.0-96.0); PLATELET COUNT, AUTOMATED 180 10^3/uL (150-450); WHITE BLOOD COUNT 5.8 10^3/uL (4.0-10.0)
[2021-06-01 10:09] LABS: HEMOGLOBIN A1c 6.2 %
[2021-06-01 10:15] LABS: CREATININE, URINE 66.3 MG/DL; MALB URINE SIEMENS < 5.0 MG/L; MAU/CREAT RATIO 7.5 MCG/MG (0.0-30.0)
[2021-06-01 10:18] LABS: ALBUMIN 3.7 GM/DL (3.2-5.2); ALT/SGPT 23 U/L (12-78); BILIRUBIN,TOTAL 0.6 MG/DL (0.2-1.0); BLOOD UREA NITROGEN 19 MG/DL (7-18); CALCIUM LEVEL 8.9 MG/DL (8.8-10.2); CARBON DIOXIDE LEVEL 29 MEQ/L (21-32); CHLORIDE LEVEL 100 MEQ/L (98-107); CHOLESTEROL LEVEL 139 MG/DL (<200); CHOLESTEROL RISK RATIO 3.088 (<5); GLOMERULAR FILTRATION RATE > 60.0 (>39); GLUCOSE, FASTING 112 MG/DL (70-100); HDL CHOLESTEROL 45 MG/DL (>40); LDL CHOLESTEROL 74 MG/DL (<100); NON-HDL-C 94 MG/DL; POTASSIUM SERUM 3.7 MEQ/L (3.5-5.1); SODIUM LEVEL 136 MEQ/L (136-145); TOTAL PROTEIN 7.4 GM/DL (6.4-8.2); TRIGLYCERIDES LEVEL 98 MG/DL (<150)
== END ==
LOC: M LAB 08:22
PROVIDERS: ATTEND Family Medicine
DX: E11.9 Type 2 diabetes mellitus without complications (principal)

== ENCOUNTER → 2021-07-02 | Outpatient (CLI) | payer MEDICARE | LOC: M SOG 08:11 | PROVIDERS: ATTEND Orthopaedic Surgery Adult Reconstructive Orthopaedic Surgery | DX: M17.12 Unilateral primary osteoarthritis, left knee (principal); M25.762 Osteophyte, left knee; M25.761 Osteophyte, right knee; D16.22 Benign neoplasm of long bones of left lower limb ==

== ENCOUNTER → 2021-07-15 | Outpatient (CLI) | payer MEDICARE | LOC: M WHC 09:38 | PROVIDERS: ATTEND Family Medicine | DX: Z12.31 Encounter for screening mammogram for malignant neoplasm of breast (principal); Z80.3 Family history of malignant neoplasm of breast; Z80.41 Family history of malignant neoplasm of ovary; Z80.0 Family history of malignant neoplasm of digestive organs; Z85.038 Personal history of other malignant neoplasm of large intestine ==

== ENCOUNTER → 2021-08-21 | Outpatient (CLI) | payer MEDICARE | LOC: M LAB 09:45 | PROVIDERS: ATTEND Family Medicine | DX: C18.9 Malignant neoplasm of colon, unspecified (principal) ==

== ENCOUNTER → 2021-10-12 | Outpatient (CLI) | payer MEDICARE ==
[~2021-10-12] MED LIST changes: +PANT40TA29 PO
== END ==
LOC: M PLARAD 07:57
PROVIDERS: ATTEND Specialist
DX: C18.2 Malignant neoplasm of ascending colon (principal); K57.30 Diverticulosis of large intestine without perforation or abscess without bleeding; R59.0 Localized enlarged lymph nodes
CPT/HCPCS: 78815; A9552

== ENCOUNTER → 2021-12-27 | Outpatient (CLI) | payer MEDICARE | LOC: M LABSMTC 10:03 | PROVIDERS: ATTEND Anesthesiology | DX: Z01.812 Encounter for preprocedural laboratory examination (principal); Z20.822 Contact with and (suspected) exposure to COVID-19 ==

== ENCOUNTER 2021-12-30 07:26 | Day surgery (SDC) | payer MEDICARE ==
[~2021-12-30] VITALS: Ht 168.9 cm; Wt 89.8 kg
[~2021-12-30 07:26] MED LIST changes: +NS 1,000 ML IV ONE
[2021-12-30] MEDS ORDERED: ASPI81TA26 PO (08:18)
[2021-12-30] MEDS ORDERED: LIDOCAINE 2% 100MG/5ML SDV (FOR ANES.) As Ordered ONE (08:27)
[2021-12-30] MEDS ORDERED: propofoL 200 MG/20 ML VIAL As Ordered ONE (08:27)
[2021-12-30] MEDS ORDERED: MIDAZOLAM INJ 2MG/2ML VIAL (J2250 PER 1MG) As Ordered ONE (08:27)
[2021-12-30] MEDS ORDERED: PHENYLephrine 500MCG 5ML (100MCG/ML) SYRINGE As Ordered ONE (08:57)
[2021-12-30 09:49] VITALS: BP 116/59
== END 2021-12-30 09:52 | disposition home or self-care (01) ==
LOC: M OPP 07:26
PROVIDERS: ATTEND Internal Medicine Gastroenterology
DX: D12.6 Benign neoplasm of colon, unspecified (principal); K57.30 Diverticulosis of large intestine without perforation or abscess without bleeding; K64.0 First degree hemorrhoids; Z98.0 Intestinal bypass and anastomosis status; Z85.038 Personal history of other malignant neoplasm of large intestine; Z09 Encounter for follow-up examination after completed treatment for conditions other than malignant neoplasm; Z79.01 Long term (current) use of anticoagulants; Z79.02 Long term (current) use of antithrombotics/antiplatelets; Z79.899 Other long term (current) drug therapy; Z88.5 Allergy status to narcotic agent; Z87.891 Personal history of nicotine dependence; I10 Essential (primary) hypertension; E78.00 Pure hypercholesterolemia, unspecified; I65.23 Occlusion and stenosis of bilateral carotid arteries; E11.9 Type 2 diabetes mellitus without complications; Z86.73 Personal history of transient ischemic attack (TIA), and cerebral infarction without residual deficits
CPT/HCPCS: 45380; 88305; J2250; J2370

== ENCOUNTER → 2022-05-07 | Outpatient (CLI) | payer MEDICARE ==
[~2022-05-07] MED LIST changes: +ASPI81TA26 PO; -NS 1,000 ML IV ONE
== END ==
LOC: M SOG 08:42
PROVIDERS: ATTEND Orthopaedic Surgery Adult Reconstructive Orthopaedic Surgery
DX: M25.512 Pain in left shoulder (principal); M19.012 Primary osteoarthritis, left shoulder

== ENCOUNTER → 2022-06-01 | Outpatient (CLI) | payer MEDICARE ==
[2022-06-01 09:07] LABS: CREATININE, URINE 154.4 MG/DL; CREATININE,RANDOM URINE 154.4 MG/DL; MALB URINE SIEMENS < 3.0 MG/L; MAU/CREAT RATIO 1.9 MCG/MG (0.0-30.0)
[2022-06-01 09:08] LABS: CHOLESTEROL RISK RATIO 3.85 (<5); HDL CHOLESTEROL 45.1 MG/DL (>40); LDL CHOLESTEROL 112.3 MG/DL (<100); NON-HDL-C 128.9 MG/DL
== END ==
LOC: M LAB 07:43
PROVIDERS: ATTEND Family Medicine
DX: E11.9 Type 2 diabetes mellitus without complications (principal)

== ENCOUNTER → 2022-07-26 | Outpatient (CLI) | payer MEDICARE | LOC: M WHC 10:57 | PROVIDERS: ATTEND Family Medicine | DX: Z12.31 Encounter for screening mammogram for malignant neoplasm of breast (principal); Z80.3 Family history of malignant neoplasm of breast; Z80.41 Family history of malignant neoplasm of ovary ==

== ENCOUNTER → 2022-09-15 | Outpatient (CLI) | payer MEDICARE | LOC: M SOG 15:46 | PROVIDERS: ATTEND Orthopaedic Surgery | DX: M17.12 Unilateral primary osteoarthritis, left knee (principal) ==

== ENCOUNTER → 2022-12-16 | Outpatient (CLI) | payer MEDICARE | LOC: M SOG 09:58 | PROVIDERS: ATTEND Orthopaedic Surgery | DX: M17.0 Bilateral primary osteoarthritis of knee (principal); M25.561 Pain in right knee; M25.461 Effusion, right knee; M25.462 Effusion, left knee ==

== ENCOUNTER → 2023-01-11 | Outpatient (CLI) | payer MEDICARE | LOC: M RAD 13:23 | PROVIDERS: ATTEND Family Medicine | DX: Z12.2 Encounter for screening for malignant neoplasm of respiratory organs (principal); F17.211 Nicotine dependence, cigarettes, in remission; R91.1 Solitary pulmonary nodule; K44.9 Diaphragmatic hernia without obstruction or gangrene; I70.0 Atherosclerosis of aorta; I25.10 Atherosclerotic heart disease of native coronary artery without angina pectoris ==

== ENCOUNTER → 2023-06-06 | Outpatient (CLI) | payer MEDICARE ==
[2023-06-06 08:03] LABS: BASO % 0.6 % (0.0-1.0); EOS # 0.1 10^3/uL (0.0-0.5); EOS % 1.7 % (0.0-3.0); HEMATOCRIT 36.9 % (36.0-47.0); HEMOGLOBIN 12.8 g/dl (12.0-15.5); LYMPH # 2.2 10^3/uL (1.5-5.0); LYMPH % 35.1 % (24.0-44.0); MEAN CORPUSCULAR HEMOGLOBIN 30.3 pg (27.0-33.0); MEAN CORPUSCULAR HGB CONC 34.7 g/dl (32.0-36.5); MEAN CORPUSCULAR VOLUME 87.4 fl (80.0-96.0); MONO # 0.4 10^3/uL (0.0-0.8); MONO % 6.7 % (2.0-8.0); NEUTROPHILS # 3.5 10^3/uL (1.5-8.5); NEUTROPHILS % 55.4 % (36.0-66.0); PLATELET COUNT, AUTOMATED 193 10^3/uL (150-450); RED BLOOD COUNT 4.22 10^6/uL (4.00-5.40); WHITE BLOOD COUNT 6.4 10^3/uL (4.0-10.0)
[2023-06-06 08:27] LABS: ALBUMIN 3.1 G/DL (3.2-5.2); ALKALINE PHOSPHATASE 63 U/L (46-116); ALT/SGPT 16 U/L (7.0-40); AST/SGOT 14 U/L (<34); BILIRUBIN,TOTAL 0.8 MG/DL (0.3-1.2); BLOOD UREA NITROGEN 16 MG/DL (9-23); CALCIUM LEVEL 8.6 MG/DL (8.3-10.6); CARBON DIOXIDE LEVEL 28 MMOL/L (20-31); CHLORIDE LEVEL 100 MMOL/L (98-107); CHOLESTEROL LEVEL 126 MG/DL (<200); CHOLESTEROL RISK RATIO 3.06 (<5); CREATININE FOR GFR 0.56 MG/DL (0.55-1.30); GLOMERULAR FILTRATION RATE > 60.0 (>39); GLUCOSE, FASTING 126 MG/DL (74-106); HDL CHOLESTEROL 41.1 MG/DL (>40); LDL CHOLESTEROL 66.3 MG/DL (<100); NON-HDL-C 84.9 MG/DL; POTASSIUM SERUM 3.7 MMOL/L (3.5-5.1); SODIUM LEVEL 135 MMOL/L (136-145); TOTAL PROTEIN 6.3 G/DL (5.7-8.2); TRIGLYCERIDES LEVEL 93 MG/DL (<150)
[2023-06-06 08:29] LABS: THYROID STIMULATING HORMONE 2.071 uIU/ML (0.55-4.78)
[2023-06-06 08:37] LABS: CREATININE, URINE 67.5 MG/DL; MALB URINE SIEMENS < 3.0 MG/L; MAU/CREAT RATIO 4.4 MCG/MG (0.0-30.0)
== END ==
LOC: M LAB 07:17
PROVIDERS: ATTEND Family Medicine
DX: E11.9 Type 2 diabetes mellitus without complications (principal)

== ENCOUNTER → 2023-06-23 | Outpatient (CLI) | payer MEDICARE | LOC: M SOG 12:52 | PROVIDERS: ATTEND Orthopaedic Surgery | DX: M17.0 Bilateral primary osteoarthritis of knee (principal); Z53.9 Procedure and treatment not carried out, unspecified reason ==

== ENCOUNTER → 2023-06-23 | Outpatient (CLI) | payer MEDICARE | LOC: M SOG 13:08 | PROVIDERS: ATTEND Orthopaedic Surgery | DX: M17.0 Bilateral primary osteoarthritis of knee (principal); Z53.9 Procedure and treatment not carried out, unspecified reason ==

== ENCOUNTER → 2023-07-14 | Outpatient (CLI) | payer MEDICARE | LOC: M RAD 10:38 | PROVIDERS: ATTEND Family Medicine | DX: Z12.2 Encounter for screening for malignant neoplasm of respiratory organs (principal); R91.1 Solitary pulmonary nodule; F17.211 Nicotine dependence, cigarettes, in remission ==

== ENCOUNTER → 2023-08-22 | Outpatient (CLI) | payer MEDICARE | LOC: M PLARAD 12:06 | PROVIDERS: ATTEND Internal Medicine Pulmonary Disease | DX: R91.8 Other nonspecific abnormal finding of lung field (principal) | CPT/HCPCS: 78815; A9552 ==

== ENCOUNTER → 2023-10-14 | Outpatient (CLI) | payer MEDICARE | LOC: M SOG 08:09 | PROVIDERS: ATTEND Orthopaedic Surgery | DX: M17.0 Bilateral primary osteoarthritis of knee (principal) ==

== ENCOUNTER → 2023-10-27 | Outpatient (CLI) | payer MEDICARE ==
[2023-10-27 08:57] LABS: PLATELET COUNT, AUTOMATED 181 10^3/uL (150-450)
[2023-10-27 09:11] LABS: INR 1.04; PARTIAL THROMBOPLASTIN TIME 24.7 SECONDS (24.8-34.2); PROTHROMBIN TIME 13.3 SECONDS (12.5-14.5)
== END ==
LOC: M LAB 07:58
PROVIDERS: ATTEND Internal Medicine Pulmonary Disease
DX: R91.8 Other nonspecific abnormal finding of lung field (principal); Z79.01 Long term (current) use of anticoagulants

== ENCOUNTER → 2023-11-02 | Outpatient (CLI) | payer MEDICARE ==
[~2023-11-02] MED LIST changes: +LIDOCAINE 1% MDV 20ML VIAL As Ordered ONE; +LOSA25TA13 PO
[2023-11-02 14:06] VITALS: TEMP 97.4
[2023-11-02 15:10] VITALS: BP 170/100; O2SAT 97
== END ==
LOC: M IRPRO 13:54
PROVIDERS: ATTEND Otolaryngology
DX: D37.030 Neoplasm of uncertain behavior of the parotid salivary glands (principal)

== ENCOUNTER → 2023-11-04 | Outpatient (CLI) | payer MEDICARE ==
[~2023-11-04] MED LIST changes: +MIDAZOLAM INJ 2MG/2ML VIAL As Ordered ONE; +NS 1,000 ML IV SCH; +fentaNYL 100 MCG/2 ML INJECTION As Ordered ONE
[2023-11-04 08:15] VITALS: TEMP 96.6
[2023-11-04 11:40] VITALS: BP 145/69; O2SAT 96
== END ==
LOC: M IRPRO 08:10
PROVIDERS: ATTEND Internal Medicine Pulmonary Disease
DX: C34.11 Malignant neoplasm of upper lobe, right bronchus or lung (principal); R91.8 Other nonspecific abnormal finding of lung field
CPT/HCPCS: 32408; 71045; 99152; 99153; J2250; J3010

== ENCOUNTER → 2023-11-15 | Outpatient (CLI) | payer MEDICARE ==
[~2023-11-15] MED LIST changes: -LIDOCAINE 1% MDV 20ML VIAL As Ordered ONE; -LOSA25TA13 PO; -MIDAZOLAM INJ 2MG/2ML VIAL As Ordered ONE; -NS 1,000 ML IV SCH; -fentaNYL 100 MCG/2 ML INJECTION As Ordered ONE
== END ==
LOC: M SOG 13:30
PROVIDERS: ATTEND Physician Assistant
DX: M25.512 Pain in left shoulder (principal); M19.012 Primary osteoarthritis, left shoulder

== ENCOUNTER → 2023-11-24 | Outpatient (CLI) | payer MEDICARE ==
[~2023-11-24] MED LIST changes: +LOSA25TA13 PO
== END ==
LOC: M ONCR 14:21
PROVIDERS: ATTEND General Practice
DX: C34.11 Malignant neoplasm of upper lobe, right bronchus or lung (principal); Z79.02 Long term (current) use of antithrombotics/antiplatelets; Z79.899 Other long term (current) drug therapy; Z80.0 Family history of malignant neoplasm of digestive organs; Z87.891 Personal history of nicotine dependence; Z88.5 Allergy status to narcotic agent; Z86.73 Personal history of transient ischemic attack (TIA), and cerebral infarction without residual deficits; Z90.710 Acquired absence of both cervix and uterus; Z90.49 Acquired absence of other specified parts of digestive tract

== ENCOUNTER → 2023-12-26 | Outpatient (CLI) | payer MEDICARE | LOC: M PLARAD 07:24 | PROVIDERS: ATTEND Thoracic Surgery (Cardiothoracic Vascular Surgery) | DX: C34.11 Malignant neoplasm of upper lobe, right bronchus or lung (principal) | CPT/HCPCS: 78815; A9552 ==

== ENCOUNTER → 2023-12-29 | Outpatient (CLI) | payer MEDICARE | LOC: M WHC 09:05 | PROVIDERS: ATTEND Family Medicine | DX: Z12.31 Encounter for screening mammogram for malignant neoplasm of breast (principal); R92.313 Mammographic fatty tissue density, bilateral breasts ==

== ENCOUNTER → 2024-01-05 | Outpatient (CLI) | payer MEDICARE | LOC: M WHC 14:26 | PROVIDERS: ATTEND Family Medicine | DX: Z13.820 Encounter for screening for osteoporosis (principal); M85.852 Other specified disorders of bone density and structure, left thigh ==

== ENCOUNTER 2024-02-22 06:47 | Day surgery (SDC) | payer MEDICARE ==
[~2024-02-22] VITALS: Ht 167.6 cm; Wt 81.8 kg
[2024-02-22] MEDS ORDERED: LIDOCAINE 2% 100MG/5ML SDV (FOR ANES.) As Ordered ONE (07:58)
[2024-02-22] MEDS ORDERED: propofoL 200 MG/20 ML VIAL As Ordered ONE (07:59)
[2024-02-22 08:28] VITALS: TEMP 98.5
[2024-02-22 08:54] VITALS: BP 163/74; O2SAT 98
== END 2024-02-22 09:23 | disposition home or self-care (01) ==
LOC: M OPP 06:47
PROVIDERS: ATTEND Internal Medicine Gastroenterology
DX: K62.1 Rectal polyp (principal); K57.30 Diverticulosis of large intestine without perforation or abscess without bleeding; Z85.038 Personal history of other malignant neoplasm of large intestine; R12 Heartburn; K44.9 Diaphragmatic hernia without obstruction or gangrene; Z88.5 Allergy status to narcotic agent; Z79.84 Long term (current) use of oral hypoglycemic drugs; Z79.899 Other long term (current) drug therapy; Z87.891 Personal history of nicotine dependence
CPT/HCPCS: 43239; 88305; G0105

== ENCOUNTER → 2024-04-09 | Outpatient (CLI) | payer MEDICARE | LOC: M RAD 14:46 | PROVIDERS: ATTEND Otolaryngology | DX: D11.0 Benign neoplasm of parotid gland (principal) ==

== ENCOUNTER → 2024-05-04 | Outpatient (CLI) | payer MEDICARE ==
[2024-05-04 09:17] LABS: BASO % 0.4 % (0.0-1.0); EOS # 0.1 10^3/uL (0.0-0.5); HEMATOCRIT 38.6 % (36.0-47.0); HEMOGLOBIN 13.6 g/dl (12.0-15.5); LYMPH # 2.1 10^3/uL (1.5-5.0); LYMPH % 30.3 % (24.0-44.0); MEAN CORPUSCULAR HEMOGLOBIN 30.8 pg (27.0-33.0); MEAN CORPUSCULAR HGB CONC 35.2 g/dl (32.0-36.5); MEAN CORPUSCULAR VOLUME 87.5 fl (80.0-96.0); MONO # 0.5 10^3/uL (0.0-0.8); NEUTROPHILS # 4.1 10^3/uL (1.5-8.5); PLATELET COUNT, AUTOMATED 181 10^3/uL (150-450); RED BLOOD COUNT 4.41 10^6/uL (4.00-5.40); WHITE BLOOD COUNT 6.8 10^3/uL (4.0-10.0)
[2024-05-04 09:29] LABS: INR 0.9; PARTIAL THROMBOPLASTIN TIME 23.3 SECONDS (24.8-34.2); PROTHROMBIN TIME 12.5 SECONDS (12.5-14.5)
[2024-05-04 09:42] LABS: CREATININE, URINE 112.2 MG/DL
[2024-05-04 09:43] LABS: MALB URINE SIEMENS < 3.0 MG/L
[2024-05-04 09:44] LABS: ALBUMIN 3.6 G/DL (3.2-5.2); ALKALINE PHOSPHATASE 58 U/L (35-104); ALT/SGPT 19 U/L (7.0-40); AST/SGOT 20 U/L (<34); BILIRUBIN,TOTAL 0.6 MG/DL (0.3-1.2); BLOOD UREA NITROGEN 16 MG/DL (9-23); CALCIUM LEVEL 8.8 MG/DL (8.3-10.6); CARBON DIOXIDE LEVEL 28 MMOL/L (20-31); CHLORIDE LEVEL 99 MMOL/L (98-107); CHOLESTEROL LEVEL 131 MG/DL (<200); CHOLESTEROL RISK RATIO 2.83 (<5); CREATININE FOR GFR 0.57 MG/DL (0.55-1.30); GLOMERULAR FILTRATION RATE > 60.0 (>39); GLUCOSE, FASTING 107 MG/DL (74-106); HDL CHOLESTEROL 46.2 MG/DL (>40); HEMOGLOBIN A1c 5.4 % (4.0-6.0); LDL CHOLESTEROL 67.6 MG/DL (<100); NON-HDL-C 84.8 MG/DL; POTASSIUM SERUM 3.5 MMOL/L (3.5-5.1); SODIUM LEVEL 139 MMOL/L (136-145); TRIGLYCERIDES LEVEL 86 MG/DL (<150)
[2024-05-04 09:50] LABS: URIC ACID 5.9 MG/DL (3.1-7.8)
== END ==
LOC: M LAB 08:25
PROVIDERS: ATTEND Family Medicine
DX: M10.9 Gout, unspecified (principal); E11.9 Type 2 diabetes mellitus without complications; R23.3 Spontaneous ecchymoses

== ENCOUNTER → 2024-08-30 | Outpatient (REF) | payer MEDICARE ==
[~2024-08-30] MED LIST changes: +ACET500P3 PO; +ALEN70TA82
== END ==
LOC: M LAB REF 13:08
PROVIDERS: ATTEND Orthopaedic Surgery
DX: Z01.818 Encounter for other preprocedural examination (principal); M17.0 Bilateral primary osteoarthritis of knee

== ENCOUNTER → 2024-09-12 | Outpatient (CLI) | payer MEDICARE ==
[2024-09-12 09:11] LABS: BASO # 0.1 10^3/uL (0.0-0.2); BASO % 0.7 % (0.0-1.0); EOS # 0.1 10^3/uL (0.0-0.5); EOS % 1.4 % (0.0-3.0); LYMPH # 2.2 10^3/uL (1.5-5.0); LYMPH % 30.8 % (24.0-44.0); MONO # 0.6 10^3/uL (0.0-0.8); MONO % 8.5 % (2.0-8.0); NEUTROPHILS # 4.0 10^3/uL (1.5-8.5); NEUTROPHILS % 57.9 % (36.0-66.0); PLATELET COUNT, AUTOMATED 208 10^3/uL (150-450)
[2024-09-12 09:21] LABS: INR 0.95
[2024-09-12 09:37] LABS: ALT/SGPT 17 U/L (7.0-40); AST/SGOT 19 U/L (<34); C REACTIVE PROTEIN QUANTITATIV < 0.50 MG/DL (<1.0); CALCIUM LEVEL 9.2 MG/DL (8.3-10.6); CARBON DIOXIDE LEVEL 29 MMOL/L (20-31); CHLORIDE LEVEL 95 MMOL/L (98-107); CREATININE FOR GFR 0.58 MG/DL (0.55-1.30); GLOMERULAR FILTRATION RATE > 90.0 (>39); POTASSIUM SERUM 3.8 MMOL/L (3.5-5.1); SODIUM LEVEL 134 MMOL/L (136-145)
[2024-09-12 09:38] LABS: TOTAL 25(OH) VITAMIN D 16.5 NG/ML (20.0-100.0)
[2024-09-12 10:01] LABS: ESTIMATED AVERAGE GLUCOSE 123.0 MG/DL (60-110)
== END ==
LOC: M LAB 08:07
PROVIDERS: ATTEND Orthopaedic Surgery
DX: M17.0 Bilateral primary osteoarthritis of knee (principal)

== ENCOUNTER → 2024-11-16 | Outpatient (CLI) | payer MEDICARE ==
[~2024-11-16] MED LIST changes: -ALEN70TA82; +ALEN70TA82 PO; +IBUP200C29 PO
== END ==
LOC: M RAD 06:55
PROVIDERS: ATTEND Orthopaedic Surgery
DX: M17.12 Unilateral primary osteoarthritis, left knee (principal); M25.462 Effusion, left knee

== ENCOUNTER → 2024-11-19 | Outpatient (CLI) | payer MEDICARE ==
[2024-11-19 11:45] LABS: BASO # 0.1 10^3/uL (0.0-0.2); BASO % 0.8 % (0.0-1.0); EOS # 0.1 10^3/uL (0.0-0.5); EOS % 1.8 % (0.0-3.0); LYMPH # 2.6 10^3/uL (1.5-5.0); LYMPH % 42.3 % (24.0-44.0); MONO # 0.5 10^3/uL (0.0-0.8); MONO % 8.4 % (2.0-8.0); NEUTROPHILS # 2.8 10^3/uL (1.5-8.5); NEUTROPHILS % 46.0 % (36.0-66.0); PLATELET COUNT, AUTOMATED 186 10^3/uL (150-450)
[2024-11-19 12:08] LABS: CALCIUM LEVEL 8.5 MG/DL (8.3-10.6); CARBON DIOXIDE LEVEL 29 MMOL/L (20-31); CHLORIDE LEVEL 95 MMOL/L (98-107); CREATININE FOR GFR 0.55 MG/DL (0.55-1.30); GLOMERULAR FILTRATION RATE > 90.0 (>39); POTASSIUM SERUM 3.8 MMOL/L (3.5-5.1); SODIUM LEVEL 132 MMOL/L (136-145)
== END ==
LOC: M LAB 10:50
PROVIDERS: ATTEND Family Medicine
DX: Z01.818 Encounter for other preprocedural examination (principal)

== ENCOUNTER 2024-11-26 06:12 | Observation (INO) | payer MEDICARE ==
[~2024-11-26] VITALS: Ht 167.6 cm; Wt 81.4 kg
[2024-11-26] MEDS ORDERED: dexAMETHasone 4 MG/ML 1 ML VIAL As Ordered ONE (07:11)
[2024-11-26] MEDS ORDERED: ONDANSETRON 4MG 2ML VIAL As Ordered ONE (07:11)
[2024-11-26] MEDS ORDERED: MIDAZOLAM INJ 2 MG/2 ML VIAL As Ordered ONE (07:11)
[2024-11-26] MEDS ORDERED: KETOROLAC 30 MG/ML 1 ML VIAL As Ordered ONE (07:11)
[2024-11-26] MEDS ORDERED: LIDOCAINE 2% 100 MG/5 ML SDV (FOR ANES.) As Ordered ONE (07:11)
[2024-11-26] MEDS ORDERED: ACETAMINOPHEN 1000MG/100ML IV BAG As Ordered ONE (07:13)
[2024-11-26] MEDS ORDERED: ROPIVA 100MG/KETOR 15MG/EPINEPHRINE 0.3MG IN NS 50ML SYRINGE PA ONE (07:30)
[2024-11-26] MEDS ORDERED: LIDOCAINE PRES-FREE 2% 10 ML AMP As Ordered ONE (08:09)
[2024-11-26] MEDS: TRANEXAMIC ACID 100 MG/ML 10ML VIAL As Ordered ONE (08:15)
[2024-11-26] MEDS ORDERED: PHENYLephrine 500MCG 5ML (100MCG/ML) SYRINGE As Ordered ONE (08:37)
[2024-11-26] MEDS: ROPIVA 100MG/KETOR 15MG/EPINEPHRINE 0.3MG IN NS 50ML SYRINGE PA ONE (09:59)
[2024-11-26] MEDS ORDERED: ONDANSETRON 4MG 2ML VIAL IV PRN ×2 (10:10→10:45)
[2024-11-26] MEDS ORDERED: SENNA 8.6 MG TAB PO PRN (10:45)
[2024-11-26] MEDS: LR 1,000 ML IV SCH (10:45)
[2024-11-26] MEDS ORDERED: GLUCAGON INJ 1 MG VIAL SC PRN (10:50)
[2024-11-26] MEDS ORDERED: GLUCOSE 4 GM CHEW PO PRN (10:50)
[2024-11-26] MEDS ORDERED: DEXTROSE 50% 50 ML SYRINGE IV PRN (10:50)
[2024-11-26] MEDS: ROPIvacaine 0.5% 30ML VIAL PN ONE (11:15)
[2024-11-26] MEDS ORDERED: dexAMETHasone 10 MG/1 ML VIAL PRES.FREE As Ordered ONE (11:20)
[2024-11-26 12:00] VITALS: BP 126/69; TEMP 97; O2SAT 93
[2024-11-26] MEDS: dexAMETHasone 10 MG/1 ML VIAL PRES.FREE PN ONE (12:14)
[2024-11-26 12:30] VITALS: BP 129/67; TEMP 97; O2SAT 96
[2024-11-26] MEDS: INSULIN LISPRO (NovoLOG) PER UNIT SC SCH ×2 (12:39→21:00)
[2024-11-26] MEDS ORDERED: SYST1SOL OU (12:52)
[2024-11-26] MEDS ORDERED: ACET-841 PO (12:52)
[2024-11-26] MEDS ORDERED: HOME MED LIST COMPLETE! XX SCH (12:55)
[2024-11-26 14:00] VITALS: BP 132/68; TEMP 97; O2SAT 97
[2024-11-26] MEDS: ceFAZolin SODIUM 2 GM in DEXTROSE 5% (D5W) ADV/MINI-BAG 50 ML IV SCH (15:13)
[2024-11-26 15:30] VITALS: BP 136/69; TEMP 97.3; O2SAT 97
[2024-11-26 16:00] VITALS: BP 151/75; TEMP 97.2; O2SAT 95
[2024-11-26 17:00] VITALS: BP 130/67; TEMP 97.2; O2SAT 94
[2024-11-26] MEDS: ACETAMINOPHEN 325 MG TAB PO SCH (19:11)
[2024-11-26] MEDS: ASPIRIN 81 MG ENTERIC TABLET PO SCH (20:11)
[2024-11-26] MEDS: DOCUSATE SODIUM 100 MG CAPSULE PO SCH (20:11)
[2024-11-26] MEDS: ATORVASTATIN 20 MG TAB PO SCH (20:12)
[2024-11-27 01:15] VITALS: BP 134/71; TEMP 97.5; O2SAT 94
[2024-11-27 04:53] VITALS: BP 132/72; TEMP 97.5; O2SAT 96
[2024-11-27 08:28] LABS: PLATELET COUNT, AUTOMATED 159 10^3/uL (150-450)
[2024-11-27 08:53] LABS: ALT/SGPT 13 U/L (7.0-40); AST/SGOT 18 U/L (<34); CALCIUM LEVEL 8.3 MG/DL (8.3-10.6); CARBON DIOXIDE LEVEL 27 MMOL/L (20-31); CHLORIDE LEVEL 99 MMOL/L (98-107); CREATININE FOR GFR 0.59 MG/DL (0.55-1.30); GLOMERULAR FILTRATION RATE > 90.0 (>39); POTASSIUM SERUM 3.8 MMOL/L (3.5-5.1); SODIUM LEVEL 135 MMOL/L (136-145)
[2024-11-27] MEDS: FERROUS SULFATE 325 MG TAB PO SCH (09:00)
[2024-11-27] MEDS ORDERED: CEFD300CAP PO (09:18)
[2024-11-27] MEDS: CLOPIDOGREL 75 MG TAB PO SCH (10:15)
[2024-11-27 10:16] VITALS: BP 132/72
[2024-11-27] MEDS: LOSARTAN 25 MG TAB PO SCH (10:16)
[2024-11-27] MEDS: PANTOPRAZOLE 40MG TAB PO SCH (10:17)
[2024-11-27] MEDS: hydroCHLOROthiazide 25 MG TAB PO SCH (10:20)
[2024-11-27] MEDS: ASCORBIC ACID 500 MG TAB PO SCH (10:25)
[2024-11-27] MEDS ORDERED: CEFDINIR 300 MG CAP PO SCH (12:00)
== END 2024-11-27 10:55 | disposition home or self-care (01) ==
LOC: M SDC 06:12 → M RR INP 10:46 → M MS5PR 11:55
PROVIDERS: ADMIT Orthopaedic Surgery; ATTEND Orthopaedic Surgery
DX: M17.12 Unilateral primary osteoarthritis, left knee (principal); E11.9 Type 2 diabetes mellitus without complications; I10 Essential (primary) hypertension; E78.5 Hyperlipidemia, unspecified; I73.9 Peripheral vascular disease, unspecified; Z87.891 Personal history of nicotine dependence; Z85.038 Personal history of other malignant neoplasm of large intestine; K21.9 Gastro-esophageal reflux disease without esophagitis; Z86.73 Personal history of transient ischemic attack (TIA), and cerebral infarction without residual deficits; Z79.02 Long term (current) use of antithrombotics/antiplatelets; Z79.899 Other long term (current) drug therapy
CPT/HCPCS: 27447; 36415; 73560; 80053; 85027; 88300; 96365; 96366; 97110; 97116; 97161; 97165; 97530; C1776; G0378; J0131; J0665; J0688; J1100; J1815; J1885; J2371; J2405; J3010; S2900

== ENCOUNTER → 2024-12-07 | Outpatient (CLI) | payer MEDICARE ==
[~2024-12-07] MED LIST changes: +ACET-841 PO; +CEFD300CAP PO; +SYST1SOL OU
== END ==
LOC: M SOG 07:18
PROVIDERS: ATTEND Orthopaedic Surgery
DX: Z47.1 Aftercare following joint replacement surgery (principal)

== ENCOUNTER → 2024-12-26 | Outpatient (CLI) | payer MEDICARE | LOC: M RAD 14:47 | PROVIDERS: ATTEND Family Medicine | DX: I65.23 Occlusion and stenosis of bilateral carotid arteries (principal) ==

== ENCOUNTER → 2025-01-07 | Outpatient (CLI) | payer MEDICARE | LOC: M RAD 12:45 | PROVIDERS: ATTEND Nurse Practitioner Family | DX: C34.11 Malignant neoplasm of upper lobe, right bronchus or lung (principal) ==

== ENCOUNTER → 2025-01-31 | Outpatient (CLI) | payer MEDICARE | LOC: M SOG 07:32 | PROVIDERS: ATTEND Orthopaedic Surgery | DX: Z47.1 Aftercare following joint replacement surgery (principal); Z96.652 Presence of left artificial knee joint; M85.862 Other specified disorders of bone density and structure, left lower leg ==